=== PATIENT | female | born 1975 | race Caucasian/White ===

== ENCOUNTER 2023-04-29 10:35 | Outpatient (OUT) | payer OTHER, SELFPAY ==
--- NOTE | 2023-04-29 10:38 | XR_ITS ---
The [address] [address] Patient Name: KIMBERLY MOYA MRN: [id number] date: 1975 Sex: F Assigned Patient Location: [facility] Current Patient Location: Accession/Order Number: [id number] Exam Date: 04/29/2023 10:40 Report Date: 05/02/2023 20:56 At the request of: DILIP COVARRUBIAS Procedure: XR abdomen 1V EXAMINATION: XR abdomen 1V HISTORY: Right Flank Pain COMPARISON: No relevant comparison available. FINDINGS: KIDNEY/URETER - RIGHT: 4 mm stone projecting over right kidney. KIDNEY/URETER - LEFT: No visible renal or ureteral calcifications. PELVIS: No convincing ureteral stones. 2 mm calcification between left transverse process of L4-L5, slightly more medial than expected for the ureter; phleboliths versus mid ureteral stone. A few tiny punctate calcifications within the pelvis suspected represent phleboliths. BOWEL: No abnormal dilation or deviation. BONES: No acute abnormality. OTHER: Negative. No abnormal gaseous collections. XR/XR abdomen 1V IMPRESSION: 1. Right nephrolithiasis. 2. No right ureteral stones (history states right flank pain). 3. Additional calcifications described above are suspected to represent phleboliths. If there remains clinical concern CT imaging of the abdomen pelvis with IV contrast would provide greater diagnostic sensitivity. Electronically authenticated by: ZANDER SEXTON Date: 05/02/2023 20:56
== END 2023-04-29 10:36 | disposition home or self-care (01) ==
LOC: RAD 10:35
PROVIDERS: PCP Nurse Practitioner; Visit Provider Nurse Practitioner
DX: R10.31 Right lower quadrant pain (principal); N20.0 Calculus of kidney
CPT/HCPCS: 74018

== ENCOUNTER 2023-05-20 10:34 | Outpatient (OUT) | payer OTHER, SELFPAY ==
--- OUTSIDE RECORDS SUMMARY | 2023-05-20 10:40 | XMS_ITS | CCD ---
Author Name Unknown Address [address] [place] [address] Organization [facility] Care Team Providers Care Certified Recreational Therapist Name Role Phone Jg Green Primary Care Physician [phone] Dalton Medel Primary Care Physician Renata Medel Primary Care Physician [phone] Chantel Wyman Primary Care Physician Nadya Benito Referring Unavailable Nadya Benito Attending Unavailable Nadya Benito J Admitting Unavailable Zamzam, UNHAIRER Chantel L Attending Unavailable Zamzam, UNHAIRER Chantel L Attending Unavailable Rieddana, Yasmine D Attending Unavailable Rieddana Yasmine D Attending Unavailable Orzech Winter X Attending Unavailable Zamzam, UNHAIRER Chantel L Referring Unavailable Jigna, Nadya J Attending Unavailable Jigna, Nadya J Admitting Unavailable Zamzam, UNHAIRER Chantel L Attending Unavailable Zamzam, UNHAIRER Chantel L Admitting Unavailable Zamzam, UNHAIRER Chantel L Attending Unavailable Zamzam, UNHAIRER Chantel L Admitting Unavailable Zamzam, UNHAIRER Chantel L Admitting Unavailable Zamzam, UNHAIRER Chantel L Attending Unavailable Riedy, Yasmine D Admitting Unavailable Riedy, Yasmine D Attending Unavailable Riedy, Yasmine D Attending Unavailable Riedy, Yasmine D Admitting Unavailable Jigna, Nadya J Admitting Unavailable Jigna, Nadya J Referring Unavailable JignaDeniseNadya J Attending Unavailable Allergies Allergy Classification Reported Allergen(s) Allergy Type Date of Onset Reaction(s) Facility (13 sources) Chlorhexidine; Translations: [chlorhexidine topical] Drug Allergy [facility] Work Phone: (13 sources) Contrast media; Translations: [Contrast Dye] Drug allergy Unknown (qualifier value) [facility] Work Phone: (13 sources) Penicillins; Translations: [penicillins] Drug allergy RASH [facility] Work Phone: Medications Current Medications Medication Drug Class(es) Dates Sig (Normalized) Sig (Original) fluticasone propionate 0.05 mg/actuat metered dose nasal spray (1 source) Corticosteroid Start: 04-21-2022 take 1 spray(s) nasal route twice daily Flonase 0.05 mg/inh [place] 1 spray(s), Nasal, BID, 16 gram, Refill(s) 0, each nostril, [facility], 174, cm, 04/21/22 15:08:00 EST, Height/Length Dosing, 67.9, kg, 04/21/22 15:08:00 EST, Weight Dosing Start Date: 04/21/22 Status: Ordered Folic Acid (8 sources) Start: 10-23-2021 folic acid Daily, Refills(s) 0 Start Date: 10/23/21 Status: Ordered hydrOXYzine hydrochloride 10 mg oral tablet (12 sources) Antihistamine Start: 09-21-2022 take 1 tablet by mouth three times daily as needed for anxiety hydrOXYzine hydrochloride 10 mg Tab 10 mg = 1 tab(s), Oral, TID, PRN for anxiety, # 30 tab(s), Refills(s) 0, Pharmacy: [facility], 174, cm, 08/09/22 15:52:00 EDT, Height/Length Dosing, 71.4, kg, 08/09/22 15:52:00 EDT, Weight Dosing Start Date: 09/21/22 Status: Ordered Start: 09-15-2021 take 1 tablet by michael th three times daily as needed for anxiety hydrOXYzine hydrochloride 10 mg Tab 10 mg = 1 tab(s), Oral, TID, PRN for anxiety, # 30 tab(s), Refills(s) 0, Pharmacy: [facility], 174, cm, 06/22/21 17:30:00 EST, Height/Length Dosing, 65.5, kg, 06/22/21 17:30:00 EST, Weight Dosing Start Date: 09/15/21 Status: Ordered ibuprofen 800 mg oral tablet (8 sources) Nonsteroidal Anti-inflammatory Drug Start: 08-09-2022 take 1 tablet by mouth three times daily ibuprofen 800 mg Tab 800 mg = 1 tab(s), Oral, TID, # 90 tab(s), Refills(s) 0, Pharmacy: [facility], 174, cm, 08/09/22 15:52:00 EDT, Height/Length Dosing, 71.4, kg, 08/09/22 15:52:00 EDT, Weight Dosing Start Date: 08/09/22 Status: Ordered Mucinex DM 30 mg-600 mg Tab-ER (1 source) Start: 04-21-2022 End: 04-28-2022 take 1 tablet by mouth every twelve hours Mucinex DM 30 mg-600 mg Tab-ER 1 tab(s), Oral, q12hr Congestion for 7 day(s), 14 tab(s), Refill(s) 0, [facility], 174, cm, 04/21/22 15:08:00 EST, Height/Length Dosing, 67.9, kg, 04/21/22 15:08:00 EST, Weight Dosing Start Date: 04/21/22 Stop Date: 04/28/22 Status: Ordered nitrofurantoin, macrocrystals 25 mg / nitrofurantoin, monohydrate 75 mg oral capsule (2 sources) Nitrofuran Antibacterial Start: 05-04-2023 End: 05-11-2023 take 1 capsule by mouth twice daily nitrofurantoin macrocrystals-mono hydrate 100 mg Cap 100 mg = 1 cap(s), Oral, BID, X 7 day(s), # 14 cap(s), Refills(s) 0, Pharmacy: [facility]/pharmacy #[id number], 174, cm, 05/04/23 10:55:00 EST, Height/Length Dosing, 71.8, kg, 05/04/23 10:55:00 EST, Weight Dosing Start Date: 05/04/23 Stop Date: 05/11/23 Status: Ordered Vitamin C 500 mg Tab (12 sources) Start: 04-21-2020 take 1 tablet by mouth once daily Vitamin C 500 mg Tab 500 mg = 1 tab(s), Oral, Daily, Refills(s) 0 Start Date: 04/21/20 Status: Ordered Vitamin D (12 sources) Start: 06-09-2015 take 5000 [IU] by mouth once daily Vitamin D See Instructions, 5000 units po daily, Refills(s) 0, Prophylaxis Start Date: 06/09/15 Status: Ordered Problems Active Problems Problem Classification Problem Date Documented Da te Episodic/Chronic Abdominal pain (8 sources) Right flank pain; Translations: [Flank pain] 08-17-2022 Episodic Anxiety disorders (20 sources) Anxiety; Translations: [Generalized anxiety disorder] Onset: 2 04-24-2019 Chronic Calculus of urinary tract (4 sources) History of calculus of kidney; Translations: [Kidney stone] 04-15-2023 Episodic Disorders of lipid metabolism (5 sources) Hyperlipidemia; Translations: [Hyperlipidemia, unspecified] Onset: 3 Chronic Esophageal disorders (13 sources) Gastroesophageal reflux disease; Translations: [Gastroesophageal reflux disease without esophagitis] Onset: 2 04-24-2019 Chronic Genitourinary symptoms and ill-defined conditions (2 sources) Blood in urine 05-04-2023 Episodic Headache; including migraine (12 sources) Migraine 06-07-2014 Chronic Comment on above: WITH MENSES Other ear and sense organ disorders (12 sources) Otalgia 11-06-2020 Episodic Other female genital disorders (12 sources) Dysplasia of cervix 05-28-2014 Episodic Other gastrointestinal disorders (1 source) Other constipation; Translations: [Other constipation] Onset: 3 Episodic Other gastrointestinal disorders (8 sources) Chronic constipation 08-09-2022 Episodic Other non-traumatic joint disorders (2 sources) Pain of left hip joint; Translations: [Pain in left hip] Onset: 3 Episodic Other non-traumatic joint disorders (3 sources) Pain in right hip joint; Translations: [Pain in right hip] Onset: 3 Episodic Other non-traumatic joint disorders (16 sources) Hip pain 08-09-2022 Episodic Other upper respiratory disease (10 sources) Nasal congestion; Translations: [Nasal congestion] Onset: 2 Episodic Other upper respiratory infections (12 sources) Acute upper respiratory infection 11-06-2020 Episodic Residual codes; unclassified (3 sources) Body mass index 20-24 - normal; Translations: [Body mass index (BMI) 22.0-22.9, adult] Onset: 2 Episodic Residual codes; unclassified (2 sources) Patient encounter status; Translations: [Other specified health status] Onset: 2 Episodic Spondylosis; intervertebral disc disorders; other back problems (20 sources) Low back pain; Translations: [Lumbar radiculopathy] Onset: 3 04-21-2020 Episodic Unclassified (12 sources) History of SARS-CoV-2 05-27-2021 Unclassified (20 sources) Patient encounter status 10-23-2021 Past or Other Problems Problem Classification Problem Date Documented Da te Episodic/Chronic Other inflammatory condition of skin (12 sources) Itching of eye Resolved: 01-25-2019 04-05-2019 Episodic Unclassified (12 sources) Body mass index 20-24 - normal 11-06-2020 Results Test Name Value Interpretation Reference Range Facility Chlamydia/Gonococcus, NAAon 05-07-2023 C. trachomatis rRNA JUAN PABLO+probe Ql (Unsp spec) Negative Invalid Interpretation Code Negative [facility] Comment on above: Performed By: #### 1 [id number] ####[facility] [id number] [place] [address] N. gonorrhoeae rRNA JUAN PABLO+probe Ql (Unsp spec) Negative Invalid Interpretation Code Negative [facility] Comment on above: Result Comment: [facility] at: [facility] [address], [place] [id number] MD Brandon Rivera Performed By: #### 1 [id number] ####[facility] [id number] [place] [address] C Urineon 05-06-2023 Bacteria identified Cx Nom (U) Microbiology PROCEDURE: Urine Culture [R1] SOURCE: U CleanCatch BODY SITE: COLLECTED DATE/TIME: 05/04/2023 11:10 EST RECEIVED DATE/TIME: 05/04/2023 22:10 EST START DATE/TIME: 05/04/2023 22:10 EST FREE TEXT SOURCE: Chantel Mendes, Chantel Stallings FINAL REPORTS Final Report [] Verified Date/Time: 05/06/2023 09:53 EST 6,000 cfu/ml Mixed skin contaminants Performing Locations R1: This test was performed at: [facility], [address] [place] [address], [id number]- , [place], Normal [facility] Comment on above: Performed By: #### 2 [id number] ####[facility] [id number] [place] [address] Family Medicine Office/Clini c Noteon 05-04-2023 Family Medicine Office/Clinic Note HPI Staff Kimberly is a 47 year old female presenting for acute UTI symptoms Dysuria: Onset: today Symptoms: pressure, burning OTC used: Azo Last UTI: 1 year ago Hx of kidney stones: no UA in office documented in chart pt did take Azo this morning History of Present Illness pt presents today with dysuria that woke her up last night Review of Systems PHQ Score Initial Depression Screen Score: 0 SCORE ROS - Provider Constitutional: no fever, no chills, no sweats, no fatigue Respiratory: no shortness of breath, no cough, no orthopnea, no wheezing. Cardiovascular: no chest pain, no palpitations, no edema. Neurologic: no headache, no dizziness, no numbness, no weakness. Physical Exam Vitals & Measurements T: 36.8 ?C(Tympanic) HR: 80(Peripheral) RR: 18 BP: 100/70 SpO2: 99% HT: 69 in HT: 174 cm WT: 71.8 kg WT: 157.96 lb BMI: 23.72 General: alert, no acute distress ENMT: oral mucosa moist, no pharyngeal erythema or exudate Cardiovascular: regular rate and rhythm, normal peripheral perfusion Respiratory: Lungs CTA, respirations non labored Extremities: no deformity, no trauma Neurological: oriented x 4, LOC appropriate for age, CN II-XII intact, motor strength equal & normal bilaterally, speech normal Assessment/Plan 1. UTI symptoms (R39.9: Unspecified symptoms and signs involving the genitourinary system) pt presents today for bladder pressure and dysuria. took azo in the middle of the night. recently had KUB and has 4mm stone on right side. will treat with macrobid and refer to urology. all questions answered. Ordered: Chlamydia/Gonococcus, JUAN PABLO [facility] [place] Ambulatory Referral Urine Culture Urine Culture Urnls Dip Stick Auto w/o Microscopy POC 70641 Urnls Dip Stick Auto w/o Microscopy POC 71344 2. Kidney stone on right side (N20.0: Calculus of kidney) reviewed KUB results. will refer to urology Ordered: [facility] Internal Ambulatory Referral 3. Hematuria (R31.9: Hematuria, unspecified) u/a + for blood Ordered: [facility] Internal Ambulatory Referral Orders: nitrofurantoin, 100 mg = 1 cap(s), Oral, BID, X 7 day(s), # 14 cap(s), Refills(s) 0, Pharmacy: [facility]/pharmacy #[id number], 174, cm, 05/04/23 10:55:00 EST, Height/Length Dosing, 71.8, kg, 05/04/23 10:55:00 EST, Weight Dosing Follow-up No qualifying data available Problem List/Past Medical History Ongoing Acid reflux Annual physical exam Anxiety Cervical dysplasia Chronic constipation Dyslipidemia Flank pain Generalized anxiety disorder Hematuria Hip pain, bilateral History of 2019 novel coronavirus disease (COVID-19) History of kidney stones Kidney stone on right side Lumbar back pain with radiculopathy affecting left lower extremity Lumbar back pain with radiculopathy affecting right lower extremity Migraines Nasal congestion Panic attacks Physical exam Right flank pain Right hip pain Historical Acute URI BMI 24.0-24.9, adult Ear pain, right Itchy eyes Procedure/Surgical History Colonoscopy (06/30/2018), Endoscopy (06/30/2018), Esophagogastroduodenoscopy (06/2018), bilateral salpingectomy for sterilization (11/15/2014), loop electrosurgical excision procedure conization and endocervical curettage (06/07/2014), Cone biopsy (2014), Dental extraction hemorrhage control, None, Tooth extraction, Tooth extraction, complete upper. Medications hydrOXYzine hydrochloride 10 mg Tab, 10 mg= 1 tab(s), Oral, TID, PRN ibuprofen 800 mg Tab, 800 mg= 1 tab(s), Oral, TID nitrofurantoin macrocrystals-monohydrate 100 mg Cap, 100 mg= 1 cap(s), Oral, BID Vitamin C 500 mg Tab, 500 mg= 1 tab(s), Oral, Daily Vitamin D, See Instructions Allergies Contrast Dye (Unknown) chlorhexidine topical penicillins (RASH) Social History Alcohol - Denies Alcohol Use, 01/08/2011 Substance Abuse - Denies Substance Abuse, 01/08/2011 Tobacco - Denies Tobacco Use, 12/04/2020 Never (less than 100 in lifetime) Tobacco Use:. Never Smokeless Tobacco Use:. Household tobacco concerns: No., 05/04/2023 Family History Afib: Father. Diabetes mellitus type 2: Mother. Hypertension: Father. Immunizations Vaccine Date Status Comments influenza virus vaccine, inactivated - Not Given Postpone due to refusal influenza virus vaccine, inactivated - Not Given Patient Refuses diphtheria/pertussis, acel/tetanus adult 02/17/2012 Recorded Lab Results Ambulatory Point of Care Results Bilirubin Urine Dipstick: Negative (05/04/23 10:58:00) Blood Urine Dipstick: Trace-intact (05/04/23 10:58:00) Glucose Urine Dipstick: Negative (05/04/23 10:58:00) Ketones Urine Dipstick: Negative (05/04/23 10:58:00) Leukocytes Urine Dipstick: 1+ Small (05/04/23 10:58:00) Nitrite Urine Dipstick: Negative (05/04/23 10:58:00) Protein Urine Dipstick: Negative (05/04/23 10:58:00) Specific [place] Urine Dipstick: 1.010 (05/04/23 10:58:00) Urine Appearance Urine Dipstick: Clear (05/04/23 10:58:00) Urine Color Urine Dipstick: Yellow (05/04/23 10 (more content not included)... Normal [facility] Comment on above: Result Comment: Elec tronically Signed By: Chantel Mendes\.josiah\Date and Time Signed: 05/04/23 12:35 EST RAD - MISCon 05-04-2023 RAD - MISC [id number] [facility] C Urineon 04-17-2023 Bacteria identified Cx Nom (U) Microbiology PROCEDURE: Urine Culture [R1] SOURCE: U CleanCatch BODY SITE: COLLECTED DATE/TIME: 04/15/2023 11:56 EST RECEIVED DATE/TIME: 04/15/2023 18:35 EST START DATE/TIME: 04/15/2023 18:35 EST FREE TEXT SOURCE: Chantel Mendes Jodi L FINAL REPORTS Final Report [] Verified Date/Time: 04/17/2023 07:30 EST 1,000 cfu/ml Mixed skin contaminants Performing Locations R1: This test was performed at: [facility], [address] [place] [address], 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1975 Visit Date:04/15/2023 Ambulatory Visit Instructions Your Diagnosis Anxiety BMI 23.0-23.9, adult Non-smoker Your Care Team Attending Physician - Chantel Mendes Primary Care Physician - Renata Medel MD This Is Your Medications List ascorbic acid (Vitamin C 500 mg Tab) ergocalciferol (Vitamin D) hydrOXYzine (hydrOXYzine hydrochloride 10 mg Tab) ibuprofen (ibuprofen 800 mg Tab) Procedures Performed Colonoscopy (06/30/2018), Endoscopy (06/30/2018), Esophagogastroduodenoscopy (06/2018), bilateral salpingectomy for sterilization (11/15/2014), loop electrosurgical excision procedure conization and endocervical curettage (06/07/2014), Cone biopsy (2014), Dental extraction hemorrhage control, None, Tooth extraction, Tooth extraction, complete upper. Discharge Vitals Heart Rate (Peripheral) 76 Respiratory Rate 18 Blood Pressure 100/72 Height 174 cm Height 69 in Weight 71.4 kg Weight 157.08 lb BMI 23.58 Medications What How Much When Why Instructions Unchanged ascorbic acid (Vitamin C 500 mg Tab) 1 Tablets By Mouth Every day Unchanged ergocalciferol (Vitamin D) See instructions 5000 units po daily Unchanged hydrOXYzine (hydrOXYzine hydrochloride 10 mg Tab) 1 Tablets By Mouth 3 times a day as needed for for anxiety MARYAM (generalized anxiety disorder) Unchanged ibuprofen (ibuprofen 800 mg Tab) 1 Tablets By Mouth 3 times a day Lumbar back pain with radiculopathy affecting right lower extremity Right hip pain Allergies Contrast Dye (Unknown) chlorhexidine topical penicillins (RASH) Problems Ongoing - Any problem that you are currently receiving treatment for. Acid reflux Annual physical exam Anxiety Cervical dysplasia Chronic constipation Dyslipidemia Generalized anxiety disorder Hip pain, bilateral History of 2019 novel coronavirus disease (COVID-19) Lumbar back pain with radiculopathy affecting left lower extremity Lumbar back pain with radiculopathy affecting right lower extremity Migraines Nasal congestion Panic attacks Physical exam Right flank pain Right hip pain Historical - Any problem that you are no longer receiving treatment for. Acute URI BMI 24.0-24.9, adult Ear pain, right Itchy eyes Patient Survey You may receive a survey via text or e-mail asking about your office visit. Please share your experience with us by completing your survey. We appreciate your feedback and thank you for choosing us for your care. Normal [facility] Family Medicine Office/Clini c Noteon 04-15-2023 Family Medicine Office/Clinic Note HPI Staff Kimberly is a 47 year old female presenting to [facility] care Establish Care: History: Any previous diagnosis: Gerd, Anxiety, Migraines History of seeing any specialist: n/a When was your last doctors visit: Last provider: Dr Yanez Any recent labs: 10/15/22 Health Maintenance UTD: Colonoscopy: 2019 Dr mcmanus in [place], negative Mammogram: 10/2022 negative Pelvic/Pap: 10/2022 negative MARYAM: 19 Acute: Current issues/complaints: Right sided intermittent flank pain onset pt states 6-8 months. Pt has had x-rays done in 07/2022 and then had US in 09/2022. She was told she had a possible kidney stone with her lumbosacral x-ray. Pt states she has no idea if she passed that or not. Pt states in the last 2 weeks she will have intermittent left sided chest aching. She has recently bought a new house and works to jobs and feels like it the start of anxiety attacks and she will keep doing what she is doing and it will go away within a few minutes. History of Present Illness pt presents today with right flank pain. just recently moved to [place] so would like to be established here Review of Systems PHQ Score Initial Depression Screen Score: 0 SCORE ROS - Provider Constitutional: no fever, no chills, no sweats, no fatigue Respiratory: no shortness of breath, no cough, no orthopnea, no wheezing. Cardiovascular: no chest pain, no palpitations, no edema. Neurologic: no headache, no dizziness, no numbness, no weakness. Physical Exam Vitals & Measurements HR: 76(Peripheral) RR: 18 BP: 100/72 SpO2: 99% HT: 69 in HT: 174 cm WT: 71.4 kg WT: 157.08 lb BMI: 23.58 General: alert, no acute distress ENMT: oral mucosa moist, no pharyngeal erythema or exudate Cardiovascular: regular rate and rhythm, normal peripheral perfusion Respiratory: Lungs CTA, respirations non labored Extremities: no deformity, no trauma Neurological: oriented x 4, LOC appropriate for age, CN II-XII intact, motor strength equal & normal bilaterally, speech normal Assessment/Plan 1. Anxiety (F41.9: Anxiety disorder, unspecified) pt states she has been having a little more anxiety lately. With occasional chest tightness. but it only lasts a few seconds. discussed starting her on a daily anti anxiety med instead of using hydroxyzine as needed. pt does not like to take pills and would rather not do that at this time. Ordered: Urnls Dip Stick Auto w/o Microscopy POC 74236 2. Flank pain (R10.9: Unspecified abdominal pain) pt states she has been having this right sided flank pain for months. she has had x ray MRI, did PT and Pain management. she was told she had a kidney stone at one time, but isn't sure if she ever passed it. KUB ordered to be done at [facility]. No blood in u/a today. Ordered: Urine Culture 3. History of kidney stones (Z87.442: Personal history of urinary calculi) KUB and u/s with culture ordered 4. BMI 23.0-23.9, adult (Z68.23: Body mass index [BMI] 23.0-23.9, adult) BMI education complete Ordered: Urnls Dip Stick Auto w/o Microscopy POC 95545 5. Non-smoker (Z78.9: Other specified health status) continue not smoking Ordered: Urnls Dip Stick Auto w/o Microscopy POC 89459 Follow-up No qualifying data available Problem List/Past Medical History Ongoing Acid reflux Annual physical exam Anxiety Cervical dysplasia Chronic constipation Dyslipidemia Flank pain Generalized anxiety disorder Hip pain, bilateral History of 2019 novel coronavirus disease (COVID-19) History of kidney stones Lumbar back pain with radiculopathy affecting left lower extremity Lumbar back pain with radiculopathy affecting right lower extremity Migraines Nasal congestion Panic attacks Physical exam Right flank pain Right hip pain Historical Acute URI BMI 24.0-24.9, adult Ear pain, right Itchy eyes Procedure/Surgical History Colonoscopy (06/30/2018), Endoscopy (06/30/2018), Esophagogastroduodenoscopy (06/2018), bilateral salpingectomy for sterilization (11/15/2014), loop electrosurgical excision procedure conization and endocervical curettage (06/07/2014), Cone biopsy (2014), Dental extraction hemorrhage control, None, Tooth extraction, Tooth extraction, complete upper. Medications hydrOXYzine hydrochloride 10 mg Tab, 10 mg= 1 tab(s), Oral, TID, PRN ibuprofen 800 mg Tab, 800 mg= 1 tab(s), Oral, TID Vitamin C 500 mg Tab, 500 mg= 1 tab(s), Oral, Daily Vitamin D, See Instructions Allergies Contrast Dye (Unknown) chlorhexidine topical penicillins (RASH) Social History Alcohol - Denies Alcohol Use, 01/08/2011 Substance Abuse - Denies Substance Abuse, 01/08/2011 Tobacco - Denies Tobacco Use, 12/04/2020 Never (less than 100 in lifetime) Tobacco Use:. Never Smokeless Tobacco Use:. Household tobacco concerns: No., 04/15/2023 Family History Afib: Father. Diabetes mellitus type 2: Mother. Hypertension: Father. Immunizations Vaccine Date Status Comments influenza virus vaccine, inactiv (more content not included)... Normal [facility] Comment on above: Result Comment: Elec tronically Signed By: Chantel Mendes\.josiah\Date and Time Signed: 04/15/23 12:41 EST Physician Orderon 04-15-2023 Physician Order [id number] Normal [facility] MA Mamm Screen w/CAD if perf ormed bilaton 12-15-2022 MA Mamm Screen w/CAD if performed bilat Exam Date/Time: 12/10/2022 13:55 EDT Reason for Exam: SCREENING Report IMPRESSION: BIRADS 2 BENIGN FINDINGS, NORMAL INTERVAL FOLLOW-UP Follow-up: 12 MONTH RECALL Density: Heterogeneously dense. Vascular calcifications: No. EXAM: MA Mamm Screen w/CAD if performed bilat DATE: 12/10/2022 CLINICAL HISTORY: SCREENING. COMPARISONS: 10/23/2021, 10/21/2020, and 06/10/2018. TECHNIQUE: Routine full-field digital mammograms of both breasts were obtained. FINDINGS: There are no developing masses, suspicious microcalcifications, or areas of architectural distortion identified on the current study. No significant changes are identified from the prior studies, given differences in technique and positioning. Stable asymmetry lateral left breast at an anterior to middle depth on the CC view. Dense Breast: Yes. CAD analysis was performed and used in the interpretation. Board Certified Radiologists. Accredited by the ACR and FDA. MAMMOGRAPHY IS VERY IMPORTANT TO YOUR HEALTH. THE CURRENT [employer] GUIDELINES RECOMMENDS ANNUAL MAMMOGRAPHY BEGINNING AT AGE 40. THIS FACILITY UTILIZES A REMINDER SYSTEM TO ENSURE ALL PATIENTS RECEIVE REMINDER NOTIFICATIONS AT THE APPROPRIATE TIME BASED ON THE RECOMMENDATIONS OF THIS EXAM. Report Ordering Provider: Nadya Benito FINAL REPORT Dictated: 12/15/2022 3:13 am Ambrosio Thakur MD Signed (Electronic Signature): 12/15/2022 3:13 am Signed by: Ambrosio Thakur MD Transcribed by: JEFFREY Technologist: [facility] Assessment: BI-RADS Category 2-Benign finding Recommendation: Normal interval follow-up Normal [facility] Consent for Treatmenton 11-30 Consent for Treatment [id number]:127 Normal [facility] Family Medicine Office/Clini c Noteon 10-27-2022 Family Medicine Office/Clinic Note Chief Complaint Physical HPI Staff Pt is here to do physical and lab review Concerns:Cholestrol levels are elevated Refills:No PHQ9:10 MARYAM: 20 Health Maintenance: Colonoscopy: 2019- normal- [facility] Pap:2020 Last Labs:10/22/2022 History of Present Illness HISTORY OF PRESENT ILLNESS Kimberly Bruner is a 47-year-old female who presents today for a physical and review of labs. I met the patient on 07/2022. At that time, she was having some hip pain. X-rays and blood work were done at that time. Those results are detailed below. Paperwork for a routine physical was brought in today to be completed, signed, and scanned in the chart, with the original copy given back to the patient. Her cholesterol is slightly elevated compared to last year. She does not like fish and nuts and is asking if she can try omega-3 supplements. She denies trying fish oil supplements before. She is unhappy with her current weight and complains of abdominal weight gain. She questions if this is due to aging. She goes on walks every day and does not eat as much during the summer. She typically eats a lot of sugar and junk food but has been trying to eat more fruits and vegetables and limit her sugar intake. Her sugars and thyroid were within normal range. WOUND/OSTOMY CLINICAL NURSE SPECIALIST recently did hormonal blood work and an ultrasound of her uterus, and she told her that she might be getting close to menopause. She has a follow up appointment with WOUND/OSTOMY CLINICAL NURSE SPECIALIST specialist on , 10/28/2022. She takes Metamucil every other day. She gets diarrhea if she takes it daily. Her back pain and hip pain have not improved. She still has pain in her lower right side by her hip, but no flank pain. Her pain worsens with certain activities, such as lifting and doing sit-ups. She has been lifting more at work. Her x-rays showed some arthritis and a possible kidney stone on the right side. She denies ever having a kidney stone. Her anxiety has become more intense, and she worries about everything. She does not like to rely on her anxiety medication because she does not like to take medication. Last week, she went for two walks in one day to ease her anxiety. She denies any chest pain or pressure, unless anxiety related. She underwent colorectal cancer screening in [address] Page in [place]. Her results were normal. Review of Systems PHQ Score Initial Depression Screen Score: 2 All negative except as noted in the HPI. Physical Exam Vitals & Measurements HR: 72(Peripheral) BP: 118/76 SpO2: 100% HT: 69 in HT: 174 cm WT: 71.1 kg WT: 156.42 lb BMI: 23.48 Patient is alert and oriented to person place and time. Appears to be well-nourished. Normal affect. Neck is supple no adenopathy noted. No enlarged thyroid detected. Heart sounds are normal without murmur, gallop or rub. Heart rate and rhythm normal. Lung sounds clear to auscultation. No chest wall pain noted. Normal respiratory effort without use of accessory muscles. Bowel sounds are normal to auscultation in all 4 quadrants. No abdominal tenderness noted. No masses, guarding or rebound. No edema noted to bilateral lower extremities. Posterior tibial pulses palpable. Assessment/Plan Reviewed x-rays and labs from 07/2022. X-rays show a possible kidney stone on the right side and some degenerative back changes. Her blood test results were overall unremarkable with a normal CBC with differential. General chemistry was within normal range, but her lipid panel showed an elevated LDL of 136 mg/dL, HDL of 63 mg/dL, total cholesterol of 223 mg/dL, and total triglycerides of 97 mg/dL. Her alkaline phosphatase was a little elevated at 109 IU/L, which is down from 118 IU/L last year. Total protein levels were mildly on the high side. 1. Annual physical exam (Z00.00: Encounter for general adult medical examination without abnormal findings) Findings are normal overall today. Reviewed most recent blood test results with stable findings other than an elevated cholesterol. See below. 2. Anxiety (F41.9: Anxiety disorder, unspecified) Discussed recommendations for destressing techniques, such as deep breathing exercises, CBT, and finding time for herself every day, as well as the importance of stress reduction in general health overall. She verbalizes understanding. She is encouraged to take her medication for anxiety when needed and requests refills when needed. We discussed the role that stress can play in general health, as well as weight gain. She does have a family history of heart issues and wants to ensure that she is healthy overall. Discussed the need for decreasing functioning stress levels to help ensure this. 3. Generalized anxiety disorder (F41.1: Generalized anxiety disorder) Discussed recommendations for destressing techniques, such as deep breathing exercises, CBT, and finding time for herself every day, as well as the importance of stress reduction in general health overall. She verbalizes understanding. She is encouraged to take her medication for anxiety (more content not included)... Normal [facility] Comment on above: Result Comment: Elec tronically Signed By: Yasmine Dukes CNP\.br\Date and Time Signed: 10/27/22 17:43 EDT\.br\Electronically Co-Signed By: Chiquita Phipps\.br\Date and Time Co-Signed: 10/26/22 14:59 EDT Formson 10-26-2022 Forms [id number]#[id number]:127 Normal [facility] US Pelvis Non-OB Completeon 10-26-2022 US Pelvis Non-OB Complete Exam Date/Time: 10/22/2022 16:03 EDT Reason for Exam: N93.8 Other specified abnormal uterine and vaginal bleeding Report IMPRESSION: NEGATIVE ULTRASOUND OF THE PELVIS. EXAM: US Pelvis Non-OB Complete DATE: 10/22/2022 CLINICAL HISTORY: N93.8 Other specified abnormal uterine and vaginal bleeding. COMPARISON: None available. TECHNIQUE: Transabdominal ultrasound was performed of the pelvis. FINDINGS: The study is mildly limited by the patient's body habitus. The uterus is anteverted and mildly anteflexed in position, and otherwise unremarkable in appearance. Both ovaries appear within normal limits for the patient's age group. Equivalent blood flow is noted to both ovaries on Doppler analysis. There is no significant free fluid, abnormal adnexal masses, or other findings of concern identified. The uterine measurements and estimated volume: Uterus Length: 9.7 cm Uterus Width: 5.6 cm Uterus Height: 3.7 cm Uterus Volume: 106.1 cm3 Endometrium Thickness: 0.3 cm The right ovary measurements and estimated volume: Right Ovary Length: 3.1 cm Right Ovary Width: 2.7 cm Right Ovary Height: 1.8 cm Right Ovary Volume: 7.8 cm3 The left ovary measurements and an estimated volume are: Report Left Ovary Length: 2.2 cm Left Ovary Width: 2.1 cm Left Ovary Height: 1.8 cm Left Ovary Volume: 4.3 cm3 Ordering Provider: Nadya Benito FINAL REPORT Dictated: 10/26/2022 5:44 am Ambrosio Thakur MD Signed (Electronic Signature): 10/26/2022 5:44 am Signed by: Ambrosio Thakur MD Transcribed by: JEFFREY Technologist: [facility] Technical Comments Transabdominal Ultrasound Performed Uterus Position Anteverted Normal [facility] FSH and LHon 10-24-2022 Follitropin Qn 9.4 m[IU]/mL Invalid Interpretation Code [facility] Comment on above: Result Comment: Adul t Female: Follicular phase 3.5 - 12.5 Ovulation phase 4.7 - 21.5 Luteal phase 1.7 - 7.7 Postmenopausal 25.8 - 134.8 Performed at: [facility] [id number] PhD Pauline Minaya Performed By: #### 1 [id number] ####[facility] [address] [place] [address] Lutropin Qn 7.6 m[IU]/mL Invalid Interpretation Code [facility] Comment on above: Result Comment: Adul t Female: Follicular phase 2.4 - 12.6 Ovulation phase 14.0 - 95.6 Luteal phase 1.0 - 11.4 Postmenopausal 7.7 - 58.5 Performed By: #### 1 [id number] ####[facility] [address] [place] [address] Consent for Treatmenton 10-01 Consent for Treatment [id number]#[id number]:127 Normal [facility] Physician Orderon 10-22-2022 Physician Order [id number]#1.00CD:127 Normal [facility] PAP [id number] 10-21-2022 Cytology report Cyto stain Doc (Cvx/Vag) Note Invalid Interpretation Code [facility] Comment on above: Result Comment: TEST S RESULT FLAG UNITS REF RANGE LAB Clinician Provided Cytology Information Source.............Endocervix LMP / Prev Treat...DWE=[id number] No. of containers..01 ThinPrep Vial DIAGNOSIS: 01 NEGATIVE FOR INTRAEPITHELIAL LESION OR MALIGNANCY. Specimen adequacy: 01 Satisfactory for evaluation. Endocervical and/or squamous metaplastic cells (endocervical component) are present. Performed by: Rach Crenshaw Parole Supervisor . 01 Note: Note 02 The Pap smear is a screening test designed to aid in the detection of premalignant and malignant conditions of the uterine cervix. It is not a diagnostic procedure and should not be used as the sole means of detecting cervical cancer. Both false-positive and false-negative reports do occur. Test Methodology: Note 02 This liquid based ThinPrep(R) pap test was screened with the use of an image guided system. FLAG LEGEND: L-Low Normal,H-High Normal,LL-Alert Low,HH-Alert High <-Panic Low,>-Panic High,A-Abnormal,AA-Critical Abnormal Performed at: 01 [facility] [address] [place] [address] Diane Blum MD, 02 WB [facility] [address] [address] Nicole Taylor MD, Performed By: #### 3 [id number] ####[facility] [address] [place] [address] HPV 16+18+31+33+35+39+4 5+51+52+56+58+59+66 +68 DNA Probe+sig amp Ql (Cvx) Negative Invalid Interpretation Code Negative [facility] Comment on above: Result Comment: This nucleic acid amplification test detects fourteen high-risk HPV types (16,18,31,33,35,39,45,51,52,56,58,59,66,68) without differentiation. Performed at: [facility] [address] [place], [place] [id number] MD Viktoria Contreras Performed at: [facility] [id number] MD Brandon Rivera Performed By: #### 3 [id number] ####[facility] [address] [place] [address] PAP [id number] 10-18-2022 Collection Technique BRUSH-SPATULA Normal [facility] Comment on above: Performed By: #### 3 [id number] ####[facility] [address] [place] [address] Gynecological Body Site ENDOCERVIX Normal [facility] Comment on above: Performed By: #### 3 [id number] ####[facility] [address] [place] [address] LMP or Menopause Date [id number] Invalid Interpretation Code [facility] Comment on above: Performed By: #### 3 [id number] ####[facility] [address] [place] [address] Previous Cytology Negative Normal [facility] Comment on above: Performed By: #### 3 [id number] ####[facility] [address] [place] [address] Previous Treatment NONE Normal [facility] Comment on above: Performed By: #### 3 [id number] ####[facility] [address] [place] [address] Physician Orderon 10-18-2022 Physician Order [id number]#[id number]:127 Normal [facility] Physician Order [id number]#1.00CD:127 Normal [facility] Auto Diffon 10-15-2022 Basophils/100 WBC (Bld) 0.5 % Normal 0.0-2.0 [facility] Comment on above: Order Comment: Order Added by Discern Expert. Performed By: #### 2 314287, 36857053, 3353824, 413105092, 4686809, 1701328 ####[facility] [address] [place] [address] Basophils/Leukocyte s Auto (Bld) [Pure # fraction] 0.0 E9/L Normal 0.0-0.2 [facility] Comment on above: Order Comment: Order Added by Discern Expert. Performed By: #### 2 995276, 65263082, 5925932, 574592022, 7161856, 4814074 ####[address] [place] [address] Eosinophils/100 WBC (Bld) 1.2 % Normal 0.0-8.0 [facility] Comment on above: Order Comment: Order Added by Discern Expert. Performed By: #### 2 358998, 85293279, 0145346, 010076629, 0520065, 7134666 ####[address] [address] Eosinophils/Leukocy edd Auto (Bld) [Pure # fraction] 0.1 E9/L Normal 0.0-0.5 [facility] Comment on above: Order Comment: Order Added by Discern Expert. Performed By: #### 2 475743, 86546324, 5101348, 977696775, 4402446, 6468515 ####[facility] [address] [place] [address] Lymphocytes/100 WBC (Bld) 36.0 % Normal 14.0-50.0 [facility] Comment on above: Order Comment: Order Added by Discern Expert. Performed By: #### 2 455814, 04259904, 0971834, 432937043, 6878587, 4270816 ####[address] [address] Lymphocytes/Leukocy edd Auto (Bld) [Pure # fraction] 2.7 E9/L Normal 1.0-4.0 [facility] Comment on above: Order Comment: Order Added by Discern Expert. Performed By: #### 2 741497, 70237102, 1021495, 049391721, 4267076, 1434643 ####[facility] [address] [place] [address] Monocytes/100 WBC (Bld) 7.0 % Normal 4.0-14.0 [facility] Comment on above: Order Comment: Order Added by Discern Expert. Performed By: #### 2 396926, 28473126, 8469668, 206027451, 1544664, 7321544 ####[address] [place] [address] Monocytes/Leukocyte s Auto (Bld) [Pure # fraction] 0.5 E9/L Normal 0.2-1.0 [facility] Comment on above: Order Comment: Order Added by Discern Expert. Performed By: #### 2 189371, 07907090, 3430355, 070000011, 0774939, 3242945 ####[address] [address] Neutrophils/100 WBC (Bld) 55.3 % Normal 36.0-75.0 [facility] Comment on above: Order Comment: Order Added by Discern Expert. Performed By: #### 2 573003, 57041230, 0874083, 075506590, 9746202, 8219030 ####[address] [place] [address] Neutrophils/Leukocy edd Auto (Bld) [Pure # fraction] 4.1 E9/L Normal 2.0-7.5 [facility] Comment on above: Order Comment: Order Added by Discern Expert. Performed By: #### 2 577723, 85754544, 2068377, 283772182, 5440202, 5333260 ####[facility] [address] [place] [address] CBC w/ Auto Diffon 3 Erythrocyte distribution width (RBC) [Ratio] 14.1 % Normal 10.9-14.2 [facility] Comment on above: Performed By: #### 2 501420, 23116122, 5736881, 340246878, 0777749, 5943335 ####[facility] [address] [place] [address] Hematocrit (Bld) [Volume fraction] 40.0 % Normal 34.0-46.0 [facility] Comment on above: Performed By: #### 2 842440, 65328216, 1469570, 231173335, 5127896, 8684528 ####[address] [place] [address] Hemoglobin (Bld) [Mass/Vol] 13.4 g/dL Normal 12.0-16.0 [facility] Comment on above: Performed By: #### 2 598481, 47619752, 5918189, 477928182, 7817981, 9518928 ####[address] [address] MCH (RBC) [Entitic mass] 28.7 pg Normal 27.0-34.0 [facility] Comment on above: Performed By: #### 2 313145, 22926835, 3341517, 517564330, 0610590, 2790304 ####[address] [address] MCHC (RBC) [Mass/Vol] 33.4 g/dL Normal 31.4-36.0 [facility] Comment on above: Performed By: #### 2 149030, 04821886, 6018713, 223627343, 9202436, 3578915 ####[address] [place] [address] MCV (RBC) [Entitic vol] 86.0 fL Normal 80.0-100.0 [facility] Comment on above: Performed By: #### 2 629378, 83725165, 7539063, 243035436, 6445843, 7621159 ####[facility] [address] [place] [address] Platelet mean volume (Bld) [Entitic vol] 8.9 fL Normal 6.4-10.8 [facility] Comment on above: Performed By: #### 2 371753, 18043962, 4390319, 904035901, 8523807, 5741872 ####[address] [place] [address] Platelets (Bld) [#/Vol] 271.0 E9/L Normal 150.0-500.0 [facility] Comment on above: Performed By: #### 2 589875, 53555745, 3463889, 536444775, 6033271, 4589455 ####[address] [address] RBC (Bld) [#/Vol] 4.6 E12/L Normal 4.3-5.9 [facility] Comment on above: Performed By: #### 2 733365, 45697550, 7751629, 292757187, 3564354, 7934452 ####[address] [address] WBC corrected for nucl RBC Auto (Bld) [#/Vol] 7.4 E9/L Normal 4.0-11.0 [facility] Comment on above: Performed By: #### 2 971744, 35369308, 9021162, 564053713, 9489249, 5958082 ####[address] [address] CMPon 10-15-2022 Albumin [Mass/Vol] 4.1 g/dL Normal 3.3-5.0 [facility] Comment on above: Performed By: #### 2 395298, 34624977, 8312852, 172452023, 1824653, 0352326 ####[address] [place] [address] Albumin/Globulin (S) [Mass conc ratio] 1.1 Normal 1.1-2.2 [facility] Comment on above: Performed By: #### 2 391191, 59459419, 9828871, 062597676, 2724798, 7861903 ####[facility] [address] [place] [address] ALP [Catalytic activity/Vol] 109 Int._Unit/L High 21-98 [facility] Comment on above: Performed By: #### 2 459569, 69434356, 7715152, 551293150, 5431820, 6667055 ####[facility] [address] [place] [address] ALT No additional P-5'-P [Catalytic activity/Vol] 15 Int._Unit/L Normal 6-46 [facility] Comment on above: Performed By: #### 2 845658, 32481219, 9006804, 882377632, 0644455, 4369741 ####[facility] [address] [place] [address] Anion gap [Moles/Vol] 9 mmol/L Normal 6-16 [facility] Comment on above: Performed By: #### 2 945515, 67223294, 3257508, 553711700, 1649020, 4831388 ####[facility] [address] [place] [address] AST [Catalytic activity/Vol] 14 Int._Unit/L Normal 5-43 [facility] Comment on above: Performed By: #### 2 020792, 56667814, 6172504, 351081459, 9920996, 5559322 ####[facility] [address] [place] [address] Bilirubin [Mass/Vol] 0.5 mg/dL Normal 0.0-1.1 [facility] Comment on above: Performed By: #### 2 743323, 60945584, 4104814, 262040783, 2235958, 7633386 ####[facility] [address] [place] [address] Calcium [Mass/Vol] 9.1 mg/dL Normal 8.9-11.1 [facility] Comment on above: Performed By: #### 2 001132, 00487030, 5761850, 729791188, 9292972, 9301612 ####[facility] [address] [place] [address] Chloride [Moles/Vol] 108 mmol/L Normal 101-111 [facility] Comment on above: Performed By: #### 2 858760, 24514446, 7772033, 042614078, 4686598, 7396396 ####[facility] [address] [place] [address] CO2 [Moles/Vol] 27 mmol/L Normal 21-31 [facility] Comment on above: Performed By: #### 2 158858, 03078876, 6504726, 637229945, 7968794, 4384462 ####[facility] [address] [place] [address] Creatinine [Mass/Vol] 0.7 mg/dL Normal 0.5-1.3 [facility] Comment on above: Performed By: #### 2 100966, 29259234, 9342801, 675035415, 1989321, 6308838 ####[facility] [address] [place] [address] Globulin (S) [Mass/Vol] 3.8 g/dL Normal 1.4-4.0 [facility] Comment on above: Performed By: #### 2 240978, 05966595, 3860855, 579968501, 9513889, 4574930 ####[facility] [address] [place] [address] Glucose [Mass/Vol] 94 mg/dL Normal 55-199 [facility] Comment on above: Result Comment: If t his glucose result represents a fasting glucose, interpretation should refer to the following reference range: 55-99 mg/dL Performed By: #### 2 332796, 23379028, 5120957, 576220589, 9897433, 8207966 ####[facility] [address] [place] [address] Potassium [Moles/Vol] 4.1 mmol/L Normal 3.5-5.3 [facility] Comment on above: Performed By: #### 2 909589, 65480801, 4493081, 620972404, 2774596, 8513512 ####[facility] [address] [place] [address] Protein [Mass/Vol] 7.9 g/dL High 6.0-7.8 [facility] Comment on above: Performed By: #### 2 933411, 89005758, 3243924, 867607103, 6965721, 1682555 ####[facility] [address] [place] [address] Sodium [Moles/Vol] 140 mmol/L Normal 135-145 [facility] Comment on above: Performed By: #### 2 862508, 94700523, 3579968, 490424694, 7331362, 2368940 ####[facility] [address] [place] [address] Urea nitrogen [Mass/Vol] 9 mg/dL Normal 5-21 [facility] Comment on above: Performed By: #### 2 809964, 24239079, 6915223, 096191904, 0419289, 8906345 ####[facility] [address] [place] [address] Urea nitrogen/Creatinine [Mass ratio] 13 No Units Normal 10-20 [facility] Comment on above: Performed By: #### 2 227930, 52389503, 0447427, 612684136, 9424252, 6199424 ####[facility] [address] [place] [address] Consent for Treatmenton 09-30 Consent for Treatment [id number]:127 Normal [facility] WgvO2jub 10-15-2022 HbA1c (Bld) [Mass fraction] 5.3 % Normal <=5.9 [facility] Comment on above: Performed By: #### 2 519726, 17735719, 8418968, 886194057, 9977486, 8683514 ####[facility] [address] [place] [address] Lipid Panelon 10-15-2022 Cholesterol [Mass/Vol] 223 mg/dL High 120-200 [facility] Comment on above: Performed By: #### 2 118268, 58286916, 3527070, 018043686, 3164712, 0568004 ####[facility] [address] [place] [address] Cholesterol in HDL [Mass/Vol] 63 mg/dL Invalid Interpretation Code [facility] Comment on above: Result Comment: HDL > or equal to 60 mg/dL: Low cardiovascular risk HDL < 40 mg/dL : High cardiovascular risk Performed By: #### 2 645192, 11964702, 2405341, 702014304, 1500308, 0498466 ####[facility] [address] [place] [address] Cholesterol in LDL [Mass/Vol] 136 mg/dL High <=129 [facility] Comment on above: Performed By: #### 2 962413, 54877858, 0685485, 231110882, 2728995, 4385403 ####[facility] [address] [place] [address] Cholesterol in VLDL [Mass/Vol] 19 mg/dL Normal 7-40 [facility] [facility] Comment on above: Performed By: #### 2 [id number], [id number], [id number] ####[facility] [address] [place] [address] Triglyceride [Mass/Vol] 97 mg/dL Normal <=149 [facility] Comment on above: Performed By: #### 2 [id number], [id number], [id number] ####[facility] [address] [place] [address] eGFRon 10-15-2022 GFR/1.73 sq M.predicted among non-blacks MDRD (S/P/Bld) [Vol rate/Area] 109 mL/min/1.73 m2 Normal >=59 [facility] Comment on above: Order Comment: Order added by Discern Expert. Result Comment: [employer] darling kidney disease could be indicated at eGFR's of less than 60 mL/min/1.73m2. Kidney failure is indicated at less than 15 mL/min/1.73m2. Performed By: #### 2 [id number], [id number], [id number] ####[facility] [address] [id number] Patient Correspondenceon Patient Correspondence [id number]#[id number]:127 Normal [facility] Provider Letteron 09-22-2022 Provider Letter (Inserted Image. Joanne ble to display) [address] [place] [phone] September 22, [address] [address] : 1975 To Whom It May Concern, The above patient has anxiety and will need to have her anxiety medications with her. Please contact us with any questions or concerns. Respectfully, Renata Medel MD Family Medicine [address] [address] [facility] Pre-Certification Formon Pre-Certification Form [id number]:127 [facility] Pre-Certification Formon Pre-Certification Form [id number]:127 [facility] Coding Summary.on 08-17-2022 Coding Summary. CD:[id number] Ww+PGhlY WQ+OF9MUFOwE31orVGijB3rZ8OOY QcZMrrqIETSHSuWOsEaijGyHD3ai XNjZXJu IC8+RY4ySHEuDvzjxNRjt4I4fOF9 D11ktb4oHMypbLO3MCNzSoCaxykt x0brnWa8CTtvQeqaSwZs JLIsvF58MGT9dF19Rm92sFOajVQe p6bqdOb5ZzQsYMBqHYQ2iTswVCcz t2OyCTBgB02ziIWwp0L1 MRGetXaoeMYsIhAcuKA4aW6rWTrz ievab6wpyqrfFdi3kk57nSOyc4F0 aFD2S0FsoxA7HIPiaAAc UydegZTCgE9zryyhk7iaovskKxDb RDXdOGv3HJf7AVIdcWkaQxKmQW60 MHY1WDRgmrCgL5ExYNSz cVcsUqY6u4Y5Zs9KP2GAUmxlN9TA TUFSWTwvdGQ+DG29bc58J1KdFbbq Rja8OKHkXZW2bGS0nI2j GIRiQAers3L5kHR5P3MbcyXxfh7n m7qnTGLeAMvjZ34qvOGfp2O6NITb vKN2TDMlxApiPnUwaK75 Oyc+MTXqbMnrh8LzGzjop5epk4ql fHc8JzjlEHIobeDgsAjrVJN3y2Rd Ik8vIORctMP2qXM3bH9f GbIfTxD0UVjcW679LoTfsVPnToea F39qF8FvaEQ+TYDrPtz5ZNDtsNul VX7mC2ZlUGPuiclwgTYh sErjAV1wBWFmtveyDUDzcM0mFAQf Y1x1KgErSwD7PSrzJ5NxWXFhjsfd Ty57hW9nFyJnIvO8MHjt Q2JchfV9KBEnrBKhPHfcMHS0D07h w0A6LTDxLYNmMPH7kIX6wG0jkVai bjogbGVmdDsgdmVydGlj GGmnIJmxC008TJCpfJczBjFgJJqa ZyBEYXRlOiAgMDQvMTgvMjAyMzwv dGQ+CJJdEXO4cJzqFEDj eVNgVWkoCg1rkEkrtStpVQ6pOMVj emzsLUCifA3aVMNgiYQlpAvnZT0i SWEqbwwbp419AwWuDZS7 PYVloFFcJ5LdtA2fMiRpCOMzPAJb X1FexBDlDOmsQ117UCvzCdF2CSJr inQwJ6MjMRJbdAgjGgR0 a1E1He8Vu5XfqzyaW0IltVNtRwYe GoovLWz0D4ShBrbgrMI+HF71ZJQv ZD69DXp5UEK2jPhhIWac ZOIbF4YkyI2fDrItLNGwKTWxPhh+ PHRhYmxlIHdpZHRoPScxMDAlJyBz iVguFH1dOl8tKZUtNODf cUhddOJwOdAhd3klJGRtBDbtDX9p fTahM3TfqQV2HIPwt3g6Vu18B02y V4AggMJ+DSAdwRR0nXY6 aV0bJoAkLmR5FEbaN906CxWpiGTn Cjjxk9jmo4cznRl2GmS2NUBqagMq gUsbAZA9g8EkZp96X83v EDqvTQVnQEXhRVTqGRMceGtxjb4b qK2zBc8+GWDjbRO9uAT1xH0dBzLs BoT9SRlqP849OoTcuEKv Mkyuh2vir6tafOd4GzJxPOJkzqXg lNzcDHL9z1GhAr40L0YngHzbt4Px Ilz6ny86jCQuj8C2lED5 Q1FvCEEgxvbqtKHslFpoNE7qXZJf pkesBPHlyY0mZLXwR9r4HgExCsP5 GSrbK3WvafU1EHUhyNPq VIPylEEVpJ6qvzote0ljufjsBnCt SCOzDVr0EYo9BFNucAodKrTvURX1 YhM3BBP3kTNmoY4pfHmu qwcjiC2iNgn+IZN8eRTldGUXMJ7b OjwvdGQ+XTTiAMZ7dWygYYpeGTAh uC7oJYUiI7b3ExMzMcC6 IYcwB9ShonL6WXEmuPNbARUybBBM mM7xnpxgc9zvosjkIeJuLCVcSHh6 TGe4NZWycUxpZnFsJRK9 OuR3FHP6nXKoxR7ecGsrgkhnjP2s Oyc+ZbtocVxsOVD2IEc1R9PuYip5 BZDxeZuiQJ0gfENvKYxd Fx1mhJochSkcBV6tJSIogpkwh438 BpPez2yxCMTewCEyZFxmJWN2R18d j7E2DZAbPKWzTFU3hAP9 bR6otUcdafhjaZWxxCbpfvRcmRaz AQieZJcfU325BDNaiJvwHlOsSGq7 B3UtYqf8UYNfcGumBC9n vGMtROlwUd1dgBgevVjoHN5jIUGd qqdgk501KaGju1moOABujJKwEWfr LIL7P56do2R2DKVnCQBr FFC3hCB0vR5tuJebvmzaoOJeiGje tvSynEkuAXeuEYtcM159ZXPkqJpd QdEzpUv6F9OiKlf1GWRs mBosNG6ugHTbKKytLc8ebWwtrXvj KA1qQIWuzcfwf233XjBxo8eyYWMa gIRnAHinNVH5M14tt5Z5 BNHwBKNbTSZ5kGU0cD6hwKzbkefz sHKxuLgljpYpeSjqZGpbSCrgR864 IHRvcDsnPlBhdGllbnQg XCtbKZw3V3TnSkoebNC+XQ49KKBr EK67dWBwsKBaa7yaxFg5QcEcOVAr FFX2xNboZYjvf3LaVLGq D40beTMzg8S7UUBdyUannMFqReEt wNS4uR7rUZaacmidu6ykhhguBtft a4ofnc18cK16H01iFEnl OOOrZCTjIBKtCUEvxEfjld4dxQ3l Ii8+UPBduXD3aOX0sG0jJNFjHfG1 MAdbA092TrUpnTTrMvdl q2xht5luoVb7MdY7UZZmhfPazQcw WOA1a6JjLi16L21aKEmeEGFwCOUo JWSsQTObfBvyzp4zzZ4e Ii8+YFHtnHD7oJS0bM9oBuLvIgA7 JOilT539VcPbyLRpVbqyS75qX5Mn dXA+VQTcIpo0XGIdrQri VB4pqRDeSPboCf9qOME4EvSaGnMh CQxlM5YlWUSedodnnyuihSQ1BDDk AOTizY72Gc1nvTsbGVAt fGKEwG3ipjzlw2fslwpwYnSlBCYz TCt6NLq7JPEjcTpjFpJoSAR2OtZ6 GPK8yODsoU4wcKtwbneo kZ5nP0BmBNXjqigaBk88eK5wBwZc IkD6DZklRsy+C7KTJD9DBFJjUXMY VEggTDwvdGQ+PHRkIHN0 rNxnFSxdFSItmC2hALVpM7c2JyIy YoQ2QArhV8YzDSVfbhgkIg49vV6e OqWoToG6YFzsN4DjgiQ2 GFZycGWuDIanFCV7S38ht5W8IUTd LKHwZBJ0jNI2pZ5mlViyftbwjUWf dDsgdmVydGljYWwtYWxp X423SVXssKnuZsL3VtG6JlQ7Gwo1 F4ZySsw9WCPipVohQD8waFToUCwq Cm6yiHvxkFnpZD5yJOGx aijwSZEvzQ2nJYTwjCKuzDwtPI4n GBFlskhnp200EuAaOGN2ZYLjxMAl J2GlvI0lTvAtJVDvCRCk F6OgjXBqRHuyV133VUfeAvU0SPTn piAzD6CwXYGgkJztIwC0z8H7Gk90 NCBZZWFyczwvdGQ+PHRk DDC3zPdmLErzHTVsuH4wTYAeJ5n7 GoHxEwP9DZihE4RlCKKjgobgRs65 jA8wBmNoCmS6AMisU5Fq ydX9YNNvxLIfVXzhDQR6R07iu0Z7 RFAvQMGuYIR0vKQ3eU7ebHzfzhxe bGVmdDsgdmVydGljYWwt LLakS132TTMayTajErZfbUGhCYmt dGQ+UCByICZ5yArbASuyWISpyG6f SJLwH6f2TeFgAlA0VKvj G2EzYNVomtdgVc34hH4hQcCvXzL4 QQljQ8GsbqM1RVZmcMVgPXqtNZP2 N26no8B3XPWfWWSsEOG7 oWX4jO7jyYnnozewzJKzuQtxzxEl eZjrLZhiMSpiK695TRUlaPckAx11 eQFpcNikfoR4C5QoPpvd dHI+LX29GJHrXY78qRDsrPEne2jh wOo8XfGrRMDjFQU2vGsyABwld1Wc FKXnH67qhYJce5W8RQKj gHfpdNIrEnQqrJI6nT1vVCurpugc q9yuswlvNrclm5uolm48zE32O48l IHdpZHRoPSIzMCUiIHZh xQjzmo8jrA3gPa2+SSDbbIL6vZO5 rU0dJvNrBwH5WOnuL323DtWkhQPl Ruyxr6olg8edvJj6IxEe PKZimwRenTqzNBM8l0HxAg78E57l FAyeYDDqDDOfDKUzVNPznUfnrn1j sY2vFk6+YM3wv1embi06 wD21oXB+BQTzZWW7dUppJIygYPHd yP7eFErlXqD2IDRuPgAwyT92pNYy AIgnQh7xqMphnQpeGT7d ELGiehppu781KaYxx8hhGGAkrXEk YVfdWWA5N58om5O3YQMpPAJtPOQ1 iXD1jF7zoDbzlbojbZKq vBjbwuTonEawMLncEOyxC809LRFe tYmbJaZlhEZgK2yvjpSAXO9xGdxx dGQ+RJDjGDA8jLbuIVjl MXNjuN9aPDQxC9l9BlKmZqS7YBao R2PwveC4RIVjhUDkCOEkxEBJqP5q xlatx2tpfxavTrZtAXHx EJu3PLq6DABmqQnkSjQcSYO0PaY2 MBZ2eTWvvR7vfDgqrrwscT4aIje+ RklOOjwvdGQ+PHRkIHN0 pYuiNQqoVVFjfT4vGTErO6p2YePx NjG0NUxjJ6AmhgX9AJTyoRTnRZKc zXBFuX3fkrtfr8hddyuj LuGmDEXvNPr2AKk3GOKvbHbsSyPx NHA7FuD0EVL0nAVxbP1cnLdcjqdq lF5zJuw+TVJOOjwvdGQ+ NOUgOTQ6xFpzWSxvFKUarW4cZMEs T7t1PiPpYhB6DNdaM6BadbK7CDKn zEZsRLUogMFUvS0mdmau x2bhloheDqHlTRVsWSn1SAk7ZRQr cLeyQdJcGVS3XaC9KBK6sMWnnB8h zGbbxaducI5lFcd+UGF5 VCT7ZH69GN15X8BeNmjwdASijFH+ PHRhYmxlIHdpZHRoPScxMDAlJyBz iVkqCG6kDn4vJTYnBMHw bGxhcHNl (more content not included)... Normal [facility] XR Sacrum and Coccyx Min 2 V iewson 08-13-2022 XR Sacrum and Coccyx Min 2 Views Exam Date/Time: 08/10/2022 15:28 EDT Reason for Exam: M25.551 Pain in right hip;Pain, Non Traumatic Report IMPRESSION: No acute osseous findings. EXAMINATION/TECHNIQUE: XR Sacrum and Coccyx Min 2 Views HISTORY: Low back pain down the right leg with numbness. COMPARISON: None RESULT: No evidence for acute fracture involving the sacrum or coccyx. No evidence for acute fracture involving the visualized bony pelvis. Pubic symphysis is intact. Visualized hips unremarkable. No other significant abnormality. Ordering Provider: Yasmine Dukes FINAL REPORT Dictated: 08/13/2022 12:30 pm Manish Mendoza MD. Signed (Electronic Signature): 08/13/2022 12:30 pm Signed by: Manish Mendoza MD Transcribed by: JEFFREY Technologist: JAN Technical Comments Radiation Dose: Ka,r in mGy = na DAP = na Normal [facility] XR Spine Lumbosacral Minimum 4 Viewson 08-13-2022 XR Spine Lumbosacral Minimum 4 Views Exam Date/Time: 08/10/2022 15:28 EDT Reason for Exam: M25.551 Pain in right hip;Pain, Non Traumatic Report IMPRESSION: Minimal degenerative changes lumbar spine, similar to prior. EXAMINATION/TECHNIQUE: XR Spine Lumbosacral Minimum 4 Views HISTORY: Low back pain radiating down the right leg with numbness. COMPARISON: 11/10/2017. RESULT: Counting reference: Lumbosacral junction. For the purposes of this report, L4-5 is considered the level of the iliac crest and assume there are 5 lumbar-type vertebrae. Anatomic variant: None. Alignment essentially anatomic. No radiographic evidence for acute fracture. Vertebral body heights maintained. Disc spaces appear maintained. Tiny endplate osteophytes. Facet degenerative changes lower lumbar spine. Visualized sacrum appears intact. SI joints unremarkable. Probable right renal calculus. No other significant abnormality. Ordering Provider: Yasmine Dukes FINAL REPORT Dictated: 08/13/2022 12:29 pm Manish Mendoza MD Signed (Electronic Signature): 08/13/2022 12:29 pm Signed by: Manish Mendoza MD Transcribed by: JEFFREY Technologist: AO Technical Comments Radiation Dose: Ka,r in mGy = na DAP = na Normal [facility] XR Hip 2-3 Views Righton XR Hip 2-3 Views Right Exam Date/Time: 08/10/2022 15:28 EDT Reason for Exam: M25.551 Pain in right hip;Pain, Non Traumatic Report IMPRESSION: NEGATIVE RIGHT HIP. CLINICAL HISTORY: Pain, Non Traumatic, M25.551 Pain in right hip COMPARISONS: NONE AVAILABLE FINDINGS: AP and lateral view of the right hip were obtained. There is no hip fracture or dislocation. The right hip joint space is well preserved. There are no bone erosions or bone lesions involving the right hip. Ordering Provider: Yasmine Dukes FINAL REPORT Dictated: 08/12/2022 7:38 pm Juliano Nicole MD Signed (Electronic Signature): 08/12/2022 7:38 pm Signed by: Juliano Nicole MD Transcribed by: JEFFREY Technologist: JAN Technical Comments Radiation Dose: Ka,r in mGy = na DAP = na Normal [facility] Consent for Treatmenton 07-31 Consent for Treatment [id number]#[id number]:127 Normal [facility] Family Medicine Office/Clini c Noteon 08-10-2022 Family Medicine Office/Clinic Note Chief Complaint Hip pain HPI Staff Pain characteristics: Pain location:Rt hip Intensity:05/11 Onset:Years Medication used: Hx of MRI, pain management, Xrays History of Present Illness Kimberly Bruner is a 46-year-old female here today for acute visit of right hip pain radiating. Pain about 1 our of 10. History of MRI with pain management and has had x-rays. Patient has followed with Dr. Medel in this office as well as doctor for other acute issues and Dr. Green. Ms. Bruner complains of chronic right hip pain. She was last seen for this problem in 2019 and at that time an MRI was completed. While she has been trying to deal with it, the pain is starting to interfere more with her physical activity. While doing sit-ups, she will feel like there is something back there. She is unable to walk as much as she used to and has noticed she is gaining weight. Riding a bike aggravates the pain. Complains of tingling and numbness down her right leg. Sitting will aggravate the numbness. She also complains of stiffness and will sometimes hear her joints pop. When the pain flares up it will last for weeks. 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 In fact, she tries to take the stairs rather than the elevator to help stay active. While she does not remember the name of who ordered her MRI in 2019, she can confirm that at one point she was followed by pain management. Ibuprofen 800 mg and a heating pad will bring some pain relief. However, she really prefers not taking medication. Topical treatments trialed include Icy Hot, Aspercream, and Bengay. The Icy Hot did not help her. She has been through five rounds of physical therapy and tries to continue those stretches at home. PT sessions would include them pulling on her right leg and putting her in traction. With this, she could feel something moving in her hip. With the stretches she does at home, she can feel something pulling in her low back/right hip. Patient has thought about starting Pilates, but she has concerns that it will irritate the pain further. At night she will sometimes have to sleep with blankets between her knees to align her hips. She has also been to neurology who, per the patient, did not note anything significant on her MRI. Having another MRI gives her anxiety. Sometimes, if her right hip is completely made at me, the pain will travel across to her left hip. Ms. Bruner does have a family history of hip problems and her mom has osteoporosis. She does take a vitamin D supplement. Ms. Bruner denies dysuria and other urination issues. While she denies diarrhea, she does admit to constipation. She will take Metamucil a few times per week, which does help. If she takes too much Metamucil she will have diarrhea. This all started after having cervical lesion removed. Her periods still come monthly and she is on it right now. Review of Systems PHQ Score Initial Depression Screen Score: 0 Negative other than noted in HPI. Physical Exam Vitals & Measurements HR: 77(Peripheral) BP: 114/72 SpO2: 99% HT: 69 in HT: 174 cm WT: 71.4 kg WT: 157.08 lb BMI: 23.58 Patient is alert and oriented to person place and time. Appears to be well-nourished. Normal affect. Neck is supple no adenopathy noted. No enlarged thyroid detected. Heart sounds are normal without murmur, gallop or rub. Heart rate and rhythm normal. Lung sounds clear to auscultation. No chest wall pain noted. Normal respiratory effort without use of accessory muscles. Bowel sounds are normal to auscultation in all 4 quadrants. No abdominal tenderness noted. No masses, guarding or rebound. No edema noted to bilateral lower extremities. Posterior tibial pulses palpable. No CVA tenderness. Pain to palpation of the lumbosacral spine on the right, otherwise normal. Procedure RESULTS MRI from 2019 showed no significant stenosis or nerve impingement. Assessment/Plan 1. Lumbar back pain with radiculopathy affecting right lower extremity (M54.16: Radiculopathy, lumbar region) I was able to review most recent MRI results of the lumbar spine from 2019 showing no significant stenosis or nerve impingement. She reports the pain is mostly in her right buttock area, but radiates to the hip and can radiate to the hip. It can rotate from side to side, but is more so on the right side. She does have a family history of osteoporosis and family history of issues with the hips requiring intervention. She has never had any personal injury to these joints and is not aware of any bone thinning herself. 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 Symptoms consistent with inflammation triggering sciatic nerve response as symptoms tend to come and go in severity. Recommend x-ray of the lower back including lumbar spine and sacrum as well as pelvic bone and hip bone, especially on the right. Given location of symptoms, may want to co (more content not included)... Normal [facility] Comment on above: Result Comment: Elec tronically Signed By: Yasmine Dukes CNP\.br\Date and Time Signed: 08/10/22 06:55 EDT\.br\Electronically Co-Signed By: Snow No\.br\Date and Time Co-Signed: 08/09/22 20:08 EDT Ambulatory Visit Summaryon 0 08-09-2022 Ambulatory Visit Summary 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1975 Visit Date:08/09/2022 Ambulatory Visit Instructions Your Diagnosis Lumbar back pain with radiculopathy affecting right lower extremity Right hip pain, Hip pain, bilateral BMI 23.0-23.9, adult Physical exam Chronic constipation Pain in left hip Your Care Team Attending Physician - Yasmine Dukes CNP Primary Care Physician - Dalton Medel MD This Is Your Medications List ascorbic acid (Vitamin C 500 mg Tab) ergocalciferol (Vitamin D) folic acid hydrOXYzine (hydrOXYzine hydrochloride 10 mg Tab) ibuprofen (ibuprofen 800 mg Tab) [Image Removed: STOP]Stop taking these medications fluticasone nasal (Flonase 0.05 mg/inh [place]) Procedures Performed Colonoscopy (06/30/2018), Endoscopy (06/30/2018), Esophagogastroduodenoscopy (06/2018), bilateral salpingectomy for sterilization (11/15/2014), loop electrosurgical excision procedure conization and endocervical curettage (06/07/2014), Cone biopsy (2014), Dental extraction hemorrhage control, None, Tooth extraction, Tooth extraction, complete upper. Discharge Vitals Heart Rate (Peripheral) 77 Blood Pressure 114/72 Height 174 cm Height 69 in Weight 71.4 kg Weight 157.08 lb BMI 23.58 What to do next Scheduled Follow-Up Appointments Tuesday 3:40 PM EDT With: Yasmine Dukes CNP Where: [facility] Interpretation Code Hip pain, bilateral, pp_set_radi ology_subsp ecialty, [facility]\.br\ XR Sacrum and Coccyx Min 2 Views, 08/09/22, Routine, Order for future visit, Transport Mode: Ambulatory, Reason: Pain, Non Traumatic, No, Hip pain, bilateral [facility] CHEMISTRYOrdered By: Fang hendrix on 10-24-2021 Albumin [Mass/Vol] 4.2 g/dL Normal 3.3 - 5.0 gm/dL [facility] Albumin/Globulin [Mass ratio] 1.0 {ratio} Low 1.1 - 2.2 [facility] ALP [Catalytic activity/Vol] 118 [iU]/d High 21 - 98 Int._Unit/L [facility] ALT No additional P-5'-P [Catalytic activity/Vol] 16 [iU]/d Normal 6 - 46 Int._Unit/L [facility] Anion gap [Moles/Vol] 11 mmol/L Normal 6 - 16 mEq/L [facility] AST [Catalytic activity/Vol] 16 [iU]/d Normal 5 - 43 Int._Unit/L [facility] Bilirubin [Mass/Vol] 0.7 mg/dL Normal 0.0 - 1.1 mg/dL [facility] Calcium [Mass/Vol] 8.9 mg/dL Normal 8.9 - 11. 1 mg/dL [facility] Chloride [Moles/Vol] 103 mmol/L Normal 101 - 111 mmol/L [facility] Cholesterol [Mass/Vol] 204 mg/dL High 120 - 200 mg/dL [facility] Cholesterol in HDL [Mass/Vol] 54 mg/dL Invalid Interpretation Code [facility] Cholesterol in LDL [Mass/Vol] 121 mg/dL Normal <=129mg/dL [facility] Cholesterol in VLDL [Mass/Vol] 34 mg/dL Normal 7 - 40 mg/dL [facility] CO2 [Moles/Vol] 27 mmol/L Normal 21 - 31 mmol/L [facility] Creatinine [Mass/Vol] 0.7 mg/dL Normal 0.5 - 1.3 mg/dL [facility] Globulin (S) [Mass/Vol] 4.0 g/dL Normal 1.4 - 4.0 gm/dL [facility] Glucose [Mass/Vol] 97 mg/dL Normal 55 - 199 mg/dL [facility] Potassium [Moles/Vol] 4.1 mmol/L Normal 3.5 - 5.3 mmol/L [facility] Protein [Mass/Vol] 8.2 g/dL High 6.0 - 7.8 gm/dL [facility] Sodium [Moles/Vol] 137 mmol/L Normal 135 - 145 mmol/L [facility] Triglyceride [Mass/Vol] 172 mg/dL High <=149mg/dL [facility] Urea nitrogen [Mass/Vol] 9 mg/dL Normal 5 - 21 mg/dL [facility] Urea nitrogen/Creatinine [Mass ratio] 13 mg/mg Normal 10 - 20 [facility] CHEMISTRYOrdered By: SYSTEM SYSTEM on 10-24-2021 GFR/1.73 sq M.predicted among blacks MDRD (S/P/Bld) [Vol rate/Area] mL/min/1.73 m2 Normal >=59mL/min/ 1.73 m2 [facility] GFR/1.73 sq M.predicted among non-blacks MDRD (S/P/Bld) [Vol rate/Area] mL/min/1.73 m2 Normal >=59mL/min/ 1.73 m2 [facility] S HEMATOLOGYOrdered By: SYSTEM SYSTEM on 10-24-2021 Basophils/100 WBC (Bld) 0.6 % Normal 0.0 - 2.0 % [facility] Basophils/Leukocyte s Auto (Bld) [Pure # fraction] 0.0 E9/L Normal 0.0 - 0.2 E9/L [facility] Eosinophils/100 WBC (Bld) 0.9 % Normal 0.0 - 8.0 % [facility] Eosinophils/Leukocy edd Auto (Bld) [Pure # fraction] 0.1 E9/L Normal 0.0 - 0.5 E9/L [facility] Lymphocytes/100 WBC (Bld) 39.1 % Normal 14.0 - 50.0 % [facility] Lymphocytes/Leukocy edd Auto (Bld) [Pure # fraction] 2.8 E9/L Normal 1.0 - 4.0 E9/L [facility] Monocytes/100 WBC (Bld) 6.1 % Normal 4.0 - 14.0 % [facility] Monocytes/Leukocyte s Auto (Bld) [Pure # fraction] 0.4 E9/L Normal 0.2 - 1.0 E9/L [facility] Neutrophils/100 WBC (Bld) 53.3 % Normal 36.0 - 75.0 % [facility] Neutrophils/Leukocy edd Auto (Bld) [Pure # fraction] 3.8 E9/L Normal 2.0 - 7.5 E9/L [facility] HEMATOLOGYOrdered By: Mary Anne Kemp on 10-24-2021 Erythrocyte distribution width (RBC) [Ratio] 14.0 % Normal 10.9 - 14.2 % [facility] Hematocrit (Bld) [Volume fraction] 40.7 % Normal 34.0 - 46.0 % [facility] Hemoglobin (Bld) [Mass/Vol] 13.8 g/dL Normal 12.0 - 16.0 gm/dL [facility] MCH (RBC) [Entitic mass] 29.4 pg Normal 27.0 - 34.0 pg [facility] MCHC (RBC) [Mass/Vol] 33.8 g/dL Normal 31.4 - 36.0 gm/dL [facility] MCV (RBC) [Entitic vol] 86.9 fL Normal 80.0 - 100.0 fL [facility] Platelet mean volume (Bld) [Entitic vol] 8.6 fL Normal 6.4 - 10.8 fL [facility] Platelets (Bld) [#/Vol] 255.0 E9/L Normal 150.0 - 500.0 E9/L [facility] RBC (Bld) [#/Vol] 4.7 E12/L Normal 4.3 - 5.9 E12/L [facility] WBC corrected for nucl RBC Auto (Bld) [#/Vol] 7.1 E9/L Normal 4.0 - 11.0 E9/L [facility] Vital Signs Date Time Vital Sign Value Performing Clinician Addison gunderson 10-25-2022 15:31-0400 Blood Pressure Location [facility] 10-25-2022 15:31-0400 Diastolic blood pressure 76 mm[Hg] [facility] 10-25-2022 15:31-0400 Heart rate 72 /min [facility] 10-25-2022 15:31-0400 SaO2% (BldA) [Mass fraction] 100 % [facility] 10-25-2022 15:31-0400 Systolic blood pressure 118 mm[Hg] [facility] 08-09-2022 15:50-0400 Blood Pressure Location [facility] 08-09-2022 15:50-0400 Diastolic blood pressure 72 mm[Hg] [facility] 08-09-2022 15:50-0400 Heart rate 77 /min [facility] 08-09-2022 15:50-0400 SaO2% (BldA) [Mass fraction] 99 % [facility] 08-09-2022 15:50-0400 Systolic blood pressure 114 mm[Hg] [facility] 04-21-2022 15:06-0500 Blood Pressure Location [facility] 04-21-2022 15:06-0500 Body temperature 96.8 [degF] [facility] 04-21-2022 15:06-0500 Diastolic blood pressure 74 mm[Hg] [facility] 04-21-2022 15:06-0500 Heart rate 99 /min [facility] 04-21-2022 15:06-0500 Respiratory rate 18 /min [facility] 04-21-2022 15:06-0500 SaO2% (BldA) [Mass fraction] 100 % [facility] 04-21-2022 15:06-0500 Systolic blood pressure 112 mm[Hg] [facility] 10-23-2021 14:17-0400 Blood Pressure Location [facility] 10-23-2021 14:17-0400 Diastolic blood pressure 62 mm[Hg] [facility] 10-23-2021 14:17-0400 Heart rate 96 /min [facility] 10-23-2021 14:17-0400 SaO2% (BldA) [Mass fraction] 98 % [facility] 10-23-2021 14:17-0400 Systolic blood pressure 110 mm[Hg] [facility] Encounters Encounter Date Encounter Type Care Provider Facility Start: 05-24-2023 ambulatory Winter X Orlili Judd y:[facility] Start: 05-09-2023 ambulatory Nadya Jigna Facility:[facility] Start: 05-04-2023 End: 05-05-2023 ambulatory UNHAIRER Chantel L Zamzam [place] Start: 05-04-2023 End: 05-04-2023 Lab Drop off Chantel L Zamzam [facility] Start: 04-15-2023 End: 04-16-2023 ambulatory UNHAIRER Chantel L Zamzam [facility] Start: 12-10-2022 End: 12-11-2022 ambulatory Nadya J Jigna [facility] Start: 12-10-2022 End: 12-10-2022 Patient encounter procedure Nadya J Jigna [facility] Start: 10-25-2022 End: 10-26-2022 ambulatory Yasmine D Riedy Facility:[facility] Start: 10-25-2022 End: 10-25-2022 Patient encounter procedure Yasmine D Riedy [facility] Start: 10-25-2022 End: 10-25-2022 Well adult monitoring check done Yasmine D Riedy [facility] Start: 10-22-2022 End: 10-23-2022 ambulatory Nadya J Jigna Facility[facility] Start: 10-22-2022 End: 10-22-2022 Patient encounter procedure Nadya J Jigna [facility] Start: 10-18-2022 End: 10-19-2022 ambulatory Nadya J Jigna Facility[facility] Start: 10-18-2022 End: 10-18-2022 Lab Drop off Nadya J Jigna [facility] Start: 10-15-2022 End: 10-16-2022 ambulatory Yasmine D Riedy Facility[facility] Start: 08-10-2022 End: 08-11-2022 ambulatory Yasmine D Riedy Facility[facility] Start: 08-10-2022 End: 08-10-2022 Patient encounter procedure Yasmine D Riedy [facility] Start: 08-09-2022 End: 08-10-2022 ambulatory Yasmine D Riedy Facility:[facility] Start: 08-09-2022 End: 08-09-2022 Patient encounter procedure Yasmine D Riedy [facility] Start: 08-09-2022 End: 08-09-2022 Well adult monitoring check done Yasmine D Riedy [facility] Start: 04-21-2022 End: 04-21-2022 Patient encounter procedure Dalton Zionla [facility] Start: 10-24-2021 End: 10-24-2021 Patient encounter procedure Jg Green [facility] Start: 10-23-2021 End: 10-23-2021 Patient encounter procedure Jg Green [facility] Start: 10-23-2021 End: 10-23-2021 Well adult monitoring check done Jg Green [facility] Start: 10-23-2021 End: 10-23-2021 Patient encounter procedure Nadya Benito [facility] Procedures Date Procedure Procedure Detail Performing Clinician Start: 06-30-2018 Esophagogastroduodenoscopy Jg Green Start: 06-30-2018 Colonoscopy Jg Green Start: 06-30-2018 Endoscopy Jg Green Start: 11-15-2014 bilateral salpingectomy for sterilization Jg Green Start: 06-07-2014 loop electrosurgical excision procedure conization and endocervical curettage Jg Green Start: 05-02-2014 Cone biopsy Jg Green Dental extraction he morrhage control Jg Green None Jg Green Tooth extraction Jg Green Comment on above: WISDOM X4 Tooth extraction, complete upper Jg Green Immunizations Immunization Date Immunization Notes Care Provider Karely fortune 02-17-2012 tetanus toxoid, reduced diphtheria toxoid, and acellular pertussis vaccine, adsorbed Jg Green [facility] NEGATED: Highlighted row has not occurred!04-21-2022 influenza virus vaccine, unspecified formulation Dalton Medel [facility] NEGATED: Highlighted row has not occurred!04-05-2019 influenza virus vaccine, unspecified formulation Jg Green [facility] Payers Date Payer Category Payer Unknown [id number] 2022 Unknown [id number] 1975 Unknown [id number] 2.16.8 [id number] 1975 Unknown [id number] 2.16.8 40.1.516971.3.579.2. 1975 Unknown [id number] 2.16.8 40.1.406771.3.579.2. 1977 Unknown [id number] 2.16.8 40.1.743985.3.579.2. 1977 Unknown [id number] 2.16.8 40.1.171578.3.579.2. 1977 Unknown [id number] 2.16.8 40.1.215082.3.579.2. 1977 Unknown [id number] 2.16.8 40.1.812145.3.579.2. 1977 Unknown [id number] 2.16.8 40.1.208424.3.579.2. 1977 Unknown [id number] 2.16.8 40.1.051773.3.579.2. 1977 Unknown [id number] 2.16.8 40.1.892914.3.579.2. 1977 Unknown [id number] 2.16.8 40.1.076771.3.579.2. 1975 Unknown [id number] 2.16.8 40.1.404704.3.579.2. 1975 Unknown [id number] 2.16.8 40.1.651238.3.579.2.7 Social History Date Type Detail Facility Start: 06-22-2021 Tobacco smoking status Ex-smoker (fi nding) [facility] Tobacco smoking status Never [facility] Sex Assigned At Female [facility] Tobacco smoking status No Smokin g Status Entered [facility] Start: 10-25-2022 End: 05-04-2023 Tobacco smoking status Never smoked tobacco (finding) [facility] Functional Status Date Assessment Result Facility 10-25-2022 Functional Status N/A [facility] 08-09-2022 Functional Status N/A [facility] 04-21-2022 Functional Status N/A [facility] 10-23-2021 Functional Status N/A [facility] Clinical Notes 12-04-2020 to 05-04-2023 LaboratoryRadiologyRadiologyLaboratoryRadiologyLaboratoryRadiologyRadiologyRadio logy Note Date & Type Note Facility 05-04-2023 Evaluation + Plan note Diagnostic Tests PendingUrine Culture 05/04/23Chlamydia/Gonococcus, JUAN PABLO 05/04/23 [facility] 07-21-2022 Hospital Discharg e instructions Follow Up Care 07/21/2022 16:08:05 With:Yasmine Dukes CNP Address: When:Within 3 Month(s) Comments:physical and review labs [facility] 10-23-2021 Evaluation + Plan note Future Scheduled TestsCBC w/ Auto Diff 10/23/21Comprehensive Metabolic Panel 10/23/21Lipid Panel 10/23/21CT Abdomen/Pelvis w/ Contrast 12/04/20US Aorta 12/04/20 [facility] 12-04-2020 Evaluation + Plan note Future Scheduled TestsCT Abdomen/Pelvis w/ Contrast 12/04/20US Aorta 12/04/20 [facility] Evaluation + Plan note Future Appointments Appointment Date:10/25/2022 03:40:00 PM Scheduled Provider:Yasmine Dukes CNP Location:[facility] Appointment Type: Open Future Scheduled [id number] 08/09/22CBC w/ Auto Diff 08/09/22Comprehensive Metabolic Panel 08/09/22Lipid Panel 08/09/22XR Hip 2-3 Views Right 08/09/22XR Sacrum and Coccyx Min 2 Views 08/09/22XR Spine Lumbosacral Minimum 4 Views 08/09/22 [facility] Evaluation + Plan note Future Appointments Appointment Date:10/25/2022 03:40:00 PM Scheduled Provider:Yasmine Dukes CNP Location:[facility] Appointment Type: Open Future Scheduled [id number] 08/09/22CBC w/ Auto Diff 08/09/22Comprehensive Metabolic Panel 08/09/22Lipid Panel 08/09/22 [facility] Evaluation + Plan note Future Appointments Appointment Date:10/22/2022 04:00:00 PM Scheduled Provider: [facility] Appointment Type:US Abdominal/Pelvis (FT) Appointment Date:10/25/2022 03:40:00 PM Scheduled Provider:Yasmine Dukes CNP Location:[facility] Appointment Type: Open Appointment Date:10/30/2022 10:30:00 AM Scheduled Provider: [facility] Appointment Type:MA Screen (FT) Diagnostic Tests PendingPAP [id number] 10/18/22 Future Scheduled TestsUS Pelvis Non-OB Complete 10/22/22US Transvaginal Non-OB 10/22/22MA Mamm Screen w/CAD if perf and 3D Robert 10/30/22 [facility] Evaluation + Plan note Future Appointments Appointment Date:10/25/2022 03:40:00 PM Scheduled Provider:Yasmine Dukes CNP Location:[facility] Appointment Type: Open Appointment Date:10/30/2022 10:30:00 AM Scheduled Provider: Location[facility] Appointment Type:MA Screen (FT) Diagnostic Tests PendingFSH and LH 10/22/22 Future Scheduled TestsMA Mamm Screen w/CAD if perf and 3D Robert 10/30/22 [facility] Evaluation + Plan note Future Appointments Appointment Date:10/30/2022 10:30:00 AM Scheduled Provider: Location[facility] Appointment Type:MA Screen (FT) Future Scheduled TestsMA Mamm Screen w/CAD if perf and 3D Robert 10/30/22 [facility] Hospital course Narrative No data available for this section [facility] Hospital Discharge instructions No data available for this section [facility] Progress note No data available for this section [facility] Summary Purpose Family History No Family History Records Found Advance Directives No Advanced Directives Records Found Additional Source Comments Care Team (unrecognized sect ion and content) Personnel Name: Jg Green MD Address: [address] [place] [address] Personnel Name: Jg Green MD Address: [address] [place] [address] Personnel Name: Jg Green MD Address: [address] [place] [address] Personnel Name: Dalton Medel MD Address: Address: [address] [place] [address] Personnel Name: Dalton Medel MD Address: Address: [address] [place] [address] Personnel Name: Dalton Medel MD Address: Address: [address] [place] [address] Personnel Name: Renata Medel MD Address: Address: [address] [place] [address] Personnel Name: Renata Medel MD Address: Address: [address] [place] [address] Personnel Name: Renata Medel MD Address: Address: [address] [place] [address] Personnel Name: Renata Medel MD Address: Address: [address] [place] [address] Personnel Name: Chantel Mendes Address: Address: [address] [place] [address]- Personnel Name: Chantel Mendes Address: Address: [address] [place] [address]- INFORMATION SOURCE (unrecogn ized section and content) DATE CREATED AUTHOR 05/09/2023 [facility] FOR RECORDS PERTAINING TO PATIENTS WHO ARE OR HAVE BEEN ENROLLED IN A CHEMICAL DEPENDENCY/SUBSTANCEABUSE PROGRAM, SOME INFORMATION MAY BE OMITTED. This clinical summary was aggregated from multiple sources. Caution should be exercised in using it in the provision of clinical care. This summary normalizes information from multiple sources, and as a consequence, information in this document may materially change the coding, format and clinical context of patient data. In addition, data may be omitted in some cases. CLINICAL DECISIONS SHOULD BE BASED ON THE PRIMARY CLINICAL RECORDS. [facility]. provides no warranty or guarantee of the accuracy or completeness of information in this document.
--- NOTE | 2023-05-20 10:41 | XR_ITS ---
[facility] [place] [id number] Patient Name: KIMBERLY MOYA MRN: [id number] date: 1975 Sex: F Assigned Patient Location: RAD Current Patient Location: RAD Accession/Order Number: [id number] Exam Date: 05/20/2023 10:45 Report Date: 05/20/2023 11:00 At the request of: DILIP COVARRUBIAS Procedure: XR abdomen 1V EXAMINATION: XR abdomen 1V HISTORY: Kidney Stone COMPARISON: 04/29/2023 FINDINGS: KIDNEY/URETER - RIGHT: 5 mm calcification projects of the right mid pole kidney KIDNEY/URETER - LEFT: No visible renal or ureteral calcifications. Stable 2 mm calcification projects between the left L4 and L4 transverse processes, nonspecific PELVIS: No visible ureteral calcifications. Any visible calcifications favor phleboliths. BOWEL: No abnormal dilation or deviation. Moderate amount of stool throughout the colon BONES: No acute abnormality. OTHER: Negative. No abnormal gaseous collections. XR/XR abdomen 1V IMPRESSION: Stable right nephrolithiasis Electronically authenticated by: CELINE ZAMORA Date: 05/20/2023 11:00
== END 2023-05-20 10:35 | disposition home or self-care (01) ==
LOC: RAD 10:37
PROVIDERS: PCP Nurse Practitioner; Visit Provider Nurse Practitioner
DX: N20.0 Calculus of kidney (principal)
CPT/HCPCS: 74018

== ENCOUNTER 2023-08-08 09:53 | Outpatient (OUT) | payer OTHER, SELFPAY ==
--- NOTE | 2023-08-08 10:16 | XR_ITS ---
[facility] [place] [id number] Patient Name: KIMBERLY MOYA MRN: [id number] date: 1975 Sex: F Assigned Patient Location: [facility] Current Patient Location: [facility] Accession/Order Number: [id number] Exam Date: 08/08/2023 10:08 Report Date: 08/08/2023 10:33 At the request of: DILIP COVARRUBIAS Procedure: XR lumbar spine min 4V EXAMINATION: XR lumbar spine min 4V HISTORY: Low back pain with Right side sciatica COMPARISON: No relevant comparison available. FINDINGS: BONES: No significant spondylosis, scoliosis, fracture, or visible bony lesion. DISC SPACES: No significant disc height narrowing, subluxation, or endplate abnormality. PARASPINOUS: 5 mm calcification projecting over right kidney. OTHER: Negative. XR/XR lumbar spine min 4V IMPRESSION: 1. No acute bone abnormality of the lumbar spine. 2. No significant degenerative changes. 3. Suspect right nephrolithiasis. Electronically authenticated by: ZANDER SEXTON Date: 08/08/2023 10:33
--- NOTE | 2023-08-08 10:16 | XR_ITS ---
The [address] [address] Patient Name: KIMBERLY MOYA MRN: [id number] date: 1975 Sex: F Assigned Patient Location: [facility] Current Patient Location: [facility] Accession/Order Number: [id number] Exam Date: 08/08/2023 10:08 Report Date: 08/08/2023 10:37 At the request of: DILIP COVARRUBIAS Procedure: XR thoracic spine 3V EXAMINATION: XR thoracic spine 3V HISTORY: Low back pain with Right side sciatica COMPARISON: No relevant comparison available. FINDINGS: BONES: No significant spondylosis, scoliosis, fracture, or visible bony lesion. DISC SPACES: No significant disc height narrowing, subluxation, or endplate abnormality. PARASPINOUS: Negative. No paraspinous abnormality is seen. OTHER: Negative. XR/XR thoracic spine 3V IMPRESSION: 1. No appreciable acute abnormality or significant degenerative changes to account for patient's symptoms. Electronically authenticated by: ZANDER SEXTON Date: 08/08/2023 10:37
--- OUTSIDE RECORDS SUMMARY | 2023-08-08 10:17 | XMS_ITS | CCD ---
Author Organization [facility] Care Team Providers Care Surveyor Instrument Assistant Name Role Phone gJ Green Primary Care Physician Dalton Medel Primary Care Physician Renata Medel Primary Care Physician [phone] Chantel Wyman Primary Care Physician [phone] Yasmine Dukes Attending Unavailable RiedyYasmine Attending Unavailable Zamzam, Chantel Stallings Referring Unavailable Orzech, Winter X Attending Unavailable ElmeredYasmine cortez Attending Unavailable RiedYasmine cortez Admitting Unavailable Zamzam, Chantel Stallings Admitting Unavailable Zamzam, Chantel Stallings Attending Unavailable Jigna, Nadya Adiel Admitting Unavailable Jigna, Nadya Chun Attending Unavailable Zamzam, Chantel L Attending Unavailable Zamzam, Chantel L Admitting Unavailable Zamzam, Chantel L Admitting Unavailable Zamzam, Chantel L Attending Unavailable Jigna, Nadya J Attending Unavailable Jigna, Nadya J Referring Unavailable Jigna, Nadya J Admitting Unavailable Jigna, Nadya J Admitting Unavailable Jigna, Nadya J Attending Unavailable Jigna, Nadya J Referring Unavailable RiedyYasmine Admitting Unavailable RiedYasmine cortez Attending Unavailable Zamzam, Chantel L Attending Unavailable Zamzam, Chantel L Attending Unavailable Zamzam, Chantel L Attending Unavailable Zamzam, Chantel L Attending Unavailable Allergies Allergy Classification Reported Allergen(s) Allergy Type Date of Onset Reaction(s) Facility (14 sources) Chlorhexidine; Translations: [chlorhexidine topical] Drug Allergy [facility] Work Phone: (14 sources) Contrast media; Translations: [Contrast Dye] Drug allergy Unknown (qualifier value) [facility] Work Phone: (14 sources) Penicillins; Translations: [penicillins] Drug allergy RASH [facility] Work Phone: Medications Current Medications Medication Drug Class(es) Dates Sig (Normalized) Sig (Original) estradiol 0.1 mg/ml vaginal cream (1 source) Estrogen Start: 05-24-2023 Estrace 0.1 mg/g Cream See Instructions, 42.5 gm, Refill(s) 5, apply pea sized amount on fingertip near urethral opening nightly x 3 weeks, then 3x/week for maintanence, [facility]/pharmacy #[id number], 173, cm, 05/24/23 10:00:00 EST, Height/Length Dosing, 72, kg, 05/24/23 10:00:00 EST, Weight Dosing Start Date: 05/24/23 Status: Ordered fluticasone propionate 0.05 mg/actuat metered dose nasal spray (1 source) Corticosteroid Start: 04-21-2022 take 1 spray(s) nasal route twice daily Flonase 0.05 mg/inh [place] 1 spray(s), Nasal, BID, 16 gram, Refill(s) 0, each nostril, [facility], 174, cm, 04/21/22 15:08:00 EST, Height/Length Dosing, 67.9, kg, 04/21/22 15:08:00 EST, Weight Dosing Start Date: 04/21/22 Status: Ordered Folic Acid (8 sources) Start: 10-23-2021 folic acid Daily, Refills(s) 0 Start Date: 10/23/21 Status: Ordered hydrOXYzine hydrochloride 10 mg oral tablet (13 sources) Antihistamine Start: 09-21-2022 take 1 tablet by mouth three times daily as needed for anxiety hydrOXYzine hydrochloride 10 mg Tab 10 mg = 1 tab(s), Oral, TID, PRN for anxiety, # 30 tab(s), Refills(s) 0, Pharmacy: [facility], 174, cm, 08/09/22 15:52:00 EDT, Height/Length Dosing, 71.4, kg, 08/09/22 15:52:00 EDT, Weight Dosing Start Date: 09/21/22 Status: Ordered Start: 09-15-2021 take 1 tablet by michael th three times daily as needed for anxiety hydrOXYzine hydrochloride 10 mg Tab 10 mg = 1 tab(s), Oral, TID, PRN for anxiety, # 30 tab(s), Refills(s) 0, Pharmacy: [facility], 174, cm, 06/22/21 17:30:00 EST, Height/Length Dosing, 65.5, kg, 06/22/21 17:30:00 EST, Weight Dosing Start Date: 09/15/21 Status: Ordered ibuprofen 800 mg oral tablet (9 sources) Nonsteroidal Anti-inflammatory Drug Start: 08-09-2022 take 1 tablet by mouth three times daily ibuprofen 800 mg Tab 800 mg = 1 tab(s), Oral, TID, # 90 tab(s), Refills(s) 0, Pharmacy: [facility], 174, cm, 08/09/22 15:52:00 EDT, Height/Length Dosing, 71.4, kg, 08/09/22 15:52:00 EDT, Weight Dosing Start Date: 08/09/22 Status: Ordered Mucinex DM 30 mg-600 mg Tab-ER (1 source) Start: 04-21-2022 End: 04-28-2022 take 1 tablet by mouth every twelve hours Mucinex DM 30 mg-600 mg Tab-ER 1 tab(s), Oral, q12hr Congestion for 7 day(s), 14 tab(s), Refill(s) 0, [facility], 174, cm, 04/21/22 15:08:00 EST, [...] day(s), # 14 cap(s), Refills(s) 0, Pharmacy: [facility]/pharmacy #[id number], 174, cm, 05/04/23 10:55:00 EST, Height/Length Dosing, 71.8, kg, 05/04/23 10:55:00 EST, Weight Dosing Start Date: 05/04/23 Stop Date: 05/11/23 Status: Ordered Vitamin C 500 mg Tab (13 sources) Start: 04-21-2020 take 1 tablet by mouth once daily Vitamin C 500 mg Tab 500 mg = 1 tab(s), Oral, Daily, Refills(s) 0 Start Date: 04/21/20 Status: Ordered Vitamin D (13 sources) Start: 06-09-2015 take 5000 [IU] by mouth once daily Vitamin D See Instructions, 5000 units po daily, Refills(s) 0, Prophylaxis Start Date: 06/09/15 Status: Ordered Problems Active Problems Problem Classification Problem Date Documented Da te Episodic/Chronic Abdominal pain (10 sources) Right flank pain; Translations: [Flank pain] 08-17-2022 Episodic Anxiety disorders (20 sources) Anxiety; Translations: [Generalized anxiety disorder] Onset: 2 04-24-2019 Chronic Calculus of urinary tract (7 sources) History of calculus of kidney; Translations: [Kidney stone] Onset: 4 04-15-2023 Episodic Disorders of lipid metabolism (6 sources) Hyperlipidemia; Translations: [Hyperlipidemia, unspecified] Onset: 3 Chronic Esophageal disorders (14 sources) Gastroesophageal reflux disease; Translations: [Gastroesophageal reflux disease without esophagitis] Onset: 2 04-24-2019 Chronic Genitourinary symptoms and ill-defined conditions (4 sources) Blood in urine; Translations: [Dysuria] Onset: 4 05-04-2023 Episodic Headache; including migraine (13 sources) Migraine 06-07-2014 Chronic Comment on above: WITH MENSES Menopausal disorders (1 source) Atrophic vaginitis; Translations: [Postmenopausal atrophic vaginitis] Onset: 4 Chronic Other ear and sense organ disorders (13 sources) Otalgia 11-06-2020 Episodic Other female genital disorders (13 sources) Dysplasia of cervix 05-28-2014 Episodic Other gastrointestinal disorders (1 source) Other constipation; Translations: [Other constipation] Onset: 3 Episodic Other gastrointestinal disorders (9 sources) Chronic constipation 08-09-2022 Episodic Other non-traumatic joint disorders (2 sources) Pain of left hip joint; Translations: [Pain in left hip] Onset: 3 Episodic Other non-traumatic joint disorders (3 sources) Pain in right hip joint; Translations: [Pain in right hip] Onset: 3 Episodic Other non-traumatic joint disorders (18 sources) Hip pain 08-09-2022 Episodic Other upper respiratory disease (11 sources) Nasal congestion; Translations: [Nasal congestion] Onset: 2 Episodic Other upper respiratory infections (13 sources) Acute upper respiratory infection 11-06-2020 Episodic [...] [Lumbar radiculopathy] Onset: 3 04-21-2020 Episodic Unclassified (13 sources) History of SARS-CoV-2 05-27-2021 Unclassified (20 sources) Patient encounter status 10-23-2021 Past or Other Problems Problem Classification Problem Date Documented Da te Episodic/Chronic Other inflammatory condition of skin (13 sources) Itching of eye Resolved: 01-25-2019 04-05-2019 Episodic Unclassified (13 sources) Body mass index 20-24 - normal 11-06-2020 Results Test Name Value Interpretation Reference Range Facility Ambulatory Visit Summaryon 0 07-29-2023 Ambulatory Visit Summary 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1975 Visit Date:07/29/2023 Ambulatory Visit Instructions Your Diagnosis Lumbar back pain with radiculopathy affecting right lower extremity Low back pain with right-sided sciatica BMI 24.0-24.9, adult Former smoker Your Care Team Attending Physician - Chantel Mendes Primary Care Physician - Chantel Mendes This Is Your Medications List ascorbic acid [...] complete upper. Discharge Vitals Heart Rate (Peripheral) 68 Respiratory Rate 18 Blood Pressure 106/60 Height 173.0 cm Height 68 in Weight 72.5 kg Weight 159.5 lb BMI 24.22 What to do next Scheduled Follow-Up Appointments Tuesday 11:20 AM EDT With: Chantel Mendes Where: [facility] Normal [facility] Medicine Office/Clini c Noteon 07-29-2023 Family Medicine Office/Clinic Note HPI Staff Kimberly is a 47 year old female presenting for acute visit Pain characteristics: Pain location: right hip/ leg Intensity:8/10 Onset: for years worsening over last 3 weeks Medication used: Ibuprofen/ icy hot Intermittent Right hip aching/burning. Intermittent ,right leg is starting to go numb. History of Present Illness pt have low back pain that radiates to hip and down right leg Review of Systems PHQ Score Initial Depression Screen Score: 0 SCORE Physical Exam Vitals & Measurements HR: 68(Peripheral) RR: 18 BP: 106/60 SpO2: 96% HT: 68 in HT: 173.0 cm WT: 72.5 kg WT: 159.5 lb BMI: 24.22 General: alert, no acute distress ENMT: oral mucosa moist, no pharyngeal erythema or exudate Cardiovascular: regular rate and rhythm, normal peripheral perfusion Respiratory: Lungs CTA, respirations non labored Extremities: no deformity, no trauma Neurological: oriented x 4, LOC appropriate for age, CN II-XII intact, motor strength equal & normal bilaterally, speech normal Assessment/Plan 1. Lumbar back pain with radiculopathy affecting right lower extremity (M54.16: Radiculopathy, lumbar region) pt c/o severe back pain that radiates to right hip and down her leg. it goes numb at times. will order x ray, medrol and meloxicam. pt will continue doing stretches at home that she learned from physical therapy. pt will return in 3 weeks. will order MRI if pain is not better. will consider referral to pain management as well. Ordered: meloxicam, 15 mg = 1 tab(s), Oral, Daily, # 30 tab(s), Refills(s) 0, Pharmacy: [facility]/pharmacy #[id number], 173, cm, 07/29/23 14:36:00 EDT, Height/Length Dosing, 72.5, kg, 07/29/23 14:36:00 EDT, Weight Dosing methylPREDNISolone, = 1 packet(s), Oral, As Directed, as directed on package labeling, X 6 day(s), # 21 tab(s), Refills(s) 0, Pharmacy: [facility]/pharmacy #[id number], 173, cm, 07/29/23 14:36:00 EDT, Height/Length Dosing, 72.5, kg, 07/29/23 14:36:00 EDT, Weight Dosing 2. Low back pain with right-sided sciatica (M54.41: Lumbago with sciatica, right side) see above Ordered: meloxicam, 15 mg = 1 tab(s), Oral, Daily, # 30 tab(s), Refills(s) 0, Pharmacy: [facility]/pharmacy #[id number], 173, cm, 07/29/23 14:36:00 EDT, Height/Length Dosing, 72.5, kg, 07/29/23 14:36:00 EDT, Weight Dosing methylPREDNISolone, = 1 packet(s), Oral, As Directed, as directed on package labeling, X 6 day(s), # 21 tab(s), Refills(s) 0, Pharmacy: [facility]/pharmacy #[id number], 173, cm, 07/29/23 14:36:00 EDT, Height/Length Dosing, 72.5, kg, 07/29/23 14:36:00 EDT, Weight Dosing 3. BMI 24.0-24.9, adult (Z68.24: Body mass index [BMI] 24.0-24.9, adult) BMI education complete Ordered: meloxicam, 15 mg = 1 tab(s), Oral, Daily, # 30 tab(s), Refills(s) 0, [id number], 173, cm, 07/29/23 14:36:00 EDT, Height/Length Dosing, 72.5, kg, 07/29/23 14:36:00 EDT, Weight Dosing methylPREDNISolone, = 1 packet(s), Oral, As Directed, as directed on package labeling, X 6 day(s), # 21 tab(s), Refills(s) 0, [id number], 173, cm, 07/29/23 14:36:00 EDT, Height/Length Dosing, 72.5, kg, 07/29/23 14:36:00 EDT, Weight Dosing 4. Former smoker (Z87.891: Personal history of nicotine dependence) continue not smoking Ordered: meloxicam, 15 mg = 1 tab(s), Oral, Daily, # 30 tab(s), Refills(s) 0, [id number], 173, cm, 07/29/23 14:36:00 EDT, Height/Length Dosing, 72.5, kg, 07/29/23 14:36:00 EDT, Weight Dosing methylPREDNISolone, = 1 packet(s), Oral, As Directed, as directed on package labeling, X 6 day(s), # 21 tab(s), Refills(s) 0, [id number], 173, cm, 07/29/23 14:36:00 EDT, Height/Length Dosing, 72.5, kg, 07/29/23 14:36:00 EDT, Weight Dosing Follow-up No qualifying data available Problem List/Past Medical History Ongoing Acid reflux Annual physical exam Anxiety Cervical dysplasia Chronic constipation Dyslipidemia Flank pain Generalized anxiety disorder Hematuria Hip pain, bilateral History of 2019 novel coronavirus disease (COVID-19) History of kidney stones Kidney stone on right side Low back pain with right-sided sciatica Lumbar back pain with radiculopathy affecting left [...] Tab, 800 mg= 1 tab(s), Oral, TID Medrol 4 mg Tab, 1 packet(s), Oral, As Directed meloxicam 15 (more content not included)... Normal [facility] Comment on above: Result Comment: Elec tronically Signed By: Chantel Mendes\.br\Date and Time Signed: 07/29/23 14:52 EDT [place] 05-25-2023 Screens [id number] Normal [facility] Ambulatory Visit Summaryon 0 05-24-2023 Ambulatory Visit Summary 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1975 Visit Date:05/24/2023 Ambulatory Visit Instructions Your Diagnosis Vaginal atrophy Dysuria Kidney stone Your Care Team Attending Physician - NILES Erickson APRN, [place] X Primary Care Physician - Chantel Mendes Referring Physician - Chantel Mendes This Is Your Medications List estradiol topical (Estrace 0.1 mg/g Cream) Contact prescribing physician if questions or concerns ascorbic acid (Vitamin C 500 mg Tab) ergocalciferol (Vitamin D) hydrOXYzine (hydrOXYzine hydrochloride 10 mg Tab) ibuprofen (ibuprofen 800 mg Tab) Procedures Performed Colonoscopy (06/30/2018), Endoscopy (06/30/2018), Esophagogastroduodenoscopy (06/2018), bilateral salpingectomy for sterilization (11/15/2014), loop electrosurgical excision procedure conization and endocervical curettage (06/07/2014), Cone biopsy (2014), Dental extraction hemorrhage control, None, Tooth extraction, Tooth extraction, complete upper. Discharge Vitals Heart Rate (Peripheral) 78 Respiratory Rate 16 Blood Pressure 121/73 Height 173 cm Height 68 in Weight 72 kg Weight 158.4 lb BMI 24.06 What to do next You Need to Schedule the Following Appointments Follow Up with NILES Erickson APRN, Winter Deshpande, YAYA, FRANSICO When: In 3 months Where: Medications What How Much When Why Instructions New estradiol topical (Estrace 0.1 mg/ g Cream) See instructions Vaginal atrophy Refills: 5 apply pea sized amount on fingertip near urethral opening nightly x 3 weeks, then 3x/ week for maintanence Pickup at [facility]/pharmacy #[id number] Unchanged ascorbic acid (Vitamin C 500 mg Tab) 1 Tablets By Mouth Every day Contact prescribing physician if questions or concerns Unchanged ergocalciferol (Vitamin D) See instructions 5000 units po daily Contact prescribing physician if questions or concerns Unchanged hydrOXYzine (hydrOXYzine hydrochloride 10 mg Tab) 1 Tablets By Mouth 3 times a day as needed for for anxiety MARYAM (generalized anxiety disorder) Contact prescribing physician if questions or concerns Unchanged ibuprofen (ibuprofen 800 mg Tab) 1 Tablets By Mouth 3 times a day Lumbar back pain with radiculopathy affecting right lower extremity Right hip pain Contact prescribing physician if questions or concerns Pharmacy Information [facility]/pharmacy #[id number]: [address] [place], [place] [id number] [phone] Allergies Contrast Dye (Unknown) chlorhexidine topical penicillins [...] you for choosing us for your care. Education Materials Dysuria Dysuria is pain or discomfort during urination. The pain or discomfort may be felt in the part of the body that drains urine from the bladder (urethra) or in the surrounding tissue of the genitals. The pain may also be felt in the groin area, lower abdomen, or lower back. You may have to urinate frequently or have the sudden feeling that you have to urinate (urgency). Dysuria can affect anyone, but it is more common in females. Dysuria can be caused by many different things, including: ? Urinary tract infection. ? Kidney stones or bladder stones. ? Certain STIs (sexually transmitted infections), such as chlamydia. ? Dehydration. ? Inflammation of the tissues of the vagina. ? Use of certain medicines. ? Use of certain soaps or scented products that cause irritation. Follow these instructions at home: Medicines ? Take rfaz-ibe-ndobkco and prescription medicines only as told by your health care provider. ? If you were prescribed an antibiotic medicine, take it as told by your health care provider. Do not stop taking the antibiotic even if you start to feel better. Eating and drinking ? Drink enough fluid to keep your urine pale yellow. ? Avoid caffeinated beverages, tea, and alcohol. These beverages can irritate the bladder and make dysuria worse. In males, alcohol may irritate the prostate. General instructions ? Watch your condition for any changes. ? Urinate often. Avoi (more content not included)... Normal [facility] Patient Educationon 05-24-19 Patient Education Nephrology Dietary Guidelines to Help Prevent Kidney Stones Kidney stones are deposits of minerals and salts that form inside your kidneys. Your risk of developing kidney stones may be greater depending on your diet, your lifestyle, the medicines you take, and whether you have certain medical conditions. Most people can lower their risks of developing kidney stones by following these dietary guidelines. Your dietitian may give you more specific instructions depending on your overall health and the type of kidney stones you tend to develop. What are tips for following this plan? Reading food labels ? Choose foods with no salt added or low-salt labels. Limit your salt (sodium) intake to less than 1,500 mg a day. ? Choose foods with calcium for each meal and snack. Try to eat about 300 mg of calcium at each meal. Foods that contain 200?500 mg of calcium a serving include: ? 8 oz (237 mL) of milk, ethctxz-leozhluflnxc-etgyz milk, and calcium-fortifiedfruit juice. Calcium-fortified means that calcium has been added to these drinks. ? 8 oz (237 mL) of kefir, yogurt, and soy yogurt. ? 4 oz (114 g) of tofu. ? 1 oz (28 g) of cheese. ? 1 cup (150 g) of dried figs. ? 1 cup (91 g) of cooked broccoli. ? One 3 oz (85 g) can of sardines or mackerel. Most people need 1,000?1,500 mg of calcium a day. Talk to your dietitian about how much calcium is recommended for you. Shopping ? Buy plenty of fresh fruits and vegetables. Most people do not need to avoid fruits and vegetables, even if these foods contain nutrients that may contribute to kidney stones. ? When shopping for convenience foods, choose: ? Whole pieces of fruit. ? Pre-made salads with dressing on the side. ? Low-fat fruit and yogurt smoothies. ? Avoid buying frozen meals or prepared deli foods. These can be high in sodium. ? Look for foods with live cultures, such as yogurt and kefir. ? Choose high-fiber grains, such as whole-wheat breads, oat bran, and wheat cereals. Cooking ? Do not add salt to food when cooking. Place a salt shaker on the table and allow each person to add their own salt to taste. ? Use vegetable protein, such as beans, textured vegetable protein (TVP), or tofu, instead of meat in pasta, casseroles, and soups. Meal planning ? Eat less salt, if told by your dietitian. To do this: ? Avoid eating processed or pre-made food. ? Avoid eating fast food. ? Eat less animal protein, including cheese, meat, poultry, or fish, if told by your dietitian. To do this: ? Limit the number of times you have meat, poultry, fish, or cheese each week. Eat a diet free of meat at least 2 days a week. ? Eat only one serving each day of meat, poultry, fish, or seafood. ? When you prepare animal proteins, cut pieces into small portion sizes. For most meat and fish, one serving is about the size of the palm of your hand. ? Eat at least five servings of fresh fruits and vegetables each day. To do this: ? Keep fruits and vegetables on hand for snacks. ? Eat one piece of fruit or a handful of berries with breakfast. ? Have a salad and fruit at lunch. ? Have two kinds of vegetables at dinner. ? You may be told to limit foods that are high in a substance called oxalate. These include: ? Spinach (cooked), rhubarb, beets, sweet potatoes, and [place] chard. ? Peanuts. ? Potato chips, kyrgyz fries, and baked potatoes with skin on. ? Nuts and nut products. ? Chocolate. ? If you regularly take a diuretic medicine, make sure to eat at least 1 or 2 servings of fruits or vegetables that are high in potassium each day. These include: ? Avocado. ? Banana. ? [place], prune, carrot, or tomato juice. ? Baked potato. ? Cabbage. ? Beans and split peas. Lifestyle ? Drink enough fluid to keep your urine pale yellow. This is the most important thing you can do. Spread your fluid intake throughout the day. ? If you drink alcohol: ? Limit how much you have to: ? 0?1 drink a day for women who are not . ? 0?2 drinks a day for men. ? Know how much alcohol is in your drink. In the [place] one drink equals one 12 oz bottle of beer (355 mL), one 5 oz glass of wine (148 mL), or one 1? oz glass of hard liquor (44 mL). ? Lose weight if told by your health care provider. Work with your dietitian to find an eating plan and weight loss strategies that work best for you. General information ? Talk to your health care provider and dietitian about taking daily supplements. Depending on your health and the cause of your kidney stones, you may be told: ? Do not take high-dose supplements of vitamin C (1,000 mg a day or more). ? To take a calcium supplement. ? To take a daily probiotic supplement. ? To take other supplements such as magnesium, fish oil, or vitamin B6. ? Take jffm-yof-bbvptbk and prescription medicines only as told by your health care provider. These include supplements. What foods sh (more content not included)... Normal [facility] Chlamydia/Gonococcus, NAAon 05-07-2023 C. trachomatis rRNA JUAN PABLO+probe Ql (Unsp spec) Negative Invalid Interpretation Code Negative [facility] Comment on above: Performed By: #### 1 [id number] #### [facility] [address] [place] [id number] N. gonorrhoeae rRNA JUAN PABLO+probe Ql (Unsp spec) Negative Invalid Interpretation Code Negative [facility] Comment on above: Result Comment: Perf ormed at: =[facility] [address] [facility] [id number] MD Brandon Rivera Performed By: #### 1 [id number] #### [facility] [address] [place] [id number] C Urineon 05-06-2023 Bacteria identified Cx Nom (U) Microbiology PROCEDURE: Urine Culture [R1] SOURCE: U CleanCatch BODY SITE: COLLECTED DATE/TIME: 05/04/2023 11:10 EST RECEIVED DATE/TIME: 05/04/2023 22:10 EST START DATE/TIME: 05/04/2023 22:10 EST FREE TEXT SOURCE: [employer]am SURGICAL TERRITORY MANAGER, Chantel L Zamzam SURGICAL TERRITORY MANAGER, Chantel L FINAL REPORTS Final Report [] Verified Date/Time: 05/06/2023 09:53 EST 6,000 cfu/ml Mixed skin contaminants Performing Locations R1: This test was performed at: [facility], [address] [place] [address], [id number] , , Normal [facility] Comment on above: Performed By: #### 2 [id number] #### [facility] [address] [place] [id number] Family Medicine Office/Clini c Noteon 05-04-2023 Family [...] all questions answered. Ordered: Chlamydia/Gonococcus, JUAN PABLO [facility] Internal Ambulatory Referral Urine Culture Urine Culture Urnls Dip Stick Auto w/o Microscopy POC [id number] Urnls Dip Stick Auto w/o Microscopy POC [id number] 2. Kidney stone on right side (N20.0: Calculus of kidney) reviewed KUB results. will refer to urology Ordered: [facility] Internal Ambulatory Referral 3. Hematuria (R31.9: Hematuria, unspecified) u/a + for blood Ordered: [facility] [facility] [place] Internal Ambulatory Referral Orders: nitrofurantoin, 100 mg = 1 cap(s), Oral, BID, X 7 day(s), # 14 cap(s), Refills(s) 0, Pharmacy: [facility]/pharmacy #[id number], 174, cm, 05/04/23 10:55:00 EST, Height/Length [...] Protein Urine Dipstick: Negative (05/04/23 10:58:00) Specific Baltic Urine Dipstick: 1.010 (05/04/23 10:58:00) Urine Appearance Urine Dipstick: Clear (05/04/23 10:58:00) Urine Color Urine Dipstick: Yellow (05/04/23 10 (more content not included)... [facility] Comment on above: Result Comment: Elec tronically Signed By: Chantel Mendes\.br\Date and Time Signed: 05/04/23 12:35 EST RAD - MISCon 05-04-2023 RAD - MISC [id number]#[id number] [facility] C Urineon 04-17-2023 Bacteria identified Cx Nom (U) Microbiology PROCEDURE: Urine Culture [R1] SOURCE: U CleanCatch BODY SITE: COLLECTED DATE/TIME: 04/15/2023 11:56 EST RECEIVED DATE/TIME: 04/15/2023 18:35 EST START DATE/TIME: 04/15/2023 18:35 EST FREE TEXT SOURCE: Chantel Mendes Jodi L FINAL REPORTS Final Report [] Verified Date/Time: 04/17/2023 07:30 EST 1,000 cfu/ml Mixed skin contaminants Performing Locations R1: This test was performed at: [facility], [address] [place] [address], [address] , , [facility] Comment on above: Performed By: #### 2 650471 #### [facility] [address] [place] [address] Ambulatory Visit Summaryon 1 06-16-2022 Ambulatory Visit [...] for choosing us for your care. Normal [facility] Family Medicine Office/Clini c Noteon 04-15-2023 Family Medicine Office/Clinic Note HPI Staff Kimberly is a 47 year old female presenting to establish care Establish Care: History: Any previous diagnosis: Gerd, Anxiety, Migraines History of seeing any specialist: n/a When was your last doctors visit: Last provider: Dr Yanez Any recent labs: 10/15/22 Health Maintenance UTD: Colonoscopy: 2019 Dr mcmanus in [place], negative Mammogram: 10/2022 negative Pelvic/Pap: 10/2022 negative [...] right flank pain. just recently moved to [place] so would like to be established here [...] Urnls Dip Stick Auto w/o Microscopy POC 30210 2. Flank pain (R10.9: Unspecified abdominal pain) pt states she has been having this right sided flank pain for months. she has had x ray MRI, did PT and Pain management. she was told she had a kidney stone at one time, but isn't sure if she ever passed it. KUB ordered to be done at [facility]. No blood in u/a today. Ordered: Urine Culture 3. History of kidney stones (Z87.442: Personal history of urinary calculi) KUB and u/s with culture ordered 4. BMI 23.0-23.9, adult (Z68.23: Body mass index [BMI] 23.0-23.9, adult) BMI education complete Ordered: Urnls Dip Stick Auto w/o Microscopy POC 62443 5. Non-smoker (Z78.9: Other specified health status) continue not smoking Ordered: Urnls Dip Stick Auto w/o Microscopy POC 96078 Follow-up No qualifying data available Problem List/Past [...] virus vaccine, inactiv (more content not included)... [facility] Comment on above: Result Comment: Elec tronically Signed By: Chantel Mendes\.br\Date and Time Signed: 04/15/23 12:41 EST Physician Orderon 04-15-2023 Physician Order [id number]#1.00TIFF [facility] [place] Mamm Screen w/CAD if perf [...] VERY IMPORTANT TO YOUR HEALTH. THE CURRENT [employer] [...] Ambrosio Thakur MD Transcribed by: JEFFREY Technologist: [facility] Assessment: BI-RADS Category 2-Benign finding Recommendation: Normal interval follow-up Normal [facility] Consent for Treatmenton 11-30 Consent for Treatment [id number]#1.00CD:127 Normal [facility] Family Medicine Office/Clini c Noteon 10-27-2022 Family Medicine Office/Clinic Note Chief Complaint Physical HPI Staff Pt is here to do physical and lab review Concerns:Cholestrol levels are elevated Refills:No PHQ9:10 MARYAM: 22 Health Maintenance: Colonoscopy: 2019- normal- [facility] [place] Pap:2020 Last Labs:10/22/2022 History of Present Illness [...] sugars and thyroid were within normal range. [employer] recently did hormonal blood work and an ultrasound of her uterus, and she told her that she might be getting close to menopause. 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 She takes Metamucil [...] screening in [address] Page in [place]. Her results were normal. Review of Systems [...] for anxiety (more content not included)... Normal [facility] Comment on above: Result Comment: Elec tronically Signed By: Yasmine Dukes CNP\.br\Date and Time Signed: 10/27/22 17:43 EDT\.br\Electronically Co-Signed By: Chiquita Phipps\.br\Date and Time Co-Signed: 10/26/22 14:59 EDT Formson 10-26-2022 Forms [id number]#1.00CD:127 Normal [facility] US Pelvis Non-OB Completeon 10-26-2022 US Pelvis [...] Transabdominal Ultrasound Performed Uterus Position Anteverted Normal [facility] FSH and LHon 10-24-2022 Follitropin Qn 9.4 m[IU]/mL Invalid Interpretation Code [facility] Comment on above: Result Comment: Adul t Female: Follicular phase 3.5 - 12.5 Ovulation phase 4.7 - 21.5 Luteal phase 1.7 - 7.7 Postmenopausal 25.8 - 134.8 Performed at: [facility] [id number] PhD Pauline Minaya Performed By: #### 1 [id number] ####[address] [place] [address] Lutropin Qn 7.6 m[IU]/mL Invalid Interpretation Code [facility] Comment on above: Result Comment: Adul t Female: Follicular phase 2.4 - 12.6 Ovulation phase 14.0 - 95.6 Luteal phase 1.0 - 11.4 Postmenopausal 7.7 - 58.5 Performed By: #### 1 [id number] ####[facility] [address] [place] [address] Consent for Treatmenton 10-01 Consent for Treatment [id number]#1.00CD:127 Normal [facility] Physician Orderon 10-22-2022 Physician Order [id number]#1.00CD:127 Normal [facility] PAP [id number] 10-21-2022 Cytology report Cyto stain Doc (Cvx/Vag) Note Invalid Interpretation Code [facility] Comment on above: Result Comment: TEST S RESULT FLAG UNITS REF RANGE LAB Clinician Provided Cytology Information Source.............Endocervix LMP / Prev Treat...EYS=[id number] No. of containers..01 ThinPrep Vial DIAGNOSIS: 01 NEGATIVE FOR INTRAEPITHELIAL LESION OR MALIGNANCY. Specimen adequacy: 01 Satisfactory for evaluation. Endocervical and/or squamous metaplastic cells (endocervical component) are present. Performed by: Rach Crenshaw Clinical Nurse Leader . 01 Note: Note 02 The Pap [...] <-Panic Low,>-Panic High,A-Abnormal,AA-Critical Abnormal Performed at: [address] [address] Diane Blum MD, [address] [address] Nicole Taylor MD, Performed By: #### 3 [id number] ####[address] [place] [address] HPV 16+18+31+33+35+39+4 5+51+52+56+58+59+66 +68 DNA Probe+sig amp Ql (Cvx) Negative Invalid Interpretation Code Negative [facility] Comment on above: Result Comment: This nucleic acid amplification test detects fourteen high-risk HPV types (16,18,31,33,35,39,45,51,52,56,58,59,66,68) without differentiation. Performed at: [address] [id number] MD Viktoria Contreras Performed at: =[address] [id number] MD Brandon Rivera Performed By: #### 3 [id number] ####[address] [place] [address] PAP [id number] 10-18-2022 Collection Technique BRUSH-SPATULA Normal [facility] Comment on above: Performed By: #### 3 [id number] ####[address] [place] [address] Gynecological Body Site ENDOCERVIX Normal [facility] Comment on above: Performed By: #### 3 [id number] ####[facility] [address] [place] [address] LMP or Menopause Date [id number] Invalid Interpretation Code [facility] Comment on above: Performed By: #### 3 [id number] ####[facility] [address] [place] [address] Previous Cytology Negative Normal [facility] Comment on above: Performed By: #### 3 [id number] ####[facility] [address] [place] [address] Previous Treatment NONE Normal [facility] Comment on above: Performed By: #### 3 [id number] ####[address] [place] [address] Physician Orderon 10-18-2022 Physician Order [id number]#1.00CD:127 Normal [facility] Physician Order [id number]#1.00CD:127 Normal [facility] Auto Diffon 10-15-2022 Basophils/100 WBC (Bld) 0.5 % Normal 0.0-2.0 [facility] Comment on above: Order Comment: Order Added by Discern Expert. Performed By: #### 2 973000, 32675211, 1956925, 285208125, 0543991, 5906704 ####[facility] [address] [place] [address] Basophils/Leukocyte s Auto (Bld) [Pure # fraction] 0.0 E9/L Normal 0.0-0.2 [facility] Comment on above: Order Comment: Order Added by Discern Expert. Performed By: #### 2 597797, 10018723, 6037106, 201523948, 7617774, 4822691 ####[facility] [address] [place] [address] Eosinophils/100 WBC (Bld) 1.2 % Normal 0.0-8.0 [facility] Comment on above: Order Comment: Order Added by Discern Expert. Performed By: #### 2 768514, 95715549, 2698534, 805927251, 9679906, 9137181 ####[address] [place] [address] Eosinophils/Leukocy edd Auto (Bld) [Pure # fraction] 0.1 E9/L Normal 0.0-0.5 [facility] Comment on above: Order Comment: Order Added by Discern Expert. Performed By: #### 2 450850, 24448510, 0949177, 171024283, 5649013, 0050906 ####[address] [address] Lymphocytes/100 WBC (Bld) 36.0 % Normal 14.0-50.0 [facility] Comment on above: Order Comment: Order Added by Viviana Expert. Performed By: #### 2 028949, 37899817, 5881586, 653152657, 4605782, 0015286 ####[address] [address] Lymphocytes/Leukocy edd Auto (Bld) [Pure # fraction] 2.7 E9/L Normal 1.0-4.0 [facility] Comment on above: Order Comment: Order Added by Viviana Expert. Performed By: #### 2 777109, 17606313, 6217650, 648370477, 8354629, 3199958 ####[address] [address] Monocytes/100 WBC (Bld) 7.0 % Normal 4.0-14.0 [facility] Comment on above: Order Comment: Order Added by Viviana Expert. Performed By: #### 2 930293, 66018677, 6385948, 663087582, 9838500, 2377124 ####[address] [place] [address] Monocytes/Leukocyte s Auto (Bld) [Pure # fraction] 0.5 E9/L Normal 0.2-1.0 [facility] Comment on above: Order Comment: Order Added by Discern Expert. Performed By: #### 2 883798, 13404136, 5899416, 646041376, 5485957, 2761495 ####[address] [place] [address] Neutrophils/100 WBC (Bld) 55.3 % Normal 36.0-75.0 [facility] Comment on above: Order Comment: Order Added by Discern Expert. Performed By: #### 2 738831, 33079229, 9878985, 813533489, 6342240, 0358469 ####[address] [place] [address] Neutrophils/Leukocy edd Auto (Bld) [Pure # fraction] 4.1 E9/L Normal 2.0-7.5 [facility] Comment on above: Order Comment: Order Added by Discern Expert. Performed By: #### 2 318508, 89215713, 7239440, 940166486, 1994424, 0438769 ####[address] [address] CBC w/ Auto Diffon 3 Erythrocyte distribution width (RBC) [Ratio] 14.1 % Normal 10.9-14.2 [facility] Comment on above: Performed By: #### 2 467827, 04646487, 1330680, 295175958, 0218791, 7281285 ####[address] [place] [address] Hematocrit (Bld) [Volume fraction] 40.0 % Normal 34.0-46.0 [facility] Comment on above: Performed By: #### 2 836389, 56843808, 3569987, 930188869, 5552558, 5118251 ####[address] [place] [address] Hemoglobin (Bld) [Mass/Vol] 13.4 g/dL Normal 12.0-16.0 [facility] Comment on above: Performed By: #### 2 419574, 22241672, 6554151, 730674649, 2601961, 6180569 ####[facility] [address] [place] [address] MCH (RBC) [Entitic mass] 28.7 pg Normal 27.0-34.0 [facility] Comment on above: Performed By: #### 2 624041, 15662950, 7671999, 008063960, 2708067, 7830085 ####[address] [address] MCHC (RBC) [Mass/Vol] 33.4 g/dL Normal 31.4-36.0 [facility] Comment on above: Performed By: #### 2 404027, 39793671, 3839738, 279115520, 7467202, 8933188 ####[address] [address] MCV (RBC) [Entitic vol] 86.0 fL Normal 80.0-100.0 [facility] Comment on above: Performed By: #### 2 595342, 29280014, 2955998, 226589214, 3424610, 6130340 ####[address] [address] Platelet mean volume (Bld) [Entitic vol] 8.9 fL Normal 6.4-10.8 [facility] Comment on above: Performed By: #### 2 147922, 78114411, 2661859, 043101474, 0815060, 1342122 ####[address] [address] Platelets (Bld) [#/Vol] 271.0 E9/L Normal 150.0-500.0 [facility] Comment on above: Performed By: #### 2 706076, 29190399, 7137337, 141965927, 4215414, 2434816 ####[address] [place] [address] RBC (Bld) [#/Vol] 4.6 E12/L Normal 4.3-5.9 [facility] Comment on above: Performed By: #### 2 564818, 93548402, 5352278, 191291279, 0986765, 5755763 ####[address] [place] [address] WBC corrected for nucl RBC Auto (Bld) [#/Vol] 7.4 E9/L Normal 4.0-11.0 [facility] Comment on above: Performed By: #### 2 135920, 52118643, 7028987, 466722289, 3110160, 2610855 ####[address] [place] [address] CMPon 10-15-2022 Albumin [Mass/Vol] 4.1 g/dL Normal 3.3-5.0 [facility] Comment on above: Performed By: #### 2 174798, 59061754, 3553938, 724918534, 2129030, 0746497 ####[address] [place] [address] Albumin/Globulin (S) [Mass conc ratio] 1.1 Normal 1.1-2.2 [facility] Comment on above: Performed By: #### 2 252261, 06097881, 8321108, 254854212, 9614145, 4201407 ####[address] [place] [address] ALP [Catalytic activity/Vol] 109 Int._Unit/L High 21-98 [facility] Comment on above: Performed By: #### 2 774878, 77157300, 5494021, 294524285, 2079621, 7265328 ####[address] [place] [address] ALT No additional P-5'-P [Catalytic activity/Vol] 15 Int._Unit/L Normal 6-46 [facility] Comment on above: Performed By: #### 2 468642, 32615425, 2762130, 324265304, 4645487, 2056745 ####[address] [place] [address] Anion gap [Moles/Vol] 9 mmol/L Normal 6-16 [facility] Comment on above: Performed By: #### 2 509329, 00723170, 8789291, 340860047, 6234658, 4175442 ####[facility] [address] [place] [address] AST [Catalytic activity/Vol] 14 Int._Unit/L Normal 5-43 [facility] Comment on above: Performed By: #### 2 239310, 61305162, 3529494, 910192787, 0520257, 8916682 ####[facility] [address] [place] [address] Bilirubin [Mass/Vol] 0.5 mg/dL Normal 0.0-1.1 [facility] Comment on above: Performed By: #### 2 615727, 96347338, 4733991, 768486670, 0676140, 7048593 ####[facility] [address] [place] [address] Calcium [Mass/Vol] 9.1 mg/dL Normal 8.9-11.1 [facility] Comment on above: Performed By: #### 2 973079, 36278506, 3522499, 241617377, 2291482, 1387457 ####[facility] [address] [place] [address] Chloride [Moles/Vol] 108 mmol/L Normal 101-111 [facility] Comment on above: Performed By: #### 2 782005, 66404736, 4531264, 742189541, 8329322, 1095408 ####[facility] [address] [place] [address] CO2 [Moles/Vol] 27 mmol/L Normal 21-31 [facility] Comment on above: Performed By: #### 2 342942, 21116161, 0860837, 004013925, 8164174, 1720600 ####[facility] [address] [place] [address] Creatinine [Mass/Vol] 0.7 mg/dL Normal 0.5-1.3 [facility] Comment on above: Performed By: #### 2 088397, 06437517, 2748287, 348348289, 4417858, 1828637 ####[facility] [address] [place] [address] Globulin (S) [Mass/Vol] 3.8 g/dL Normal 1.4-4.0 [facility] Comment on above: Performed By: #### 2 589497, 36128318, 4395170, 145584318, 8082575, 1352629 ####[facility] [address] [place] [address] Glucose [Mass/Vol] 94 mg/dL Normal 55-199 [facility] Comment on above: Result Comment: If t his glucose result represents a fasting glucose, interpretation should refer to the following reference range: 55-99 mg/dL Performed By: #### 2 631590, 72338016, 9924113, 879773132, 0889701, 5400767 ####[facility] [address] [place] [address] Potassium [Moles/Vol] 4.1 mmol/L Normal 3.5-5.3 [facility] Comment on above: Performed By: #### 2 090087, 18649976, 4382311, 191050895, 1615117, 4565413 ####[facility] [address] [place] [address] Protein [Mass/Vol] 7.9 g/dL High 6.0-7.8 [facility] Comment on above: Performed By: #### 2 379806, 15673558, 8660053, 898145648, 6740357, 1759067 ####[facility] [address] [place] [address] Sodium [Moles/Vol] 140 mmol/L Normal 135-145 [facility] Comment on above: Performed By: #### 2 315119, 19550832, 3575418, 721086776, 4021840, 1737700 ####[facility] [address] [place] [address] Urea nitrogen [Mass/Vol] 9 mg/dL Normal 5-21 [facility] Comment on above: Performed By: #### 2 374809, 37778111, 0851586, 388680148, 1742075, 9363778 ####[facility] [address] [place] [address] Urea nitrogen/Creatinine [Mass ratio] 13 No Units Normal 10-20 [facility] Comment on above: Performed By: #### 2 478607, 08209970, 7915782, 997772464, 4403420, 9115214 ####[facility] [address] [place] [address] Consent for Treatmenton 09-30 Consent for Treatment [id number]#[id number]:127 Normal [facility] XnrB4vrf 10-15-2022 HbA1c (Bld) [Mass fraction] 5.3 % Normal <=5.9 [facility] Comment on above: Performed By: #### 2 228038, 86717460, 7891005, 981252821, 2668683, 2576065 ####[facility] [address] [place] [address] Lipid Panelon 10-15-2022 Cholesterol [Mass/Vol] 223 mg/dL High 120-200 [facility] Comment on above: Performed By: #### 2 901106, 28610664, 9830652, 991650917, 8287258, 9121700 ####[facility] [address] [place] [address] Cholesterol in HDL [Mass/Vol] 63 mg/dL Invalid Interpretation Code [facility] Comment on above: Result Comment: HDL > or equal to 60 mg/dL: Low cardiovascular risk HDL < 40 mg/dL : High cardiovascular risk Performed By: #### 2 195940, 10373553, 3146294, 150434447, 0073700, 0019735 ####[facility] [address] [place] [address] Cholesterol in LDL [Mass/Vol] 136 mg/dL High <=129 [facility] Comment on above: Performed By: #### 2 947972, 81183355, 0377390, 014524736, 9354600, 4316885 ####[facility] [address] [place] [address] Cholesterol in VLDL [Mass/Vol] 19 mg/dL Normal 7-40 [facility] Comment on above: Performed By: #### 2 231522, 92796209, 1202620, 010747952, 8122602, 8700220 ####[facility] [address] [place] [address] Triglyceride [Mass/Vol] 97 mg/dL Normal <=149 [facility] Comment on above: Performed By: #### 2 196124, 68032807, 0491803, 023233181, 6867582, 0668502 ####[facility] [address] [place] [address] eGFRon 10-15-2022 GFR/1.73 sq M.predicted among non-blacks MDRD (S/P/Bld) [Vol rate/Area] 109 mL/min/1.73 m2 Normal >=59 [facility] Comment on above: Order Comment: Order added by Discern Expert. Result Comment: Critical Care Specialist darling kidney disease could be indicated at eGFR's of less than 60 mL/min/1.73m2. Kidney failure is indicated at less than 15 mL/min/1.73m2. Performed By: #### 2 063650, 77386693, 8606304, 876307054, 6267256, 2288822 ####[facility] [address] [place] [address] Patient Correspondenceon Patient Correspondence [id number]#1.00CD:127 Normal [facility] Provider Letteron 09-22-2022 Provider Letter (Inserted Image. Joanne ble to display) [address] [place] [address] [phone] September 22, [address] [address] : 1975 To Whom It May Concern, The above patient has anxiety and will need to have her anxiety medications with her. Please contact us with any questions or concerns. Respectfully, Renata Medel MD [facility] [place] [address] [place] [address] [facility] Pre-Certification Formon Pre-Certification Form [id number]#[id number]:127 [facility] Pre-Certification Formon Pre-Certification Form [id number]#1.00CD:127 [facility] Coding Summary.on 08-17-2022 Coding Summary. CD:[id number] Ww+PGhlY WQ+YM9WZLCdT30ntLYjpV2oT3JWH EvZRrnmOIYMODeTQjYjzcEqQB7kt XNjZXJu IC8+EN4yEEXlCemsxSYzv3W4ePL2 E74fao6bHMupjTR8ZZZfGxBslolz v7siuAv2EXobMafdMnCp ZWBzjV08FNH7oO89Vr98lCQrcKBd c3sobIo9UhHzANCrSLD4zXakUFzq b5SxJJFrL81qtFNjp7C7 ZNErhDdomJGoMuFuyEI9vB0tYGwv vntkl9etyzjzKox7yj91vTVvt6M5 xEJ3W9MuhmN4MJQtjBSc YmyfkRSHaO8bzncbz4nkphvyWcKg BIOxKJd8APl0HRLagBwlWpBlPU13 AZJ0VJMwklQwK3OnANUs vNdcBnO7m4Z4Ts2ON9AIBjdyC5AG TUFSWTwvdGQ+QN16ka95C3CqGboo Ndv8BIBrLPT0zNF9lO5k TCNvIMtqu8C9xFM1N8YnguBgwv2t k3zyLKEzNGvoE00qfUCzy8L4DPGf vYV5TFWgxUgyXiWteN04 Oyc+VFNkaMyoy7MfDkpil5ezb3uc tJh2BaqrYRShcpGhqYcnOZS3v6Iu Aa6sLNTaoPB6pAO4fG4h XoKpWfR9LZjhH513YvJasOKhAgpd G01xS0CupZU+IDTbMqz0JSLitYgf CU3kM9AiGIIcdyqulKIa lCokCQ8zMIRmpdenTWTyyJ0jDNNy L6g0WiLtPmC8BUtjE7XmLUYtbggr Bp22gC8eCsHvGaD4NAhi O4DaduS2QOArsDEsEKguJZV5K28j i1F1KOLiJSTmKII2nEH5aJ5usEdh bjogbGVmdDsgdmVydGlj KZiqTUxgJ200FSUkiJhuIlIwMVjx ZyBEYXRlOiAgMDQvMTgvMjAyMzwv dGQ+OGKySBL8fMplDBLb lJQmQVahUo0jkTbpxNpyNP3rUZTb xyokPDJcjG0sTPLrwHBwtWsmTP4m ORIxovqem561EkQhWXN9 FLFmsOSvV3PqmP8jQqVuUGPpUUOd F1YqgPBzKMacR464QRcpTyY9QPIc prHsI2UeKJCrgGsrQoU2 g2H1Pb2Oi2SxznclE7EmoUHzDjEb LtnvDPo8Y9KwVevejQG+YC00AIJb TQ31KBt6GJW9zQwkGIsp CUUbD6WdrE9gJhWySPRgAFBzVoy+ PHRhYmxlIHdpZHRoPScxMDAlJyBz aLbyRR6zXu3kFWIaPLYw bPdkmNWhEbMyn3qeCPKwFKkuCX9l iUehW0AbrYE5RDIyy5g7Ya14A95a V4MyoYZ+SUHlcLC6eFF0 lV7fCeYzUnO1HHuyL937FeFnnTRh Xousb5vpr6mwsYm7VnT1VPMlrlAj yJtpAFH6f7JpRn45Y16b OGwtHTKxYEOoSJGxPQHxyKycrj1p zK2mOw4+WVJbyIF1wYK5aY9qWaGf YbJ6ZLsmA554DeGerFQg Sukbl8yan9ugsPo3TvXaIVOkwvVl xXnmDKD3p6KjRk24D6ZhkJblp9Qa Two5my21oBRox8F5pJB0 L8IcTZSmkshvyBMoaZfxRF2fKEBg gppxFTDwgB2pUYQdV4u3PrRlRsH9 OFyrD7OattE8XBTjhDIv KEQmbSKTfX4rdnufx3ubyqtqWyHy RNRmDVb4JKo1ACIqxOgmXwTiDAR2 GtG5YEB0oFDrrM5khTla mlheaE3uVeh+SSU0rIUhlHZIGD5e OjwvdGQ+FDEfZSD7yVvqWNtwWNQk fV4bZTQuF7n7MgXmDfF6 ZYfkK9JtbuK5YPWzcDEbZUAemEPQ dQ5bjitgh0whqahrFoGtXZAxICl2 IQj1OJYbiSrwBzIzYUD3 PpW9LBP2uFJwpU7qhZawufhofQ0e Oyc+LgmbpYzmGJB0BLn2N7ReBst7 GWDunMlkUQ5njFRvQYdf Yy7hnBbcsTgjQJ4rTKThnojbk445 OwLvv5nvSTNajWCoCRupKHL5T55f l1Z5DLFwCOJmQQD1cHR9 kH1wzIlqaxxtuIWeqCooceOxdHwo HHrcYOmiK125ILHmiJroGfNwIRr6 C0LnLqs5ZGPdvWmkGN7b pNJlQCmsFv1vjFtzgYofTH1vPIMm gudmj853GvFii5hxUOYcpIElYGsv GRM7C94fi9N8SFDiXOFn OPJ5lLB3lZ1adInupdiisNOcjZhv stPqsWqmFAgbYZnaW520GOPtcEsx TpIwkYk1N8OdVsi5KECk xAekQW9mnOPmAOixNl7afHmbcHwg KP4bGUSjkimht592WcPyx1rwEBVw gLQbEZkbIBZ6C69ux4O1 CQEoZQJkIQC9lWL9gU0uoVyqmqqn nEDhcJavymVhuFbaXHfqTAnrB088 IHRvcDsnPlBhdGllbnQg ZLkkONv9V0FlZvocvYI+KV87TKLw HS04tFXitSKuo0eccOz6ThAyCKOm BIG5aMblNLnub7WeLYRt T64pdISia8F9EVQohUjjbNVaAaNx rSV1jE9dVRljnatov3pcgixiCved k8ivxd29aP11Z40vQAgj GGFhPWGbFZInJGGuvCjpos6cyV6w Ii8+BNAikAL6pVK1hO4vUXQtYfQ6 XPfrP230FjRcmQImPvng q1kkc2qliIu8JhZ2QWTckqCctSro XXI6k4CrZb78V32dNUblARTlDFVs ASTuPITsbEbxlr8ajZ3t Ii8+PFJweYX7cAJ9dV3rLpOxDrE2 VGmkI828XeDjpFYuOmvdB52hH4Vq dXA+WLGvEzz0GSAlkWzo MI8cjYLhQMliUy7iQTY1EzSzOdTw QFuhF8NxIGRtpnstedaylGT0WAYx MAHmuJ85Dd4ynWjvCDLd zHAOsR0arkimg0ajayoiXrQsKLHh JVz6OZj5NFBeeFlkNgDmSCR8UwE9 HGI4yGQdqE5pkKutsilz pP6iF4XnYWMxkowrFy15sM8mHeJs PvA7WGdhJzm+L2CDUG1DMRUaAJYY VEggTDwvdGQ+PHRkIHN0 xLzwIOpzEOYooS3eNJEaQ5t5SrIr RwK0BWzyL0SiJXMgkdxyWv91uG3i CxFvQeK5YQtyM2MjodK3 TEKslFAyWQxxQWH1Z54ua1Y6SRWe YUDcLBZ3vOF7pI5esDjbitugaCMb dDsgdmVydGljYWwtYWxp R933PVBxsDzdYpB5VlJ9WoG8Ekg1 T3CoSnp2COSfuJbdPB3fpCFtJNjc Qq1cpWemfRhxLA1dCIIb oqcrFCYimZ4xJQUlnQNawIvnJA9p ZYNpqevjp217ZbKnZPU3TFOibRBp Q3XvkQ6qUbUgWVUlXIWg E6TdnKVuCBsdW546ZJcxTwK9WUKt afVwJ9EmECQhhOhaLwV5d9L6He98 NCBZZWFyczwvdGQ+PHRk FYJ7gCsrYWerYIJrvW8nZTJaS6f5 YtAcEeW0KSrrJ3HsCFFwuolrGy56 dS9ePwPuDmI9HNjsP3Cr qcM0JWGsrNFdCQqxCJT4H97ii7Y3 ZIZcAEIfZJG8dLM5nM8tkPeceqtu bGVmdDsgdmVydGljYWwt CSjzN883CTAvdKkrVoMjrYCdLMvo dGQ+STDcETO2vGzsJMblDRSyvF6i NTAcP4b1HiYzTgM9DOgd F7ZbZHSidgvdXn74tF6aObLoTpV1 BJopS2CwegH3ADZyjAXeIHbhGJU3 T27wx4S6JDTnAXGqTRR4 wWX5hN1sdIhjbklcnHPfcXsayvOp yRgbAOpxBQkvC148HMSrdTbhId15 xJJrxFxtnyP4Y4JnAghe dHI+BN43FHKrBJ48gXWjzXCni3kh jBp9AsChYJPiZNY0jRcgMZzyp4Rt DWKbN50wtZUbb6K2JDNq zSzpmOMcOqAxkIN1bP9lFNpwvkhj c4rvdjqrXjknk2gkfd75kY91P58r IHdpZHRoPSIzMCUiIHZh fLpeyi5mmQ1bIn2+DMTfuSU5hDC0 tG0gMyJjNrN8AGzwU404TuEarDGn Gtumk3wzz7plpXd9EcTh EPTfveThaIqwUCV8b5WgGk04O23x EJilHKCnZMQbNMVlKVEnuKwela7x wH9xMc3+WZ3ee7cjkv54 hA18uUA+WLNrHYR5qKbwVLexBZDy vX9lNNcxJgC2TIHyDiWweU41qVRe XEbeOz3rsEmzfPrtGH5q JDGfheyoe016IlGvr8azZTVtjRZt ANgvZBZ1Y25ok7H9EZPjLWYpJDA0 yOZ4bI3wjAetcuwzeDHw bJykxcEljOxnFIhuPVjcG441KADg fEnnOoXokUDjA7niviIRFG4wMinz dGQ+NAYyIOW6pUakOAce HBQddT6qGHVpF4o7HiOhBkX3QFpe W2OtzfA8OYLmuUIdBRFdnLQZqJ2p eepit6iiiiwqSeAeFMHz JRu3YRc4WMHsbKutOnRfSQS4RgJ1 AKH3bXQyiH1yhEodujkoyF7kIai+ RklOOjwvdGQ+PHRkIHN0 fQaoQQarVYPunV5xGGZsW8l1VvTm QgV6VJnxT5NifvV8NVMsgNVjNLFf qTWEbQ2oasigu4ewecci YgLvWUEkOPy4ZOd1PZSiwLqoFmPk YCO0CrK2GJO7uCJwtR8kgQezoleb pI6mQaj+TVJOOjwvdGQ+ RXSfJVF7mMlbAXdmELKzfE9zMELl E2a6FaBbChB3TCzdH1JiwwL5SNGo kEWbCUPsoNMKlZ8mkgvs r7tdimtfPgEcAVWbMTo4NDy5TIJk cPiaDqJvQIY3IhN7JWZ3dRLjjQ1g uNjhfxuwcP0cJwk+UGF5 FCB5CT17ZH20F4AwRbmhrUIuxDY+ PHRhYmxlIHdpZHRoPScxMDAlJyBz eVynPF4eEd4oTLBcEVCi bGxhcHNl (more content not included)... Normal [facility] XR Sacrum and Coccyx Min 2 V [facility] 08-13-2022 XR Sacrum and Coccyx Min 2 [...] REPORT Dictated: 08/13/2022 12:30 pm Manish Mendoza MD Signed (Electronic Signature): 08/13/2022 12:30 pm Signed by: Manish Mendoza MD Transcribed by: JEFFREY Technologist: JAN Technical Comments Radiation Dose: Ka,r in mGy = na DAP = na Normal [facility] XR Spine Lumbosacral Minimum 4 Viewson 08-13-2022 [...] mGy = na DAP = na Normal [facility] XR Hip 2-3 Views Righton XR Hip [...] Dukes FINAL REPORT Dictated: 08/12/2022 7:38 pm Signer Juliano JIMENEZ Signed (Electronic Signature): 08/12/2022 7:38 pm Signed by: SignJuliano garcia MD Transcribed by: JEFFREY Technologist: JAN Technical Comments Radiation Dose: Ka,r in mGy = na DAP = na Normal [facility] Consent for Treatmenton 07-31 Consent for Treatment [id number] Normal [facility] Family Medicine Office/Clini c Noteon 08-10-2022 Family [...] for weeks. 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 Symptoms consistent with inflammation triggering sciatic nerve response as symptoms tend to come and go in severity. Recommend x-ray of the lower back including lumbar spine and sacrum as well as pelvic bone and hip bone, especially on the right. Given location of symptoms, may want to co (more content not included)... Normal [facility] Comment on above: Result Comment: Elec tronically [...] these medications fluticasone nasal (Flonase 0.05 mg/inh [place]) Procedures Performed Colonoscopy (06/30/2018), Endoscopy (06/30/2018), Esophagogastroduodenoscopy [...] PM EDT With: Yasmine Dukes CNP Where: [facility] Interpretation Code Hip pain, bilateral, pp_set_radi ology_subsp ecialty, [facility]\.br\ XR Sacrum and Coccyx Min 2 Views, 08/09/22, Routine, Order for future visit, Transport Mode: Ambulatory, Reason: Pain, Non Traumatic, No, Hip pain, bilateral [facility] CHEMISTRYOrdered By: Fang hendrix on 10-24-2021 Albumin [...] 8.2 g/dL High 6.0 - 7.8 gm/dL [facility] Remisol Sodium [Moles/Vol] 137 mmol/L Normal 135 - 145 mmol/L [facility] Remisol Triglyceride [Mass/Vol] 172 mg/dL High <=149mg/dL [facility] Remisol Urea nitrogen [Mass/Vol] 9 mg/dL Normal 5 - 21 mg/dL [facility] Remisol Urea nitrogen/Creatinine [Mass ratio] 13 mg/mg Normal 10 - 20 [facility] Remisol CHEMISTRYOrdered By: SYSTEM SYSTEM on 10-24-2021 GFR/1.73 sq M.predicted among blacks MDRD (S/P/Bld) [Vol rate/Area] mL/min/1.73 m2 Normal >=59mL/min/ 1.73 m2 [facility] Chem S GFR/1.73 sq M.predicted among non-blacks MDRD (S/P/Bld) [Vol rate/Area] mL/min/1.73 m2 Normal >=59mL/min/ 1.73 m2 [facility] Chem S HEMATOLOGYOrdered By: SYSTEM SYSTEM on [...] 53.3 % Normal 36.0 - 75.0 % [facility] HemeAutoSS Neutrophils/Leukocy edd Auto (Bld) [Pure # [...] 8.6 fL Normal 6.4 - 10.8 fL [facility] HemeAutoSS Platelets (Bld) [#/Vol] 255.0 E9/L Normal 150.0 - 500.0 E9/L [facility] HemeAutoSS RBC (Bld) [#/Vol] 4.7 E12/L Normal 4.3 - 5.9 E12/L [facility] HemeAutoSS WBC corrected for nucl RBC Auto (Bld) [#/Vol] 7.1 E9/L Normal 4.0 - 11.0 E9/L [facility] HemeAutoSS Vital Signs Date Time Vital Sign Value Performing Clinician Addison gunderson 05-24-2023 09:58-0500 Blood Pressure Location Winter Orzech [facility] 05-24-2023 09:58-0500 Diastolic blood pressure 73 mm[Hg] Winter [facility]zech [facility] 05-24-2023 09:58-0500 Heart rate 78 /min Winter [place]zech [facility] 05-24-2023 09:58-0500 Respiratory rate 16 /min Winter Orzech [facility] 05-24-2023 09:58-0500 Systolic blood pressure 121 mm[Hg] Winter Orzech [facility] 10-25-2022 15:31-0400 Blood Pressure Location Yasmine Riedy [facility] 10-25-2022 15:31-0400 Diastolic blood pressure 76 mm[Hg] Yasmine Riedy [facility] 10-25-2022 15:31-0400 Heart rate 72 /min Yasmine Riedy [facility] 10-25-2022 15:31-0400 SaO2% (BldA) [Mass fraction] 100 % Yasmine Riedy [facility] 10-25-2022 15:31-0400 Systolic blood pressure 118 mm[Hg] Yasmine Riedy [facility] 08-09-2022 15:50-0400 Blood Pressure Location Yasmine Riedy [facility] 08-09-2022 15:50-0400 Diastolic blood pressure 72 mm[Hg] Yasmine Riedy [facility] 08-09-2022 15:50-0400 Heart rate 77 /min Yasmine Riedy [facility] 08-09-2022 15:50-0400 SaO2% (BldA) [Mass fraction] 99 % Yasmine Riedy [facility] 08-09-2022 15:50-0400 Systolic blood pressure 114 mm[Hg] Yasmine Riedy [facility] 04-21-2022 15:06-0500 Blood Pressure Location Dalton Gudimella [facility] 04-21-2022 15:06-0500 Body temperature 96.8 [degF] Dalton Gudimella [facility] 04-21-2022 15:06-0500 Diastolic blood pressure 74 mm[Hg] Dalton Gudimella [facility] 04-21-2022 15:06-0500 Heart rate 99 /min Dalton Gudimella [facility] 04-21-2022 15:06-0500 Respiratory rate 18 /min Dalton Gudimella [facility] 04-21-2022 15:06-0500 SaO2% (BldA) [Mass fraction] 100 % Dalton Gudimella [facility] 04-21-2022 15:06-0500 Systolic blood pressure 112 mm[Hg] Dalton Gudimella [facility] 10-23-2021 14:17-0400 Blood Pressure Location Jg Peter [facility] 10-23-2021 14:17-0400 Diastolic blood pressure 62 mm[Hg] Jg Green [facility] 10-23-2021 14:17-0400 Heart rate 96 /min Jg Green [facility] 10-23-2021 14:17-0400 SaO2% (BldA) [Mass fraction] 98 % Jg Green [facility] 10-23-2021 14:17-0400 Systolic blood pressure 110 mm[Hg] Jg Green [facility] Encounters Encounter Date Encounter Type Care Provider Facility Start: 08-19-2023 ambulatory Chantel L Zamzam Facility: [facility] Start: 07-29-2023 End: 07-30-2023 ambulatory Chantel L Zamzam Facility:[facility] Start: 05-25-2023 ambulatory Yasmine Riedy [facility] Start: 05-24-2023 End: 05-25-2023 ambulatory Chantel L Zamzam Facility:[facility] Start: 05-24-2023 End: 05-24-2023 Patient encounter procedure Winter Erickson [facility] Start: 05-09-2023 ambulatory Yasmine Riedy Facility: [facility] Start: 05-04-2023 End: 05-05-2023 ambulatory Chantel L Zamzam Facility:[facility] Start: 05-04-2023 End: 05-04-2023 Lab Drop off Chantel L Zamzam [facility] Start: 04-15-2023 End: 04-16-2023 ambulatory Chantel L Zamzam Facility:[facility] Start: 12-10-2022 End: 12-11-2022 ambulatory Nadya J Jigna Facility:[facility] Start: 12-10-2022 End: 12-10-2022 Patient encounter procedure Nadya J Jigna [facility] Start: 10-25-2022 End: 10-26-2022 ambulatory Yasmine D Riedy Facility:[facility] Start: 10-25-2022 End: 10-25-2022 Patient encounter procedure Yasmine D Riedy [facility] Start: 10-25-2022 End: 10-25-2022 Well adult monitoring check done Yasmine D Riedy [facility] Start: 10-22-2022 End: 10-23-2022 ambulatory Nadya J Jigna Facility:[facility] Start: 10-22-2022 End: 10-22-2022 Patient encounter procedure Nadya Benito [facility] Start: 10-18-2022 End: 10-19-2022 ambulatory Nadya J Jigna Facility:[facility] Start: 10-18-2022 End: 10-18-2022 Lab Drop off Nadya Adiel Herrerae [facility] Start: 10-15-2022 End: 10-16-2022 ambulatory Yamsine D Riedy Facility:[facility] Start: 08-10-2022 End: 08-11-2022 ambulatory Yasmine D Riedy Facility:[facility] Start: 08-10-2022 End: 08-10-2022 Patient encounter procedure Yasmine D Riedy [facility] Start: 08-09-2022 End: 08-10-2022 ambulatory Yasmine D Riedy Facility:[facility] Start: 08-09-2022 End: 08-09-2022 Patient encounter procedure Ysamine D Riedy [facility] Start: 08-09-2022 End: 08-09-2022 Well adult monitoring check done Yasmine D Riedy [facility] Start: 04-21-2022 End: 04-21-2022 Patient encounter procedure Dalton Gudimella [facility] Start: 10-24-2021 End: 10-24-2021 Patient encounter procedure Jg Green [facility] Start: 10-23-2021 End: 10-23-2021 Patient encounter procedure Jg Green [facility] Start: 10-23-2021 End: 10-23-2021 Well adult monitoring check done Jg Green [facility] Start: 10-23-2021 End: 10-23-2021 Patient encounter procedure Nadya Benito [facility] Procedures Date Procedure Procedure Detail Performing Clinician [...] and acellular pertussis vaccine, adsorbed Jg Green [facility] NEGATED: Highlighted row has not occurred!04-21-2022 influenza virus vaccine, unspecified formulation Dalton Medel [facility] NEGATED: Highlighted row has not occurred!04-05-2019 influenza virus vaccine, unspecified formulation Jg Green [facility] Payers Date Payer Category Payer Unknown [id number] 2022 Unknown [id number] 1975 Unknown [id number] 2.16.8 [id number]. 1977 Unknown [id number] 2.16.8 40.1.429744.3.579.2. 1977 Unknown [id number] 2.16.8 40.1.700282.3.579.2. 1977 Unknown [id number] 2.16.8 40.1.709163.3.579.2. 1977 Unknown [id number] 2.16.8 40.1.594180.3.579.2. 1977 Unknown [id number] 2.16.8 40.1.385068.3.579.2. 1977 Unknown [id number] 2.16.8 40.1.273482.3.579.2. 1977 Unknown [id number] 2.16.8 40.1.902766.3.579.2. 1977 Unknown [id number] 2.16.8 40.1.850590.3.579.2. 1977 Unknown [id number] 2.16.8 40.1.199524.3.579.2. 1977 Unknown [id number] 2.16.8 40.1.859976.3.579.2. 1977 Unknown [id number] 2.16.8 40.1.254834.3.579.2. 1977 Unknown [id number] 2.16.8 40.1.919529.3.579.2.727 1977 Unknown [id number] 2.16.8 40.1.426318.3.579.2.727 1977 Unknown [id number] 2.16.8 [id number] Social History Date Type Detail Facility Start: 06-22-2021 End: 05-24-2023 Tobacco smoking status Ex-smoker (finding) [facility] Tobacco smoking status Never [facility] Sex Assigned At Female [facility] Tobacco smoking status No Smokin g Status Entered [facility] Start: 10-25-2022 End: 05-04-2023 Tobacco smoking status Never smoked tobacco (finding) [facility] Functional Status Date Assessment Result Facility 05-24-2023 Functional Status N/A [facility] 10-25-2022 Functional Status N/A [facility] 08-09-2022 Functional Status N/A [facility] 04-21-2022 Functional Status N/A [facility] 10-23-2021 Functional Status N/A [facility] Clinical Notes 12-04-2020 to 05-24-2023 LaboratoryRadiologyRadiologyLaboratoryRadiologyLaboratoryRadiologyRadiologyRadio logy Note Date & Type Note Facility 05-24-2023 Note Chief Complaint Referral *Kidney Stone HPI Staff Evaluation requested by Chantel GONGORA due to UTI sx, Rt KUB & Hematuria. Pt is a new pt. Never before seen in our office. KUB 04/29/23 NEG C&S 05/04/23 NEG GC/CT 05/04/23 KUB 1/19/24 Denies Hx of Kidney Stones. Incidental finding on XR that was ordered due to hip pain. Occasional Rt flank pain. Constant hip pain. 4-5 UTI's in the past 2yrs. Unsure if cultures were ordered each time. Cardinal Sx: Burning & increased urgency. Just finished Macrobid therapy 1wk ago. Burning and Urgency has subsided. Denies visible blood in urine. Denies current Urinary Symptoms. Denies leaking. Frequency depends on water intake. Feels empty. PVR 72ml History of Present Illness I have reviewed and verified the staff HPI to be accurate for this encounter. Review of Systems PHQ Score Initial Depression Screen Score: 0 SCORE Physical Exam Vitals & Measurements HR: 78(Peripheral) RR: 16 BP: 121/73 HT: 68 in HT: 173 cm WT: 72 kg WT: 158.4 lb BMI: 24.06 General: Well developed, well nourished, in no acute distress. Genitourinary: Flank Pain: none. Bladder: nonpalpable. Assessment/Plan 1. Vaginal atrophy (N95.2: Postmenopausal atrophic vaginitis) Pt reports irregular menstrual cycle x 1-2 yrs. C/o of intermittent dysuria over the last year. Does admit to vaginal dryness. Discussed changes in vaginal tissue in perimenopausal women. Discussed low systemic absorption of vaginal estrace, possible SEs. Pt would like to move forward w/ use of estrace. Rx sent to [facility]. -Start estrace, pea sized amount applied area urethra nightly x 3 weeks, then 3x/week for maintenance -f/u 3 mos to reevaluated urinary/vaginal sxs. Ordered: estradiol topical, See Instructions, 42.5 gm, Refill(s) 5, apply pea sized amount on fingertip near urethral opening nightly x 3 weeks, then 3x/week for maintanence, [id number], 173, cm, 05/24/23 10:00:00 EST, Height/Length Dosing, 72, kg, 05/24/23 10:00:00 EST,... 2. Dysuria (R30.0: Dysuria) UA today w/o signs of blood or infection. PVR 72cc Denies episode of gross hematuria in the past. Denies urinary sxs today. BBSQ 12 Pt overall happy w/ urination. Pt c/o of episodic dysuria a 4-5x over the last year. Treated w/ abx which resolved sxs. Unsure if she's had positive cultures w/ treatment previously. UCX 04/15/23 - neg UCX 05/04/23 - neg STI testing 05/04/23 - neg chlamydia, neg gonorrhea Pt primarily drinks water throughout the day. Denies heavy intake of bladder irritants. Pt to contact our office of future urinary sxs. If another urinary episode w neg cx, need further imaging Possible cysto/UD if urinary sxs become more frequent and negative cxs and imaging. -Start estrace cream, see #1. 3. Kidney stone (N20.0: Calculus of kidney) KUB 04/29/23 - stable 5 mm stone right mid pole, 2 mm calcification between left transverse process of L4-L5, slightly more medial than expected for the ureter, phlebolith vs mid ureteral stone. KUB 05/20/23 - 5 mm stone in the right mid pole, stable 2 mm calcification projected between the left L4 and L5 transverse processes. Discussed results w/ pt. Stone in right kidney not causing pain. However, unclear if left sided calcification could be a ureteral stone although not likely given lack of blood on UA today and physical exam. Suggested r/o ureteral stone w/ CT. However, pt is concerned about the cost of imaging. She denies flank pain, but admits to bilateral hip/low back pain. She denies fever, NV, difficulty urinating. Dysuria is episodic. Denies hx of kidney stones. Pt should proceed to ER w/ severe flank pain, fever, NV, inability to urinate. Discussed generalized stone prevention - pt encouraged to increase fluid intake so that he/she producing 2.5L of urine daily. Add 1/4 cup of lemon juice to water throughout the day or can also drink sugar free lemonade or clear soda. Avoid dark adelso. Restrict sodium intake. Restrict animal protein. Pt understands that if she has another episode of dysuria w/ negative culture, should proceed w/ imaging to r/o ureteral stone. -f/u 1 yr w/ KUB/XENA. Will need order at f/u visit. Follow-up With When Contact Information Or[employer]ili BLACK, [employer]GICAL [employer]ERRITORY MANAGER-C, [place] [facility], FAM, URL In 3 months Additional Instructions: Patient Education Dysuria Dietary Guidelines to Help Prevent Kidney Stones Kidney Stones, Qaic-dw-Vbtu Problem List/Past Medical History Ongoing Acid reflux [...] lower extremity Migraines Nasal congestion Panic attacks (more content not included)... [facility] Comment on above: Result Comment: Elec tronically Signed By: NILES Erickson APRN, [place] [facility]\.br\Date and Time Signed: 05/24/23 13:30 EST 05-24-2023 Hospital Discharg e instructions Patient Education 05/24/2023 13:29:54 Dysuria Dysuria Dysuria is pain or discomfort during urination. The pain or discomfort may be felt in the part of the body that drains urine from the bladder (urethra) or in the surrounding tissue of the genitals. The pain may also be felt in the groin area, lower abdomen, or lower back. You may have to urinate frequently or have the sudden feeling that you have to urinate (urgency). Dysuria can affect anyone, but it is more common in females. Dysuria can be caused by many different things, including: Urinary tract infection. Kidney stones or bladder stones. Certain STIs (sexually transmitted infections), such as chlamydia. Dehydration. Inflammation of the tissues of the vagina. Use of certain medicines. Use of certain soaps or scented products that cause irritation. Follow these instructions at home: Medicines Take rqnp-amm-giobjwz and prescription medicines only as told by your health care provider. If you were prescribed an antibiotic medicine, take it as told by your health care provider. Do not stop taking the antibiotic even if you start to feel better. Eating and drinking Drink enough fluid to keep your urine pale yellow. Avoid caffeinated beverages, tea, and alcohol. These beverages can irritate the bladder and make dysuria worse. In males, alcohol may irritate the prostate. General instructions Watch your condition for any changes. Urinate often. Avoid holding urine for long periods of time. If you are female, you should wipe from front to back after urinating or having a bowel movement. Use each piece of toilet paper only once. Empty your bladder after sex. Keep all follow-up visits. This is important. If you had any tests done to find the cause of dysuria, it is up to you to get your test results. Ask your health care provider, or the department that is doing the test, when your results will be ready. Contact a health care provider if: You have a fever. You develop pain in your back or sides. You have nausea or vomiting. You have blood in your urine. You are not urinating as often as you usually do. Get help right away if: Your pain is severe and not relieved with medicines. You cannot eat or drink without vomiting. You are confused. You have a rapid heartbeat while resting. You have shaking or chills. You feel extremely weak. Summary Dysuria is pain or discomfort while urinating. Many different conditions can lead to dysuria. If you have dysuria, you may have to urinate frequently or have the sudden feeling that you have to urinate (urgency). Watch your condition for any changes. Keep all follow-up visits. Make sure that you urinate often and drink enough fluid to keep your urine pale yellow. This information is not intended to replace advice given to you by your health care provider. Make sure you discuss any questions you have with your health care provider. Document Revised: 11/28/2020 Document Reviewed: 11/28/2020 [employer] Patient Education 2022 [employer] 05/24/2023 13:29:53 Dietary Guidelines to Help Prevent Kidney Stones Dietary Guidelines to Help Prevent Kidney Stones Kidney stones are deposits of minerals and salts that form inside your kidneys. Your risk of developing kidney stones may be greater depending on your diet, your lifestyle, the medicines you take, and whether you have certain medical conditions. Most people can lower their risks of developing kidney stones by following these dietary guidelines. Your dietitian may give you more specific instructions depending on your overall health and the type of kidney stones you tend to develop. What are tips for following this plan? Reading food labels Choose foods with no salt added or low-salt labels. Limit your salt (sodium) intake to less than 1,500 mg a day. Choose foods with calcium for each meal and snack. Try to eat about 300 mg of calcium at each meal. Foods that contain 200 500 mg of calcium a serving include: ?8 oz (237 mL) of milk, svtnowm-azddcoqrbouy-acuxa milk, and calcium-fortifiedfruit juice. Calcium-fortified means that calcium has been added to these drinks. ?8 oz (237 mL) of kefir, yogurt, and soy yogurt. ?4 oz (114 g) of tofu. ?1 oz (28 g) of cheese. ?1 cup (150 g) of dried figs. ?1 cup (91 g) of cooked broccoli. ?One 3 oz (85 g) can of sardines or mackerel. Most people need 1,000 1,500 mg of calcium a day. Talk to your dietitian about how much calcium is recommended for you. Shopping Buy plenty of fresh fruits and vegetables. Most people do not need to avoid fruits and vegetables, even if these foods contain nutrients that may contribute to kidney stones. When shopping for convenience foods, choose: ?Whole pieces of fruit. ?Pre-made salads with dressing on the side. ?Low-fat fruit and yogurt smoothies. Avoid buying frozen meals or prepared deli foods. These can be high in sodium. Look for foods with live cultures, such as yogurt and kefir. Choose high-fiber grains, such as whole-wheat breads, oat bran, and wheat cereals. Cooking Do not add salt to food when cooking. Place a salt shaker on the table and allow each person to add their own salt to taste. Use vegetable protein, such as beans, textured vegetable protein (TVP), or tofu, instead of meat in pasta, casseroles, and soups. Meal planning Eat less salt, if told by your dietitian. To do this: ?Avoid eating processed or pre-made food. ?Avoid eating fast food. Eat less animal protein, including cheese, meat, poultry, or fish, if told by your dietitian. To do this: ?Limit the number of times you have meat, poultry, fish, or cheese each week. Eat a diet free of meat at least 2 days a week. ?Eat only one serving each day of meat, poultry, fish, or seafood. ?When you prepare animal proteins, cut pieces into small portion sizes. For most meat and fish, one serving is about the size of the palm of your hand. Eat at least five servings of fresh fruits and vegetables each day. To do this: ?Keep fruits and vegetables on hand for snacks. ?Eat one piece of fruit or a handful of berries with breakfast. ?Have a salad and fruit at lunch. ?Have two kinds of vegetables at dinner. You may be told to limit foods that are high in a substance called oxalate. These include: ?Spinach (cooked), rhubarb, beets, sweet potatoes, and [place] chard. ?Peanuts. ?Potato chips, kyrgyz fries, and baked potatoes with skin on. ?Nuts and nut products. ?Chocolate. If you regularly take a diuretic medicine, make sure to eat at least 1 or 2 servings of fruits or vegetables that are high in potassium each day. These include: ?Avocado. ?Banana. ?[place], prune, carrot, or tomato juice. ?Baked potato. ?Cabbage. ?Beans and split peas. Lifestyle Drink enough fluid to keep your urine pale yellow. This is the most important thing you can do. Spread your fluid intake throughout the day. If you drink alcohol: ?Limit how much you have to: ?0 1 drink a day for women who are not . ?0 2 drinks a day for men. ?Know how much alcohol is in your drink. In the [place] one drink equals one 12 oz bottle of beer (355 mL), one 5 oz glass of wine (148 mL), or one 1 oz glass of hard liquor (44 mL). Lose weight if told by your health care provider. Work with your dietitian to find an eating plan and weight loss strategies that work best for you. General information Talk to your health care provider and dietitian about taking daily supplements. Depending on your health and the cause of your kidney stones, you may be told: ?Do not take high-dose supplements of vitamin C (1,000 mg a day or more). ?To take a calcium supplement. ?To take a daily probiotic supplement. ?To take other supplements such as magnesium, fish oil, or vitamin B6. Take clqd-frs-fwuzikj and prescription medicines only as told by your health care provider. These include supplements. What foods should I limit? Limit your intake of the following foods, or eat them as told by your dietitian. Vegetables Spinach. Rhubarb. Beets. Canned vegetables. Pickles. Olives. Baked potatoes with skin. Grains Wheat bran. Baked goods. Salted crackers. Cereals high in sugar. Meats and other proteins Nuts. Nut butters. Large portions of meat, poultry, or fish. Salted, precooked, or cured meats, such as sausages, meat loaves, and hot dogs. Dairy Cheeses. Beverages Regular soft drinks. Regular vegetable juice. Seasonings and condiments Seasoning blends with salt. Salad dressings. Soy sauce. Ketchup. Barbecue sauce. Other foods Canned soups. Canned pasta sauce. Casseroles. Pizza. Lasagna. Frozen meals. Potato chips. Brazilian fries. The items listed above may not be a complete list of foods and beverages you should limit. Contact a dietitian for more information. What foods should I avoid? Talk to your dietitian about specific foods you should avoid based on the type of kidney stones you have and your overall health. Fruits Grapefruit. The item listed above may not be a complete list of foods and beverages you should avoid. Contact a dietitian for more information. Summary Kidney stones are deposits of minerals and salts that form inside your kidneys. You can lower your risk of kidney stones by making changes to your diet. The most important thing you can do is drink enough fluid. Drink enough fluid to keep your urine pale yellow. Talk to your dietitian about how much calcium you should have each day, and eat less salt and animal protein as told by your dietitian. This information is not intended to replace advice given to you by your health care provider. Make sure you discuss any questions you have with your health care provider. Document Revised: 07/29/2022 Document Reviewed: 07/29/2022 [employer] Patient Education 2022 [employer] 05/24/2023 13:29:50 Kidney Stones, Fvwc-px-Ffit Kidney Stones Kidney stones are rock-like masses that form inside of the kidneys. Kidneys are organs that make pee (urine). A kidney stone may move into other parts of the urinary tract, including: The tubes that connect the kidneys to the bladder (ureters). The bladder. The tube that carries urine out of the body (urethra). Kidney stones can cause very bad pain and can block the flow of pee. The stone usually leaves your body (passes) through your pee. You may need to have a doctor take out the stone. What are the causes? Kidney stones may be caused by: A condition in which certain glands make too much parathyroid hormone (primary hyperparathyroidism). A buildup of a type of crystals in the bladder made of a chemical called uric acid. The body makes uric acid when you eat certain foods. Narrowing (stricture) of one or both of the ureters. A kidney blockage that you were born with. Past surgery on the kidney or the ureters, such as gastric bypass surgery. What increases the risk? You are more likely to develop this condition if: You have had a kidney stone in the past. You have a family history of kidney stones. You do not drink enough water. You eat a diet that is high in protein, salt (sodium), or sugar. You are overweight or very overweight (obese). What are the signs or symptoms? Symptoms of a kidney stone may include: Pain in the side of the belly, right below the ribs (flank pain). Pain usually spreads (radiates) to the groin. Needing to pee often or right away (urgently). Pain when going pee (urinating). Blood in your pee (hematuria). Feeling like you may vomit (nauseous). Vomiting. Fever and chills. How is this treated? Treatment depends on the size, location, and makeup of the kidney stones. The stones will often pass out of the body through peeing. You may need to: Drink more fluid to help pass the stone. In some cases, you may be given fluids through an IV tube put into one of your veins at the hospital. Take medicine for pain. Make changes in your diet to help keep kidney stones from coming back. Sometimes, medical procedures are needed to remove a kidney stone. This may involve: A procedure to break up kidney stones using a beam of light (laser) or shock waves. Surgery to remove the kidney stones. Follow these instructions at home: Medicines Take hihq-rna-qjwyfpk and prescription medicines only as told by your doctor. Ask your doctor if the medicine prescribed to you requires you to avoid driving or using heavy machinery. Eating and drinking Drink enough fluid to keep your pee pale yellow. You may be told to drink at least 8 10 glasses of water each day. This will help you pass the stone. If told by your doctor, change your diet. This may include: ?Limiting how much salt you eat. ?Eating more fruits and vegetables. ?Limiting how much meat, poultry, fish, and eggs you eat. Follow instructions from your doctor about eating or drinking restrictions. General instructions Collect pee samples as told by your doctor. You may need to collect a pee sample: ?24 hours after a stone comes out. ?8 12 weeks after a stone comes out, and every 6 12 months after that. Strain your pee every time you pee (urinate), for as long as told. Use the strainer that your doctor recommends. Do not throw out the stone. Keep it so that it can be tested by your doctor. Keep all follow-up visits as told by your doctor. This is important. You may need follow-up tests. How is this prevented? To prevent another kidney stone: Drink enough fluid to keep your pee pale yellow. This is the best way to prevent kidney stones. Eat healthy foods. Avoid certain foods as told by your doctor. You may be told to eat less protein. Stay at a healthy weight. Where to find more information National Kidney Foundation (NKF): www.kidney.org [facility] (UCF): www.urologyhealth.org Contact a doctor if: You have pain that gets worse or does not get better with medicine. Get help right away if: You have a fever or chills. You get very bad pain. You get new pain in your belly (abdomen). You pass out (faint). You cannot pee. Summary Kidney stones are rock-like masses that form inside of the kidneys. Kidney stones can cause very bad pain and can block the flow of pee. The stones will often pass out of the body through peeing. Drink enough fluid to keep your pee pale yellow. This information is not intended to replace advice given to you by your health care provider. Make sure you discuss any questions you have with your health care provider. Document Revised: 12/21/2021 Document Reviewed: 12/21/2021 [employer] Patient Education 2022 [employer] Follow Up Care 05/09/2023 09:53:22 With:NILES Erickson APRN, Winter Deshpande, YAYA, URL Address: When:Within 3 Month(s) [facility] 05-04-2023 Evaluation + Plan note Diagnostic Tests PendingUrine Culture 05/04/23Chlamydia/Gonococcus, JUAN PABLO 05/04/23 [facility] 07-21-2022 Hospital Discharg e instructions Follow Up Care 07/21/2022 16:08:05 With:Yasmine Dukes CNP Address: When:Within 3 Month(s) Comments:physical and review labs [facility] 10-23-2021 Evaluation + Plan note Future Scheduled TestsCBC w/ Auto Diff 10/23/21Comprehensive Metabolic Panel 10/23/21Lipid Panel 10/23/21CT Abdomen/Pelvis w/ Contrast 12/04/20US Aorta 12/04/20 [facility] 12-04-2020 Evaluation + Plan note Future Scheduled TestsCT Abdomen/Pelvis w/ Contrast 12/04/20US Aorta 12/04/20 [facility] Evaluation + Plan note Future Appointments Appointment Date:10/25/2022 03:40:00 PM Scheduled Provider:Yasmine Dukes CNP Location:[facility] Appointment Type: Open Future Scheduled [id number] 08/09/22CBC w/ Auto Diff 08/09/22Comprehensive Metabolic Panel 08/09/22Lipid Panel 08/09/22XR Hip 2-3 Views Right 08/09/22XR Sacrum and Coccyx Min 2 Views 08/09/22XR Spine Lumbosacral Minimum 4 Views 08/09/22 [facility] Evaluation + Plan note Future Appointments Appointment Date:10/25/2022 03:40:00 PM Scheduled Provider:Yasmine Dukes CNP Location:[facility] Appointment Type: Open Future Scheduled [id number] 08/09/22CBC w/ Auto Diff 08/09/22Comprehensive Metabolic Panel 08/09/22Lipid Panel 08/09/22 [facility] Evaluation + Plan note Future Appointments Appointment Date:10/22/2022 04:00:00 PM Scheduled Provider: Location:.[facility] Appointment Type:US Abdominal/Pelvis (FT) Appointment Date:10/25/2022 03:40:00 PM Scheduled Provider:Yasmine Dukes CNP Location:[facility] Appointment Type:FM Open Appointment Date:10/30/2022 10:30:00 AM Scheduled Provider: Location:.[facility] Appointment Type:MA Screen (FT) Diagnostic Tests PendingPAP [id number] 10/18/22 Future Scheduled TestsUS Pelvis Non-OB Complete 10/22/22US Transvaginal Non-OB 10/22/22MA Mamm Screen w/CAD if perf and 3D Robert 10/30/22 [facility] Evaluation + Plan note Future Appointments Appointment Date:10/25/2022 03:40:00 PM Scheduled Provider:Yasmine Dukes CNP Location:[facility] Appointment Type:FM Open Appointment Date:10/30/2022 10:30:00 AM Scheduled Provider: Location:.[facility] Appointment Type:MA Screen (FT) Diagnostic Tests PendingFSH and LH 10/22/22 Future Scheduled TestsMA Mamm Screen w/CAD if perf and 3D Robert 10/30/22 [facility] Evaluation + Plan note Future Appointments Appointment Date:10/30/2022 10:30:00 AM Scheduled Provider: Location:.[facility] Appointment Type:MA Screen (FT) Future Scheduled TestsMA Mamm Screen w/CAD if perf and 3D Robert 10/30/22 [facility] Hospital course Narrative No data available for this section [facility] Hospital Discharge instructions No data available for this section [facility] Progress note No data available for this section [facility] Summary Purpose Family History No Family History Records Found Advance Directives No Advanced Directives Records Found Additional Source Comments Care Team (unrecognized sect ion and content) Personnel Name: Jg Green MD Address: [address] [place] [address] Personnel Name: Jg Green MD Address: [address] [place] [address] Personnel Name: Jg Green MD Address: [address] [place] [address] Personnel Name: Dalton Medel MD Address: Address: [address] [place] [address] Personnel Name: Dalton Medel MD Address: Address: [address] [place] [address] Personnel Name: Dalton Medel MD Address: Address: [address] [place] [address] Personnel Name: Renata Medel MD Address: Address: [address] [place] [address] Personnel Name: Renata Medel MD Address: Address: [address] [place] [address] Personnel Name: Renata Medel MD Address: Address: [address] [place] [address] Personnel Name: Renata Medel MD Address: Address: [address] [place] [address] Personnel Name: Chantel Mendes Address: Address: [address] [place] [address]- Personnel Name: Chantel Mendes Address: Address: [address] [place] [address]- Personnel Name: Chantel Mendes Address: Address: [address] [place] [address]- INFORMATION SOURCE (unrecogn ized section and content) DATE CREATED AUTHOR 07/30/2023 [facility] FOR RECORDS PERTAINING TO PATIENTS WHO ARE [...] BE BASED ON THE PRIMARY CLINICAL RECORDS. [employer] [facility]. provides no warranty or guarantee of the accuracy or completeness of information in this document.
== END 2023-08-08 09:54 | disposition home or self-care (01) ==
LOC: RAD 09:54
PROVIDERS: PCP Nurse Practitioner; Visit Provider Nurse Practitioner
DX: M54.16 Radiculopathy, lumbar region (principal); M54.50 Low back pain, unspecified
CPT/HCPCS: 72072; 72110

== ENCOUNTER 2023-08-12 10:39 | Outpatient (OUT) | payer OTHER, SELFPAY ==
--- NOTE | 2023-08-12 10:42 | US_ITS ---
[address] [address] Patient Name: KIMBERLY MOYA MRN: [id number] date: 1975 Sex: F Assigned Patient Location: [place] Current Patient Location: Accession/Order Number: [id number] Exam Date: 08/12/2023 10:46 Report Date: 08/15/2023 07:12 At the request of: DILIP COVARRUBAIS Procedure: US renal BI EXAMINATION: US renal BI HISTORY: Flank Pain, Back Pain COMPARISON: No relevant comparison available. TECHNIQUE: Ultrasound examination was performed of the bladder. FINDINGS: Right Kidney: Normal in size, contour and echotexture. No solid cortical mass, hydronephrosis or obstructing nephrolithiasis. 7 mm nonobstructing nephrolith. Height: 5.9 cm Length: 12.0 cm Width: 4.0 cm Left Kidney: Normal in size, contour and echotexture. No solid cortical mass, hydronephrosis or obstructing nephrolithiasis Height: 5.3 cm Length: 11.5 cm Width: 4.9 cm Urinary bladder is normal in in size with no wall thickening. Volume of 717 cc US/US renal BI IMPRESSION: 7 mm nonobstructing right nephrolith Large urinary bladder volume of 717 cc Electronically authenticated by: CELINE ZAMORA Date: 08/15/2023 07:12
--- OUTSIDE RECORDS SUMMARY | 2023-08-12 10:54 | XMS_ITS | CCD ---
Author Organization [facility] Care Team Providers Care Installations Inspector Name Role Phone Jg Green Primary Care Physician Dalton Medel Primary Care Physician Renata Medel Primary Care Physician Chantel Wyman Primary Care Physician Yasmine Dukes Attending Unavailable RiedyYasmine Attending Unavailable [...] sources) Chlorhexidine; Translations: [chlorhexidine topical] Drug Allergy [facility] Work Phone: (14 sources) Contrast media; Translations: [Contrast Dye] Drug allergy Unknown (qualifier value) [facility] Work Phone: (14 sources) Penicillins; Translations: [penicillins] Drug allergy RASH [facility] Work Phone: Medications Current Medications Medication Drug Class(es) Dates Sig (Normalized) Sig (Original) estradiol 0.1 mg/ml vaginal cream (1 source) Estrogen Start: 05-24-2023 Estrace 0.1 mg/g Cream See Instructions, 42.5 gm, Refill(s) 5, apply pea sized amount on fingertip near urethral opening nightly x 3 weeks, then 3x/week for maintanence, [facility]/pharmacy #[id number], 173, cm, 05/24/23 10:00:00 EST, Height/Length Dosing, 72, kg, 05/24/23 10:00:00 EST, Weight Dosing Start Date: 05/24/23 Status: Ordered fluticasone propionate 0.05 mg/actuat metered dose nasal spray (1 source) Corticosteroid Start: 04-21-2022 take 1 spray(s) nasal route twice daily Flonase 0.05 mg/inh Fay 1 spray(s), Nasal, BID, 16 gram, Refill(s) 0, each nostril, [facility], 174, cm, 04/21/22 15:08:00 [...] anxiety, # 30 tab(s), Refills(s) 0, Pharmacy: [facility], 174, cm, 08/09/22 15:52:00 EDT, Height/Length Dosing, 71.4, kg, 08/09/22 15:52:00 EDT, Weight Dosing Start Date: 09/21/22 Status: Ordered Start: 09-15-2021 take 1 tablet by michael th three times daily as needed for anxiety hydrOXYzine hydrochloride 10 mg Tab 10 mg = 1 tab(s), Oral, TID, PRN for anxiety, # 30 tab(s), Refills(s) 0, Pharmacy: [facility], 174, cm, 06/22/21 17:30:00 EST, Height/Length Dosing, 65.5, kg, 06/22/21 17:30:00 EST, Weight Dosing Start Date: 09/15/21 Status: Ordered ibuprofen 800 mg oral tablet (9 sources) Nonsteroidal Anti-inflammatory Drug Start: 08-09-2022 take 1 tablet by mouth three times daily ibuprofen 800 mg Tab 800 mg = 1 tab(s), Oral, TID, # 90 tab(s), Refills(s) 0, Pharmacy: [facility], 174, cm, 08/09/22 15:52:00 EDT, Height/Length Dosing, 71.4, kg, 08/09/22 15:52:00 EDT, Weight Dosing Start Date: 08/09/22 Status: Ordered Mucinex DM 30 mg-600 mg Tab-ER (1 source) Start: 04-21-2022 End: 04-28-2022 take 1 tablet by mouth every twelve hours Mucinex DM 30 mg-600 mg Tab-ER 1 tab(s), Oral, q12hr Congestion for 7 day(s), 14 tab(s), Refill(s) 0, [facility], 174, cm, 04/21/22 15:08:00 [...] day(s), # 14 cap(s), Refills(s) 0, Pharmacy: [facility]/pharmacy #[id number], 174, cm, 05/04/23 10:55:00 EST, Height/Length Dosing, [...] Test Name Value Interpretation Reference Range Facility Physician Orderon 08-09-2023 Physician Order [id number]#1.00TIFF Normal [facility] Ambulatory Visit Summaryon 0 07-29-2023 Ambulatory Visit [...] 11:20 AM EDT With: Chantel Mendes Where: [facility] [place] Normal [facility] Family Medicine Office/Clini c Noteon 07-29-2023 Family Medicine [...] Daily, # 30 tab(s), Refills(s) 0, Pharmacy: [facility]/pharmacy #[id number], 173, cm, 07/29/23 14:36:00 EDT, Height/Length Dosing, 72.5, kg, 07/29/23 14:36:00 EDT, Weight Dosing methylPREDNISolone, = 1 packet(s), Oral, As Directed, as directed on package labeling, X 6 day(s), # 21 tab(s), Refills(s) 0, Pharmacy: [facility]/pharmacy #[id number], 173, cm, 07/29/23 14:36:00 EDT, Height/Length Dosing, 72.5, kg, 07/29/23 14:36:00 EDT, Weight Dosing 2. Low back pain with right-sided sciatica (M54.41: Lumbago with sciatica, right side) see above Ordered: meloxicam, 15 mg = 1 tab(s), Oral, Daily, # 30 tab(s), Refills(s) 0, Pharmacy: [facility]/pharmacy #[id number], 173, cm, 07/29/23 14:36:00 EDT, Height/Length Dosing, 72.5, kg, 07/29/23 14:36:00 EDT, Weight Dosing methylPREDNISolone, = 1 packet(s), Oral, As Directed, as directed on package labeling, X 6 day(s), # 21 tab(s), Refills(s) 0, Pharmacy: [facility]/pharmacy #[id number], 173, cm, 07/29/23 14:36:00 EDT, Height/Length Dosing, 72.5, kg, 07/29/23 14:36:00 EDT, Weight Dosing 3. BMI 24.0-24.9, adult (Z68.24: Body mass index [BMI] 24.0-24.9, adult) BMI education complete Ordered: meloxicam, 15 mg = 1 tab(s), Oral, Daily, # 30 tab(s), Refills(s) 0, [id number], cm, 07/29/23 14:36:00 EDT, Height/Length Dosing, 72.5, kg, 07/29/23 14:36:00 EDT, Weight Dosing methylPREDNISolone, = 1 packet(s), Oral, As Directed, as directed on package labeling, X 6 day(s), # 21 tab(s), Refills(s) 0, [id number], 173, cm, 07/29/23 14:36:00 EDT, Height/Length Dosing, 72.5, kg, 07/29/23 14:36:00 EDT, Weight Dosing 4. Former smoker (Z87.891: Personal history of nicotine dependence) continue not smoking Ordered: meloxicam, 15 mg = 1 tab(s), Oral, Daily, # 30 tab(s), Refills(s) 0, [id number], 173, cm, 07/29/23 14:36:00 EDT, Height/Length Dosing, 72.5, kg, 07/29/23 14:36:00 EDT, Weight Dosing methylPREDNISolone, = 1 packet(s), Oral, As Directed, as directed on package labeling, X 6 day(s), # 21 tab(s), Refills(s) 0, [id number], 173, cm, 07/29/23 14:36:00 EDT, Height/Length [...] meloxicam 15 (more content not included)... Normal [facility] Comment on above: Result Comment: Elec tronically Signed By: Chantel Mendes\.br\Date and Time Signed: 07/29/23 14:52 EDT [place] 05-25-2023 Screens [id number]#[id number] [facility] Ambulatory Visit Summaryon 0 05-24-2023 Ambulatory Visit [...] Schedule the Following Appointments Follow Up with Georgina SILVAN, THEATER PROJECTIONIST-C, Winter X, FAM, URL When: In 3 months Where: Medications What How Much When Why Instructions New estradiol topical (Estrace 0.1 mg/ g Cream) See instructions Vaginal atrophy Refills: 5 apply pea sized amount on fingertip near urethral opening nightly x 3 weeks, then 3x/ week for maintanence Pickup at [facility]/pharmacy #[id number] Unchanged ascorbic acid (Vitamin C 500 [...] physician if questions or concerns Pharmacy Information [facility]/pharmacy #[id number]: [address], [place] [id number] [phone] Allergies Contrast Dye (Unknown) chlorhexidine topical penicillins [...] these instructions at home: Medicines ? Take vlen-lal-rkcplxo and prescription medicines only as told by [...] often. Avoi (more content not included)... Normal [facility] Patient Educationon 05-24-19 Patient Education Nephrology Dietary [...] ? 8 oz (237 mL) of milk, dxtkpmz-sezziooamtte-vvwxj milk, and calcium-fortifiedfruit juice. Calcium-fortified means that [...] Spinach (cooked), rhubarb, beets, sweet potatoes, and Citizen [place] chard. ? Peanuts. ? Potato chips, afghan fries, and baked potatoes with skin on. ? Nuts and nut products. ? Chocolate. ? If you regularly take a diuretic medicine, make sure to eat at least 1 or 2 servings of fruits or vegetables that are high in potassium each day. These include: ? Avocado. ? Banana. ? [place], prune, carrot, or tomato juice. ? Baked [...] fish oil, or vitamin B6. ? Take oywh-fhe-iknscfl and prescription medicines only as told by your health care provider. These include supplements. What foods sh (more content not included)... Normal [facility] Chlamydia/Gonococcus, NAAon 05-07-2023 C. trachomatis rRNA JUAN PABLO+probe Ql (Unsp spec) Negative Invalid Interpretation Code Negative [facility] Comment on above: Performed By: #### 1 [id number] #### [facility] [address] [place] [address] N. gonorrhoeae rRNA JUAN PABLO+probe Ql (Unsp spec) Negative Invalid Interpretation Code Negative [facility] Comment on above: Result Comment: Perf ormed at: =G [facility] [place] [address] [facility] [place], [place] [id number] MD Brandon Rivera Performed By: #### 1 [id number] #### [facility] [address] [place] [address] C Urineon 05-06-2023 Bacteria identified Cx Nom (U) Microbiology PROCEDURE: Urine Culture [R1] SOURCE: U CleanCatch BODY SITE: COLLECTED DATE/TIME: 05/04/2023 11:10 EST RECEIVED DATE/TIME: 05/04/2023 22:10 EST START DATE/TIME: 05/04/2023 22:10 EST FREE TEXT SOURCE: Chantel Mendes, Chantel Stallings FINAL REPORTS Final Report [] Verified Date/Time: 05/06/2023 09:53 EST 6,000 cfu/ml Mixed skin contaminants Performing Locations R1: This test was performed at: [facility], [address] [place] [address], [address] , , Normal [facility] Comment on above: Performed By: #### 2 [id number] ####[facility] [address] [place] [address] Family Medicine Office/Clini c Noteon 05-04-2023 Family [...] all questions answered. Ordered: Chlamydia/Gonococcus, JUAN PABLO [facility] Internal Ambulatory Referral Urine Culture Urine Culture Urnls Dip Stick Auto w/o Microscopy POC 49307 Urnls Dip Stick Auto w/o Microscopy POC 42363 2. Kidney stone on right side (N20.0: Calculus of kidney) reviewed KUB results. will refer to urology Ordered: [facility] Internal Ambulatory Referral 3. Hematuria (R31.9: Hematuria, unspecified) u/a + for blood Ordered: [facility] Internal Ambulatory Referral Orders: nitrofurantoin, 100 mg = 1 cap(s), Oral, BID, X 7 day(s), # 14 cap(s), Refills(s) 0, Pharmacy: [facility]/pharmacy #[id number], 174, cm, 05/04/23 10:55:00 EST, [...] Protein Urine Dipstick: Negative (05/04/23 10:58:00) Specific Gilbert Urine Dipstick: 1.010 (05/04/23 10:58:00) Urine Appearance Urine Dipstick: Clear (05/04/23 10:58:00) Urine Color Urine Dipstick: Yellow (05/04/23 10 (more content not included)... [facility] Comment on above: Result Comment: Elec tronically Signed By: Chantel Mendes\.br\Date and Time Signed: 05/04/23 12:35 EST RAD - MISCon 05-04-2023 RAD - MISC [id number]#1.00TIFF [facility] C Urineon 04-17-2023 Bacteria identified Cx [...] Locations R1: This test was performed at: [employer] [facility], [address] [place] [address], [address] , , [facility] Comment on above: Performed By: #### 2 [id number] #### [facility] [address] [place] [address] Ambulatory Visit Summaryon 1 2-15-2023 Ambulatory Visit Summary 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1975 Visit [...] you for choosing us for your care. [facility] Family Medicine Office/Clini c Noteon 04-15-2023 Family Medicine Office/Clinic Note HPI Staff Kimberly is a 47 year old female presenting to critical access hospital care Establish Care: History: Any previous diagnosis: Gerd, Anxiety, Migraines History of seeing any specialist: n/a When was your last doctors visit: Last provider: Dr Yanez Any recent labs: 10/15/22 Health Maintenance UTD: Colonoscopy: 2018 Dr mcmanus in [place], negative Mammogram: 10/2022 negative Pelvic/Pap: 10/2022 negative [...] right flank pain. just recently moved to [place] so would like to be established here [...] Urnls Dip Stick Auto w/o Microscopy POC 41028 2. Flank pain (R10.9: Unspecified abdominal pain) pt states she has been having this right sided flank pain for months. she has had x ray MRI, did PT and Pain management. she was told she had a kidney stone at one time, but isn't sure if she ever passed it. KUB ordered to be done at [facility]. No blood in u/a today. Ordered: Urine Culture 3. History of kidney stones (Z87.442: Personal history of urinary calculi) KUB and u/s with culture ordered 4. BMI 23.0-23.9, adult (Z68.23: Body mass index [BMI] 23.0-23.9, adult) BMI education complete Ordered: Urnls Dip Stick Auto w/o Microscopy POC 50707 5. Non-smoker (Z78.9: Other specified health status) continue not smoking Ordered: Urnls Dip Stick Auto w/o Microscopy POC 47837 Follow-up No qualifying data available Problem List/Past [...] virus vaccine, inactiv (more content not included)... [facility] Comment on above: Result Comment: Elec tronically Signed By: Chantel Mendes\.br\Date and Time Signed: 04/15/23 12:41 EST Physician Orderon 04-15-2023 Physician Order [id number]#1.00TIFF [facility] MA Mamm Screen w/CAD if perf [...] VERY IMPORTANT TO YOUR HEALTH. THE CURRENT [employer] [...] Ambrosio Thakur MD Transcribed by: JEFFREY Technologist: KURT Assessment: BI-RADS Category 2-Benign finding Recommendation: Normal interval follow-up Normal [facility] Consent for Treatmenton 11-30 Consent for Treatment [id number]#1.00CD:127 Normal [facility] Family Medicine Office/Clini c Noteon 10-27-2022 Family Medicine Office/Clinic Note Chief Complaint Physical HPI Staff Pt is here to do physical and lab review Concerns:Cholestrol levels are elevated Refills:No PHQ9:10 MARYAM: 20 Health Maintenance: Colonoscopy: 2019- normal- [facility] Pap:2020 Last Labs:10/22/2022 History of Present Illness [...] sugars and thyroid were within normal range. [employer] recently did hormonal blood work and an ultrasound of her uterus, and she told her that she might be getting close to menopause. She has a follow up appointment with [employer] specialist on , 10/28/2022. She takes Metamucil [...] screening in [address] Page in [place]. Her results were normal. Review of Systems [...] for anxiety (more content not included)... Normal [facility] Comment on above: Result Comment: Elec tronically Signed By: Yasmine Dukes CNP\.br\Date and Time Signed: 10/27/22 17:43 EDT\.br\Electronically Co-Signed By: Chiquita Phipps.br\Date and Time Co-Signed: 10/26/22 14:59 EDT [facility] 10-26-2022 Forms [id number]#1.00CD:127 Normal [facility] US Pelvis Non-OB Completeon 10-26-2022 US [...] Transabdominal Ultrasound Performed Uterus Position Anteverted Normal [facility] FSH and LHon 10-24-2022 Follitropin Qn 9.4 m[IU]/mL Invalid Interpretation Code [facility] Comment on above: Result Comment: Adul t Female: Follicular phase 3.5 - 12.5 Ovulation phase 4.7 - 21.5 Luteal phase 1.7 - 7.7 Postmenopausal 25.8 - 134.8 Performed at: [facility] [address] [id number] PhD Pauline Minaya Performed By: #### 1 [id number] #### [facility] [address] [place] [address] Lutropin Qn 7.6 m[IU]/mL Invalid Interpretation Code [facility] Comment on above: Result Comment: Adul t Female: Follicular phase 2.4 - 12.6 Ovulation phase 14.0 - 95.6 Luteal phase 1.0 - 11.4 Postmenopausal 7.7 - 58.5 Performed By: #### 1 [id number] #### [facility] [address] [place] [address] Consent for Treatmenton 10-01 Consent for Treatment [id number]#1.00CD:127 Normal [facility] Physician Orderon 10-22-2022 Physician Order [id number]#1.00CD:127 Normal [facility] PAP [id number] 10-21-2022 Cytology report Cyto stain Doc (Cvx/Vag) Note Invalid Interpretation Code [facility] Comment on above: Result Comment: TEST S RESULT FLAG UNITS REF RANGE LAB Clinician Provided Cytology Information Source.............Endocervix LMP / Prev Treat...LWE=[id number] No. of containers..01 ThinPrep Vial DIAGNOSIS: 01 NEGATIVE FOR INTRAEPITHELIAL LESION OR MALIGNANCY. Specimen adequacy: 01 Satisfactory for evaluation. Endocervical and/or squamous metaplastic cells (endocervical component) are present. Performed by: Rach Crenshaw Plastic Worker . 01 Note: Note 02 The Pap [...] <-Panic Low,>-Panic High,A-Abnormal,AA-Critical Abnormal Performed at: [address] [facility] [address] [address] Diane Blum MD, [address] [address] iNcole Taylor MD, Performed By: #### 3 [id number] #### [facility] [address] [place] [address] HPV 16+18+31+33+35+39+4 5+51+52+56+58+59+66 +68 DNA Probe+sig amp Ql (Cvx) Negative Invalid Interpretation Code Negative [facility] Comment on above: Result Comment: This nucleic acid amplification test detects fourteen high-risk HPV types (16,18,31,33,35,39,45,51,52,56,58,59,66,68) without differentiation. Performed at: [facility] [id number] MD Viktoria Contreras Performed at: =[address] [id number] MD Brandon Rivera Performed By: #### 3 [id number] #### [facility] [address] [place] [address] PAP [id number] 10-18-2022 Collection Technique BRUSH-SPATULA Normal [facility] Comment on above: Performed By: #### 3 [id number] #### [facility] [address] [place] [address] Gynecological Body Site ENDOCERVIX Normal [facility] Comment on above: Performed By: #### 3 [id number] #### [facility] [address] [place] [address] LMP or Menopause Date [id number] Invalid Interpretation Code [facility] Comment on above: Performed By: #### 3 [id number] #### [facility] [address] [place] [address] Previous Cytology Negative Normal [facility] Comment on above: Performed By: #### 3 [id number] #### [facility] [address] [place] [address] Previous Treatment NONE Normal [facility] Comment on above: Performed By: #### 3 [id number] #### [facility] [address] [place] [address] Physician Orderon 10-18-2022 Physician Order [id number]#1.00CD:127 Normal [facility] Physician Order [id number]#1.00CD:127 Normal [facility] Auto Diffon 10-15-2022 Basophils/100 WBC (Bld) 0.5 % Normal 0.0-2.0 [facility] Comment on above: Order Comment: Order Added by Discern Expert. Performed By: #### 2 117846, [id number], 8436124, 381338401, 4108614, 1019720 ####[facility] [address] [place] [address] Basophils/Leukocyte s Auto (Bld) [Pure # fraction] 0.0 E9/L Normal 0.0-0.2 [facility] Comment on above: Order Comment: Order Added by Discern Expert. Performed By: #### 2 893982, 50655287, 1795786, 662988213, 4737075, 3404191 ####[address] [address] Eosinophils/100 WBC (Bld) 1.2 % Normal 0.0-8.0 [facility] Comment on above: Order Comment: Order Added by Discern Expert. Performed By: #### 2 607469, 20667995, 2315966, 845888357, 0966009, 6903955 ####[address] [address] Eosinophils/Leukocy edd Auto (Bld) [Pure # fraction] 0.1 E9/L Normal 0.0-0.5 [facility] Comment on above: Order Comment: Order Added by Discern Expert. Performed By: #### 2 398667, 32301757, 9259056, 327530060, 5878351, 0894359 ####[address] [address] Lymphocytes/100 WBC (Bld) 36.0 % Normal 14.0-50.0 [facility] Comment on above: Order Comment: Order Added by Discern Expert. Performed By: #### 2 224264, 36194150, 9546538, 593205588, 1980121, 6462891 ####[address] [address] Lymphocytes/Leukocy edd Auto (Bld) [Pure # fraction] 2.7 E9/L Normal 1.0-4.0 [facility] Comment on above: Order Comment: Order Added by Discern Expert. Performed By: #### 2 561742, 61532778, 6934887, 388620378, 8427221, 3658685 ####[address] [address] Monocytes/100 WBC (Bld) 7.0 % Normal 4.0-14.0 [facility] Comment on above: Order Comment: Order Added by Discern Expert. Performed By: #### 2 088196, 66741903, 2286400, 360990922, 1992842, 8892188 ####[address] [address] Monocytes/Leukocyte s Auto (Bld) [Pure # fraction] 0.5 E9/L Normal 0.2-1.0 [facility] Comment on above: Order Comment: Order Added by Discern Expert. Performed By: #### 2 298545, 91096270, 6127230, 243086278, 2977198, 2489334 ####[address] [place] [address] Neutrophils/100 WBC (Bld) 55.3 % Normal 36.0-75.0 [facility] Comment on above: Order Comment: Order Added by Discern Expert. Performed By: #### 2 053838, 02097641, 7368824, 104597746, 3707847, 0599082 ####[address] [place] [address] Neutrophils/Leukocy edd Auto (Bld) [Pure # fraction] 4.1 E9/L Normal 2.0-7.5 [facility] Comment on above: Order Comment: Order Added by Discern Expert. Performed By: #### 2 946355, 52733150, 8860958, 059629978, 4976509, 6877043 ####[address] [place] [address] CBC w/ Auto Diffon 3 Erythrocyte distribution width (RBC) [Ratio] 14.1 % Normal 10.9-14.2 [facility] Comment on above: Performed By: #### 2 642230, 45914572, 9792301, 753288944, 1368949, 4353442 ####[facility] [address] [place] [address] Hematocrit (Bld) [Volume fraction] 40.0 % Normal 34.0-46.0 [facility] Comment on above: Performed By: #### 2 484612, 47016739, 8837249, 390549962, 6892570, 9109691 ####[address] [place] [address] Hemoglobin (Bld) [Mass/Vol] 13.4 g/dL Normal 12.0-16.0 [facility] Comment on above: Performed By: #### 2 379036, 37743873, 4384686, 261259058, 6754031, 6746803 ####[address] [address] MCH (RBC) [Entitic mass] 28.7 pg Normal 27.0-34.0 [facility] Comment on above: Performed By: #### 2 049163, 69413728, 7841085, 772495872, 1903662, 1740782 ####[address] [address] MCHC (RBC) [Mass/Vol] 33.4 g/dL Normal 31.4-36.0 [facility] Comment on above: Performed By: #### 2 405222, 14718383, 3281920, 747979672, 3903811, 7191758 ####[address] [address] MCV (RBC) [Entitic vol] 86.0 fL Normal 80.0-100.0 [facility] Comment on above: Performed By: #### 2 997441, 77938701, 0602019, 982626607, 5712918, 0661381 ####[address] [address] Platelet mean volume (Bld) [Entitic vol] 8.9 fL Normal 6.4-10.8 [facility] Comment on above: Performed By: #### 2 469823, 61942451, 7666332, 890310210, 3292551, 6830941 ####[address] [address] Platelets (Bld) [#/Vol] 271.0 E9/L Normal 150.0-500.0 [facility] Comment on above: Performed By: #### 2 178791, 34843389, 8610196, 236145153, 0052122, 6572392 ####[address] [place] [address] RBC (Bld) [#/Vol] 4.6 E12/L Normal 4.3-5.9 [facility] Comment on above: Performed By: #### 2 980850, 43466755, 9576225, 791905375, 6010331, 6079614 ####[address] [address] WBC corrected for nucl RBC Auto (Bld) [#/Vol] 7.4 E9/L Normal 4.0-11.0 [facility] Comment on above: Performed By: #### 2 218982, 30282201, 7040642, 303938931, 4032759, 5542474 ####[address] [address] CMPon 10-15-2022 Albumin [Mass/Vol] 4.1 g/dL Normal 3.3-5.0 [facility] Comment on above: Performed By: #### 2 237990, 14654579, 8304592, 668562805, 1048880, 9269011 ####[address] [address] Albumin/Globulin (S) [Mass conc ratio] 1.1 Normal 1.1-2.2 [facility] Comment on above: Performed By: #### 2 426682, 54198983, 9528494, 494541776, 5055569, 9045370 ####[address] [address] ALP [Catalytic activity/Vol] 109 Int._Unit/L High 21-98 [facility] Comment on above: Performed By: #### 2 748375, 38751083, 1421892, 221234798, 5178609, 4000621 ####[address] [place] [address] ALT No additional P-5'-P [Catalytic activity/Vol] 15 Int._Unit/L Normal 6-46 [facility] Comment on above: Performed By: #### 2 875899, 47132175, 8933319, 597460908, 9228646, 1566928 ####[facility] [address] [place] [address] Anion gap [Moles/Vol] 9 mmol/L Normal 6-16 [facility] Comment on above: Performed By: #### 2 501239, 08992909, 9398201, 486360639, 0708080, 9147173 ####[facility] [facility] [address] [place] [address] AST [Catalytic activity/Vol] 14 Int._Unit/L Normal 5-43 [facility] Comment on above: Performed By: #### 2 919947, 51178727, 8912734, 119828665, 3672112, 4968513 ####[facility] [address] [place] [address] Bilirubin [Mass/Vol] 0.5 mg/dL Normal 0.0-1.1 [facility] Comment on above: Performed By: #### 2 265552, 08196530, 0413863, 431808368, 6361241, 7793563 ####[facility] [address] [place] [address] Calcium [Mass/Vol] 9.1 mg/dL Normal 8.9-11.1 [facility] Comment on above: Performed By: #### 2 869854, 25411495, 6618412, 896645913, 9940470, 4501077 ####[facility] [address] [place] [address] Chloride [Moles/Vol] 108 mmol/L Normal 101-111 [facility] Comment on above: Performed By: #### 2 620531, 60384924, 6503253, 784051475, 0790278, 5564794 ####[facility] [address] [place] [address] CO2 [Moles/Vol] 27 mmol/L Normal 21-31 [facility] Comment on above: Performed By: #### 2 299868, 70414768, 2182061, 490836234, 1568789, 3680937 ####[facility] [address] [place] [address] Creatinine [Mass/Vol] 0.7 mg/dL Normal 0.5-1.3 [facility] Comment on above: Performed By: #### 2 469433, 51706652, 5906953, 942133796, 9692786, 4282941 ####[facility] [address] [place] [address] Globulin (S) [Mass/Vol] 3.8 g/dL Normal 1.4-4.0 [facility] Comment on above: Performed By: #### 2 197661, 82095654, 1476008, 439214796, 1317092, 5121244 ####[facility] [address] [place] [address] Glucose [Mass/Vol] 94 mg/dL Normal 55-199 [facility] Comment on above: Result Comment: If t his glucose result represents a fasting glucose, interpretation should refer to the following reference range: 55-99 mg/dL Performed By: #### 2 885104, 13105757, 1117801, 490822615, 3023180, 5861062 ####[facility] [address] [place] [address] Potassium [Moles/Vol] 4.1 mmol/L Normal 3.5-5.3 [facility] Comment on above: Performed By: #### 2 526329, 07738929, 6347896, 711291208, 7989462, 1416291 ####[facility] [address] [place] [address] Protein [Mass/Vol] 7.9 g/dL High 6.0-7.8 [facility] Comment on above: Performed By: #### 2 909657, 90327887, 2232038, 811824070, 1258289, 8312975 ####[facility] [address] [place] [address] Sodium [Moles/Vol] 140 mmol/L Normal 135-145 [facility] Comment on above: Performed By: #### 2 870137, 80699631, 6138949, 281870176, 0837780, 7168438 ####[facility] [address] [place] [address] Urea nitrogen [Mass/Vol] 9 mg/dL Normal 5-21 [facility] Comment on above: Performed By: #### 2 377851, 01712640, 6378325, 349871373, 4037971, 5259474 ####[facility] [address] [place] [address] Urea nitrogen/Creatinine [Mass ratio] 13 No Units Normal 10-20 [facility] Comment on above: Performed By: #### 2 225759, 39379955, 4630029, 431982148, 9786442, 1589335 ####[facility] [address] [place] [address] Consent for Treatmenton 09-30 Consent for Treatment [id number]:127 Normal [facility] GgcD9qog 10-15-2022 HbA1c (Bld) [Mass fraction] 5.3 % Normal <=5.9 [facility] Comment on above: Performed By: #### 2 978453, 71906487, 6822702, 664542117, 8449399, 0441219 ####[facility] [address] [place] [address] Lipid Panelon 10-15-2022 Cholesterol [Mass/Vol] 223 mg/dL High 120-200 [facility] Comment on above: Performed By: #### 2 192379, 85624353, 1132063, 114866437, 1659757, 7982138 ####[facility] [address] [place] [address] Cholesterol in HDL [Mass/Vol] 63 mg/dL Invalid Interpretation Code [facility] Comment on above: Result Comment: HDL > or equal to 60 mg/dL: Low cardiovascular risk HDL < 40 mg/dL : High cardiovascular risk Performed By: #### 2 737068, 46703886, 7488996, 873313851, 1587915, 3628784 ####[facility] [address] [place] [address] Cholesterol in LDL [Mass/Vol] 136 mg/dL High <=129 [facility] Comment on above: Performed By: #### 2 316741, 28480129, 6089117, 899005653, 6964976, 1450882 ####[facility] [address] [place] [address] Cholesterol in VLDL [Mass/Vol] 19 mg/dL Normal 7-40 [facility] Comment on above: Performed By: #### 2 296055, 95164074, 0139851, 151859834, 9008382, 3738804 ####[facility] [address] [place] [address] Triglyceride [Mass/Vol] 97 mg/dL Normal <=149 [facility] Comment on above: Performed By: #### 2 189156, 53776753, 7624607, 644729512, 7235965, 3730938 ####[facility] [address] [place] [address] eGFRon 10-15-2022 GFR/1.73 sq M.predicted among non-blacks MDRD (S/P/Bld) [Vol rate/Area] 109 mL/min/1.73 m2 Normal >=59 [facility] Comment on above: Order Comment: Order added by Discern Expert. 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 Kidney failure is indicated at less than 15 mL/min/1.73m2. Performed By: #### 2 139799, 45691468, 8567841, 510506965, 0615929, 0423014 ####[facility] [address] [place] [address] Patient Correspondenceon Patient Correspondence [id number]:127 [facility] Provider Letteron 09-22-2022 Provider Letter (Inserted Image. Joanne ble to display) [address] [place] [id number] September 22, 2022 KIMBERLY BRUNER [address] [place] [id number] : 1975 To Whom It May Concern, The above patient has anxiety and will need to have her anxiety medications with her. Please contact us with any questions or concerns. Respectfully, Renata Medel MD Family Medicine [address] [address] [facility] Pre-Certification Formon Pre-Certification Form [id number]:127 [facility] Pre-Certification Formon Pre-Certification Form [id number]:127 [facility] Coding Summary.on 08-17-2022 Coding Summary. CD:[id number] Ww+PGhlY WQ+ZA8BZTGkK61ogDKqcG5aY5YOO UyWRkexTIDDNWaDQqZqidKnJX5hm XNjZXJu IC8+ER9mZOZeWlyreWBvw0M3mUC4 Z24cuq4rNYimjVI7CBRiEoAfylhm s1uczHx1PAzbYgvjXxNa JOIaaA60CKK9rL63Tm04aXLydTFl x2bsyMn3XeLnYXZlLXD0zNxgHHao y4RjGIXfF70dqREkj8T2 VHXbvQoktBJbFnHuaHL7wI1cAUnj cuwcq1ctqgaiEqn2jd34ySKfc7P4 tWU8A8TudlV7RTVgxLRc XjrecAUCvY2hfeflz8hmypvdJoVa VHEjBDb8ULk7ABJvpDbvMpHdSZ90 BAA9PDQrvkQyO5QpJQEr gQucVpI9j9X2Bz2ZL1RCVtfsS1BB TUFSWTwvdGQ+IB92jn83Q0LsVxal Siq9PWAwRMN2qES4zQ0c PBVlTUqtq3L9bMA3F3KesuSfin4z c5vkQQOqSSnsX87dvBQql0H2CZHo hFD4SASivOoyFvFlkI93 Oyc+IQKnbRmbv3WuUtdil0ged4oq dZc7OrybOLMzfcWntUvqHXI3x9Ep Uo7sZHQwjYT7vOR5jQ3r JdBuSqX1SVzoA384CoZkqXLzOkmz X02tF0RsdES+ZYHpJfj5FFCuzWqf UA8qM0DyAYFvlptpkZVo cMtbAD1aYFVrcpkyGRVzmT2uNLFj I6a6BxIrAiC4ISxcI3DkRDJgdkhf Hd90iI1kJzMwEjC3HBnk B3IgcqU0POZchIOaODyrKNF3T48d p4W7QWCeROWxABY6yOS9cZ6zxHix bjogbGVmdDsgdmVydGlj JLnaAKlxU042TNVrvFxxMxTwIWgb ZyBEYXRlOiAgMDQvMTgvMjAyMzwv dGQ+HKEwXFO9aGvgICHw dCSkJJvzIq3xjOxhkLufWC1fJDAs pwooEXChaW2pTKKzrRLpbQspHT7j DOWmlwpmm815XoBxWAK5 AVLmrMTlX3FtkU7oOxIeFNYcHZSg B7AwwSCfXPbfA029RZkwSpN9SJDk rgLbO7DkOVIxsHieNaY5 s4X7Gh7Dy8LfsfuaQ4MzsIHoFsNr EuutLUz2T5VhSwyzdQX+VG53GDNu VR65TMe7LBH9iRceNOmq SIWzC0SjyS9eBeUbFQRuQVRaRtn+ PHRhYmxlIHdpZHRoPScxMDAlJyBz iOyvMF5tRo6xHXNqIGCy mSzpjVPbEmEal1leRLHqZQehHW5y tLjeP6LgkZE8OCSkw6l6Ck74B79b O4WjdQH+XXLuxBX8gAP6 qM5bLmBeYzS2ULutH833YkNliEUa Uihno8kfn5jacCj4QoN4HDPdwiDl xXfpNQZ6k8NzMl87Z16l YWneRPUiZNGnBURuGMZaqOiyzs4y jC5oEh2+MKVpyKR7xGT0fG0lDjEd YiS4TKbgO746OvTtkDBv Zzszc9jkz6aulMu0PoRiDXJrllCk aAvuMAS0o6AuQo82J5UlhBfku4Zp Ziq1mk45bRYah3U9gWY5 H9GkYTJiwganvOLhkJxeYV1sWLHg ceoyRPOcsF5fVIGpZ0f3OoNjAtV2 OZjaT9UjyqS7OXOfzPGv ONZrvKTHyE5dkjtir1adnukrWgLf XYWhGVc7BGc7JVNflDrgSaSmFAT9 EgF1BBO7hNFraZ2ppNff afallG2xGcx+YFN1bDNurHIGHF8s OjwvdGQ+JIZzFKJ1wKktGZcxRKPf rX1iCBJhY6q7PdJvOaX7 IKibZ2OplqI3VXGqrGJbARSobBGF sT2oifbcd5rrxmvxDkKbGRMwNEs3 RLv9TFGqaQgmKxYrXGS1 PiK7EGJ1cJPznG8ltHxdlwpwvX4w Oyc+BifrzWdjGUR7YVj2H5UlJag9 YUWwiHsqWT1oaZAbZEwh Wc5ixFplgLooIG0iKEHsonfov855 WuItt5tiTWHzjCHpVJlxYKC0Y52d a1E4BTPrJOWqIKE8xJE7 fE8xgDehhefdkDDdlUcthxVtqGfh BJmhSWhuJ430EEJvnXliYgXqHCz9 M3OfXhp7WXKmcPfkDP2x tJNtXYqqKp1puYckiUxaAD2mIHGl etxep050YpIay3apCSCtcYDeHKsc ZDT7A93ms1C5FGLsUILe ZSS5oXB1aN8feTbvtlwjhZFxyJsg tyFlqWqoFErlTKhrK251HDNmgTic LrUfwIb1M7DqJgm7TKQq gZqcCX6osIKeOJjtXp2viDpgpDnx YZ2xAPUnwvuzr909XoYzv2quIHJd rKNsSMkwLQR6C15ek1G9 PNRmHKLoOLG7tLH1zL1edSwrzjpo fHOcuEopwoTrqTukXWopJQaeG949 IHRvcDsnPlBhdGllbnQg JDjcVSx6V9AgFmqxfOH+MI34XHZr QT66gDVixOEyr6hmlWp8YpSxSDAk TVQ4oZzxMYlyi7FtCGRs X69jdQFig6B8NOFcbTctxOMxAvMp tSZ5yR2aKRyhdcivo6zfpsedIcnj a0cvyn38uV53U36wNCsw KZKzYPWaJLCgCJSfeYvhqf8nuS3s Ii8+CUFvxVJ7kIZ1rB4vBXJbDbD2 SMqoX510SdTgtAGkXpqx t3qsq5qrdYy3YwG6KJJxpjMzjQwl NSC6f8DfAn59Z57pAFifULEuGUFs NLDvSBFthVimks3huE0l Ii8+MSTtfTG4rII1kO2nAuVcQcM8 TOsyP688OqIgqLIfTzkwO93aX0Oa dXA+IYYrYpa4PZBbkVya NE1jaXJwBUkhAn4cZNL6BuQaVwYy WBgnL3EyBYSoqmnlsaypiKT2KUYs RIZbhF54Au0msMvsDGAf qECJwQ9jfabki8uiuygySeKcKQTw HSv3IVv2VTBrpNeuPzRkCEH6DgN3 JXA0sAKuqQ3ucAskkhkn cL2iG0NjPDWjmjamTe41lD1jUjGm GsV8TYdpDcd+D9PQOC9HWEMzWWJH VEggTDwvdGQ+PHRkIHN0 iGekZKdcWDDrcT5lRKYnG0l5RcIu CaZ1NRqxJ4RpUHDqzjsrGa68rK1k FnVrPkD2WRvbG7MxtzP8 AGBawHKqZFkoZLS8T70ur7I9TDQe BCXsWLL1fFE7jU4zaFwmalgsvLXl dDsgdmVydGljYWwtYWxp V344JXGoaWpkMrD0EgA4CdK1Zfn2 P2EeOrs4FWVvjSuzTJ4fuBHwWGkn Qt8kqOzmtHouZZ5nFQPu hwqtPWJlbD6pZXZllJRqnWchNB7l NOBodxjlp274WrFlVQR6AIGyvMWr C2TzqC5wXwIgCZDpKRVx I3YcyULrVPjhA567HNmjShT6EAQl tnSfT1PtOKPctBmdWzO0s9B9Ab52 NCBZZWFyczwvdGQ+PHRk JOW2zRliLSdqYJOleE7fVXJcQ8f6 FpJuSeH1XObcB4RfUVExgkkiTv53 xP0kAnKeMcP7KJryC8Yd zlM6RJMbaQGgWQkmSPR5U87az6J9 UHQwEYKgAXX1wQH7rV9gsIidqfpi bGVmdDsgdmVydGljYWwt VPblB991SPKztXmaDmVapHVwHUge dGQ+HCSeZCZ5kIikNXbcUGBauD0o XSGcQ7x5ZnFuKhU6BLyj A5AhVWHqienbBe36xO6aSnTsZhO4 NQqpW9DpnfY1EWBkbVKqATfiAGU7 F73qk7M3YKBgPGImHGX3 lHK2tJ0xaJiysrcekBDxfSkgvdBs iZtgVLywTOckH246VUCqsFqqMu04 hBWmaXmeciJ0M3GwFyvl dHI+BH54GJPgFB86jZFqqWRol4ad vAn7XrErCAYpWOH5uYzkWNveb1Wg DLJwR33akRKsr9B9NSVc pLvexQYeWoRidWS2qB8zJBqxcyfc d2wprjavQbtfo7wuze41jA59Z35c IHdpZHRoPSIzMCUiIHZh fEkfzc9qvL2pYj6+XQBlqTH4oNT9 tG2uNdGhUkR7OLwyN221JgAwnRIb Akycz0zsw0hsqYv6SlHb GZTfykBqyFosYPB8q9RdBh68V61m TCkkROJbSFWuQQUcGQAuhFzhmz6b pA1kHe6+KO1dy6jpfe15 lN99bXX+LXIsGDR7fIgcNSmnJNRy oI0nZEchFmS2HZSrOnEwmM73gUTz RUjtVp3yuJegfSpqFV4j MKHtgirbe238AyZpn9fzCGUdmNIw XJseLNZ3D19vo2R2SPIpLVPaCAF8 gPJ8xZ1trGbqinpndGEk sGihnpGzgWwwIAkcFLxjD842EXMh kKnhApRqvBXhC7oliaASSH9oNnul dGQ+XWXjIDF0pBxaTUxt NRWesG5qZPRsB6f8AwGzGlL3GLeu A5CyldJ6CDTflASiFKFtyIXDwW0a klhqn1jsazdiHuGhWUAf CMq7NTb1MVDnoJwkRiTsELX3IhS1 SAL0vDEblS7loKugnnntjU2zXjm+ RklOOjwvdGQ+PHRkIHN0 aMrpQLadCRNlzY3iNSCpY1v2LhWr ZiX1ECwfH8QgjtQ6ZTKqeIFsYIEy vCWUeG8xywvsl7cpchsq RpJwHWAaROx9OZf0WWPajIlrWbTs BCB3HgB2TNJ1zDGyeQ4uyXlrzaky fA5dFcl+TVJOOjwvdGQ+ JVFbGOS3kXvnWNybFNSgbJ0jVDFr W7t3QfCzGyD6COthE6SwpyY9VPSb pVVgRRGdaUUTsK5caljr c8fzllsnCfWsFZDpFQb9HOl5PODa uZrkEaPlDPC7XyL9MTZ5zAXeeD7b fEgfliuaeX6wQtq+UGF5 CCI6QF03DQ63B5DaWsyocZLskVG+ PHRhYmxlIHdpZHRoPScxMDAlJyBz kDrmFN2jLp9zPENcUJBp bGxhcHNl (more content not included)... Normal [facility] XR Sacrum and Coccyx Min 2 [...] mGy = na DAP = na Normal [facility] XR Spine Lumbosacral Minimum 4 Viewson [...] REPORT Dictated: 08/13/2022 12:29 pm Manish Mendoza MD. Signed (Electronic Signature): 08/13/2022 12:29 pm Signed by: Manish Mendoza MD Transcribed by: JEFFREY Technologist: JAN Technical Comments Radiation Dose: Ka,r in mGy = na DAP = na Normal [facility] XR Hip 2-3 Views Righton XR [...] JEFFREY Technologist: JAN Technical Comments Radiation Dose: tresa Lobo in mGy = na DAP = na Normal [facility] Consent for Treatmenton 07-31 Consent for Treatment [id number]#[id number]:127 Normal [facility] Family Medicine Office/Clini c Noteon 08-10-2022 [...] for weeks. 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 Symptoms consistent with inflammation triggering sciatic nerve response as symptoms tend to come and go in severity. Recommend x-ray of the lower back including lumbar spine and sacrum as well as pelvic bone and hip bone, especially on the right. Given location of symptoms, may want to co (more content not included)... Normal [facility] Comment on above: Result Comment: Elec tronically Signed By: Yasmine Dkues CNP\.br\Date and Time Signed: 08/10/22 06:55 EDT\.br\Electronically Co-Signed By: Snow No\.br\Date and Time Co-Signed: 08/09/22 20:08 EDT Ambulatory Visit Summaryon 0 08-09-2022 Ambulatory Visit Summary KIMBERLY BRUNER Chandrakant :1975 Visit Date:08/09/2022 Ambulatory Visit Instructions Your [...] these medications fluticasone nasal (Flonase 0.05 mg/inh Fay) Procedures Performed Colonoscopy (06/30/2018), Endoscopy (06/30/2018), Esophagogastroduodenoscopy [...] PM EDT With: Yasmine Dukes CNP Where: [facility] Interpretation Code Hip pain, bilateral, pp_set_radi ology_subsp ecialty, [facility]\.br\ XR Sacrum and Coccyx Min 2 Views, 08/09/22, Routine, Order for future visit, Transport Mode: Ambulatory, Reason: Pain, Non Traumatic, No, Hip pain, bilateral [facility] CHEMISTRYOrdered By: Fang hendrix on 10-24-2021 [...] rate/Area] mL/min/1.73 m2 Normal >=59mL/min/ 1.73 m2 [facility] Chem S GFR/1.73 sq M.predicted among non-blacks MDRD (S/P/Bld) [Vol rate/Area] mL/min/1.73 m2 Normal >=59mL/min/ 1.73 m2 [facility] Chem S HEMATOLOGYOrdered By: SYSTEM SYSTEM on [...] 33.8 g/dL Normal 31.4 - 36.0 gm/dL FT HemeAutoSS MCV (RBC) [Entitic vol] 86.9 fL Normal 80.0 - 100.0 fL [facility] Platelet mean volume (Bld) [Entitic vol] 8.6 fL Normal 6.4 - 10.8 fL [facility] Platelets (Bld) [#/Vol] 255.0 E9/L Normal 150.0 - 500.0 E9/L [facility]eAuto[facility] RBC (Bld) [#/Vol] 4.7 E12/L Normal 4.3 - 5.9 E12/L [facility] WBC corrected for nucl RBC Auto (Bld) [#/Vol] 7.1 E9/L Normal 4.0 - 11.0 E9/L [facility] Vital Signs Date Time Vital Sign Value Performing Clinician Zii neptali 05-24-2023 09:58-0500 Blood Pressure Location [facility] 05-24-2023 09:58-0500 Diastolic blood pressure 73 mm[Hg] [facility] 05-24-2023 09:58-0500 Heart rate 78 /min [facility] 05-24-2023 09:58-0500 Respiratory rate 16 /min [facility] 05-24-2023 09:58-0500 Systolic blood pressure 121 mm[Hg] [facility] 10-25-2022 15:31-0400 Blood Pressure Location aYsmine Dukes [facility] [place] 10-25-2022 15:31-0400 Diastolic blood pressure 76 mm[Hg] Yasmine Dukes [facility] 10-25-2022 15:31-0400 Heart rate 72 /min Yasmine Riedy [facility] 10-25-2022 15:31-0400 SaO2% (BldA) [Mass fraction] 100 % Yasmine Riedy [facility] 10-25-2022 15:31-0400 Systolic blood pressure 118 mm[Hg] Yasmine Riedy [facility] 08-09-2022 15:50-0400 Blood Pressure Location Yasmine Riedy [facility] 08-09-2022 15:50-0400 Diastolic blood pressure 72 mm[Hg] Yasmine Riedy [facility] 08-09-2022 15:50-0400 Heart rate 77 /min Yasmine Riedy [facility] 08-09-2022 15:50-0400 SaO2% (BldA) [Mass fraction] 99 % Yasmine Riedy [facility] 08-09-2022 15:50-0400 Systolic blood pressure 114 mm[Hg] Yasmine Riedy [facility] 04-21-2022 15:06-0500 Blood Pressure Location Dalton Gudimella [facility] 04-21-2022 15:06-0500 Body temperature 96.8 [degF] Dalton Gudimella [facility] 04-21-2022 15:06-0500 Diastolic blood pressure 74 mm[Hg] Dalton Gudimella [facility] 04-21-2022 15:06-0500 Heart rate 99 /min Dalton Gudimella [facility] 04-21-2022 15:06-0500 Respiratory rate 18 /min Dalton Gudimella [facility] 04-21-2022 15:06-0500 SaO2% (BldA) [Mass fraction] 100 % Dalton Gudimella [facility] 04-21-2022 15:06-0500 Systolic blood pressure 112 mm[Hg] Dalton Gudimella [facility] 10-23-2021 14:17-0400 Blood Pressure Location Jg Green [facility] 10-23-2021 14:17-0400 Diastolic blood pressure 62 mm[Hg] Jg Green [facility] 10-23-2021 14:17-0400 Heart rate 96 /min Jg Green [facility] 10-23-2021 14:17-0400 SaO2% (BldA) [Mass fraction] 98 % Jg Green [facility] 10-23-2021 14:17-0400 Systolic blood pressure 110 mm[Hg] Jg Green [facility] Encounters Encounter Date Encounter Type Care Provider Facility Start: 08-19-2023 ambulatory Chantel L Zamzam Facility: [facility] Start: 07-29-2023 End: 07-30-2023 ambulatory Chantel L Zamzam Facility:[facility] Start: 05-25-2023 ambulatory Yasmine Riedy Facility: [facility] Start: 05-24-2023 End: 05-25-2023 ambulatory Chantel L Zamzam Facility:[facility] Start: 05-24-2023 End: 05-24-2023 Patient encounter procedure Winter [facility] Start: 05-09-2023 ambulatory Yasmine Riedy Facility: [facility] Start: 05-04-2023 End: 05-05-2023 ambulatory Chantel L Zamzam Facility:[facility] Start: 05-04-2023 End: 05-04-2023 Lab Drop off Chantel L Zamzam [facility] Start: 04-15-2023 End: 04-16-2023 ambulatory Chantel L Zamzam Facility:[facility] Start: 12-10-2022 End: 12-11-2022 ambulatory Nadya J Jigna Facility:[facility] Start: 12-10-2022 End: 12-10-2022 Patient encounter procedure Nadya J Jigna [facility] Start: 10-25-2022 End: 10-26-2022 ambulatory Yasmine D Riedy Facility:[facility] Start: 10-25-2022 End: 10-25-2022 Patient encounter procedure Yasmine D Riedy [facility] Start: 10-25-2022 End: 10-25-2022 Well adult monitoring check done Yasmine D Riedy [facility] Start: 10-22-2022 End: 10-23-2022 ambulatory Nadya J Jigna Facility:[facility] Start: 10-22-2022 End: 10-22-2022 Patient encounter procedure Nadya J Jigna [facility] Start: 10-18-2022 End: 10-19-2022 ambulatory Nadya J Jigna Facility:[facility] Start: 10-18-2022 End: 10-18-2022 Lab Drop off Nadya J Jigna [facility] Start: 10-15-2022 End: 10-16-2022 ambulatory Yasmine D Riedy Facility:[facility] Start: 08-10-2022 End: 08-11-2022 ambulatory Yasmine D Riedy Facility:[facility] Start: 08-10-2022 End: 08-10-2022 Patient encounter procedure Yasmine D Riedy [facility] Start: 08-09-2022 End: 08-10-2022 ambulatory Yasmine D Riedy Facility:[facility] Start: 08-09-2022 End: 08-09-2022 Patient encounter procedure Yasmine D Riedy [facility] Start: 08-09-2022 End: 08-09-2022 Well adult monitoring check done Yasmine D Riedy [facility] Start: 04-21-2022 End: 04-21-2022 Patient encounter procedure Dalton Gudimella [facility] Start: 10-24-2021 End: 10-24-2021 Patient encounter procedure Jg Green [facility] Start: 10-23-2021 End: 10-23-2021 Patient encounter procedure Jg Green [facility] Start: 10-23-2021 End: 10-23-2021 Well adult monitoring check done Jg Green [facility] Start: 10-23-2021 End: 10-23-2021 Patient encounter procedure Nadya Benito [facility] Procedures Date Procedure Procedure Detail Performing Clinician [...] diphtheria toxoid, and acellular pertussis vaccine, adsorbed Jgjuan j Green [facility] NEGATED: Highlighted row has not occurred!04-21-2022 influenza virus vaccine, unspecified formulation Dalton Medel [facility] NEGATED: Highlighted row has not occurred!04-05-2019 influenza virus vaccine, unspecified formulation Jg Green [facility] Payers Date Payer Category Payer Unknown [id number] 2022 Unknown [id number] 1975 Unknown [id number] 2.16.8 40.1.965357.3.579.2. 1977 Unknown [id number] 2.16.8 40.1.591670.3.579.2. 1977 Unknown [id number] 2.16.8 40.1.814130.3.579.2. 1977 Unknown [id number] 2.16.8 40.1.116674.3.579.2. 1977 Unknown [id number] 2.16.8 40.1.529716.3.579.2. 1977 Unknown [id number] 2.16.8 40.1.528358.3.579.2. 1977 Unknown [id number] 2.16.8 40.1.957444.3.579.2. 1977 Unknown [id number] 2.16.8 40.1.555898.3.579.2. 1977 Unknown [id number] 2.16.8 40.1.119748.3.579.2. 1977 Unknown [id number] 2.16.8 40.1.985610.3.579.2. 1977 Unknown [id number] 2.16.8 40.1.490893.3.579.2 1977 Unknown [id number] 2.16.8 40.1.334307.3.579.2.727 1977 Unknown [id number] 2.16.8 40.1.862420.3.579.2.727 1977 Unknown [id number] 2.16.8 40.1.999175.3.579.2.727 1977 Unknown [id number] 2.16.8 40.1.328566.3.579.2.727 Social History Date Type Detail Facility Start: 06-22-2021 End: 05-24-2023 Tobacco smoking status Ex-smoker (finding) [facility] Tobacco smoking status Never [facility] Sex Assigned At Female [facility] Tobacco smoking status No Smokin g Status Entered [facility] Start: 10-25-2022 End: 05-04-2023 Tobacco smoking status Never smoked tobacco (finding) [facility] Functional Status Date Assessment Result Facility 05-24-2023 Functional Status N/A [facility] 10-25-2022 Functional Status N/A [facility] 08-09-2022 Functional Status N/A [facility] 04-21-2022 Functional Status N/A [facility] 10-23-2021 Functional Status N/A [facility] Clinical Notes 12-04-2020 to 05-24-2023 LaboratoryRadiologyRadiologyLaboratoryRadiologyLaboratoryRadiologyRadiologyRadio logy Note Date & Type Note Facility 05-24-2023 Note Chief Complaint Referral *Kidney Stone HPI Staff Evaluation requested by Chantel GONGORA due to UTI sx, Rt KUB & Hematuria. Pt is a new pt. Never before seen in our office. KUB 04/29/23 NEG C&S 05/04/23 NEG GC/CT 05/04/23 KUB 05/20/23 Denies Hx of Kidney Stones. Incidental finding [...] w/ use of estrace. Rx sent to [facility]. -Start estrace, pea sized amount applied area urethra nightly x 3 weeks, then 3x/week for maintenance -f/u 3 mos to reevaluated urinary/vaginal sxs. Ordered: estradiol topical, See Instructions, 42.5 gm, Refill(s) 5, apply pea sized amount on fingertip near urethral opening nightly x 3 weeks, then 3x/week for maintanence, [facility]/pharmacy #[id number], 173, cm, 05/24/23 10:00:00 EST, Height/Length Dosing, [...] f/u visit. Follow-up With When Contact Information NILES Erickson APRN, Winter Deshpande, YAYA, URL In 3 months Additional Instructions: Patient Education Dysuria Dietary Guidelines to Help Prevent Kidney Stones Kidney Stones, Olqb-ax-[id number] Problem List/Past Medical History Ongoing Acid reflux [...] congestion Panic attacks (more content not included)... [facility] Comment on above: Result Comment: Elec [...] Follow these instructions at home: Medicines Take jsxg-[id number] and prescription medicines only as told by [...] provider. Document Revised: 11/28/2020 Document Reviewed: 11/28/2020 [email or web address] Patient Education 2022 [employer]. 05/24/2023 13:29:53 Dietary Guidelines to Help Prevent [...] include: ?8 oz (237 mL) of milk, efpzzrk-ngjkubojqevr-vlblh milk, and calcium-fortifiedfruit juice. Calcium-fortified means that [...] ?Spinach (cooked), rhubarb, beets, sweet potatoes, and Citizen [place] chard. ?Peanuts. ?Potato chips, afghan fries, and baked potatoes with skin on. ?Nuts and nut products. ?Chocolate. If you regularly take a diuretic medicine, make sure to eat at least 1 or 2 servings of fruits or vegetables that are high in potassium each day. These include: ?Avocado. ?Banana. ?[place], prune, carrot, or tomato juice. ?Baked potato. [...] magnesium, fish oil, or vitamin B6. Take dtca-ijm-hhvycew and prescription medicines only as told by [...] Casseroles. Pizza. Lasagna. Frozen meals. Potato chips. [place] fries. The items listed above may not [...] provider. Document Revised: 07/29/2022 Document Reviewed: 07/29/2022 [email or web address] Patient Education 2022 [email or web address] 05/24/2023 13:29:50 Kidney Stones, Myng-ie-Pvyo Kidney Stones Kidney stones are rock-like masses [...] Follow these instructions at home: Medicines Take spmk-rnq-sinnhij and prescription medicines only as told by [...] provider. Document Revised: 12/21/2021 Document Reviewed: 12/21/2021 [email or web address] Patient Education 2022 [employer]. Follow Up Care 05/09/2023 09:53:22 With:Georgina BLACK, ROLAN-C, Winter X, FAM, URL Address: When:Within 3 Month(s) [facility] 05-04-2023 Evaluation + Plan note Diagnostic Tests PendingUrine Culture 05/04/23Chlamydia/Gonococcus, JUAN PABLO 05/04/23 [facility] 07-21-2022 Hospital Discharg e instructions Follow Up Care 07/21/2022 16:08:05 With:Yasmine Dukes CNP Address: When:Within 3 Month(s) Comments:physical and review labs [facility] 10-23-2021 Evaluation + Plan note Future Scheduled TestsCBC w/ Auto Diff 10/23/21Comprehensive Metabolic Panel 10/23/21Lipid Panel 10/23/21CT Abdomen/Pelvis w/ Contrast 12/04/20US Aorta 12/04/20 [facility] 12-04-2020 Evaluation + Plan note Future Scheduled TestsCT Abdomen/Pelvis w/ Contrast 12/04/20US Aorta 12/04/20 [facility] Evaluation + Plan note Future Appointments Appointment Date:10/25/2022 03:40:00 PM Scheduled Provider:Yasmine Dukes CNP Location:[facility] Appointment Type: Open Future Scheduled [id number] 08/09/22CBC w/ Auto Diff 08/09/22Comprehensive Metabolic Panel 08/09/22Lipid Panel 08/09/22XR Hip 2-3 Views Right 08/09/22XR Sacrum and Coccyx Min 2 Views 08/09/22XR Spine Lumbosacral Minimum 4 Views 08/09/22 [facility] Evaluation + Plan note Future Appointments Appointment Date:10/25/2022 03:40:00 PM Scheduled Provider:Yasmine Dukes CNP Location:[facility] Appointment Type: Open Future Scheduled [id number] 08/09/22CBC w/ Auto Diff 08/09/22Comprehensive Metabolic Panel 08/09/22Lipid Panel 08/09/22 [facility] Evaluation + Plan note Future Appointments Appointment Date:10/22/2022 04:00:00 PM Scheduled Provider: Location:.[facility] Appointment Type:US Abdominal/Pelvis (FT) Appointment Date:10/25/2022 03:40:00 PM Scheduled Provider:Yasmine Dukes CNP Location:[facility] Appointment Type:FM Open Appointment Date:10/30/2022 10:30:00 AM Scheduled Provider: Location:.[facility] Appointment Type:MA Screen (FT) Diagnostic Tests PendingPAP [id number] 10/18/22 Future Scheduled TestsUS Pelvis Non-OB Complete 10/22/22US Transvaginal Non-OB 10/22/22MA Mamm Screen w/CAD if perf and 3D Robert 10/30/22 [facility] Evaluation + Plan note Future Appointments Appointment Date:10/25/2022 03:40:00 PM Scheduled Provider:Yasmine Dukes CNP Location:[facility] Appointment Type:FM Open Appointment Date:10/30/2022 10:30:00 AM Scheduled Provider: Location:.[facility] Appointment Type:MA Screen (FT) Diagnostic Tests PendingFSH and LH 10/22/22 Future Scheduled TestsMA Mamm Screen w/CAD if perf and 3D Robert 10/30/22 [facility] Evaluation + Plan note Future Appointments Appointment Date:10/30/2022 10:30:00 AM Scheduled Provider: Location:.[facility] Appointment Type:MA Screen (FT) Future Scheduled TestsMA Mamm Screen w/CAD if perf and 3D Robert 10/30/22 [facility] Hospital course Narrative No data available for this section [facility] Hospital Discharge instructions No data available for this section [facility] Progress note No data available for this section [facility] Summary Purpose Family History No Family History Records Found Advance Directives No Advanced Directives Records Found Additional Source Comments Care Team (unrecognized sect ion and content) Personnel Name: Jg Green MD Address: [address] [place] [address] Personnel Name: Jg Green MD Address: [address] [place] [address] Personnel Name: Jg Green MD Address: [address] [place] [address] Personnel Name: Dalton Medel MD Address: Address: [address] [place] [address] Personnel Name: Dalton Medel MD Address: Address: [address] [place] [address] Personnel Name: Dalton Medel MD Address: Address: [address] [place] [address] Personnel Name: Renata Medel MD Address: Address: [address] [place] [address] Personnel Name: Renata Medel MD Address: Address: [address] [place] [address] Personnel Name: Renata Medel MD Address: Address: [address] [place] [address] Personnel Name: Renata Medel MD Address: Address: [address] [place] [address] Personnel Name: Chantel Mendes Address: Address: [address] [place] [id number]- Personnel Name: Chantel Mendes Address: Address: [address] [place] [id number]- Personnel Name: Chantel Mendes Address: Address: [address] [place] [id number]- INFORMATION SOURCE (unrecogn ized section and content) DATE CREATED AUTHOR 08/10/2023 [facility] FOR RECORDS PERTAINING TO PATIENTS WHO [...] BE BASED ON THE PRIMARY CLINICAL RECORDS. [facility] provides no warranty or guarantee of the accuracy or completeness of information in this document.
== END 2023-08-12 10:40 | disposition home or self-care (01) ==
LOC: US 10:39
PROVIDERS: PCP Nurse Practitioner; Visit Provider Nurse Practitioner
DX: M54.50 Low back pain, unspecified (principal); R10.31 Right lower quadrant pain; N20.0 Calculus of kidney
CPT/HCPCS: 76775

== ENCOUNTER 2023-09-27 09:06 | Outpatient (OUT) | payer OTHER, SELFPAY ==
--- NOTE | 2023-09-27 | XR_ITS ---
The [address] [address] Patient Name: KIMBERLY MOYA MRN: [id number] date: 1975 Sex: F Assigned Patient Location: US Current Patient Location: US Accession/Order Number: [id number] Exam Date: 09/27/2023 09:55 Report Date: 09/27/2023 13:25 At the request of: NON-STAFF PHYSICIAN Procedure: XR abdomen 1V EXAMINATION: XR abdomen 1V HISTORY: Kidney Stones n20.0 COMPARISON: XR abdomen 05/20/2023 FINDINGS: KIDNEY/URETER - RIGHT: Stable 5 mm calcification projecting over mid body of right kidney. KIDNEY/URETER - LEFT: 5 mm calcification versus bowel content projecting over left kidney. Stable 2 mm calcification projecting over the expected location of mid left ureter, lateral to L4. PELVIS: Stable tiny calcifications within lower right and lateral left pelvis favoring phleboliths. BOWEL: No abnormal dilation or deviation. BONES: No acute abnormality. OTHER: Negative. No abnormal gaseous collections. XR/XR abdomen 1V IMPRESSION: 1. Suspect bilateral nephrolithiasis. 2. Lower abdominal and pelvic calcifications favor phleboliths given their stable appearance since prior study. Electronically authenticated by: ZANDER SEXTON Date: 09/27/2023 13:25
--- NOTE | 2023-09-27 09:10 | US_ITS ---
The [address] [address] Patient Name: KIMBERLY MOYA MRN: [id number] date: 1975 Sex: F Assigned Patient Location: US Current Patient Location: US Accession/Order Number: [id number] Exam Date: 09/27/2023 09:11 Report Date: 09/27/2023 13:27 At the request of: NON-STAFF PHYSICIAN Procedure: US renal BI EXAMINATION: US renal BI HISTORY: Kidney stones N20.0, Flank pain R10.9 COMPARISON: Ultrasound renal bilateral 08/12/2023 TECHNIQUE: Ultrasound examination was performed of the kidneys and urinary bladder. FINDINGS: RIGHT KIDNEY: Contains a nonobstructing 7 x 6 x 4 mm stone. Normal renal cortical parenchymal echogenicity. Color Doppler demonstrates blood flow within the kidney. Kidney: 12.0 x 5.9 x 4.0 cm LEFT KIDNEY: No evidence of pelvocaliectasis, mass, or calculi. Normal renal cortical parenchymal echogenicity. Color Doppler demonstrates blood flow within the kidney. Kidney: 11.6 x 4.9 x 5.3 cm BLADDER: No visible wall thickening, mass, or calculi. US/US renal BI IMPRESSION: 1. Nonobstructing right nephrolithiasis. Electronically authenticated by: ZANDER SEXTON Date: 09/27/2023 13:27
== END 2023-09-27 09:07 | disposition home or self-care (01) ==
LOC: US 09:07
PROVIDERS: PCP Nurse Practitioner
DX: N95.2 Postmenopausal atrophic vaginitis (principal); R30.0 Dysuria; N20.0 Calculus of kidney; R10.9 Unspecified abdominal pain
CPT/HCPCS: 74018; 76775

== ENCOUNTER 2023-10-15 09:41 | Outpatient (OUT) | payer OTHER, SELFPAY ==
--- NOTE | 2023-10-15 | CT_ITS ---
[address] [address] Patient Name: KIMBERLY MOYA MRN: [id number] date: 1975 Sex: F Assigned Patient Location: CT Current Patient Location: Accession/Order Number: [id number] Exam Date: 10/15/2023 09:45 Report Date: 10/17/2023 13:05 At the request of: CHERISE EASTMAN Procedure: CT abdomen pelvis wo con EXAMINATION: CT abdomen pelvis wo con HISTORY: Flank Pain R10.9 Kidney Stone N20.0 COMPARISON: No relevant comparison available. TECHNIQUE: Axial, Coronal, and Sagittal images were obtained without and/or with IV contrast as indicated by examination type. Dose reduction techniques were achieved by using automated exposure control and/or adjustment of mA and/or kV according to patient size and/or use of iterative reconstruction technique. FINDINGS: LUNG BASES: No visible pulmonary or pleural disease. LIVER: No enlargement, atrophy, suspicious density, or significant focal lesion. BILIARY: No dilatation or calcification. PANCREAS: No lesion, fluid collection, or abnormal duct dilatation. SPLEEN: No enlargement or focal lesion. ADRENALS: No mass or enlargement. KIDNEYS: 6 mm nonobstructing stone within mid right kidney. No stones within left kidney. Unremarkable ureters. BOWEL/MESENTERY: No visible mass, obstruction, or bowel wall thickening. AORTA/VASCULAR: No aneurysm or dissection. RETROPERITONEUM: No mass or adenopathy. LYMPH NODES: No adenopathy. URINARY BLADDER: No visible focal wall thickening, lesion, or calculus. PELVIC ORGANS: No visible mass. Pelvic organs appropriate for patient age. ABDOMINAL WALL: No mass or hernia. BONES: No bony lesion or fracture. OTHER: Negative. CT/CT abdomen pelvis wo con IMPRESSION: 1. Nonobstructing right nephrolithiasis. No additional urinary tract calculi. Electronically authenticated by: ZANDER SEXTON Date: 10/17/2023 13:05
--- OUTSIDE RECORDS SUMMARY | 2023-10-15 09:44 | XMS_ITS ---
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1975 Sex: Female Author Organization Sample organization Care Team Providers Care Dental Surgery Doctor Name Role Phone Jg Green Primary Care Physician Dalton Medel Primary Care Physician Renata Medel Primary Care Physician ZamzamChantel Primary Care Physician Zamzam, PROFESSIONAL MODEL Chantel L Attending Unavailable Zamzam, PROFESSIONAL MODEL Chantel L Admitting Unavailable Zamzam, Chantel L Attending Unavailable RiedyYasmine Attending Unavailable Zamzam, Chantel Stallings Referring Unavailable Orzech, Winter Deshpande Attending Unavailable Orzech, Winter X Attending Unavailable Riedy, Yasmine Reyes Admitting Unavailable RiedyYasmine D Attending Unavailable Zamzam, Chantel Stallings Attending Unavailable Zamzam, Chantel L Admitting Unavailable Jigna, Nadya J Admitting Unavailable Jigna, Nadya J Attending Unavailable Zamzam, Chantel L Admitting Unavailable Zamzam, Chantel L Attending Unavailable Zamzam, Chantel L Admitting Unavailable Zamzam, Chantel L Attending Unavailable Jigna, Nadya J Referring Unavailable Jigna, Nadya J Admitting Unavailable Jigna, Nadya J Attending Unavailable Jigna, Nadya J Admitting Unavailable Jigna, Nadya J Attending Unavailable Jigna, Nadya J Referring Unavailable Zamzam, Chantel L Attending Unavailable Zamzam, Chantel L Admitting Unavailable Zamzam, Chantel L Attending Unavailable Zamzam, Chantel L Attending Unavailable Zamzam, Chantel L Attending Unavailable Zamzam, Chantel L Attending Unavailable Allergies Allergy Classification Reported Allergen(s) Allergy Type Date of Onset Reaction(s) Facility (16 sources) Chlorhexidine; Translations: [chlorhexidine topical] Drug Allergy [facility] [place] Work Phone: (16 sources) Contrast media; Translations: [Contrast Dye] Drug allergy Unknown (qualifier value) [facility] Work Phone: (16 sources) Penicillins; Translations: [penicillins] Drug allergy RASH [facility] Work Phone: Encounters Encounter Date Encounter Type Care Provider Facility Start: 09-29-2023 End: 09-30-2023 ambulatory PROFESSIONAL MODEL Chantel L Zamzam Facility:[facility] Start: 09-29-2023 End: 09-29-2023 Lab Drop off Chantel L Zamzam [facility] Start: 09-29-2023 End: 09-29-2023 ambulatory Chantel L Zamzam Facility:[facility] [place] Start: 09-20-2023 End: 09-20-2023 ambulatory Winter X Orzech Facility:[facility] [place] Start: 09-20-2023 End: 09-20-2023 Patient encounter procedure Winter X Orzech [facility] [place] Start: 08-19-2023 End: 08-19-2023 ambulatory Chantel L Zamzam Facility:[facility] [place] Start: 07-29-2023 End: 07-29-2023 ambulatory Chantel L Zamzam Facility:[facility] [place] Start: 05-25-2023 ambulatory Chantel Zamzam Facility:[facility] [place] Start: 05-24-2023 End: 05-24-2023 ambulatory Chantel L Zamzam Facility:[facility] [place] Start: 05-24-2023 End: 05-24-2023 Patient encounter procedure Winter X Orzech [facility] Start: 05-09-2023 ambulatory Chantel Zamzam Facility:[facility] [place] Start: 05-04-2023 End: 05-04-2023 Lab Drop off Chantel L Zamzam [facility] Start: 05-04-2023 End: 05-04-2023 ambulatory Chantel L Zamzam Facility:[facility] Start: 04-15-2023 End: 04-15-2023 ambulatory Chantel L Zamzam Facility:[facility] Start: 12-10-2022 End: 12-10-2022 ambulatory Nadya J Jigna Facility:[facility] Start: 12-10-2022 End: 12-10-2022 Patient encounter procedure Nadya J Jigna [facility] Start: 10-25-2022 End: 10-25-2022 ambulatory Yasmine D Riedy Facility:[facility] Start: 10-25-2022 End: 10-25-2022 Patient encounter procedure Yasmine D Riedy [facility] Start: 10-25-2022 End: 10-25-2022 Well adult monitoring check done Yasmine D Riedy [facility] Start: 10-22-2022 End: 10-22-2022 ambulatory Nadya J Jigna Facility:[facility] Start: 10-22-2022 End: 10-22-2022 Patient encounter procedure Nadya J Jigna [facility] Start: 10-18-2022 End: 10-18-2022 ambulatory Nadya J Jigna Facility:[facility] Start: 10-18-2022 End: 10-18-2022 Lab Drop off Nadya J Jigna [facility] Start: 10-15-2022 End: 10-15-2022 ambulatory Yasmine D Riedy Facility:[facility] Start: 08-10-2022 End: 08-10-2022 Patient encounter procedure Yasmine D Riedy [facility] Start: 08-09-2022 End: 08-09-2022 Patient encounter procedure Yasmine Dukes [facility] Start: 08-09-2022 End: 08-09-2022 Well adult monitoring check done Yasmine Dukes [facility] Start: 04-21-2022 End: 04-21-2022 Patient encounter procedure Dalton Medel [facility] Start: 10-24-2021 End: 10-24-2021 Patient encounter procedure Jg Green [facility] Start: 10-23-2021 End: 10-23-2021 Patient encounter procedure Jg Green [facility] Start: 10-23-2021 End: 10-23-2021 Well adult monitoring check done Jg Green [facility] Start: 10-23-2021 End: 10-23-2021 Patient encounter procedure Nadya Benito [facility] Immunizations Immunization Date Immunization Notes Care Provider Karely fortune 02-17-2012 tetanus toxoid, reduced diphtheria toxoid, and acellular pertussis vaccine, adsorbed Jg Green [facility] NEGATED: Highlighted row has not occurred!12-21-2022 influenza virus vaccine, unspecified formulation Dalton Medel [facility] NEGATED: Highlighted row has not occurred!04-05-2019 influenza virus vaccine, unspecified formulation Jg Green [facility] Medications Current Medications Medication Drug Class(es) Dates Sig (Normalized) Sig (Original) estradiol 0.1 mg/ml vaginal cream (1 source) Estrogen Start: 05-24-2023 Estrace 0.1 mg/g Cream See Instructions, 42.5 gm, Refill(s) 5, apply pea sized amount on fingertip near urethral opening nightly x 3 weeks, then 3x/week for maintanence, [facility]/pharmacy #[id number], 173, cm, 05/24/23 10:00:00 EST, Height/Length Dosing, 72, kg, 05/24/23 10:00:00 EST, Weight Dosing Start Date: 05/24/23 Status: Ordered fluticasone propionate 0.05 mg/actuat metered dose nasal spray (1 source) Corticosteroid Start: 04-21-2022 take 1 spray(s) nasal route twice daily Flonase 0.05 mg/inh [place] 1 spray(s), Nasal, BID, 16 gram, Refill(s) 0, each nostril, [facility], 174, cm, 04/21/22 15:08:00 EST, Height/Length Dosing, 67.9, kg, 04/21/22 15:08:00 EST, Weight Dosing Start Date: 04/21/22 Status: Ordered Folic Acid (8 sources) Start: 10-23-2021 folic acid Daily, Refills(s) 0 Start Date: 10/23/21 Status: Ordered hydrOXYzine hydrochloride 10 mg oral tablet (15 sources) Antihistamine Start: 09-21-2022 take 1 tablet by mouth three times daily as needed for anxiety hydrOXYzine hydrochloride 10 mg Tab 10 mg = 1 tab(s), Oral, TID, PRN for anxiety, # 30 tab(s), Refills(s) 0, Pharmacy: [facility], 174, cm, 08/09/22 15:52:00 EDT, Height/Length Dosing, 71.4, kg, 08/09/22 15:52:00 EDT, Weight Dosing Start Date: 09/21/22 Status: Ordered Start: 09-15-2021 take 1 tablet by michael th three times daily as needed for anxiety hydrOXYzine hydrochloride 10 mg Tab 10 mg = 1 tab(s), Oral, TID, PRN for anxiety, # 30 tab(s), Refills(s) 0, Pharmacy: [facility], 174, cm, 06/22/21 17:30:00 EST, Height/Length Dosing, 65.5, kg, 06/22/21 17:30:00 EST, Weight Dosing Start Date: 09/15/21 Status: Ordered ibuprofen 800 mg oral tablet (11 sources) Nonsteroidal Anti-inflammatory Drug Start: 08-09-2022 take 1 tablet by mouth three times daily ibuprofen 800 mg Tab 800 mg = 1 tab(s), Oral, TID, # 90 tab(s), Refills(s) 0, Pharmacy: [facility], 174, cm, 08/09/22 15:52:00 EDT, Height/Length Dosing, 71.4, kg, 08/09/22 15:52:00 EDT, Weight Dosing Start Date: 08/09/22 Status: Ordered Mucinex DM 30 mg-600 mg Tab-ER (1 source) Start: 04-21-2022 End: 04-28-2022 take 1 tablet by mouth every twelve hours Mucinex DM 30 mg-600 mg Tab-ER 1 tab(s), Oral, q12hr Congestion for 7 day(s), 14 tab(s), Refill(s) 0, [facility], 174, cm, 04/21/22 15:08:00 [...] day(s), # 14 cap(s), Refills(s) 0, Pharmacy: [facility]/pharmacy #[id number], 174, cm, 05/04/23 10:55:00 EST, Height/Length Dosing, 71.8, kg, 05/04/23 10:55:00 EST, Weight Dosing Start Date: 05/04/23 Stop Date: 05/11/23 Status: Ordered Vitamin C 500 mg Tab (15 sources) Start: 04-21-2020 take 1 tablet by mouth once daily Vitamin C 500 mg Tab 500 mg = 1 tab(s), Oral, Daily, Refills(s) 0 Start Date: 04/21/20 Status: Ordered Vitamin D (15 sources) Start: 06-09-2015 take 5000 [IU] by mouth once daily Vitamin D See Instructions, 5000 units po daily, Refills(s) 0, Prophylaxis Start Date: 06/09/15 Status: Ordered Payers Date Payer Category Payer Unknown [id number] 2022 Unknown [id number] 1975 Unknown [id number] 2.16.8 [id number] 1975 Unknown [id number] 2.16.8 [id number] 1975 Unknown [id number] 2.16.8 [id number] 1975 Unknown [id number] 2.16.8 40.1.225611.3.579.2 1975 Unknown [id number] 2.16.8 40.1.579030.3.579.2 1975 Unknown [id number] 2.16.8 40.1.298073.3.579.2 1975 Unknown [id number] 2.16.8 40.1.653713.3.579.2 1975 Unknown [id number] 2.16.8 [id number] 1975 Unknown [id number] 2.16.8 [id number] 1975 Unknown [id number] 2.16.8 [id number] 1975 Unknown [id number] 2.16.8 [id number] 1975 Unknown [id number] 2.16.8 [id number] 1975 Unknown [id number] 2.16.8 [id number] 1975 Unknown [id number] 2.16.8 [id number] 1975 Unknown [id number] 2.16.8 [id number] 1975 Unknown [id number] 2.16.8 [id number] Problems Active Problems Problem Classification Problem Date Documented Da te Episodic/Chronic Abdominal pain (15 sources) Right flank pain; Translations: [Flank pain] Onset: 4 08-17-2022 Episodic Anxiety disorders (20 sources) Anxiety; Translations: [Generalized anxiety disorder] Onset: 2 04-24-2019 Chronic Calculus of urinary tract (14 sources) History of calculus of kidney; Translations: [Kidney stone] Onset: 4 04-15-2023 Episodic Disorders of lipid metabolism (8 sources) Hyperlipidemia; Translations: [Hyperlipidemia, unspecified] Onset: 3 Chronic Esophageal disorders (16 sources) Gastroesophageal reflux disease; Translations: [Gastroesophageal reflux disease without esophagitis] Onset: 2 04-24-2019 Chronic Genitourinary symptoms and ill-defined conditions (9 sources) Blood in urine; Translations: [Dysuria] Onset: 4 05-04-2023 Episodic Headache; including migraine (15 sources) Migraine 06-07-2014 Chronic Comment on above: WITH MENSES Menopausal disorders (4 sources) Atrophic vaginitis; Translations: [Postmenopausal atrophic vaginitis] Onset: 4 Chronic Other ear and sense organ disorders (15 sources) Otalgia 11-06-2020 Episodic Other female genital disorders (15 sources) Dysplasia of cervix 05-28-2014 Episodic Other gastrointestinal disorders (1 source) Other constipation; Translations: [Other constipation] Onset: 3 Episodic Other gastrointestinal disorders (11 sources) Chronic constipation 08-09-2022 Episodic Other non-traumatic joint disorders (2 sources) Pain of left hip joint; Translations: [Pain in left hip] Onset: 3 Episodic Other non-traumatic joint disorders (3 sources) Pain in right hip joint; Translations: [Pain in right hip] Onset: 3 Episodic Other non-traumatic joint disorders (20 sources) Hip pain 08-09-2022 Episodic Other upper respiratory disease (13 sources) Nasal congestion; Translations: [Nasal congestion] Onset: 2 Episodic Other upper respiratory infections (15 sources) Acute upper respiratory infection 11-06-2020 Episodic [...] [Lumbar radiculopathy] Onset: 3 04-21-2020 Episodic Unclassified (15 sources) History of SARS-CoV-2 05-27-2021 Unclassified (20 sources) Patient encounter status 10-23-2021 Past or Other Problems Problem Classification Problem Date Documented Da te Episodic/Chronic Other inflammatory condition of skin (15 sources) Itching of eye Resolved: 01-25-2019 04-05-2019 Episodic Unclassified (15 sources) Body mass index 20-24 - normal 11-06-2020 Procedures Date Procedure Procedure Detail Performing Clinician [...] above: WISDOM X4 Tooth extraction, complete upper gJ Green Results Test Name Value Interpretation Reference Range Facility Pre-Certification Formon Pre-Certification Form [id number] [facility] Ambulatory Visit Summaryon 0 09-29-2023 Ambulatory Visit Summary 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1975 Visit Date:09/29/2023 Ambulatory Visit Instructions Your Diagnosis Wellness examination Screening for hyperlipidemia Screening for diabetes mellitus Your Care Team Attending Physician - Chantel [...] Vitals Heart Rate (Peripheral) 68 Respiratory Rate 16 Blood Pressure 112/73 Height 173 cm Height 68 in Weight 71.3 kg Weight 156.86 lb BMI 23.82 Medications What How Much When Why Instructions [...] exam Anxiety Cervical dysplasia Chronic constipation Dyslipidemia Dysuria Flank pain Generalized anxiety disorder Hematuria Hip pain, bilateral History of 2019 novel coronavirus disease (COVID-19) History of kidney stones Kidney stone on right side Kidney stones Low back pain with right-sided sciatica Lumbar back pain with radiculopathy affecting left lower extremity Lumbar back pain with radiculopathy affecting right lower extremity Migraines Nasal congestion Panic attacks Physical exam Pre-employment examination Right flank pain Right hip pain Screening for diabetes mellitus Screening for hyperlipidemia Vaginal atrophy Wellness examination Historical - Any problem that you are no longer receiving treatment for. Acute URI BMI 24.0-24.9, adult Ear pain, right Itchy eyes Patient Survey You may receive a survey via text or e-mail asking about your office visit. Please share your experience with us by completing your survey. We appreciate your feedback and thank you for choosing us for your care. Normal [facility] CHEMISTRYOrdered By: SYSTEM SYSTEM on 09-29-2023 Cholesterol [Mass/Vol] 202 mg/dL High 120 - 200 mg/dL Remisol Chem Cholesterol in HDL [Mass/Vol] 51 mg/dL Invalid Interpretation Code Remisol Chem Comment on above: Result Comment: '>= 60 LOW RISK' '<= 40 HIGH RISK' Cholesterol in LDL [Mass/Vol] 138 mg/dL High <=129mg/dL Remisol Chem Cholesterol in VLDL [Mass/Vol] 22 mg/dL Normal 7 - 40 mg/dL Remisol Chem Glucose [Mass/Vol] 95 mg/dL Normal 55 - 99 mg/dL Remisol Chem Triglyceride [Mass/Vol] 109 mg/dL Normal <=149mg/dL Remisol Chem Family Medicine Office/Clini c Noteon 09-29-2023 Family Medicine Office/Clinic Note Chief Complaint Wellness Visit HPI Staff Kimberly is a 47 year old female presenting for wellness Health Maintenance: Colonoscopy: 07/21/18 Mammo: 12/10/22 Pap: 10/10/2020 Last Labs: 10/15/22 No concerns at this time. History of Present Illness pt presents today for work physcial Review of Systems PHQ Score Initial Depression Screen Score: 0 SCORE Physical Exam Vitals & Measurements HR: 68(Peripheral) RR: 16 BP: 112/73 HT: 68 in HT: 173 cm WT: 71.3 kg WT: 156.86 lb BMI: 23.82 General: alert, no acute distress ENMT: oral mucosa moist, no pharyngeal erythema or exudate Cardiovascular: regular rate and rhythm, normal peripheral perfusion Respiratory: Lungs CTA, respirations non labored Extremities: no deformity, no trauma Neurological: oriented x 4, LOC appropriate for age, CN II-XII intact, motor strength equal & normal bilaterally, speech normal Assessment/Plan 1. Wellness examination (Z00.00: Encounter for general adult medical examination without abnormal findings) pt presents today for wellness visit. physical exam WNL. pt has a form that needs completed once we get lab results back. will call her once form is complete to pick it up. all questions answered. RTC as needed Ordered: Glucose Fasting Lipid Panel 2. Screening for hyperlipidemia (Z13.220: Encounter for screening for lipoid disorders) lipid panel in office today Ordered: Glucose Fasting Lipid Panel 3. Screening for diabetes mellitus (Z13.1: Encounter for screening for diabetes mellitus) fasting glucose drawn today. Ordered: Glucose Fasting Lipid Panel Follow-up No qualifying data available Problem List/Past Medical History Ongoing Acid reflux Annual physical exam Anxiety Cervical dysplasia Chronic constipation Dyslipidemia Dysuria Flank pain Generalized anxiety disorder Hematuria Hip pain, bilateral History of 2019 novel coronavirus disease (COVID-19) History of kidney stones Kidney stone on right side Kidney stones Low back pain with right-sided sciatica Lumbar back pain with radiculopathy affecting left lower extremity Lumbar back pain with radiculopathy affecting right lower extremity Migraines Nasal congestion Panic attacks Physical exam Pre-employment examination Right flank pain Right hip pain Screening for diabetes mellitus Screening for hyperlipidemia Vaginal atrophy Wellness examination Historical Acute URI BMI 24.0-24.9, adult Ear [...] 01/08/2011 Tobacco - Denies Tobacco Use, 12/04/2020 Former smoker, quit more than 30 days ago Tobacco Use:. Never Smokeless Tobacco Use:. Household tobacco concerns: No. Yes, 09/29/2023 Family History Afib: Father. Diabetes mellitus type 2: Mother. Hypertension: Father. Immunizations Vaccine Date Status Comments influenza virus vaccine, inactivated - Not Given Postpone due to refusal influenza virus vaccine, inactivated - Not Given Patient Refuses diphtheria/pertussis, acel/tetanus adult 02/17/2012 Recorded Normal [facility] Comment on above: Result Comment: Elec tronically Signed By: Chantel Mendes\.br\Date and Time Signed: 09/29/23 08:48 EDT Glu Fastingon 09-29-2023 Glucose [Mass/Vol] 95 mg/dL Normal 55-99 [facility] Comment on above: Performed By: #### [id number] #### [facility] [address] [place] [address] Lipid Panelon 09-29-2023 Cholesterol [Mass/Vol] 202 mg/dL High 120-200 [facility] Comment on above: Performed By: #### [id number] #### [facility] [address] [place] [address] Cholesterol in HDL [Mass/Vol] 51 mg/dL Invalid Interpretation Code [facility] Comment on above: Result Comment: '>= 60 LOW RISK' '<= 40 HIGH RISK' Performed By: #### [id number] #### [facility] [address] [place] [address] Cholesterol in LDL [Mass/Vol] 138 mg/dL High <=129 [facility] Comment on above: Performed By: #### 2 [id number] #### [facility] [address] [place] [address] Cholesterol in VLDL [Mass/Vol] 22 mg/dL Normal 7-40 [facility] Comment on above: Performed By: #### 2 [id number] #### [facility] [address] [place] [address] Triglyceride [Mass/Vol] 109 mg/dL Normal <=149 [facility] Comment on above: Performed By: #### 2 [id number] #### [facility] [address] [place] [address] RAD - MISCon 09-28-2023 RAD - MISC [id number] Normal [facility] RAD - Ultrasound Reporton RAD - Ultrasound Report [id number] Normal [facility] Patient Educationon 09-27-19 Patient Education Obstetrics and Gynec ology Atrophic Vaginitis Atrophic vaginitis is a condition in which the tissues that line the vagina become dry and thin. This condition is most common in women who have stopped having regular menstrual periods (are in menopause). This usually starts when a woman is 45 to 55 years old. That is the time when a woman's estrogen levels begin to decrease. Estrogen is a female hormone. It helps to keep the tissues of the vagina moist. It stimulates the vagina to produce a clear fluid that lubricates the vagina for sex. This fluid also protects the vagina from infection. Lack of estrogen can cause the lining of the vagina to get thinner and dryer. The vagina may also shrink in size. It may become less elastic. Atrophic vaginitis tends to get worse over time as a woman's estrogen level drops. What are the causes? This condition is caused by the normal drop in estrogen that happens around the time of menopause. What increases the risk? Certain conditions or situations may lower a woman's estrogen level, leading to a higher risk for atrophic vaginitis. You are more likely to develop this condition if: ? You are taking medicines that block estrogen. ? You have had your ovaries removed. ? You are being treated for cancer with radiation or medicines (chemotherapy). ? You have given or are . ? You are older than age 50. ? You smoke. What are the signs or symptoms? Symptoms of this condition include: ? Pain, soreness, a feeling of pressure, or bleeding during sex (dyspareunia). ? Vaginal burning, irritation, or itching. ? Pain or bleeding when a speculum is used in a vaginal exam. ? Having burning pain while urinating. ? Vaginal discharge. In some cases, there are no symptoms. How is this diagnosed? This condition is diagnosed based on your medical history and a physical exam. This will include a pelvic exam that checks the vaginal tissues. Though rare, you may also have other tests, including: ? A urine test. ? A test that checks the acid balance in your vagina (acid balance test). How is this treated? Treatment for this condition depends on how severe your symptoms are. Treatment may include: ? Using an ptlw-gqb-zecwnex vaginal lubricant before sex. ? Using a long-acting vaginal moisturizer. ? Using low-dose estrogen for moderate to severe symptoms that do not respond to other treatments. Options include creams, tablets, and inserts (vaginal rings). Before you use a vaginal estrogen, tell your health care provider if you have a history of: ? Breast cancer. ? Endometrial cancer. ? Blood clots. If you are not sexually active and your symptoms are very mild, you may not need treatment. Follow these instructions at home: Medicines ? Take vvas-ptq-nxbhqli and prescription medicines only as told by your health care provider. ? Do not use herbal or alternative medicines unless your health care provider says that you can. ? Use dhbo-qcg-jlhkjwu creams, lubricants, or moisturizers for dryness only as told by your health care provider. General instructions ? If your atrophic vaginitis is caused by menopause, discuss all of your menopause symptoms and treatment options with your health care provider. ? Do not douche. ? Do not use products that can make your vagina dry. These include: ? Scented feminine sprays. ? Scented tampons. ? Scented soaps. ? Vaginal sex can help to improve blood flow and elasticity of vaginal tissue. If you choose to have sex and it hurts, try using a water-soluble lubricant or moisturizer right before having sex. Contact a health care provider if: ? Your discharge looks different than normal. ? Your vagina has an unusual smell. ? You have new symptoms. ? Your symptoms do not improve with treatment. ? Your symptoms get worse. Summary ? Atrophic vaginitis is a condition in which the tissues that line the vagina become dry and thin. It is most common in women who have stopped having regular menstrual periods (are in menopause). ? Treatment options include using vaginal lubricants and low-dose vaginal estrogen. ? Contact a health care provider if your vagina has an unusual smell, or if your symptoms get worse or do not improve after treatment. This information is not intended to replace advice given to you by your health care provider. Make sure you discuss any questions you have with your health care provider. Document Revised: 10/16/2020 Document Reviewed: 10/16/2020 [employer] Patient Education ? 2022 [employer] Orthopedics Flank Pain, Adult Flank pain is pain that is located on the side of the body between the upper abdomen and the spine. This area is called the flank. The pain may occur over a short period of time (acute), or it may be long-term or recurring (chronic). It may be mild or severe. Flank pain can be caused by many things, including: ? Muscle soreness or injury. ? Kidney infection, kidney st (more content not included)... [facility] Urology Office/Clinic Noteon 09-27-2023 Urology Office/Clinic Note Chief Complaint 4 mo f/u HPI Staff 4 month to starting Estrace Cream Therapy (3x/wk) Dx: vaginal atrophy, dysuria and kidney stone Per last encounter, pt to schedule 1yr KUB/XENA 08/08/23 Lumbar & Thoracic Spine XR (ordered by PCP due to lower back pain) *possible right sided kidney stone PCP then ordered XENA 08/11/13 *7mm nonobstructing Rt Kidney Stone (at that time pt stated pain was tolerable w/Ibuprofen therapy. Dysuria: denies Incomplete bladder emptying: denies Hematuria: denies Frequency: when drinking a lot of water Urgency: when drinking a lot of water Nocturia: denies Stream: steady Leaking: denies Post void dripping: denies Wearing pads/ Depends: denies Urge incontinence: denies Stress incontinence: denies Incontinence without Sensory Awareness: denies Abdominal pain: denies Flank pain: right flank pain Sexual complaints: _ History of Present Illness I have reviewed and verified the staff HPI to be accurate for this encounter. Portions of this record may have been created with voice recognition artificial intelligence software, specifically [employer], [employer] and or GRAVID[employer]. Substitutions may have occurred due to the inherent limitations of voice recognition and artificial intelligence software. Review of Systems PHQ Score Initial Depression Screen Score: 0 SCORE Physical Exam Vitals & Measurements T: 36.7 ?C(Temporal Artery) HR: 86(Peripheral) RR: 16 BP: 114/72 HT: 68 in HT: 173 cm WT: 72 kg WT: 158.4 lb BMI: 24.06 General: Well developed, well nourished, in no acute distress. Genitourinary: Flank Pain: Mild right-sided. Bladder: nonpalpable. Assessment/Plan 1. Kidney stones (N20.0: Calculus of kidney) KUB 04/29/23 - stable 5 mm stone right mid pole, 2 mm calcification between left transverse process of L4-L5, slightly more medial than expected for the ureter, phlebolith vs mid ureteral stone. KUB 05/20/23 - 5 mm stone in the right mid pole, stable 2 mm calcification projected between the left L4 and L5 transverse processes. [1] XENA 08/15/23 - 7 mm nonobstructing right kidney stone Patient states she has been having intermittent right flank pain, believes that her right kidney stone is growing causing her issues. Discussed imaging results with the patient. Discussed that ultrasound tends to overestimate the size of the kidney stone and that stones in the kidney do not cause pain. We discussed possibility of passing a 5 mm stone if stone migrates, although it cannot be predicted when it may remain in place for long period of time. We additionally discussed possibility of procedure in the future to break up stone. However, she adamantly declines discussing procedure at this time. She admits that she is very anxious regarding this. We discussed possible left ureteral stone again, which I recommended a CT for. Patient states that she does not know if she can afford CT scan. We discussed issues regarding indwelling ureteral stone for this period of time. UA without blood. Will repeat KUB/R US and compare sizing to recent imaging and look for obstruction on left side. If imaging is inconclusive regarding ureteral stone, patient will need CT AP without con. Increase fluid intake. ER for any fever, significant nausea/vomiting, severe flank pain. Patient verbalized understanding. -Obtain KUB/R US, may need CT without con 2. Flank pain (R10.9: Unspecified abdominal pain) See #1, repeat KUB/XENA 3. Vaginal atrophy (N95.2: Postmenopausal atrophic vaginitis) Pt reports irregular menstrual cycle x 1-2 yrs. C/o of intermittent dysuria over the last year. [2] Previously admitted to vaginal dryness. Patient was started on vaginal Estrace cream At prior office visit. However, patient states that she is not taking medication as she feels she did not need it. We discussed use of medication for treatment of vaginal atrophy which may be contributing to her dysuria which she has been experiencing over the last year. However, patient states that she does not feel like this is an issue at this time. 4. Dysuria (R30.0: Dysuria) UCX 04/15/23 - neg UCX 05/04/23 - neg STI testing 05/04/23 - neg chlamydia, neg gonorrhea [3] UA today without signs of infection or blood. Patient has had intermittent dysuria over the last year, treated with antibiotics although recent culture is negative. While this was her primary issue previously, patient states that this is not her primary issue, nor is this bothering her at this time. Follow-up With When Contact Information NILES Erickson APRN, Winter Deshpande, FAM, URL Additional Instructions: pending KUB/XENA Patient Education Dysuria Flank Pain, Adult Atrophic Vaginitis Kidney Stones, Ucez-vp-Rjsb Problem List/Past Medical History Ongoing Acid reflux Annual physical exam Anxiety Cervical dysplasia Chronic constipation Dyslipidemia Dysuria Flank pain Generalized anxiety disorder Hematuria Hip pain, robert (more content not included)... 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1975 Visit Date:08/19/2023 Ambulatory Visit Instructions Your Diagnosis BMI 24.0-24.9, adult Non-smoker Your Care Team Attending Physician - Chantel Mendes Primary Care Physician - Chantel Mendes This Is Your Medications List ascorbic acid (Vitamin C 500 mg Tab) ergocalciferol (Vitamin D) hydrOXYzine (hydrOXYzine hydrochloride 10 mg Tab) ibuprofen (ibuprofen 800 mg Tab) meloxicam (meloxicam 15 mg Tab) Procedures Performed Colonoscopy (06/30/2018), Endoscopy (06/30/2018), Esophagogastroduodenoscopy (06/2018), bilateral salpingectomy for sterilization (11/15/2014), loop electrosurgical excision procedure conization and endocervical curettage (06/07/2014), Cone biopsy (2014), Dental extraction hemorrhage control, None, Tooth extraction, Tooth extraction, complete upper. Discharge Vitals Temperature (Temporal Artery) 35.9 ?C Heart Rate (Peripheral) 85 Blood Pressure 100/60 Height 170 cm Height 67 in Weight 72 kg Weight 158.4 lb BMI 24.91 Medications What How Much When Why Instructions [...] affecting right lower extremity Right hip pain Unchanged meloxicam (meloxicam 15 mg Tab) 1 Tablets By Mouth Every day Lumbar back pain with radiculopathy affecting right lower extremity Low back pain with right-sided sciatica BMI 24.0-24.9, adult Former smoker Allergies Contrast Dye (Unknown) chlorhexidine topical penicillins [...] for choosing us for your care. Normal [facility] Family Medicine Office/Clini c Noteon 08-19-2023 Family Medicine Office/Clinic Note Chief Complaint 3 wk f/u for leg pain HPI Staff Patient presents for follow up for back and leg pain. Pain characteristics: Pain location: back and leg pain Intensity:6/10 when she does have, hasn't had any pain for a week. Onset: years Medication used: meloxicam and prednisone History of Present Illness pt presents today for follow up on back pain with sciatica. Review of Systems PHQ Score Initial Depression Screen Score: 0 SCORE Physical Exam Vitals & Measurements T: 35.9 ?C(Temporal Artery) HR: 85(Peripheral) BP: 100/60 SpO2: 97% HT: 67 in HT: 170 cm WT: 72 kg WT: 158.4 lb BMI: 24.91 General: alert, no acute distress ENMT: oral mucosa moist, no pharyngeal erythema or exudate Cardiovascular: regular rate and rhythm, normal peripheral perfusion Respiratory: Lungs CTA, respirations non labored Extremities: no deformity, no trauma Neurological: oriented x 4, LOC appropriate for age, CN II-XII intact, motor strength equal & normal bilaterally, speech normal Assessment/Plan 1. Low back pain with right-sided sciatica (M54.41: Lumbago with sciatica, right side) pt states she has not had pain for about a week. she has been stretching daily and walking. feels it is helping. will contact me if the pain comes back. my consider PT or pain managment. 2. History of kidney stones (Z87.442: Personal history of urinary calculi) renal u/s shows non obstructing 7mm stone. not causing pain at this time. 3. BMI 24.0-24.9, adult (Z68.24: Body mass index [BMI] 24.0-24.9, adult) BMI education complete 4. Non-smoker (Z78.9: Other specified health status) continue not smoking Follow-up No qualifying data available Problem List/Past [...] Tab, 800 mg= 1 tab(s), Oral, TID meloxicam 15 mg Tab, 15 mg= 1 tab(s), Oral, Daily Vitamin C 500 mg Tab, 500 mg= 1 tab(s), Oral, Daily Vitamin D, See Instructions Allergies Contrast Dye (Unknown) chlorhexidine topical penicillins (RASH) Social History Alcohol - Denies Alcohol Use, 01/08/2011 Substance Abuse - Denies Substance Abuse, 01/08/2011 Tobacco - Denies Tobacco Use, 12/04/2020 Former smoker, quit more than 30 days ago Tobacco Use:. Never Smokeless Tobacco Use:. Household tobacco concerns: No., 05/24/2023 Family History Afib: Father. Diabetes mellitus type 2: Mother. Hypertension: Father. Immunizations Vaccine Date Status Comments influenza virus vaccine, inactivated - Not Given Postpone due to refusal influenza virus vaccine, inactivated - Not Given Patient Refuses diphtheria/pertussis, acel/tetanus adult 02/17/2012 Recorded [facility] Comment on above: Result Comment: Elec tronically Signed By: Chantel Mendes\.br\Date and Time Signed: 08/19/23 11:27 EDT Physician Orderon 08-09-2023 Physician Order [id number]#[id number] Normal [facility] Ambulatory Visit Summaryon 0 07-29-2023 Ambulatory [...] 11:20 AM EDT With: Chantel Mendes Where: [facility] Medicine [place] [facility] Medicine Office/Clini c Noteon 07-29-2023 Family Medicine [...] Daily, # 30 tab(s), Refills(s) 0, Pharmacy: [facility] #[id number], 173, cm, 07/29/23 14:36:00 EDT, Height/Length Dosing, 72.5, kg, 07/29/23 14:36:00 EDT, Weight Dosing methylPREDNISolone, = 1 packet(s), Oral, As Directed, as directed on package labeling, X 6 day(s), # 21 tab(s), Refills(s) 0, Pharmacy: [id number], 173, cm, 07/29/23 14:36:00 EDT, Height/Length Dosing, 72.5, kg, 07/29/23 14:36:00 EDT, Weight Dosing 2. Low back pain with right-sided sciatica (M54.41: Lumbago with sciatica, right side) see above Ordered: meloxicam, 15 mg = 1 tab(s), Oral, Daily, # 30 tab(s), Refills(s) 0, [id number] 173, cm, 07/29/23 14:36:00 EDT, Height/Length Dosing, 72.5, kg, 07/29/23 14:36:00 EDT, Weight Dosing methylPREDNISolone, = 1 packet(s), Oral, As Directed, as directed on package labeling, X 6 day(s), # 21 tab(s), Refills(s) 0, [id number] 173, cm, 07/29/23 14:36:00 EDT, Height/Length Dosing, 72.5, kg, 07/29/23 14:36:00 EDT, Weight Dosing 3. BMI 24.0-24.9, adult (Z68.24: Body mass index [BMI] 24.0-24.9, adult) BMI education complete Ordered: meloxicam, 15 mg = 1 tab(s), Oral, Daily, # 30 tab(s), Refills(s) 0, [id number] 173, cm, 07/29/23 14:36:00 EDT, Height/Length Dosing, 72.5, kg, 07/29/23 14:36:00 EDT, Weight Dosing methylPREDNISolone, = 1 packet(s), Oral, As Directed, as directed on package labeling, X 6 day(s), # 21 tab(s), Refills(s) 0, [id number], 173, cm, 07/29/23 14:36:00 EDT, Height/Length Dosing, 72.5, kg, 07/29/23 14:36:00 EDT, Weight Dosing 4. Former smoker (Z87.891: Personal history of nicotine dependence) continue not smoking Ordered: meloxicam, 15 mg = 1 tab(s), Oral, Daily, # 30 tab(s), Refills(s) 0, [id number] 173, cm, 07/29/23 14:36:00 EDT, Height/Length Dosing, 72.5, kg, 07/29/23 14:36:00 EDT, Weight Dosing methylPREDNISolone, = 1 packet(s), Oral, As Directed, as directed on package labeling, X 6 day(s), # 21 tab(s), Refills(s) 0, [id number], 173, cm, 07/29/23 14:36:00 EDT, [...] meloxicam 15 (more content not included)... Normal [facility] Comment on above: Result Comment: Elec tronically Signed By: Zamzam GONGORA, Chantel Stallings\.br\Date and Time Signed: 07/29/23 14:52 EDT [place] 05-25-2023 Screens [id number]#[id number] [facility] Ambulatory Visit Summaryon 0 05-24-2023 Ambulatory Visit [...] Up with NILES Erickson APRN, Winter Deshpande, FAM, URL When: In 3 months Where: Medications What How Much When Why Instructions New estradiol topical (Estrace 0.1 mg/ g Cream) See instructions Vaginal atrophy Refills: 5 apply pea sized amount on fingertip near urethral opening nightly x 3 weeks, then 3x/ week for maintanence Pickup at [facility]/pharmacy #[id number] Unchanged ascorbic acid (Vitamin C 500 mg [...] physician if questions or concerns Pharmacy Information [facility]/pharmacy #[id number]: [address], [place] [phone] Allergies Contrast Dye (Unknown) chlorhexidine topical penicillins [...] these instructions at home: Medicines ? Take omhz-xlf-efprtnz and prescription medicines only as told by [...] often. Avoi (more content not included)... Normal [facility] Patient Educationon 05-24-19 Patient Education Nephrology [...] ? 8 oz (237 mL) of milk, vjufhty-vkogndvfcddg-zefxg milk, and calcium-fortifiedfruit juice. Calcium-fortified means that [...] Spinach (cooked), rhubarb, beets, sweet potatoes, and Maldivian chard. ? Peanuts. ? Potato chips, central african fries, and baked potatoes with skin on. ? Nuts and nut products. ? Chocolate. ? If you regularly take a diuretic medicine, make sure to eat at least 1 or 2 servings of fruits or vegetables that are high in potassium each day. These include: ? Avocado. ? Banana. ? Belle, prune, carrot, or tomato juice. ? Baked [...] fish oil, or vitamin B6. ? Take agzu-hpc-plwpksj and prescription medicines only as told by your health care provider. These include supplements. What foods sh (more content not included)... [facility] Chlamydia/Gonococcus, NAAon 05-07-2023 C. trachomatis rRNA JUAN PABLO+probe Ql (Unsp spec) Negative Invalid Interpretation Code Negative [facility] Comment on above: Performed By: #### 1 [id number] #### [facility] [address] [place] [address] N. gonorrhoeae rRNA JUAN PABLO+probe Ql (Unsp spec) Negative Invalid Interpretation Code Negative [facility] Comment on above: Result Comment: Perf ormed at: =G [facility] [address] LALO Singh [id number] MD Brandon Rivera Performed By: #### 1 [id number] #### [facility] [address] [place] [address] C Urineon 05-06-2023 Bacteria identified Cx Nom (U) Microbiology PROCEDURE: Urine Culture [R1] SOURCE: U CleanCatch BODY SITE: COLLECTED DATE/TIME: 05/04/2023 11:10 EST RECEIVED DATE/TIME: 05/04/2023 22:10 EST START DATE/TIME: 05/04/2023 22:10 EST FREE TEXT SOURCE: Zamzam PROFESSIONAL MODEL, Chantel Stallings Zamzam PROFESSIONAL MODEL, Chantel Stallings FINAL REPORTS Final Report [] Verified Date/Time: 05/06/2023 09:53 EST 6,000 cfu/ml Mixed skin contaminants Performing Locations R1: This test was performed at: [facility], [address] [place] [address], [address] , , Normal [facility] Comment on above: Performed By: #### 2 [id number] #### [facility] [address] [place] [address] Family Medicine Office/Clini c Noteon 05-04-2023 Family [...] all questions answered. Ordered: Chlamydia/Gonococcus, JUAN PABLO [facility] Internal Ambulatory Referral Urine Culture Urine Culture Urnls Dip Stick Auto w/o Microscopy POC 13876 Urnls Dip Stick Auto w/o Microscopy POC 38787 2. Kidney stone on right side (N20.0: Calculus of kidney) reviewed KUB results. will refer to urology Ordered: [facility] Internal Ambulatory Referral 3. Hematuria (R31.9: Hematuria, unspecified) u/a + for blood Ordered: [facility] Internal Ambulatory Referral Orders: nitrofurantoin, 100 mg = 1 cap(s), Oral, BID, X 7 day(s), # 14 cap(s), Refills(s) 0, Pharmacy: [facility]/pharmacy #[id number], 174, cm, 05/04/23 [...] Protein Urine Dipstick: Negative (05/04/23 10:58:00) Specific [place] Urine Dipstick: 1.010 (05/04/23 10:58:00) Urine Appearance Urine Dipstick: Clear (05/04/23 10:58:00) Urine Color Urine Dipstick: Yellow (05/04/23 10 (more content not included)... Normal [facility] Comment on above: Result Comment: Elec tronically Signed By: Chantel Mendes\.br\Date and Time Signed: 05/04/23 12:35 EST RAD - MISCon 05-04-2023 RAD - MISC [id number]#[id number] [facility] C Urineon 04-17-2023 Bacteria identified Cx Nom (U) Microbiology PROCEDURE: Urine Culture [R1] SOURCE: U CleanCatch BODY SITE: COLLECTED DATE/TIME: 04/15/2023 11:56 EST RECEIVED DATE/TIME: 04/15/2023 18:35 EST START DATE/TIME: 04/15/2023 18:35 EST FREE TEXT SOURCE: Chantel Mendes, Chantel Stallings FINAL REPORTS Final Report [] Verified Date/Time: 04/17/2023 07:30 EST 1,000 cfu/ml Mixed skin contaminants Performing Locations R1: This test was performed at: [facility], [address] [place] [address], [facility] , , [facility] Comment on above: Performed By: #### 2 [id number] #### [facility] [address] [place] [address] Ambulatory Visit Summaryon 1 06-16-2022 Ambulatory Visit [...] for choosing us for your care. Normal [facility] Family Medicine Office/Clini c Noteon 04-15-2023 Family Medicine Office/Clinic Note HPI Staff Kimberly is a 47 year old female presenting to critical access hospital care Establish Care: History: Any previous diagnosis: Gerd, Anxiety, Migraines History of seeing any specialist: n/a When was your last doctors visit: Last provider: Dr Yanez Any recent labs: 10/15/22 Health Maintenance UTD: Colonoscopy: 2019 Dr mcmanus in [place], negative Mammogram: 10/2022 negative Pelvic/Pap: 10/2022 negative [...] right flank pain. just recently moved to [place] so would like to be established here [...] Urnls Dip Stick Auto w/o Microscopy POC 12426 2. Flank pain (R10.9: Unspecified abdominal pain) pt states she has been having this right sided flank pain for months. she has had x ray MRI, did PT and Pain management. she was told she had a kidney stone at one time, but isn't sure if she ever passed it. KUB ordered to be done at [facility]. No blood in u/a today. Ordered: Urine Culture 3. History of kidney stones (Z87.442: Personal history of urinary calculi) KUB and u/s with culture ordered 4. BMI 23.0-23.9, adult (Z68.23: Body mass index [BMI] 23.0-23.9, adult) BMI education complete Ordered: Urnls Dip Stick Auto w/o Microscopy POC 55437 5. Non-smoker (Z78.9: Other specified health status) continue not smoking Ordered: Urnls Dip Stick Auto w/o Microscopy POC 48418 Follow-up No qualifying data available Problem List/Past [...] vaccine, inactiv (more content not included)... Normal [facility] Comment on above: Result Comment: Elec tronically Signed By: Chantel Mendes\.br\Date and Time Signed: 04/15/23 12:41 EST Physician Orderon 04-15-2023 Physician Order [id number]#[id number] Normal [facility] MA Mamm Screen w/CAD if perf [...] VERY IMPORTANT TO YOUR HEALTH. THE CURRENT [employer] [...] Ambrosio Thakur MD Transcribed by: JEFFREY Technologist: [facility] Assessment: BI-RADS Category 2-Benign finding Recommendation: Normal interval follow-up Normal [facility] Consent for Treatmenton 11-30 Consent for Treatment [id number]:127 Normal [facility] Medicine Office/Clini c Noteon 10-27-2022 Family Medicine Office/Clinic Note Chief Complaint Physical HPI Staff Pt is here to do physical and lab review Concerns:Cholestrol levels are elevated Refills:No PHQ9:10 MARYAM: 22 Health Maintenance: Colonoscopy: 2019- normal- [facility] Pap:2020 Last Labs:10/22/2022 History of Present Illness [...] sugars and thyroid were within normal range. [facility] [employer] recently did hormonal blood work and an ultrasound of her uterus, and she told her that she might be getting close to menopause. She has a follow up appointment with [facility] [employer] specialist on , 10/28/2022. She takes Metamucil [...] screening in [address] Page in [place]. Her results were normal. Review of Systems [...] for anxiety (more content not included)... Normal [facility] Comment on above: Result Comment: Elec tronically Signed By: Yasmine Dukes CNP\.br\Date and Time Signed: 10/27/22 17:43 EDT\.br\Electronically Co-Signed By: Chiquita Phipps\.br\Date and Time Co-Signed: 10/26/22 14:59 EDT [facility] 10-26-2022 Forms [id number]:127 Normal [facility] US Pelvis Non-OB Completeon 10-26-2022 US [...] Transabdominal Ultrasound Performed Uterus Position Anteverted Normal [facility] FSH and LHon 10-24-2022 Follitropin Qn 9.4 m[IU]/mL Invalid Interpretation Code [facility] Comment on above: Result Comment: Adul t Female: Follicular phase 3.5 - 12.5 Ovulation phase 4.7 - 21.5 Luteal phase 1.7 - 7.7 Postmenopausal 25.8 - 134.8 Performed at: [address] [id number] PhD Pauline Minaya Performed By: #### 1 [id number] ####[place] [place] [address] Lutropin Qn 7.6 m[IU]/mL Invalid Interpretation Code [facility] Comment on above: Result Comment: Adul t Female: Follicular phase 2.4 - 12.6 Ovulation phase 14.0 - 95.6 Luteal phase 1.0 - 11.4 Postmenopausal 7.7 - 58.5 Performed By: #### 1 [id number] ####[facility] [address] [place] [address] Consent for Treatmenton 10-01 Consent for Treatment [id number]#[id number]:127 Normal [facility] Physician Orderon 10-22-2022 Physician Order [id number]#[id number]:127 Normal [facility] PAP [id number] 10-21-2022 Cytology report Cyto stain Doc (Cvx/Vag) Note Invalid Interpretation Code [facility] Comment on above: Result Comment: TEST S RESULT FLAG UNITS REF RANGE LAB Clinician Provided Cytology Information Source.............Endocervix LMP / Prev Treat...OIG=[id number] No. of containers..01 ThinPrep Vial DIAGNOSIS: 01 NEGATIVE FOR INTRAEPITHELIAL LESION OR MALIGNANCY. Specimen adequacy: 01 Satisfactory for evaluation. Endocervical and/or squamous metaplastic cells (endocervical component) are present. Performed by: Rach Crenshaw Cpa Tax . 01 Note: Note 02 The Pap [...] Low,>-Panic High,A-Abnormal,AA-Critical Abnormal Performed at: 01 [facility] [address] [place] [address] Diane Blum MD, [address] [facility] [address] [address] Nicole Taylor MD, Performed By: #### 3 [id number] ####[facility] [address] [place] [address] HPV 16+18+31+33+35+39+4 5+51+52+56+58+59+66 +68 DNA Probe+sig amp Ql (Cvx) Negative Invalid Interpretation Code Negative [facility] Comment on above: Result Comment: This nucleic acid amplification test detects fourteen high-risk HPV types (16,18,31,33,35,39,45,51,52,56,58,59,66,68) without differentiation. [facility] at: [facility] [address], [place] [id number] MD Viktoria Contreras Performed at: [address] [id number] MD Brandon Rivera Performed By: #### 3 [id number] ####[address] [place] [address] PAP [id number] 10-18-2022 Collection Technique BRUSH-SPATULA Normal [facility] Comment on above: Performed By: #### 3 [id number] ####[address] [place] [address] Gynecological Body Site ENDOCERVIX Normal [facility] Comment on above: Performed By: #### 3 [id number] ####[address] [place] [address] LMP or Menopause Date [id number] Invalid Interpretation Code [facility] Comment on above: Performed By: #### 3 [id number] ####[facility] [address] [place] [address] Previous Cytology Negative Normal [facility] Comment on above: Performed By: #### 3 [id number] ####[facility] [address] [place] [address] Previous Treatment NONE Normal [facility] Comment on above: Performed By: #### 3 [id number] ####[facility] [address] [place] [address] Physician Orderon 10-18-2022 Physician Order [id number]#[id number]:127 Normal [facility] Physician Order [id number]#[id number]:127 Normal [facility] Auto Diffon 10-15-2022 Basophils/100 WBC (Bld) 0.5 % Normal 0.0-2.0 [facility] Comment on above: Order Comment: Order Added by Discern Expert. Performed By: #### 2 483038, 10150521, 1691979, 627731192, 5706281, 8657543 ####[facility] [address] [place] [address] Basophils/Leukocyte s Auto (Bld) [Pure # fraction] 0.0 E9/L Normal 0.0-0.2 [facility] Comment on above: Order Comment: Order Added by Discern Expert. Performed By: #### 2 455908, 66065159, 0941788, 589969811, 2184832, 4699446 ####[facility] [address] [place] [address] Eosinophils/100 WBC (Bld) 1.2 % Normal 0.0-8.0 [facility] Comment on above: Order Comment: Order Added by Discern Expert. Performed By: #### 2 171030, 07521287, 9226701, 966070395, 5248809, 3793607 ####[facility] [address] [place] [address] Eosinophils/Leukocy edd Auto (Bld) [Pure # fraction] 0.1 E9/L Normal 0.0-0.5 [facility] Comment on above: Order Comment: Order Added by Discern Expert. Performed By: #### 2 588282, 77625945, 2085716, 327262834, 1845828, 0183908 ####[facility] [address] [place] [address] Lymphocytes/100 WBC (Bld) 36.0 % Normal 14.0-50.0 [facility] Comment on above: Order Comment: Order Added by Discern Expert. Performed By: #### 2 093181, 39891689, 0694788, 320739641, 3991042, 4272159 ####[facility] [address] [place] [address] Lymphocytes/Leukocy edd Auto (Bld) [Pure # fraction] 2.7 E9/L Normal 1.0-4.0 [facility] Comment on above: Order Comment: Order Added by Discern Expert. Performed By: #### 2 802647, 37770458, 3485683, 309672801, 0693254, 7852014 ####[address] [place] [address] Monocytes/100 WBC (Bld) 7.0 % Normal 4.0-14.0 [facility] Comment on above: Order Comment: Order Added by Discern Expert. Performed By: #### 2 531038, 26781430, 8820401, 198565856, 9089290, 4652087 ####[address] [address] Monocytes/Leukocyte s Auto (Bld) [Pure # fraction] 0.5 E9/L Normal 0.2-1.0 [facility] Comment on above: Order Comment: Order Added by Discern Expert. Performed By: #### 2 843495, 45298665, 5843153, 184759105, 3556659, 3739972 ####[address] [address] Neutrophils/100 WBC (Bld) 55.3 % Normal 36.0-75.0 [facility] Comment on above: Order Comment: Order Added by Discern Expert. Performed By: #### 2 934436, 84666837, 4491902, 128123151, 3984592, 9323054 ####[address] [place] [address] Neutrophils/Leukocy edd Auto (Bld) [Pure # fraction] 4.1 E9/L Normal 2.0-7.5 [facility] Comment on above: Order Comment: Order Added by Discern Expert. Performed By: #### 2 948922, 22255606, 9427898, 447363243, 4520988, 1820657 ####[address] [place] [address] CBC w/ Auto Diffon Erythrocyte distribution width (RBC) [Ratio] 14.1 % Normal 10.9-14.2 [facility] Comment on above: Performed By: #### 2 518713, 63545413, 6793158, 629009011, 0187350, 4925113 ####[address] [place] [address] Hematocrit (Bld) [Volume fraction] 40.0 % Normal 34.0-46.0 [facility] Comment on above: Performed By: #### 2 065219, 44010891, 1634262, 242936114, 7939800, 4296364 ####[address] [place] [address] Hemoglobin (Bld) [Mass/Vol] 13.4 g/dL Normal 12.0-16.0 [facility] Comment on above: Performed By: #### 2 032147, 56454403, 2667894, 474451178, 5320035, 7996619 ####[address] [place] [address] MCH (RBC) [Entitic mass] 28.7 pg Normal 27.0-34.0 [facility] Comment on above: Performed By: #### 2 306564, 39023278, 5611136, 616667029, 8064040, 6704083 ####[address] [place] [address] MCHC (RBC) [Mass/Vol] 33.4 g/dL Normal 31.4-36.0 [facility] Comment on above: Performed By: #### 2 611454, 28512267, 1201969, 266831202, 1017665, 3720280 ####[facility] [address] [place] [address] MCV (RBC) [Entitic vol] 86.0 fL Normal 80.0-100.0 [facility] Comment on above: Performed By: #### 2 671951, 12193343, 8813270, 149764682, 0641645, 9054721 ####[address] [place] [address] Platelet mean volume (Bld) [Entitic vol] 8.9 fL Normal 6.4-10.8 [facility] Comment on above: Performed By: #### 2 226386, 97412055, 0011620, 501170844, 4393237, 8661777 ####[address] [address] Platelets (Bld) [#/Vol] 271.0 E9/L Normal 150.0-500.0 [facility] Comment on above: Performed By: #### 2 323821, 61902286, 0407086, 937554001, 2021763, 7692069 ####[address] [address] RBC (Bld) [#/Vol] 4.6 E12/L Normal 4.3-5.9 [facility] Comment on above: Performed By: #### 2 345972, 81337531, 4014891, 175432219, 6952498, 3849053 ####[address] [address] WBC corrected for nucl RBC Auto (Bld) [#/Vol] 7.4 E9/L Normal 4.0-11.0 [facility] Comment on above: Performed By: #### 2 365916, 81280782, 5703740, 025383003, 8958017, 1612820 ####[address] [place] [address] CMPon 10-15-2022 Albumin [Mass/Vol] 4.1 g/dL Normal 3.3-5.0 [facility] Comment on above: Performed By: #### 2 411840, 93046260, 7296960, 762217271, 9761354, 3403971 ####[facility] [address] [place] [address] Albumin/Globulin (S) [Mass conc ratio] 1.1 Normal 1.1-2.2 [facility] Comment on above: Performed By: #### 2 230536, 05156691, 4493928, 295633765, 8726391, 0764606 ####[facility] [address] [place] [address] ALP [Catalytic activity/Vol] 109 Int._Unit/L High 21-98 [facility] Comment on above: Performed By: #### 2 408411, 24898699, 4450384, 265296900, 5901247, 1857228 ####[facility] [address] [place] [address] ALT No additional P-5'-P [Catalytic activity/Vol] 15 Int._Unit/L Normal 6-46 [facility] Comment on above: Performed By: #### 2 065217, 68948955, 3368706, 574723089, 9382710, 0726354 ####[facility] [address] [place] [address] Anion gap [Moles/Vol] 9 mmol/L Normal 6-16 [facility] Comment on above: Performed By: #### 2 892961, 61802970, 0781866, 709858991, 9707228, 4633719 ####[facility] [address] [place] [address] AST [Catalytic activity/Vol] 14 Int._Unit/L Normal 5-43 [facility] Comment on above: Performed By: #### 2 309221, 28817682, 4234639, 943808804, 0674671, 1302313 ####[facility] [address] [place] [address] Bilirubin [Mass/Vol] 0.5 mg/dL Normal 0.0-1.1 [facility] Comment on above: Performed By: #### 2 666723, 66138883, 9679377, 949404153, 5636689, 9492940 ####[facility] [address] [place] [address] Calcium [Mass/Vol] 9.1 mg/dL Normal 8.9-11.1 [facility] Comment on above: Performed By: #### 2 196287, 35751119, 8804151, 796473160, 2490298, 6582731 ####[facility] [address] [place] [address] Chloride [Moles/Vol] 108 mmol/L Normal 101-111 [facility] Comment on above: Performed By: #### 2 899597, 15469230, 5851301, 439694840, 3374051, 5663813 ####[facility] [address] [place] [address] CO2 [Moles/Vol] 27 mmol/L Normal 21-31 [facility] Comment on above: Performed By: #### 2 281042, 29050204, 4564434, 501396314, 5657795, 1760742 ####[facility] [address] [place] [address] Creatinine [Mass/Vol] 0.7 mg/dL Normal 0.5-1.3 [facility] Comment on above: Performed By: #### 2 004378, 54754570, 9543850, 844174466, 2978483, 6825919 ####[facility] [address] [place] [address] Globulin (S) [Mass/Vol] 3.8 g/dL Normal 1.4-4.0 [facility] Comment on above: Performed By: #### 2 210116, 87160170, 0413843, 039843022, 3705573, 8463207 ####[facility] [address] [place] [address] Glucose [Mass/Vol] 94 mg/dL Normal 55-199 [facility] Comment on above: Result Comment: If t his glucose result represents a fasting glucose, interpretation should refer to the following reference range: 55-99 mg/dL Performed By: #### 2 470546, 81934629, 2012313, 467313931, 3369941, 8816222 ####[facility] [address] [place] [address] Potassium [Moles/Vol] 4.1 mmol/L Normal 3.5-5.3 [facility] Comment on above: Performed By: #### 2 657231, 40961176, 9898697, 682296198, 3644192, 3626552 ####[facility] [address] [place] [address] Protein [Mass/Vol] 7.9 g/dL High 6.0-7.8 [facility] Comment on above: Performed By: #### 2 099108, 28042059, 7417428, 912744298, 3561602, 2261265 ####[facility] [address] [place] [address] Sodium [Moles/Vol] 140 mmol/L Normal 135-145 [facility] Comment on above: Performed By: #### 2 980750, 74336078, 5378887, 528063227, 4765375, 7817849 ####[facility] [address] [place] [address] Urea nitrogen [Mass/Vol] 9 mg/dL Normal 5-21 [facility] Comment on above: Performed By: #### 2 684339, 73386921, 6744803, 913431196, 9009373, 4926376 ####[facility] [address] [place] [address] Urea nitrogen/Creatinine [Mass ratio] 13 No Units Normal 10-20 [facility] Comment on above: Performed By: #### 2 480151, 81631472, 7895803, 683351271, 5997689, 7565857 ####[facility] [address] [place] [address] Consent for Treatmenton 09-30 Consent for Treatment [id number]:127 Normal [facility] TkpO7nhn 10-15-2022 HbA1c (Bld) [Mass fraction] 5.3 % Normal <=5.9 [facility] Comment on above: Performed By: #### 2 449171, 99440711, 0244184, 439664072, 6843158, 9486179 ####[facility] [address] [place] [address] Lipid Panelon 10-15-2022 Cholesterol [Mass/Vol] 223 mg/dL High 120-200 [facility] Comment on above: Performed By: #### 2 568817, 89903521, 0478367, 593860157, 4370422, 6059201 ####[facility] [address] [place] [address] Cholesterol in HDL [Mass/Vol] 63 mg/dL Invalid Interpretation Code [facility] Comment on above: Result Comment: HDL > or equal to 60 mg/dL: Low cardiovascular risk HDL < 40 mg/dL : High cardiovascular risk Performed By: #### 2 973790, 34847860, 8757748, 576851320, 9220302, 3361235 ####[facility] [address] [place] [address] Cholesterol in LDL [Mass/Vol] 136 mg/dL High <=129 [facility] Comment on above: Performed By: #### 2 149310, 31639035, 2498731, 028833173, 5700719, 7868989 ####[facility] [address] [place] [address] Cholesterol in VLDL [Mass/Vol] 19 mg/dL Normal 7-40 [facility] Comment on above: Performed By: #### 2 239226, 86017023, 1110110, 529911050, 9805274, 9984376 ####[facility] [address] [place] [address] Triglyceride [Mass/Vol] 97 mg/dL Normal <=149 [facility] Comment on above: Performed By: #### 2 007989, 97744690, 4620298, 221305680, 6769199, 8562230 ####[facility] [address] [place] [address] eGFRon 10-15-2022 GFR/1.73 sq M.predicted among non-blacks MDRD (S/P/Bld) [Vol rate/Area] 109 mL/min/1.73 m2 Normal >=59 [facility] Comment on above: Order Comment: Order added by Discern Expert. Result Comment: [employer] Sharpshooter darling kidney disease could be indicated at eGFR's of less than 60 mL/min/1.73m2. Kidney failure is indicated at less than 15 mL/min/1.73m2. Performed By: #### 2 809035, 56118332, 5566841, 932624204, 6881791, 5851131 ####[facility] [address] [place] [address] CHEMISTRYOrdered By: Fang hendrix on 10-24-2021 Albumin [...] rate/Area] mL/min/1.73 m2 Normal >=59mL/min/ 1.73 m2 [facility] Chem S GFR/1.73 sq M.predicted among non-blacks MDRD (S/P/Bld) [Vol rate/Area] mL/min/1.73 m2 Normal >=59mL/min/ 1.73 m2 [facility] Chem S HEMATOLOGYOrdered By: SYSTEM SYSTEM on [...] 8.6 fL Normal 6.4 - 10.8 fL [facility] HemeAutoSS Platelets (Bld) [#/Vol] 255.0 E9/L Normal 150.0 - 500.0 E9/L [facility] HemeAutoSS RBC (Bld) [#/Vol] 4.7 E12/L Normal 4.3 - 5.9 E12/L [facility] HemeAutoSS WBC corrected for nucl RBC Auto (Bld) [#/Vol] 7.1 E9/L Normal 4.0 - 11.0 E9/L [facility] HemeAutoSS Social History Date Type Detail Facility Start: 10-25-2022 End: 05-04-2023 Tobacco smoking status Never smoked tobacco (finding) [facility] Start: 06-22-2021 End: 09-29-2023 Tobacco smoking status Ex-smoker (finding) [facility] Tobacco smoking status Never [facility] Tobacco smoking status No Smokin g Status Entered [facility] Vital Signs Date Time Vital Sign Value Performing Clinician Facility 09-20-2023 10:56-0400 Blood Pressure Location Lexy [facility] 09-20-2023 10:56-0400 Body temperature 98.06 [degF] Lexy [facility] 09-20-2023 10:56-0400 Diastolic blood pressure 72 mm[Hg] Lexy [facility] 09-20-2023 10:56-0400 Heart rate 86 /min Lexy [facility] 09-20-2023 10:56-0400 Respiratory rate 16 /min Winter Orzech [facility] 09-20-2023 10:56-0400 Systolic blood pressure 114 mm[Hg] Winter Orzech [facility] 05-24-2023 09:58-0500 Blood Pressure Location Winter Orzech [facility] 05-24-2023 09:58-0500 Diastolic blood pressure 73 mm[Hg] Winter Orzech [facility] 05-24-2023 09:58-0500 Heart rate 78 /min Winter Orzech [facility] 05-24-2023 09:58-0500 Respiratory rate 16 /min Winter Orzech [facility] 05-24-2023 09:58-0500 Systolic blood pressure 121 mm[Hg] Winter Orzech [facility] 10-25-2022 15:31-0400 Blood Pressure Location Yasmine Riedy [facility] 10-25-2022 15:31-0400 Diastolic blood pressure 76 mm[Hg] Yasmine Riedy [facility] 10-25-2022 15:31-0400 Heart rate 72 /min Yasmine Riedy [facility] 10-25-2022 15:31-0400 SaO2% (BldA) [Mass fraction] 100 % Yasmine Riedy [facility] 10-25-2022 15:31-0400 Systolic blood pressure 118 mm[Hg] Yasmine Riedy [facility] 08-09-2022 15:50-0400 Blood Pressure Location Yasmine Riedy [facility] 08-09-2022 15:50-0400 Diastolic blood pressure 72 mm[Hg] Yasmine Riedy [facility] 08-09-2022 15:50-0400 Heart rate 77 /min Yasmine Riedy [facility] 08-09-2022 15:50-0400 SaO2% (BldA) [Mass fraction] 99 % Yasmine Riedy [facility] 08-09-2022 15:50-0400 Systolic blood pressure 114 mm[Hg] Yasmine Riedy [facility] 04-21-2022 15:06-0500 Blood Pressure Location Dalton Gudimella [facility] 04-21-2022 15:06-0500 Body temperature 96.8 [degF] Dalton Gudimella [facility] 04-21-2022 15:06-0500 Diastolic blood pressure 74 mm[Hg] Dalton Gudimella [facility] 04-21-2022 15:06-0500 Heart rate 99 /min Dalton Gudimella [facility] 04-21-2022 15:06-0500 Respiratory rate 18 /min Dalton Gudimella [facility] 04-21-2022 15:06-0500 SaO2% (BldA) [Mass fraction] 100 % Dalton Gudimella [facility] 04-21-2022 15:06-0500 Systolic blood pressure 112 mm[Hg] Dalton Gudimella [facility] 10-23-2021 14:17-0400 Blood Pressure Location Jg Green [facility] 10-23-2021 14:17-0400 Diastolic blood pressure 62 mm[Hg] Jg Green [facility] 10-23-2021 14:17-0400 Heart rate 96 /min Jg Green [facility] 10-23-2021 14:17-0400 SaO2% (BldA) [Mass fraction] 98 % Jg Green [facility] 10-23-2021 14:17-0400 Systolic blood pressure 110 mm[Hg] Jg Green [facility] Functional Status Date Assessment Result Facility 09-20-2023 Functional Status N/A [facility] 05-24-2023 Functional Status N/A [facility] 10-25-2022 Functional Status N/A [facility] 08-09-2022 Functional Status N/A [facility] 04-21-2022 Functional Status N/A [facility] 10-23-2021 Functional Status N/A [facility] [place] Clinical Notes 12-04-2020 to 05-24-2023 LaboratoryRadiologyRadiologyLaboratoryRadiologyLaboratoryRadiologyRadiologyRadio logy Note Date & Type Note Facility 05-24-2023 Hospital Discharg e instructions Patient Education [...] Follow these instructions at home: Medicines Take ggry-hql-odkuizo and prescription medicines only as told by [...] provider. Document Revised: 11/28/2020 Document Reviewed: 11/28/2020 [employer] Patient Education 2022 [employer]. 05/24/2023 13:29:53 Dietary Guidelines to Help Prevent [...] include: ?8 oz (237 mL) of milk, gbaqphu-rnuwbpmpnqyk-ooxxw milk, and calcium-fortifiedfruit juice. Calcium-fortified means that [...] ?Spinach (cooked), rhubarb, beets, sweet potatoes, and Maldivian chard. ?Peanuts. ?Potato chips, central african fries, and baked potatoes with skin on. ?Nuts and nut products. ?Chocolate. If you regularly take a diuretic medicine, make sure to eat at least 1 or 2 servings of fruits or vegetables that are high in potassium each day. These include: ?Avocado. ?Banana. ?Belle, prune, carrot, or tomato juice. ?Baked potato. [...] magnesium, fish oil, or vitamin B6. Take glzm-ezy-bqiilev and prescription medicines only as told by [...] Casseroles. Pizza. Lasagna. Frozen meals. Potato chips. Jordanian fries. The items listed above may not [...] provider. Document Revised: 07/29/2022 Document Reviewed: 07/29/2022 [employer] Patient Education 2022 [employer] 05/24/2023 13:29:50 Kidney Stones, Bwzw-uc-Mnod Kidney Stones Kidney stones are rock-like masses [...] Follow these instructions at home: Medicines Take hhjh-erg-kaingga and prescription medicines only as told by [...] provider. Document Revised: 12/21/2021 Document Reviewed: 12/21/2021 [employer] Patient Education 2022 [employer]. Follow Up Care 05/09/2023 09:53:22 With:NILES Erickson APRN, Winter X, FAM, URL Address: When:Within 3 Month(s) [facility] 05-24-2023 Note Chief Complaint Referral *Kidney Stone [...] w/ use of estrace. Rx sent to [facility]. -Start estrace, pea sized amount applied area urethra nightly x 3 weeks, then 3x/week for maintenance -f/u 3 mos to reevaluated urinary/vaginal sxs. Ordered: estradiol topical, See Instructions, 42.5 gm, Refill(s) 5, apply pea sized amount on fingertip near urethral opening nightly x 3 weeks, then 3x/week for maintanence, [facility]/pharmacy #[id number], 173, cm, 05/24/23 [...] f/u visit. Follow-up With When Contact Information [place] BLACK, NILES, Winter X, FAM, URL In 3 months Additional Instructions: Patient Education Dysuria Dietary Guidelines to Help Prevent Kidney Stones Kidney Stones, Bwuz-md-Rgyu Problem List/Past Medical History Ongoing Acid reflux [...] congestion Panic attacks (more content not included)... [facility] Comment on above: Result Comment: Elec tronically Signed By: NILES Erickson APRN, Winter Deshpande\.br\Date and Time Signed: 05/24/23 13:30 EST 05-04-2023 Evaluation + Plan note Diagnostic Tests PendingUrine Culture 05/04/23Chlamydia/Gonococcus, JUAN PABLO 05/04/23 [facility] 07-21-2022 Hospital Discharg e instructions Follow Up Care 07/21/2022 16:08:05 With:Yasmine Dukes CNP Address: When:Within 3 Month(s) Comments:physical and review labs [facility] 10-23-2021 Evaluation + Plan note Future Scheduled TestsCBC w/ Auto Diff 10/23/21Comprehensive Metabolic Panel 10/23/21Lipid Panel 10/23/21CT Abdomen/Pelvis w/ Contrast 12/04/20US Aorta 12/04/20 [facility] 12-04-2020 Evaluation + Plan note Future Scheduled TestsCT Abdomen/Pelvis w/ Contrast 12/04/20US Aorta 12/04/20 [facility] Evaluation + Plan note Future Appointments Appointment Date:10/25/2022 03:40:00 PM Scheduled Provider:Yasmine Dukes CNP Location:[facility] Appointment Type: Open Future Scheduled MpmiiBqyO1w 08/09/22CBC w/ Auto Diff 08/09/22Comprehensive Metabolic Panel 08/09/22Lipid Panel 08/09/22XR Hip 2-3 Views Right 08/09/22XR Sacrum and Coccyx Min 2 Views 4/10/23XR Spine Lumbosacral Minimum 4 Views 08/09/22 [facility] [place] Evaluation + Plan note Future Appointments Appointment Date:10/25/2022 03:40:00 PM Scheduled Provider:Yasmine Dukes CNP Location:[facility] Appointment Type: Open Future Scheduled PorkwGsgN3h 08/09/22CBC w/ Auto Diff 08/09/22Comprehensive Metabolic Panel 08/09/22Lipid Panel 08/09/22 [facility] Evaluation + Plan note Future Appointments Appointment Date:10/22/2022 04:00:00 PM Scheduled Provider: [facility] Appointment Type:US Abdominal/Pelvis (FT) Appointment Date:10/25/2022 03:40:00 PM Scheduled Provider:Yasmine Dukes CNP Location:[facility] Appointment Type: Open Appointment Date:10/30/2022 10:30:00 AM Scheduled Provider: [facility] Appointment Type:MA Screen (FT) Diagnostic Tests PendingPAP [id number] 10/18/22 Future Scheduled TestsUS Pelvis Non-OB Complete 10/22/22US Transvaginal Non-OB 10/22/22MA Mamm Screen w/CAD if perf and 3D Robert 10/30/22 [facility] Evaluation + Plan note Future Appointments Appointment Date:10/25/2022 03:40:00 PM Scheduled Provider:Yasmine Dukes CNP Location:[facility] Appointment Type:FM Open Appointment Date:10/30/2022 10:30:00 AM Scheduled Provider: [facility] Appointment Type:MA Screen (FT) Diagnostic Tests PendingFSH and LH 10/22/22 Future Scheduled TestsMA Mamm Screen w/CAD if perf and 3D Robert 10/30/22 [facility] Evaluation + Plan note Future Appointments Appointment Date:10/30/2022 10:30:00 AM Scheduled Provider: [facility] Appointment Type:MA Screen (FT) Future Scheduled TestsMA Mamm Screen w/CAD if perf and 3D Robert 10/30/22 [facility] [place] [facility] course Narrative No data available for this section [facility] [facility] Discharge instructions No data available for this section [facility] Progress note No data available for this section [facility] Summary Purpose Family History No Family History Records Found Advance Directives No Advanced Directives Records FoundNo Advanced Directives Records FoundNo Advanced Directives Records Found Additional Source Comments Care Team (unrecognized sect ion and content) Personnel Name: Jg Green MD Address: [address] [place] [address] Personnel Name: Jg Green MD Address: [address] [place] [address] Personnel Name: Jg Green MD Address: [address] [place] [address] Personnel Name: Dalton Medel MD Address: Address: [address] [place] [address] Personnel Name: Dalton Medel MD Address: Address: [address] [place] [address] Personnel Name: Dalton Medel MD Address: Address: [address] [place] [address] Personnel Name: Renata Medel MD Address: Address: [address] [place] [address] Personnel Name: Renata Medel MD Address: Address: [address] [place] [address] Personnel Name: Renata Medel MD Address: Address: [address] [place] [address] Personnel Name: Renata Medel MD Address: Address: [address] [place] [address] Personnel Name: Chantel Mendes Address: Address: [address] [place] [address]- Personnel Name: Chantel Mendes Address: Address: [address] [place] [address]- Personnel Name: Chantel Mendes Address: Address: [address] [place] [address]- Personnel Name: Chantel Mendes Address: Address: [address] [place] [id number]- Personnel Name: Chantel Mendes Address: Address: [address] [place] [address]- INFORMATION SOURCE (unrecogn ized section and content) DATE CREATED AUTHOR 09/30/2023 [facility] DATE CREATED AUTHOR AUTHOR'S AMINATA GARCÍA 2023 [facility] FOR RECORDS PERTAINING TO PATIENTS WHO [...] BE BASED ON THE PRIMARY CLINICAL RECORDS. [facility] [employer] provides no warranty or guarantee of the accuracy or completeness of information in this document.
== END 2023-10-15 09:42 | disposition home or self-care (01) ==
LOC: CT 09:41
PROVIDERS: PCP Nurse Practitioner; Visit Provider Nurse Practitioner Family
DX: N20.0 Calculus of kidney (principal); R10.9 Unspecified abdominal pain
CPT/HCPCS: 74176

== ENCOUNTER 2024-02-16 11:04 | Outpatient (OUT) | payer OTHER, SELFPAY ==
--- NOTE | 2024-02-16 11:08 | XR_ITS ---
[facility] [id number] Patient Name: KIMBERLY MOYA MRN: [id number] date: 1975 Sex: F Assigned Patient Location: [facility] Current Patient Location: Accession/Order Number: [id number] Exam Date: 02/16/2024 11:18 Report Date: 02/20/2024 07:19 At the request of: DILIP COVARRUBIAS Procedure: XR lumbar spine min 4V EXAMINATION: XR lumbar spine min 4V HISTORY: Low Back Pain With Sciatica COMPARISON: 08/08/2023 FINDINGS: BONES: Normal. No significant spondylosis, scoliosis, fracture, or visible bony lesion. DISC SPACES: Normal. No significant disc height narrowing, subluxation, or endplate abnormality. PARASPINOUS: Negative. No paraspinous abnormality is seen. OTHER: Right nephrolithiasis XR/XR lumbar spine min 4V IMPRESSION: No acute abnormality Electronically authenticated by: CELINE ZAMORA Date: 02/20/2024 07:19
--- OUTSIDE RECORDS SUMMARY | 2024-02-16 11:08 | XMS_ITS | CCD ---
Author Organization [facility] Care Team Providers Care Inside Contractor Sales Name Role Phone Jg Green Primary Care Physician Dalton Medel Primary Care Physician Renata Medel Primary Care Physician [phone] Chantel Wyman Primary Care Physician Zamzam, Chantel Stallings Attending Unavailable Zamzam, Chantel Stallings Attending Unavailable RiedYasmine cortez Attending Unavailable Zamzam, Chantel Stallings Referring Unavailable Orzech, Winter Deshpande Attending Unavailable Orzech, Winter X Attending Unavailable JignaNadya Attending Unavailable JignaNadya Referring Unavailable JignaNadya Admitting Unavailable Zamzam, Chantel L Admitting Unavailable Zamzam, Chantel Stallings Attending Unavailable Zamzam, Chantel Stallings Attending Unavailable Zamzam, Chantel L Admitting Unavailable Zamzam, Chantel L Attending Unavailable Zamzam, Chantel L Admitting Unavailable Zamzam, Chantel L Attending Unavailable Zamazm, Chantel L Admitting Unavailable Jigna, Nadya Chun Attending Unavailable JignaNadya Referring Unavailable Jigna, Nadya J Admitting Unavailable Zamzam, Chantel L Attending Unavailable Zamzam, Chantel L Attending Unavailable Zamzam, Chantel L Attending Unavailable JignaNadya Admitting Unavailable Jigna, Nadya Chun Attending Unavailable Zamzam, HYPOID GEAR GENERATOR Chantel Stallings Admitting Unavailable Zamzam, HYPOID GEAR GENERATOR Chantel Stallings Attending Unavailable JignaNadya nunez Referring Unavailable JignaNadya Attending Unavailable JignaNadya Admitting Unavailable Allergies Allergy Classification Reported Allergen(s) Allergy Type Date of Onset Reaction(s) Facility (20 sources) Chlorhexidine; Translations: [chlorhexidine topical] Drug Allergy [facility] [place] Work Phone: (20 sources) Contrast media; Translations: [Contrast Dye] Drug allergy Unknown (qualifier value) [facility] Work Phone: (20 sources) Penicillins; Translations: [penicillins] Drug allergy RASH [facility] Work Phone: Medications Current Medications Medication Drug Class(es) Dates Sig (Normalized) Sig (Original) estradiol 0.1 mg/ml vaginal cream (1 source) Estrogen Start: 05-24-2023 Estrace 0.1 mg/g Cream See Instructions, 42.5 gm, Refill(s) 5, apply pea sized amount on fingertip near urethral opening nightly x 3 weeks, then 3x/week for maintanence, [facility]/pharmacy #[id number], 173, cm, 05/24/23 10:00:00 EST, Height/Length Dosing, 72, kg, 05/24/23 10:00:00 EST, Weight Dosing Start Date: 05/24/23 Status: Ordered fluticasone propionate 0.05 mg/actuat metered dose nasal spray (1 source) Corticosteroid Start: 04-21-2022 take 1 spray(s) nasal route twice daily Flonase 0.05 mg/inh [place] 1 spray(s), Nasal, BID, 16 gram, Refill(s) 0, each nostril, [facility], 174, cm, 04/21/22 15:08:00 EST, Height/Length Dosing, 67.9, kg, 04/21/22 15:08:00 EST, Weight Dosing Start Date: 04/21/22 Status: Ordered Folic Acid (8 sources) Start: 10-23-2021 folic acid Daily, Refills(s) 0 Start Date: 10/23/21 Status: Ordered hydrOXYzine hydrochloride 10 mg oral tablet (17 sources) Antihistamine Start: 09-21-2022 take 1 tablet by mouth three times daily as needed for anxiety hydrOXYzine hydrochloride 10 mg Tab 10 mg = 1 tab(s), Oral, TID, PRN for anxiety, # 30 tab(s), Refills(s) 0, Pharmacy: [facility], 174, cm, 08/09/22 15:52:00 EDT, Height/Length Dosing, 71.4, kg, 08/09/22 15:52:00 EDT, Weight Dosing Start Date: 09/21/22 Status: Ordered Start: 09-15-2021 take 1 tablet by michael th three times daily as needed for anxiety hydrOXYzine hydrochloride 10 mg Tab 10 mg = 1 tab(s), Oral, TID, PRN for anxiety, # 30 tab(s), Refills(s) 0, Pharmacy: [facility], 174, cm, 06/22/21 17:30:00 EST, Height/Length Dosing, 65.5, kg, 06/22/21 17:30:00 EST, Weight Dosing Start Date: 09/15/21 Status: Ordered ibuprofen 800 mg oral tablet (13 sources) Nonsteroidal Anti-inflammatory Drug Start: 08-09-2022 take 1 tablet by mouth three times daily ibuprofen 800 mg Tab 800 mg = 1 tab(s), Oral, TID, # 90 tab(s), Refills(s) 0, Pharmacy: [facility], 174, cm, 08/09/22 15:52:00 EDT, Height/Length Dosing, 71.4, kg, 08/09/22 15:52:00 EDT, Weight Dosing Start Date: 08/09/22 Status: Ordered Mucinex DM 30 mg-600 mg Tab-ER (1 source) Start: 04-21-2022 End: 04-28-2022 take 1 tablet by mouth every twelve hours Mucinex DM 30 mg-600 mg Tab-ER 1 tab(s), Oral, q12hr Congestion for 7 day(s), 14 tab(s), Refill(s) 0, [facility], 174, cm, 04/21/22 15:08:00 EST, [...] day(s), # 14 cap(s), Refills(s) 0, Pharmacy: [facility]/pharmacy #[id number], 174, cm, 05/04/23 10:55:00 EST, Height/Length Dosing, 71.8, kg, 05/04/23 10:55:00 EST, Weight Dosing Start Date: 05/04/23 Stop Date: 05/11/23 Status: Ordered Vitamin C 500 mg Tab (17 sources) Start: 04-21-2020 take 1 tablet by mouth once daily Vitamin C 500 mg Tab 500 mg = 1 tab(s), Oral, Daily, Refills(s) 0 Start Date: 04/21/20 Status: Ordered Vitamin D (17 sources) Start: 06-09-2015 take 5000 [IU] by mouth once daily Vitamin D See Instructions, 5000 units po daily, Refills(s) 0, Prophylaxis Start Date: 06/09/15 Status: Ordered Problems Active Problems Problem Classification Problem Date Documented Da te Episodic/Chronic Abdominal pain (19 sources) Right flank pain; Translations: [Flank pain] Onset: 4 08-17-2022 Episodic Anxiety disorders (20 sources) Anxiety; Translations: [Generalized anxiety disorder] Onset: 2 04-24-2019 Chronic Calculus of urinary tract (20 sources) History of calculus of kidney; Translations: [Kidney stone] Onset: 4 04-15-2023 Episodic Disorders of lipid metabolism (10 sources) Hyperlipidemia; Translations: [Hyperlipidemia, unspecified] Onset: 3 Chronic Esophageal disorders (18 sources) Gastroesophageal reflux disease; Translations: [Gastroesophageal reflux disease without esophagitis] Onset: 2 04-24-2019 Chronic Genitourinary symptoms and ill-defined conditions (13 sources) Blood in urine; Translations: [Dysuria] Onset: 4 05-04-2023 Episodic Headache; including migraine (17 sources) Migraine 06-07-2014 Chronic Comment on above: WITH MENSES Menopausal disorders (6 sources) Atrophic vaginitis; Translations: [Postmenopausal atrophic vaginitis] Onset: 4 Chronic Other ear and sense organ disorders (17 sources) Otalgia 11-06-2020 Episodic Other female genital disorders (17 sources) Dysplasia of cervix 05-28-2014 Episodic Other gastrointestinal disorders (1 source) Other constipation; Translations: [Other constipation] Onset: 3 Episodic Other gastrointestinal disorders (13 sources) Chronic constipation 08-09-2022 Episodic Other non-traumatic joint disorders (2 sources) Pain of left hip joint; Translations: [Pain in left hip] Onset: 3 Episodic Other non-traumatic joint disorders (3 sources) Pain in right hip joint; Translations: [Pain in right hip] Onset: 3 Episodic Other non-traumatic joint disorders (20 sources) Hip pain 08-09-2022 Episodic Other upper respiratory disease (15 sources) Nasal congestion; Translations: [Nasal congestion] Onset: 2 Episodic Other upper respiratory infections (17 sources) Acute upper respiratory infection 11-06-2020 Episodic [...] [Lumbar radiculopathy] Onset: 3 04-21-2020 Episodic Unclassified (17 sources) History of SARS-CoV-2 05-27-2021 Unclassified (20 sources) Patient encounter status 10-23-2021 Past or Other Problems Problem Classification Problem Date Documented Da te Episodic/Chronic Other inflammatory condition of skin (17 sources) Itching of eye Resolved: 01-25-2019 04-05-2019 Episodic Unclassified (17 sources) Body mass index 20-24 - normal 11-06-2020 Results Test Name Value Interpretation Reference Range Facility [place] Mamm Screen w/CAD if perf and 3D B[place] 12-27-2023 MA Mamm Screen w/CAD if perf and 3D Robert Exam Date/Time: 12/24/2023 09:50 EDT Reason for Exam: Z12.31 Report IMPRESSION: BIRADS 2 BENIGN FINDINGS, NORMAL INTERVAL FOLLOW-UP.12 MONTH RECALL. CLINICAL HISTORY: Z12.31. COMPARISON: 12/10/2022. COMMENT: Routine views and tomosynthesis views of both breasts were obtained. The breasts are heterogeneously dense, which may obscure small masses. A small nodule in the lateral left breast is stable in appearance. No dominant breast mass nor neoplastic calcifications are noted. There has been no significant change when compared to the prior exam. The examination was reviewed with Computer Aided Detection. Breast Density: Yes Mammography is very important to your health. The current [employer] and National Comprehensive Cancer Network guidelines recommends annual mammography beginning at age 40. This facility utilizes a reminder system to ensure all patients receive reminder notifications at the appropriate time based on the recommendations of this exam. Board Certified Radiologists. Accredited by the ACR and FDA. Ordering Provider: Nadya Benito FINAL REPORT Dictated: 12/27/2023 12:58 pm Amor Schmidt M.D. Signed (Electronic Signature): 12/27/2023 12:58 pm Signed by: Amor Schmidt M.D. Transcribed by: JEFFREY Technologist: SALLY Assessment: BI-RADS Category 2-Benign finding Recommendation: Normal interval follow-up Normal [facility] PAP [id number] 10-26-2023 Cytology report Cyto stain Doc (Cvx/Vag) Note Invalid Interpretation Code [facility] Comment on above: Result Comment: TEST S RESULT FLAG UNITS REF RANGE LAB Clinician Provided Cytology Information Source.............Endocervix No. of containers..01 ThinPrep Vial DIAGNOSIS: 01 NEGATIVE FOR INTRAEPITHELIAL LESION OR MALIGNANCY. Specimen adequacy: 01 Satisfactory for evaluation. No endocervical component is identified. Performed by: Rach Pavon [employer] ([facility]) . 01 Note: Note 01 The Pap smear is a screening test designed to aid in the detection of premalignant and malignant conditions of the uterine cervix. It is not a diagnostic procedure and should not be used as the sole means of detecting cervical cancer. Both false-positive and false-negative reports do occur. Test Methodology: Note 01 This liquid based ThinPrep(R) pap test was screened with the use of an image guided system. FLAG LEGEND: L-Low Normal,H-High Normal,LL-Alert Low,HH-Alert High <-Panic Low,>-Panic High,A-Abnormal,AA-Critical Abnormal Performed at: [address] [place] [address] Nicole Taylor MD, Performed By: #### 3 [id number] #### [facility] [address] [place] [address] HPV 16+18+31+33+35+39+4 5+51+52+56+58+59+66 +68 DNA Probe+sig amp Ql (Cvx) Negative Invalid Interpretation Code Negative [facility] Comment on above: Result Comment: This nucleic acid amplification test detects fourteen high-risk HPV types (16,18,31,33,35,39,45,51,52,56,58,59,66,68) without differentiation. Performed at: [facility] [id number] MD Brandon Rivera Performed at: =[facility] [id number] MD Brandon Rivera Performed By: #### 3 [id number] #### [facility] [address] [place] [address] PAP [id number] 10-21-2023 Collection Technique BRUSH-SPATULA Normal [facility] Comment on above: Performed By: #### 3 [id number] #### [facility] [address] [place] [address] Gynecological Body Site ENDOCERVIX Normal [facility] Comment on above: Performed By: #### 3 [id number] #### [facility] [address] [place] [address] Physician Orderon 10-21-2023 Physician Order [id number]#1.00TIFF Normal [facility] RAD - CT Reporton 10-20-2023 RAD - CT Report [id number]#1.00TIFF [facility] Pre-Certification Formon Pre-Certification Form [id number]#1.00TIFF [facility] Ambulatory Visit Summaryon 0 09-29-2023 Ambulatory Visit Summary BRUNERELMAH Chandrakant :1975 Visit Date:09/29/2023 Ambulatory Visit Instructions Your [...] for choosing us for your care. Normal [facility] CHEMISTRYOrdered By: SYSTEM SYSTEM on 09-29-2023 Cholesterol [...] Refuses diphtheria/pertussis, acel/tetanus adult 02/17/2012 Recorded Normal [facility] Comment on above: Result Comment: Elec tronically Signed By: Chantel Mendes\Date and Time Signed: 09/29/23 08:48 EDT Glu Fastingon 09-29-2023 Glucose [Mass/Vol] 95 mg/dL Normal 55-99 [facility] Comment on above: Performed By: #### 2 [id number] #### [facility] [address] [place] [address] Lipid Panelon 09-29-2023 Cholesterol [Mass/Vol] 202 mg/dL High 120-200 [facility] Comment on above: Performed By: #### 2 [id number] #### [facility] [address] [place] [address] Cholesterol in HDL [Mass/Vol] 51 mg/dL Invalid Interpretation Code [facility] Comment on above: Result Comment: '>= 60 LOW RISK' '<= 40 HIGH RISK' Performed By: #### 2 [id number] #### [facility] [address] [place] [address] Cholesterol in LDL [Mass/Vol] 138 mg/dL High <=129 [facility] Comment on above: Performed By: #### 2 [id number] #### [facility] [address] [place] [address] Cholesterol in VLDL [Mass/Vol] 22 mg/dL Normal 7-40 [facility] Comment on above: Performed By: #### 2 [id number] #### [facility] [address] [place] [address] Triglyceride [Mass/Vol] 109 mg/dL Normal <=149 [facility] Comment on above: Performed By: #### 2 [id number] #### [facility] [address] [place] [address] RAD - MISCon 09-28-2023 RAD - MISC [id number]#1.00TIFF Normal [facility] RAD - Ultrasound Reporton RAD - Ultrasound Report [id number]#1.00TIFF Normal [facility] Patient Educationon 09-27-19 Patient Education Obstetrics and [...] are. Treatment may include: ? Using an uxau-fgv-mbxjtoo vaginal lubricant before sex. ? Using a [...] these instructions at home: Medicines ? Take egwq-tbg-nsmkgvc and prescription medicines only as told by your health care provider. ? Do not use herbal or alternative medicines unless your health care provider says that you can. ? Use cbsg-jat-miohvmw creams, lubricants, or moisturizers for dryness only [...] provider. Document Revised: 10/16/2020 Document Reviewed: 10/16/2020 [employer] Patient Education ? 2022 [employer]. Orthopedics Flank Pain, Adult Flank pain is [...] kidney st (more content not included)... Normal [facility] Urology Office/Clinic Noteon 09-27-2023 Urology Office/Clinic Note [...] with voice recognition artificial intelligence software, specifically [employer], [employer] and or [employer]. Substitutions may have occurred due to the [...] Flank Pain, Adult Atrophic Vaginitis Kidney Stones, Iyfe-ed-Zbhy Problem List/Past Medical History Ongoing Acid reflux Annual physical exam Anxiety Cervical dysplasia Chronic constipation Dyslipidemia Dysuria Flank pain Generalized anxiety disorder Hematuria Hip pain, robert (more content not included)... Normal [facility] Comment on above: Result Comment: Elec tronically Signed By: NILES Erickson APRN, Winter Deshpande\.br\Date and Time Signed: 09/27/23 16:58 EDT [place] 09-21-2023 Screens [id number]#1.00TIFF [facility] Ambulatory Visit Summaryon 0 08-19-2023 Ambulatory [...] for choosing us for your care. Sendy [facility] Family Medicine Office/Clini c Noteon 08-19-2023 Family [...] Refuses diphtheria/pertussis, acel/tetanus adult 02/17/2012 Recorded Normal [facility] Comment on above: Result Comment: Elec tronically Signed By: Chantel Mendes\.br\Date and Time Signed: 08/19/23 11:27 EDT Physician Orderon 08-09-2023 Physician Order [id number]#1.00TIFF Normal [facility] Ambulatory Visit Summaryon 0 07-29-2023 Ambulatory Visit [...] 11:20 AM EDT With: Chantel Mendes Where: [facility] [place] Normal [facility] Family Medicine Office/Clini c Noteon 07-29-2023 Family [...] Daily, # 30 tab(s), Refills(s) 0, Pharmacy: [facility]/pharmacy #[id number], 173, cm, 07/29/23 14:36:00 EDT, Height/Length Dosing, 72.5, kg, 07/29/23 14:36:00 EDT, Weight Dosing methylPREDNISolone, = 1 packet(s), Oral, As Directed, as directed on package labeling, X 6 day(s), # 21 tab(s), Refills(s) 0, Pharmacy: [facility]/pharmacy #[id number], 173, cm, 07/29/23 14:36:00 EDT, Height/Length Dosing, 72.5, kg, 07/29/23 14:36:00 EDT, Weight Dosing 2. Low back pain with right-sided sciatica (M54.41: Lumbago with sciatica, right side) see above Ordered: meloxicam, 15 mg = 1 tab(s), Oral, Daily, # 30 tab(s), Refills(s) 0, Pharmacy: [facility]/pharmacy #[id number], 173, cm, 07/29/23 14:36:00 EDT, Height/Length Dosing, 72.5, kg, 07/29/23 14:36:00 EDT, Weight Dosing methylPREDNISolone, = 1 packet(s), Oral, As Directed, as directed on package labeling, X 6 day(s), # 21 tab(s), Refills(s) 0, Pharmacy: [facility]/pharmacy #[id number], 173, cm, 07/29/23 14:36:00 EDT, Height/Length Dosing, 72.5, kg, 07/29/23 14:36:00 EDT, Weight Dosing 3. BMI 24.0-24.9, adult (Z68.24: Body mass index [BMI] 24.0-24.9, adult) BMI education complete Ordered: meloxicam, 15 mg = 1 tab(s), Oral, Daily, # 30 tab(s), Refills(s) 0, Pharmacy: [facility]/pharmacy #[id number], 173, cm, 07/29/23 14:36:00 EDT, Height/Length Dosing, 72.5, kg, 07/29/23 14:36:00 EDT, Weight Dosing methylPREDNISolone, = 1 packet(s), Oral, As Directed, as directed on package labeling, X 6 day(s), # 21 tab(s), Refills(s) 0, [id number], cm, 07/29/23 14:36:00 EDT, Height/Length Dosing, 72.5, kg, 07/29/23 14:36:00 EDT, Weight Dosing 4. Former smoker (Z87.891: Personal history of nicotine dependence) continue not smoking Ordered: meloxicam, 15 mg = 1 tab(s), Oral, Daily, # 30 tab(s), Refills(s) 0, Pharmacy: [facility]/pharmacy #[id number], 173, cm, 07/29/23 14:36:00 EDT, Height/Length Dosing, 72.5, kg, 07/29/23 14:36:00 EDT, Weight Dosing methylPREDNISolone, = 1 packet(s), Oral, As Directed, as directed on package labeling, X 6 day(s), # 21 tab(s), Refills(s) 0, Pharmacy: [facility]/pharmacy #[id number], 173, cm, 07/29/23 14:36:00 EDT, Height/Length [...] meloxicam 15 (more content not included)... Normal [facility] Comment on above: Result Comment: Elec tronically Signed By: Chantel Mendes\.br\Date and Time Signed: 07/29/23 14:52 EDT [place] 05-25-2023 Screens [id number]#1.00TIFF Normal [facility] Ambulatory Visit Summaryon 0 05-24-2023 Ambulatory Visit Summary 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1975 Visit Date:05/24/2023 Ambulatory Visit Instructions Your Diagnosis Vaginal atrophy Dysuria Kidney stone Your Care Team Attending Physician - NILES Erickson APRN, Winter Deshpande Primary Care Physician - Chantel Mendes Referring [...] then 3x/ week for maintanence Pickup at [facility]/pharmacy #[id number] Unchanged ascorbic acid (Vitamin C 500 mg [...] physician if questions or concerns Pharmacy Information [facility]/pharmacy #[id number]: [address], [place] [id number] [phone] Allergies Contrast Dye (Unknown) chlorhexidine topical penicillins [...] these instructions at home: Medicines ? Take rvaf-abp-fspqceo and prescription medicines only as told by [...] often. Avoi (more content not included)... Normal [facility] Patient Educationon 05-24-19 Patient Education Nephrology [...] ? 8 oz (237 mL) of milk, ylpxqzj-mutmtnznngac-szzhh milk, and calcium-fortifiedfruit juice. Calcium-fortified means that [...] Spinach (cooked), rhubarb, beets, sweet potatoes, and [place] chard. ? Peanuts. ? Potato chips, syriac fries, and baked potatoes with skin on. ? Nuts and nut products. ? Chocolate. ? If you regularly take a diuretic medicine, make sure to eat at least 1 or 2 servings of fruits or vegetables that are high in potassium each day. These include: ? Avocado. ? Banana. ? [place], prune, carrot, or tomato juice. ? Baked [...] fish oil, or vitamin B6. ? Take iocf-xhi-oxhsgiu and prescription medicines only as told by your health care provider. These include supplements. What foods sh (more content not included)... Normal [facility] Chlamydia/Gonococcus, NAAon 05-07-2023 C. trachomatis rRNA JUAN PABLO+probe Ql (Unsp spec) Negative Invalid Interpretation Code Negative [facility] Comment on above: Performed By: #### 1 [id number] #### [facility] [address] [place] [address] N. gonorrhoeae rRNA JUAN PABLO+probe Ql (Unsp spec) Negative Invalid Interpretation Code Negative [facility] Comment on above: Result Comment: [facility] at: [facility] [address], [place] [id number] MD Brandon Rivera Performed By: #### 1 [id number] #### [facility] [address] [place] [address] C Urineon 05-06-2023 Bacteria identified Cx Nom (U) Microbiology PROCEDURE: Urine Culture [R1] SOURCE: U CleanCatch BODY SITE: COLLECTED DATE/TIME: 05/04/2023 11:10 EST RECEIVED DATE/TIME: 05/04/2023 22:10 EST START DATE/TIME: 05/04/2023 22:10 EST FREE TEXT SOURCE: Zamzam GONGORA, Chantel Wyman HYPOID GEAR GENERATOR, Chantel Stallings FINAL REPORTS Final Report [] Verified Date/Time: 05/06/2023 09:53 EST 6,000 cfu/ml Mixed skin contaminants Performing Locations R1: This test was performed at: [facility], [address] [place] [address], [id number] , [place], Normal [facility] Comment on above: Performed By: #### 1 [id number] #### [facility] [address] [place] [address] Family Medicine Office/Clini c Noteon 05-04-2023 Family [...] all questions answered. Ordered: Chlamydia/Gonococcus, JUAN PABLO [facility] [place] Urine Culture Urine Culture Urnls Dip Stick Auto w/o Microscopy POC 37553 Urnls Dip Stick Auto w/o Microscopy POC [id number] 2. Kidney stone on right side (N20.0: Calculus of kidney) reviewed KUB results. will refer to urology Ordered: [facility] [place] 3. Hematuria (R31.9: Hematuria, unspecified) u/a + for blood Ordered: [facility] [place] Orders: nitrofurantoin, 100 mg = 1 cap(s), Oral, BID, X 7 day(s), # 14 cap(s), Refills(s) 0, Pharmacy: [facility]/pharmacy #[id number], 174, cm, 05/04/23 10:55:00 EST, Height/Length [...] Protein Urine Dipstick: Negative (05/04/23 10:58:00) Specific [place] Urine Dipstick: 1.010 (05/04/23 10:58:00) Urine Appearance Urine Dipstick: Clear (05/04/23 10:58:00) Urine Color Urine Dipstick: Yellow (05/04/23 10 (more content not included)... Normal [facility] Comment on above: Result Comment: Elec tronically Signed By: Chantel Mendes\.br\Date and Time Signed: 05/04/23 12:35 EST RAD - MISCon 05-04-2023 RAD - MISC [id number]#1.00TIFF Normal [facility] C Urineon 12-17-2023 Bacteria identified Cx Nom (U) Microbiology PROCEDURE: Urine Culture [R1] SOURCE: U CleanCatch BODY SITE: COLLECTED DATE/TIME: 04/15/2023 11:56 EST RECEIVED DATE/TIME: 04/15/2023 18:35 EST START DATE/TIME: 04/15/2023 18:35 EST FREE TEXT SOURCE: Chantel Mendes, Chantel Stallings FINAL REPORTS Final Report [] Verified Date/Time: 04/17/2023 07:30 EST 1,000 cfu/ml Mixed skin contaminants Performing Locations R1: This test was performed at: [facility], [address] [place] [address], [facility] [facility] , , [facility] [place] Comment on above: Performed By: #### 1 [id number] #### [facility] [address] [place] [address] Ambulatory Visit Summaryon 1 06-16-2022 Ambulatory Visit [...] for choosing us for your care. Normal [facility] Family Medicine Office/Clini c Noteon 04-15-2023 Family Medicine Office/Clinic Note HPI Staff Kimberly is a 47 year old female presenting to [facility] Establish Care: History: Any previous diagnosis: Gerd, Anxiety, Migraines History of seeing any specialist: n/a When was your last doctors visit: Last provider: Dr Yanez Any recent labs: 10/15/22 Health Maintenance UTD: Colonoscopy: 2019 Dr mcmanus in [place], negative Mammogram: 10/2022 negative Pelvic/Pap: 10/2022 negative [...] right flank pain. just recently moved to [place] so would like to be established here [...] Urnls Dip Stick Auto w/o Microscopy POC 71061 2. Flank pain (R10.9: Unspecified abdominal pain) pt states she has been having this right sided flank pain for months. she has had x ray MRI, did PT and Pain management. she was told she had a kidney stone at one time, but isn't sure if she ever passed it. KUB ordered to be done at [facility]. No blood in u/a today. Ordered: Urine Culture 3. History of kidney stones (Z87.442: Personal history of urinary calculi) KUB and u/s with culture ordered 4. BMI 23.0-23.9, adult (Z68.23: Body mass index [BMI] 23.0-23.9, adult) BMI education complete Ordered: Urnls Dip Stick Auto w/o Microscopy POC 26268 5. Non-smoker (Z78.9: Other specified health status) continue not smoking Ordered: Urnls Dip Stick Auto w/o Microscopy POC 08545 Follow-up No qualifying data available Problem List/Past [...] vaccine, inactiv (more content not included)... Normal [facility] Comment on above: Result Comment: Elec tronically Signed By: Chantel Mendes\.br\Date and Time Signed: 04/15/23 12:41 EST Physician Orderon 04-15-2023 Physician Order [id number] Normal [facility] [place] Mamm Screen w/CAD if perf ormed [...] VERY IMPORTANT TO YOUR HEALTH. THE CURRENT [employer] [...] Ambrosio Thakur MD Transcribed by: JEFFREY Technologist: [facility] Assessment: BI-RADS Category 2-Benign finding Recommendation: Normal interval follow-up Normal [facility] Consent for Treatmenton 11-30 Consent for Treatment [id number]:127 Normal [facility] Family Medicine Office/Clini c Noteon 10-27-2022 Family Medicine Office/Clinic Note Chief Complaint Physical HPI Staff Pt is here to do physical and lab review Concerns:Cholestrol levels are elevated Refills:No PHQ9:10 MARYAM: 20 Health Maintenance: Colonoscopy: 2019- normal[place] [facility] Pap:2020 Last Labs:10/22/2022 History of Present Illness [...] sugars and thyroid were within normal range. [employer] recently did hormonal blood work and an ultrasound of her uterus, and she told her that she might be getting close to menopause. She has a follow up appointment with [employer] specialist on , 10/28/2022. She takes Metamucil [...] screening in [address] Page in [place]. Her results were normal. Review of Systems [...] for anxiety (more content not included)... Normal [facility] Comment on above: Result Comment: Elec tronically Signed By: Yasmine Dukes CNP\.br\Date and Time Signed: 10/27/22 17:43 EDT\.br\Electronically Co-Signed By: Chiquita Phipps\.br\Date and Time Co-Signed: 10/26/22 14:59 EDT [employer] 10-26-2022 Forms [id number]:127 Normal [facility] US Pelvis Non-OB Completeon 10-26-2022 US [...] Transabdominal Ultrasound Performed Uterus Position Anteverted Normal [facility] FSH and LHon 10-24-2022 Follitropin Qn 9.4 m[IU]/mL Invalid Interpretation Code [facility] Comment on above: Result Comment: Adul t Female: Follicular phase 3.5 - 12.5 Ovulation phase 4.7 - 21.5 Luteal phase 1.7 - 7.7 Postmenopausal 25.8 - 134.8 Performed at: [facility] [id number] PhD Pauline Minaya Performed By: #### 1 [id number] #### [facility] [address] [place] [address] Lutropin Qn 7.6 m[IU]/mL Invalid Interpretation Code [facility] Comment on above: Result Comment: Adul t Female: Follicular phase 2.4 - 12.6 Ovulation phase 14.0 - 95.6 Luteal phase 1.0 - 11.4 Postmenopausal 7.7 - 58.5 Performed By: #### 1 [id number] #### [facility] [address] [place] [address] Consent for Treatmenton 10-01 Consent for Treatment [id number]:127 Normal [facility] Physician Orderon 10-22-2022 Physician Order [id number]#[id number]:127 Normal [facility] CHEMISTRYOrdered By: Fang hendrix on 10-24-2021 [...] ratio] 13 mg/mg Normal 10 - 20 [facility] Remisol CHEMISTRYOrdered By: SYSTEM SYSTEM on 10-24-2021 GFR/1.73 sq M.predicted among blacks MDRD (S/P/Bld) [Vol rate/Area] mL/min/1.73 m2 Normal >=59mL/min/ 1.73 m2 [facility] Chem S GFR/1.73 sq M.predicted among non-blacks MDRD (S/P/Bld) [Vol rate/Area] mL/min/1.73 m2 Normal >=59mL/min/ 1.73 m2 [facility] Chem S HEMATOLOGYOrdered By: SYSTEM SYSTEM on [...] 3.8 E9/L Normal 2.0 - 7.5 E9/L FT HemeAutoSS HEMATOLOGYOrdered By: Mary Anne Kemp on 10-24-2021 Erythrocyte distribution width (RBC) [Ratio] 14.0 % Normal 10.9 - 14.2 % FT HemeAutoSS Hematocrit (Bld) [Volume fraction] 40.7 % Normal 34.0 - 46.0 % [facility] HemeAutoSS Hemoglobin (Bld) [Mass/Vol] 13.8 g/dL Normal 12.0 - 16.0 gm/dL FT HemeAutoSS MCH (RBC) [Entitic mass] 29.4 pg [...] Clinician Facility 09-20-2023 10:56-0400 Blood Pressure Location [employer] [facility] 09-20-2023 10:56-0400 Body temperature 98.06 [degF] [employer] [facility] 09-20-2023 10:56-0400 Diastolic blood pressure 72 mm[Hg] [employer] [facility] 09-20-2023 10:56-0400 Heart rate 86 /min [employer] [facility] 05-21-2024 10:56-0400 Respiratory rate 16 /min [employer] [facility] 09-20-2023 10:56-0400 Systolic blood pressure 114 mm[Hg] [employer] [facility] 05-24-2023 09:58-0500 Blood Pressure Location [employer] [facility] 05-24-2023 09:58-0500 Diastolic blood pressure 73 mm[Hg] [employer] [facility] 05-24-2023 09:58-0500 Heart rate 78 /min [employer] [facility] 05-24-2023 09:58-0500 Respiratory rate 16 /min Winter Orzech [facility] 05-24-2023 09:58-0500 Systolic blood pressure 121 mm[Hg] [employer] [facility] 10-25-2022 15:31-0400 Blood Pressure Location Yasmine Riedy [facility] 10-25-2022 15:31-0400 Diastolic blood pressure 76 mm[Hg] Yasmine Riedy [facility] 10-25-2022 15:31-0400 Heart rate 72 /min Yasmine Riedy [facility] 10-25-2022 15:31-0400 SaO2% (BldA) [Mass fraction] 100 % Yasmine Riedy [facility] 10-25-2022 15:31-0400 Systolic blood pressure 118 mm[Hg] Yasmine Riedy [facility] 08-09-2022 15:50-0400 Blood Pressure Location Yasmine Riedy [facility] 08-09-2022 15:50-0400 Diastolic blood pressure 72 mm[Hg] Yasmine Riedy [facility] 08-09-2022 15:50-0400 Heart rate 77 /min Yasmine Riedy [facility] 08-09-2022 15:50-0400 SaO2% (BldA) [Mass fraction] 99 % Yasmine Riedy [facility] 08-09-2022 15:50-0400 Systolic blood pressure 114 mm[Hg] Yasmine Riedy [facility] 04-21-2022 15:06-0500 Blood Pressure Location Dalton Gudimella [facility] 04-21-2022 15:06-0500 Body temperature 96.8 [degF] Dalton Gudimella [facility] 04-21-2022 15:06-0500 Diastolic blood pressure 74 mm[Hg] Dalton Gudimella [facility] 04-21-2022 15:06-0500 Heart rate 99 /min Dalton Gudimella [facility] 04-21-2022 15:06-0500 Respiratory rate 18 /min Dalton Gudimella [facility] 04-21-2022 15:06-0500 SaO2% (BldA) [Mass fraction] 100 % Dalton Gudimella [facility] 04-21-2022 15:06-0500 Systolic blood pressure 112 mm[Hg] Dalton Gudimella [facility] 10-23-2021 14:17-0400 Blood Pressure Location Jg Green [facility] 10-23-2021 14:17-0400 Diastolic blood pressure 62 mm[Hg] Jg Green [facility] 10-23-2021 14:17-0400 Heart rate 96 /min Jg Green [facility] 10-23-2021 14:17-0400 SaO2% (BldA) [Mass fraction] 98 % Jg Green [facility] 10-23-2021 14:17-0400 Systolic blood pressure 110 mm[Hg] Jg Green [facility] Encounters Encounter Date Encounter Type Care Provider Facility Start: 12-24-2023 End: 12-24-2023 ambulatory Nadya J Jigna Facility[place] Start: 12-24-2023 End: 12-24-2023 Patient encounter procedure Nadya J Jigna [facility] Start: 10-21-2023 End: 10-21-2023 ambulatory Nadya J Jigna Facility[place] Start: 10-21-2023 End: 10-21-2023 Lab Drop off Nadya Adiel Jigna [facility] Start: 09-29-2023 End: 09-29-2023 Lab Drop off Chantel L Zamzam [facility] Start: 09-29-2023 End: 09-29-2023 ambulatory Chantel L Zamzam Facility:[facility] Start: 09-20-2023 End: 09-20-2023 ambulatory Winter X Orzech Facility:[facility] [place] Start: 09-20-2023 End: 09-20-2023 Patient encounter procedure Winter X Orzech [facility] [place] Start: 08-19-2023 End: 08-19-2023 ambulatory Chantel L Zamzam Facility:[facility] [place] Start: 07-29-2023 End: 07-29-2023 ambulatory Chantel L Zamzam Facility:[facility] Start: 05-25-2023 ambulatory Chantel Zamzam Facility:[facility] Start: 05-24-2023 End: 05-24-2023 ambulatory Chantel L Zamzam Facility:[facility] Start: 05-24-2023 End: 05-24-2023 Patient encounter procedure Winter X Orzech [facility] [place] Start: 05-09-2023 ambulatory Chantel Zamzam Facility:[facility] Start: 05-04-2023 End: 05-04-2023 Lab Drop off Chantel L Zamzam [facility] Start: 05-04-2023 End: 05-04-2023 ambulatory Chantel L Zamzam [facility] Start: 04-15-2023 End: 04-15-2023 ambulatory Chantel L Zamzam Facility:[facility] Start: 12-10-2022 End: 12-10-2022 ambulatory Nadya J Jigna Facility:[facility] Start: 12-10-2022 End: 12-10-2022 Patient encounter procedure Andya J Jigna [facility] Start: 10-25-2022 End: 10-25-2022 ambulatory Yasmine D Riedy Facility:[facility] Start: 10-25-2022 End: 10-25-2022 Patient encounter procedure Yasmine D Riedy [facility] Start: 10-25-2022 End: 10-25-2022 Well adult monitoring check done Yasmine D Riedy [facility] Start: 10-22-2022 End: 10-22-2022 ambulatory Nadya J Jigna Facility[place] Start: 10-22-2022 End: 10-22-2022 Patient encounter procedure Nadya J Jigna [facility] Start: 10-18-2022 End: 10-18-2022 Lab Drop off Nadya J Jigna [facility] Start: 08-10-2022 End: 08-10-2022 Patient encounter procedure Yasmine D Riedy [facility] Start: 08-09-2022 End: 08-09-2022 Patient encounter procedure Yasmine D Riedy [facility] Start: 08-09-2022 End: 08-09-2022 Well adult monitoring check done Yasmine D Riedy [facility] Start: 04-21-2022 End: 04-21-2022 Patient encounter procedure Dalton Medel [facility] Start: 10-24-2021 End: 10-24-2021 Patient encounter procedure gJ Green [facility] Start: 10-23-2021 End: 10-23-2021 Patient encounter procedure Jg Green [facility] Start: 10-23-2021 End: 10-23-2021 Well adult monitoring check done Jg Green [facility] Start: 10-23-2021 End: 10-23-2021 Patient encounter procedure Nadya Benito [facility] Procedures Date Procedure Procedure Detail Performing [...] and acellular pertussis vaccine, adsorbed Jg Green [facility] NEGATED: Highlighted row has not occurred!04-21-2022 influenza virus vaccine, unspecified formulation Dalton Gudimella [facility] NEGATED: Highlighted row has not occurred!04-05-2019 influenza virus vaccine, unspecified formulation Jg Green [facility] Payers Date Payer Category Payer Unknown [id number] 1975 Unknown [id number] 2.16.8 [id number] 1977 Unknown [id number] 2.16.8 40.1.201848.3.579.2 1977 Unknown [id number] 2.16.8 40.1.232857.3.579.2 1977 Unknown [id number] 2.16.8 40.1.420596.3.579.2 1977 Unknown [id number] 2.16.8 40.1.818063.3.579.2 1977 Unknown [id number] 2.16.8 40.1.041810.3.579.2 1977 Unknown [id number] 2.16.8 40.1.464474.3.579.2 1977 Unknown [id number] 2.16.8 40.1.985536.3.579.2 1977 Unknown [id number] 2.16.8 40.1.263966.3.579.2.727 1977 Unknown [id number] 2.16.8 40.1.153551.3.579.2.727 1977 Unknown [id number] 2.16.8 40.1.104576.3.579.2.727 1977 Unknown [id number] 2.16.8 40.1.696666.3.579.2.7 1977 Unknown [id number] 2.16.8 40.1.559328.3.579.2.727 1977 Unknown [id number] 2.16.8 40.1.996254.3.579.2.7 1977 Unknown [id number] 2.16.8 40.1.746516.3.579.2.727 1977 Unknown [id number] 2.16.8 40.1.208791.3.579.2.727 Social History Date Type Detail Facility Start: 06-22-2021 End: 09-29-2023 Tobacco smoking status Ex-smoker (finding) [facility] Tobacco smoking status Never Fishe [facility] Sex Assigned At Female [facility] Tobacco smoking status No Smokin g Status Entered [facility] Start: 10-25-2022 End: 05-04-2023 Tobacco smoking status Never smoked tobacco (finding) [facility] Functional Status Date Assessment Result Facility 09-20-2023 Functional Status N/A [facility] 05-24-2023 Functional Status N/A [facility] 10-25-2022 Functional Status N/A [facility] 08-09-2022 Functional Status N/A [facility] 04-21-2022 Functional Status N/A [facility] 10-23-2021 Functional Status N/A [facility] Clinical Notes 12-04-2020 to 10-21-2023 LaboratoryRadiologyRadiologyLaboratoryRadiologyLaboratoryRadiologyRadiologyRadio logy Note Date & Type Note Facility 10-21-2023 Evaluation + Plan note Diagnostic Tests PendingPAP [id number] 10/21/23 [facility] 05-24-2023 Hospital Discharg e instructions Patient Education [...] Follow these instructions at home: Medicines Take dspg-tyf-wfyluuf and prescription medicines only as told by [...] provider. Document Revised: 11/28/2020 Document Reviewed: 11/28/2020 [employer] Patient Education 2022 [employer]. 05/24/2023 13:29:53 Dietary Guidelines to Help Prevent [...] include: ?8 oz (237 mL) of milk, icrdyps-vixjpggybfsw-xwxlg milk, and calcium-fortifiedfruit juice. Calcium-fortified means that [...] ?Spinach (cooked), rhubarb, beets, sweet potatoes, and Kittitian chard. ?Peanuts. ?Potato chips, syriac fries, and baked potatoes with skin on. ?Nuts and nut products. ?Chocolate. If you regularly take a diuretic medicine, make sure to eat at least 1 or 2 servings of fruits or vegetables that are high in potassium each day. These include: ?Avocado. ?Banana. ?[place], prune, carrot, or tomato juice. ?Baked potato. [...] magnesium, fish oil, or vitamin B6. Take dsqk-icv-jbybsrf and prescription medicines only as told by [...] Casseroles. Pizza. Lasagna. Frozen meals. Potato chips. Cypriot fries. The items listed above may not [...] provider. Document Revised: 07/29/2022 Document Reviewed: 07/29/2022 [employer] Patient Education 2022 [employer]. 05/24/2023 13:29:50 Kidney Stones, Oico-hv-Ovjz Kidney Stones Kidney stones are rock-like masses [...] Follow these instructions at home: Medicines Take offn-jcn-smdbmfv and prescription medicines only as told by [...] provider. Document Revised: 12/21/2021 Document Reviewed: 12/21/2021 [employer] Patient Education 2022 [employer] Follow Up Care 05/09/2023 09:53:22 With:NILES Erickson APRN, Winter Deshpande, YAYA, URL Address: When:Within 3 Month(s) [facility] 05-24-2023 Note Chief Complaint Referral *Kidney Stone HPI Staff Evaluation requested by Chantel SOLOMONP due to UTI sx, Rt KUB & [...] w/ use of estrace. Rx sent to [facility]. -Start estrace, pea sized amount applied area [...] NILES Erickson APRN, Winter Deshpande, FAM, URL In 3 months Additional Instructions: Patient Education Dysuria Dietary Guidelines to Help Prevent Kidney Stones Kidney Stones, Jyvj-eg-Qokx Problem List/Past Medical History Ongoing Acid reflux [...] congestion Panic attacks (more content not included)... [facility] Comment on above: Result Comment: Elec tronically Signed By: NILES Erickson APRN, Winter Deshpande\.br\Date and Time Signed: 05/24/23 13:30 EST 05-04-2023 Evaluation + Plan note Diagnostic Tests PendingUrine Culture 05/04/23Chlamydia/Gonococcus, JUAN PABLO 05/04/23 [facility] 07-21-2022 Hospital Discharg e instructions Follow Up Care 07/21/2022 16:08:05 With:Yasmine Dukes CNP Address: When:Within 3 Month(s) Comments:physical and review labs [facility] 10-23-2021 Evaluation + Plan note Future Scheduled TestsCBC w/ Auto Diff 10/23/21Comprehensive Metabolic Panel 10/23/21Lipid Panel 10/23/21CT Abdomen/Pelvis w/ Contrast 12/04/20US Aorta 12/04/20 [facility] 12-04-2020 Evaluation + Plan note Future Scheduled TestsCT Abdomen/Pelvis w/ Contrast 12/04/20US Aorta 12/04/20 [facility] Evaluation + Plan note Future Appointments Appointment Date:10/25/2022 03:40:00 PM Scheduled Provider:Yasmine Dukes CNP Location:[facility] Appointment Type: Open Future Scheduled [id number] 08/09/22CBC w/ Auto Diff 08/09/22Comprehensive Metabolic Panel 08/09/22Lipid Panel 08/09/22XR Hip 2-3 Views Right 08/09/22XR Sacrum and Coccyx Min 2 Views 08/09/22XR Spine Lumbosacral Minimum 4 Views 08/09/22 [facility] [place] Evaluation + Plan note Future Appointments Appointment Date:10/25/2022 03:40:00 PM Scheduled Provider:Yasmine Dukes CNP Location:[facility] Appointment Type: Open Future Scheduled [id number] 08/09/22CBC w/ Auto Diff 08/09/22Comprehensive Metabolic Panel 08/09/22Lipid Panel 08/09/22 [facility] Evaluation + Plan note Future Appointments Appointment Date:10/22/2022 04:00:00 PM Scheduled Provider: [facility] Appoint[facility] Type:US Abdominal/Pelvis (FT) Appointment Date:10/25/2022 03:40:00 PM Scheduled Provider:Yasmine Dukes CNP Location:[facility] Appointment Type: Open Appointment Date:10/30/2022 10:30:00 AM Scheduled Provider: [facility] Appoint[facility] Type:MA Screen (FT) Diagnostic Tests PendingPAP [id number] 10/18/22 Future Scheduled TestsUS Pelvis Non-OB Complete 10/22/22US Transvaginal Non-OB 10/22/22MA Mamm Screen w/CAD if perf and 3D Robert 10/30/22 [facility] Evaluation + Plan note Future Appointments Appointment Date:10/25/2022 03:40:00 PM Scheduled Provider:Yasmine Dukes CNP Location:[facility] Appointment Type: Open Appointment Date:10/30/2022 10:30:00 AM Scheduled Provider: [facility] Appoint[facility] Type:MA Screen (FT) Diagnostic Tests PendingFSH and LH 10/22/22 Future Scheduled TestsMA Mamm Screen w/CAD if perf and 3D Robert 10/30/22 [facility] Evaluation + Plan note Future Appointments Appointment Date:10/30/2022 10:30:00 AM Scheduled Provider: Location:FT.[facility]MOGRAM Appointment Type:MA Screen (FT) Future Scheduled TestsMA Mamm Screen w/CAD if perf and 3D Robert 10/30/22 [facility] Hospital course Narrative No data available for this section [facility] Hospital Discharge instructions No data available for this section [facility] Progress note No data available for this section [facility] Summary Purpose Family History No Family History Records Found Advance Directives No Advanced Directives Records FoundNo Advanced Directives Records FoundNo Advanced Directives Records FoundNo Advanced Directives Records Found Additional Source Comments Care Team (unrecognized sect ion and content) Personnel Name: Jg Green MD Address: [address] [place] [address] Personnel Name: Jg Green MD Address: [address] [place] [address] Personnel Name: Jg Green MD Address: [address] [place] [address] Personnel Name: Dalton Medel MD Address: Address: [address] [place] [address] Personnel Name: Dalton Medel MD Address: Address: [address] [place] [address] Personnel Name: Dalton Medel MD Address: Address: [address] [place] [address] Personnel Name: Renata Medel MD Address: Address: [address] [place] [address] Personnel Name: Renata Medel MD Address: Address: [address] [place] [address] Personnel Name: Renata Medel MD Address: Address: [address] [place] [address] Personnel Name: Renata Medel MD Address: Address: [address] [place] [address] Personnel Name: Chantel Mendes Address: Address: [address] [place] [address]- Personnel Name: Chantel Mendes Address: Address: [address] [place] [address]- Personnel Name: Chantel Mendes Address: Address: [address] [place], [place] [id number]- Personnel Name: Chantel Mendes Address: Address: [address] [place] [address]- Personnel Name: Chantel Mendes Address: Address: [address] [place] [address]- Personnel Name: Chantel Mendes Address: Address: [address] [place] [address]- Personnel Name: Chantel Mendes Address: Address: [address] [place] [address]- INFORMATION SOURCE (unrecogn ized section and content) DATE CREATED AUTHOR 09/30/2023 [facility] DATE CREATED AUTHOR AUTHOR'S ORGANIZ ATION 10/22/2023 [facility] DATE CREATED AUTHOR AUTHOR'S ORGANIZ ATION 10/23/2023 [facility] DATE CREATED AUTHOR AUTHOR'S ORGANIZ ATION 12/29/2023 [facility] FOR RECORDS PERTAINING TO PATIENTS WHO ARE [...] BE BASED ON THE PRIMARY CLINICAL RECORDS. [employer] [facility]. provides no warranty or guarantee of the accuracy or completeness of information in this document.
== END 2024-02-16 11:05 | disposition home or self-care (01) ==
LOC: RAD 11:05
PROVIDERS: PCP Nurse Practitioner; Visit Provider Nurse Practitioner
DX: M54.40 Lumbago with sciatica, unspecified side (principal)
CPT/HCPCS: 72110

== ENCOUNTER 2024-04-26 10:32 | Outpatient (OUT) | payer OTHER, SELFPAY ==
--- NOTE | 2024-04-26 10:41 | XR_ITS ---
[facility] [id number] Patient Name: KIMBERLY MOYA MRN: [id number] date: 1975 Sex: F Assigned Patient Location: [facility] Current Patient Location: [facility] Accession/Order Number: [id number] Exam Date: 04/26/2024 11:00 Report Date: 04/26/2024 15:07 At the request of: DILIP COVARRUBIAS Procedure: XR chest 2V EXAMINATION: XR chest 2V HISTORY: Shortness Of Breath On Exertion, Chest Pain COMPARISON: No relevant comparison available. FINDINGS: LUNGS: No significant pulmonary parenchymal abnormalities. VASCULATURE: No increased pulmonary vasculature. PLEURA: No pneumothorax, effusion, or pleural thickening. CARDIAC: No cardiomegaly or cardiac silhouette abnormality. MEDIASTINUM: No visible mass or adenopathy. BONES: No fracture or visible bone lesion. OTHER: Negative. XR/XR chest 2V IMPRESSION: 1. Normal examination. Electronically authenticated by: ZANDER SEXTON Date: 04/26/2024 15:07
--- OUTSIDE RECORDS SUMMARY | 2024-04-26 10:47 | XMS_ITS | CCD ---
Author Organization [facility] Care Team Providers Care Field Secretary Name Role Phone Jg Green Primary Care Physician Dalton Medel Primary Care Physician Renata Medel Primary Care Physician Chantel Wyman Primary Care Physician Zamzam, Chantel Stallings Attending Unavailable Zamzam, Chantel Stallings Attending Unavailable RiedYasmine cortez Attending Unavailable Zamzam, Chantel Stallings Referring Unavailable Orzech, Winter Deshpande Attending Unavailable Orzech, Winter X Attending Unavailable JignaNadya Attending Unavailable Jigna, Nadya Chun Referring Unavailable Jigna, Nadya Chun Admitting Unavailable Zamzam, Chantel L Admitting Unavailable Zamzam, Chantel Stallings Attending Unavailable Zamzam, Chantel Stallings Attending Unavailable Zamzam, Chantel L Admitting Unavailable Zamzam, Chantel L Attending Unavailable Zamzam, Chantel L Admitting Unavailable Zamzam, Chantel L Attending Unavailable Zamzam, Chantel L Admitting Unavailable Jigna, Nadya Chun Attending Unavailable Jigna, Nadya J Referring Unavailable Jigna, Nadya J Admitting Unavailable Zamzam, Chantel L Attending Unavailable Zamzam, Chantel L Attending Unavailable Zamzam, Chantel L Attending Unavailable Jigna, Nadya J Admitting Unavailable Jigna, Nadya J Attending Unavailable Zamzam, CONCRETE BUCKET HOOKER Chantel L Admitting Unavailable Zamzam, CONCRETE BUCKET HOOKER Chantel L Attending Unavailable Jigna, Nadya J Admitting Unavailable Jigna, Nadya J Attending Unavailable Jigna, Nadya J Referring Unavailable Zamzam, CONCRETE BUCKET HOOKER Chnatel L Attending Unavailable Zamzam, CONCRETE BUCKET HOOKER Chantel L Attending Unavailable Zamzam, CONCRETE BUCKET HOOKER Chantel L Attending Unavailable Allergies Allergy Classification Reported Allergen(s) Allergy Type Date of Onset Reaction(s) Facility (20 sources) Chlorhexidine; Translations: [chlorhexidine topical] Drug Allergy [facility] Work Phone: (20 sources) Contrast media; Translations: [Contrast Dye] Drug allergy Unknown (qualifier value) [facility] Work Phone: (20 sources) Penicillins; Translations: [penicillins] Drug allergy RASH [facility] Work Phone: Medications Current Medications Medication Drug Class(es) Dates Sig (Normalized) Sig (Original) estradiol 0.1 mg/ml vaginal cream (1 source) Estrogen Start: 05-24-2023 Estrace 0.1 mg/g Cream See Instructions, 42.5 gm, Refill(s) 5, apply pea sized amount on fingertip near urethral opening nightly x 3 weeks, then 3x/week for maintanence, [facility] #[id number], 173, cm, 05/24/23 10:00:00 EST, Height/Length Dosing, 72, kg, 05/24/23 10:00:00 EST, Weight Dosing Start Date: 05/24/23 Status: Ordered fluticasone propionate 0.05 mg/actuat metered dose nasal spray (1 source) Corticosteroid Start: 04-21-2022 take 1 spray(s) nasal route twice daily Flonase 0.05 mg/inh [place] 1 spray(s), Nasal, BID, 16 gram, Refill(s) 0, each nostril, [facility], 174, cm, 04/21/22 15:08:00 EST, Height/Length Dosing, 67.9, kg, 04/21/22 15:08:00 EST, Weight Dosing Start Date: 04/21/22 Status: Ordered Folic Acid (8 sources) Start: 10-23-2021 folic acid Daily, Refills(s) 0 Start Date: 10/23/21 Status: Ordered hydrOXYzine hydrochloride 10 mg oral tablet (18 sources) Antihistamine Start: 09-21-2022 take 1 tablet by mouth three times daily as needed for anxiety hydrOXYzine hydrochloride 10 mg Tab 10 mg = 1 tab(s), Oral, TID, PRN for anxiety, # 30 tab(s), Refills(s) 0, Pharmacy: [facility], 174, cm, 08/09/22 15:52:00 EDT, Height/Length Dosing, 71.4, kg, 08/09/22 15:52:00 EDT, Weight Dosing Start Date: 09/21/22 Status: Ordered Start: 09-15-2021 take 1 tablet by michael th three times daily as needed for anxiety hydrOXYzine hydrochloride 10 mg Tab 10 mg = 1 tab(s), Oral, TID, PRN for anxiety, # 30 tab(s), Refills(s) 0, Pharmacy: [facility], 174, cm, 06/22/21 17:30:00 EST, Height/Length Dosing, 65.5, kg, 06/22/21 17:30:00 EST, Weight Dosing Start Date: 09/15/21 Status: Ordered ibuprofen 800 mg oral tablet (14 sources) Nonsteroidal Anti-inflammatory Drug Start: 08-09-2022 take 1 tablet by mouth three times daily ibuprofen 800 mg Tab 800 mg = 1 tab(s), Oral, TID, # 90 tab(s), Refills(s) 0, Pharmacy: [facility], 174, cm, 08/09/22 15:52:00 EDT, Height/Length Dosing, 71.4, kg, 08/09/22 15:52:00 EDT, Weight Dosing Start Date: 08/09/22 Status: Ordered Mucinex DM 30 mg-600 mg Tab-ER (1 source) Start: 04-21-2022 End: 04-28-2022 take 1 tablet by mouth every twelve hours Mucinex DM 30 mg-600 mg Tab-ER 1 tab(s), Oral, q12hr Congestion for 7 day(s), 14 tab(s), Refill(s) 0, [facility], 174, cm, 04/21/22 15:08:00 EST, [...] day(s), # 14 cap(s), Refills(s) 0, Pharmacy: [facility]/pharm[facility] #[id number], 174, cm, 05/04/23 10:55:00 EST, Height/Length Dosing, 71.8, kg, 05/04/23 10:55:00 EST, Weight Dosing Start Date: 05/04/23 Stop Date: 05/11/23 Status: Ordered Vitamin C 500 mg Tab (18 sources) Start: 04-21-2020 take 1 tablet by mouth once daily Vitamin C 500 mg Tab 500 mg = 1 tab(s), Oral, Daily, Refills(s) 0 Start Date: 04/21/20 Status: Ordered Vitamin D (18 sources) Start: 06-09-2015 take 5000 [IU] by mouth once daily Vitamin D See Instructions, 5000 units po daily, Refills(s) 0, Prophylaxis Start Date: 06/09/15 Status: Ordered Problems Active Problems Problem Classification Problem Date Documented Da te Episodic/Chronic Abdominal pain (20 sources) Right flank pain; Translations: [Flank pain] Onset: 4 08-17-2022 Episodic Anxiety disorders (20 sources) Anxiety; Translations: [Generalized anxiety disorder] Onset: 2 04-24-2019 Chronic Calculus of urinary tract (20 sources) History of calculus of kidney; Translations: [Kidney stone] Onset: 4 04-15-2023 Episodic Disorders of lipid metabolism (11 sources) Hyperlipidemia; Translations: [Hyperlipidemia, unspecified] Onset: 3 Chronic Esophageal disorders (19 sources) Gastroesophageal reflux disease; Translations: [Gastroesophageal reflux disease without esophagitis] Onset: 2 04-24-2019 Chronic Genitourinary symptoms and ill-defined conditions (13 sources) Blood in urine; Translations: [Dysuria] Onset: 4 05-04-2023 Episodic Headache; including migraine (18 sources) Migraine 06-07-2014 Chronic Comment on above: WITH MENSES Menopausal disorders (6 sources) Atrophic vaginitis; Translations: [Postmenopausal atrophic vaginitis] Onset: 4 Chronic Other ear and sense organ disorders (18 sources) Otalgia 11-06-2020 Episodic Other female genital disorders (18 sources) Dysplasia of cervix 05-28-2014 Episodic Other gastrointestinal disorders (1 source) Other constipation; Translations: [Other constipation] Onset: 3 Episodic Other gastrointestinal disorders (14 sources) Chronic constipation 08-09-2022 Episodic Other non-traumatic joint disorders (2 sources) Pain of left hip joint; Translations: [Pain in left hip] Onset: 3 Episodic Other non-traumatic joint disorders (3 sources) Pain in right hip joint; Translations: [Pain in right hip] Onset: 3 Episodic Other non-traumatic joint disorders (20 sources) Hip pain 08-09-2022 Episodic Other upper respiratory disease (16 sources) Nasal congestion; Translations: [Nasal congestion] Onset: 2 Episodic Other upper respiratory infections (18 sources) Acute upper respiratory infection 11-06-2020 Episodic [...] [Lumbar radiculopathy] Onset: 3 04-21-2020 Episodic Unclassified (18 sources) History of SARS-CoV-2 05-27-2021 Unclassified (20 sources) Patient encounter status 10-23-2021 Past or Other Problems Problem Classification Problem Date Documented Da te Episodic/Chronic Other inflammatory condition of skin (18 sources) Itching of eye Resolved: 01-25-2019 04-05-2019 Episodic Unclassified (18 sources) Body mass index 20-24 - normal 11-06-2020 Results Test Name Value Interpretation Reference Range Facility Family Medicine Office/Clini c Noteon 02-16-2024 Family Medicine Office/Clinic Note Family Medicine Office/Clinic Note Chief Complaint Pain HPI Staff Pt presents today due to Rt hip pain. 4-10/09 Has been taking Ibuprofen & some creams. Has been helping. Pain started 2 days ago. 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 Believes the pain started after working. States it has been ongoing, getting worse. Did have MRI @ [facility] several yrs ago. History of Present Illness pt presents today with worsening back pain Review of Systems PHQ Score Initial Depression Screen Score: 0 SCORE Physical Exam Vitals & Measurements T: 36.5 ?C(Tympanic) HR: 65(Peripheral) RR: 16 BP: 108/70 SpO2: 99% HT: 68 in HT: 173 cm WT: 70.85 kg WT: 155.87 lb BMI: 23.67 General: alert, no acute distress ENMT: oral mucosa moist, no pharyngeal erythema or exudate Cardiovascular: regular rate and rhythm, normal peripheral perfusion Respiratory: Lungs CTA, respirations non labored Extremities: no deformity, no trauma Neurological: oriented x 4, LOC appropriate for age, CN II-XII intact, motor strength equal & normal bilaterally, speech normal pt having trouble just sitting in chair due to pain Assessment/Plan 1. Low back pain with right-sided sciatica (M54.41: Lumbago with sciatica, right side) pt c/o worsening back pain with sciatica. has been to PT and pain management in the past. it has been a few years since she has had any imaging. will order x ray. Toradol 30mg given in office today. will send in medrol dose pack as well. pt will continue at home exercises that she learned at PT. she also has an inversion table she is using. RTC 2 weeks. if no improvement will consider referral to [facility] spine center. Ordered: methylPREDNISolone, = 1 packet(s), Oral, As Directed, as directed on package labeling, X 6 day(s), # 21 tab(s), Refills(s) 0, Pharmacy: [facility]/pharmacy #[id number], 173, cm, 02/16/24 10:28:00 EDT, Height/Length Dosing, 70.8, kg, 02/16/24 10:28:00 EDT, Weight Dosing 2. Lumbar back pain with radiculopathy affecting right lower extremity (M54.16: Radiculopathy, lumbar region) see above Ordered: methylPREDNISolone, = 1 packet(s), Oral, As Directed, as directed on package labeling, X 6 day(s), # 21 tab(s), Refills(s) 0, Pharmacy: [facility]/pharmacy #[id number], 173, cm, 02/16/24 10:28:00 EDT, Height/Length Dosing, 70.8, kg, 02/16/24 10:28:00 EDT, Weight Dosing 3. BMI 23.0-23.9, adult (Z68.23: Body mass index [BMI] 23.0-23.9, adult) BMI education given Ordered: methylPREDNISolone, = 1 packet(s), Oral, As Directed, as directed on package labeling, X 6 day(s), # 21 tab(s), Refills(s) 0, Pharmacy: [facility]/pharmacy #[id number], 173, cm, 02/16/24 10:28:00 EDT, Height/Length Dosing, 70.8, kg, 02/16/24 10:28:00 EDT, Weight Dosing 4. Former smoker (Z87.891: Personal history of nicotine dependence) continue not smoking Ordered: methylPREDNISolone, = 1 packet(s), Oral, As Directed, as directed on package labeling, X 6 day(s), # 21 tab(s), Refills(s) 0, Pharmacy: [facility]/pharmacy #[id number], 173, cm, 02/16/24 10:28:00 EDT, Height/Length Dosing, 70.8, kg, 02/16/24 10:28:00 EDT, Weight Dosing Follow-up No qualifying data [...] conization and endocervical curettage (06/07/2014), Cone biopsy (2015), Dental extraction hemorrhage control, None, Tooth extraction, Tooth extraction, complete upper. Medications hydrOXYzine hydrochloride 10 mg Tab, 10 mg= 1 tab(s), Oral, TID, PRN ibuprofen 800 mg Tab, 800 mg= 1 tab(s), Oral, TID Medrol 4 mg Tab, 1 packet(s), Oral, As Directed Vitamin C 500 mg Tab, 500 mg= 1 tab(s), Oral, Daily Vitamin D, See Instructions Allergies Contrast Dye (Unknown) chlorhexidine topical penicillins (RASH) Social History Alcohol - Denies Alcohol Use, 01/08/2011 Never., 02/16/2024 Substance Abuse - Denies Substance Abuse, 01/08/2011 Never., 02/16/2024 Tobacco - Denies Tobacco Use, 12/04/2020 Former smoker, quit more than 30 days ago Tobacco Use:. Never Smokeless Tobacco Use:., 02/16/2024 Family Hi (more content not included)... [facility] Comment on above: Result Comment: Elec tronically Signed By: Chantel Mendes\.br\Date and Time Signed: 02/16/24 10:48 EDT MA Mamm Screen w/CAD if perf and [...] very important to your health. The current [place] [employer] and National Comprehensive Cancer [...] 2-Benign finding Recommendation: Normal interval follow-up [facility] PAP [id number] 10-26-2023 Cytology report Cyto stain Doc (Cvx/Vag) Note Invalid Interpretation Code [facility] Comment on above: Result Comment: TEST S RESULT FLAG UNITS REF RANGE LAB Clinician Provided Cytology Information Source.............Endocervix No. of containers..01 ThinPrep Vial DIAGNOSIS: 01 NEGATIVE FOR INTRAEPITHELIAL LESION OR MALIGNANCY. Specimen adequacy: 01 Satisfactory for evaluation. No endocervical component is identified. Performed by: Rach Pavon Membership Counselor ([facility]) . 01 Note: Note 01 The [...] <-Panic Low,>-Panic High,A-Abnormal,AA-Critical Abnormal Performed at: [address] [id number] Nicole Taylor MD, Performed By: #### 3 [id number] #### [facility] [address] [id number] HPV 16+18+31+33+35+39+4 5+51+52+56+58+59+66 +68 DNA Probe+sig amp Ql (Cvx) Negative Invalid Interpretation Code Negative [facility] Comment on above: Result Comment: This nucleic acid amplification test detects fourteen high-risk HPV types (16,18,31,33,35,39,45,51,52,56,58,59,66,68) without differentiation. Performed at: [facility] [id number] MD Brandon Rivera Performed at: =G [facility] [id number] MD Brandon Rivera Performed By: #### 3 [id number] #### [facility] [address] [place] [address] PAP [id number] 10-21-2023 Collection Technique BRUSH-SPATULA [facility] Comment on above: Performed By: #### 3 [id number] #### [facility] [address] [place] [address] Gynecological Body Site ENDOCERVIX [facility] Comment on above: Performed By: #### 3 [id number] #### [facility] [address] [place] [address] Physician Orderon 10-21-2023 Physician Order [id number]#1.00TIFF [facility] RAD - CT Reporton 10-20-2023 RAD - CT Report [id number]#1.00TIFF [facility] Pre-Certification Formon Pre-Certification Form [id number]#1.00TIFF [facility] Ambulatory Visit Summaryon 0 09-29-2023 Ambulatory Visit [...] for choosing us for your care. [facility] CHEMISTRYOrdered By: SYSTEM SYSTEM on 09-29-2023 [...] Refuses diphtheria/pertussis, acel/tetanus adult 02/17/2012 Recorded [facility] Comment on above: Result Comment: Elec tronically Signed By: Chantel Mendes\.br\Date and Time Signed: 09/29/23 08:48 EDT Glu Fastingon 09-29-2023 Glucose [Mass/Vol] 95 mg/dL Normal 55-99 [facility] Comment on above: Performed By: #### 2 [id number] #### [facility] [address] [place] [address] Lipid Panelon 09-29-2023 Cholesterol [Mass/Vol] 202 mg/dL High 120-200 [facility] Comment on above: Performed By: #### 2 [id number] #### [facility] [address] [place] [address] Cholesterol in HDL [Mass/Vol] 51 mg/dL Invalid Interpretation Code [facility] Comment on above: Result Comment: '>= 60 LOW RISK' '<= 40 HIGH RISK' Performed By: #### 2 [id number] #### [facility] [address] [place] [address] Cholesterol in LDL [Mass/Vol] 138 mg/dL High <=129 [facility] Comment on above: Performed By: #### 2 [id number] #### [facility] [address] [place] [address] Cholesterol in VLDL [Mass/Vol] 22 mg/dL Normal 7-40 [facility] Comment on above: Performed By: #### 2 [id number] #### [facility] [address] [place] [address] Triglyceride [Mass/Vol] 109 mg/dL Normal <=149 [facility] Comment on above: Performed By: #### 2 [id number] #### [facility] [address] [place] [address] RAD - MISCon 09-28-2023 RAD - MISC [id number]#1.00TIFF [facility] RAD - Ultrasound Reporton RAD - Ultrasound Report [id number]#1.00TIFF [facility] Patient Educationon 09-27-19 Patient Education Obstetrics [...] are. Treatment may include: ? Using an gvgf-anb-pfcmqwa vaginal lubricant before sex. ? Using a [...] these instructions at home: Medicines ? Take sdeg-vok-coarrjy and prescription medicines only as told by your health care provider. ? Do not use herbal or alternative medicines unless your health care provider says that you can. ? Use aqic-yth-dqdrlyl creams, lubricants, or moisturizers for dryness only [...] provider. Document Revised: 10/16/2020 Document Reviewed: 10/16/2020 [employer] Patient Education ? 2022 [employer]. Orthopedics Flank Pain, Adult Flank pain is [...] kidney st (more content not included)... [facility] Urology Office/Clinic Noteon 09-27-2023 Urology Office/Clinic [...] with voice recognition artificial intelligence software, specifically [employer], [employer] and or [employer]. Substitutions may have occurred due to the [...] Flank Pain, Adult Atrophic Vaginitis Kidney Stones, Dijt-sy-Oteq Problem List/Past Medical History Ongoing Acid reflux Annual physical exam Anxiety Cervical dysplasia Chronic constipation Dyslipidemia Dysuria Flank pain Generalized anxiety disorder Hematuria Hip pain, robert (more content not included)... [facility] Comment on above: Result Comment: Elec tronically Signed By: NILES Erickson APRN, [place] X\.br\Date and Time Signed: 09/27/23 16:58 EDT [place] 09-21-2023 Screens [id number]#1.00TIFF [facility] Ambulatory Visit Summaryon 0 08-19-2023 Ambulatory Visit Summary 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1975 Visit Date:08/19/2023 Ambulatory Visit Instructions Your Diagnosis BMI 24.0-24.9, adult Non-smoker Your Care Team Attending Physician - Chantel Mendes Primary Care Physician - Zamzam CONCRETE BUCKET HOOKER, Chantel L This Is Your Medications List ascorbic acid [...] choosing us for your care. Sendy Pitts [facility] Family Medicine Office/Clini c Noteon 08-19-2023 [...] Refuses diphtheria/pertussis, acel/tetanus adult 02/17/2012 Recorded [facility] Comment on above: Result Comment: Elec tronically Signed By: Chantel Mendes\.josiah\Date and Time Signed: 08/19/23 11:27 EDT Physician Orderon 08-09-2023 Physician Order [id number]#1.00TIFF [facility] Ambulatory Visit Summaryon 0 07-29-2023 Ambulatory Visit [...] EDT With: Chantel Mendes Where: [facility] [place] [facility] Family Medicine Office/Clini c Noteon 07-29-2023 [...] Daily, # 30 tab(s), Refills(s) 0, Pharmacy: [facility]/pharmacy #[id number], 173, cm, 07/29/23 14:36:00 EDT, Height/Length Dosing, 72.5, kg, 07/29/23 14:36:00 EDT, Weight Dosing methylPREDNISolone, = 1 packet(s), Oral, As Directed, as directed on package labeling, X 6 day(s), # 21 tab(s), Refills(s) 0, Pharmacy: [facility]/pharmacy #[id number], 173, cm, 07/29/23 14:36:00 EDT, Height/Length Dosing, 72.5, kg, 07/29/23 14:36:00 EDT, Weight Dosing 2. Low back pain with right-sided sciatica (M54.41: Lumbago with sciatica, right side) see above Ordered: meloxicam, 15 mg = 1 tab(s), Oral, Daily, # 30 tab(s), Refills(s) 0, Pharmacy: [facility]/pharmacy #[id number], 173, cm, 07/29/23 14:36:00 EDT, Height/Length Dosing, 72.5, kg, 07/29/23 14:36:00 EDT, Weight Dosing methylPREDNISolone, = 1 packet(s), Oral, As Directed, as directed on package labeling, X 6 day(s), # 21 tab(s), Refills(s) 0, Pharmacy: [facility]/pharmacy #[id number], 173, cm, 07/29/23 14:36:00 EDT, Height/Length Dosing, 72.5, kg, 07/29/23 14:36:00 EDT, Weight Dosing 3. BMI 24.0-24.9, adult (Z68.24: Body mass index [BMI] 24.0-24.9, adult) BMI education complete Ordered: meloxicam, 15 mg = 1 tab(s), Oral, Daily, # 30 tab(s), Refills(s) 0, Pharmacy: [facility]/pharmacy #[id number], 173, cm, 07/29/23 14:36:00 EDT, Height/Length Dosing, 72.5, kg, 07/29/23 14:36:00 EDT, Weight Dosing methylPREDNISolone, = 1 packet(s), Oral, As Directed, as directed on package labeling, X 6 day(s), # 21 tab(s), Refills(s) 0, [id number], cm, 07/29/23 14:36:00 EDT, Height/Length Dosing, 72.5, kg, 07/29/23 14:36:00 EDT, Weight Dosing 4. Former smoker (Z87.891: Personal history of nicotine dependence) continue not smoking Ordered: meloxicam, 15 mg = 1 tab(s), Oral, Daily, # 30 tab(s), Refills(s) 0, [id number], cm, 07/29/23 14:36:00 EDT, Height/Length Dosing, 72.5, kg, 07/29/23 14:36:00 EDT, Weight Dosing methylPREDNISolone, = 1 packet(s), Oral, As Directed, as directed on package labeling, X 6 day(s), # 21 tab(s), Refills(s) 0, Pharmacy: [facility]/pharmacy #[id number], 173, cm, 07/29/23 14:36:00 EDT, Height/Length [...] meloxicam 15 (more content not included)... [facility] Comment on above: Result Comment: Elec tronically Signed By: Chantel Mendes\.br\Date and Time Signed: 07/29/23 14:52 EDT [place] 05-25-2023 Screens [id number]#[id number] [facility] Ambulatory Visit Summaryon 0 05-24-2023 Ambulatory Visit Summary ELMA BRUNERH Chandrakant :1975 Visit Date:05/24/2023 Ambulatory Visit Instructions Your [...] the Following Appointments Follow Up with Georgina BLACK, ROLAN-C, Winter X, FAM, URL When: In 3 months Where: Medications What How Much When Why Instructions New estradiol topical (Estrace 0.1 mg/ g Cream) See instructions Vaginal atrophy Refills: 5 apply pea sized amount on fingertip near urethral opening nightly x 3 weeks, then 3x/ week for maintanence Pickup at [facility]/pharmacy #[id number] Unchanged ascorbic acid (Vitamin C 500 [...] physician if questions or concerns Pharmacy Information [id number]: [address], [place] [phone] Allergies Contrast Dye (Unknown) chlorhexidine topical penicillins [...] these instructions at home: Medicines ? Take szex-guj-wchcuca and prescription medicines only as told by [...] often. Avoi (more content not included)... [facility] Patient Educationon 05-24-19 Patient Education Nephrology [...] ? 8 oz (237 mL) of milk, btzxljq-ysbifmzfmlat-dhhdo milk, and calcium-fortifiedfruit juice. Calcium-fortified means that [...] Spinach (cooked), rhubarb, beets, sweet potatoes, and Lithuanian chard. ? Peanuts. ? Potato chips, tongan fries, and baked potatoes with skin on. ? Nuts and nut products. ? Chocolate. ? If you regularly take a diuretic medicine, make sure to eat at least 1 or 2 servings of fruits or vegetables that are high in potassium each day. These include: ? Avocado. ? Banana. ? [place], prune, carrot, or tomato juice. ? Baked [...] fish oil, or vitamin B6. ? Take bojv-aqb-nyrfxte and prescription medicines only as told by your health care provider. These include supplements. What foods sh (more content not included)... [facility] Chlamydia/Gonococcus, NAAon 05-07-2023 C. trachomatis rRNA JUAN PABLO+probe Ql (Unsp spec) Negative Invalid Interpretation Code Negative [facility] Comment on above: Performed By: #### 1 [id number] #### [facility] [address] [place] [id number] N. gonorrhoeae rRNA JUAN PABLO+probe Ql (Unsp spec) Negative Invalid Interpretation Code [facility] Comment on above: Result Comment: Perf ormed at: =G [facility] [id number] MD Brandon Rivera Performed By: #### 1 [id number] #### [facility] [address] [place] [id number] C Urineon 05-06-2023 Bacteria identified Cx Nom (U) Microbiology PROCEDURE: Urine Culture [R1] SOURCE: U CleanCatch BODY SITE: COLLECTED DATE/TIME: 05/04/2023 11:10 EST RECEIVED DATE/TIME: 05/04/2023 22:10 EST START DATE/TIME: 05/04/2023 22:10 EST FREE TEXT SOURCE: Chantel Mendes Jodi L FINAL REPORTS Final Report [] Verified Date/Time: 05/06/2023 09:53 EST 6,000 cfu/ml Mixed skin contaminants Performing Locations R1: This test was performed at: [facility], [address] [place] [address], [id number]- , , [facility] Comment on above: Performed By: #### 1 [id number] #### [facility] [address] [place] [address] Family Medicine Office/Clini c Noteon 05-04-2023 Family [...] all questions answered. Ordered: Chlamydia/Gonococcus, JUAN PABLO [facility] Internal Ambulatory Referral Urine Culture Urine Culture Urnls Dip Stick Auto w/o Microscopy POC 03554 Urnls Dip Stick Auto w/o Microscopy POC 32455 2. Kidney stone on right side (N20.0: Calculus of kidney) reviewed KUB results. will refer to urology Ordered: [facility] Internal Ambulatory Referral 3. Hematuria (R31.9: Hematuria, unspecified) u/a + for blood Ordered: [facility] Internal Ambulatory Referral Orders: nitrofurantoin, 100 mg = 1 cap(s), Oral, BID, X 7 day(s), # 14 cap(s), Refills(s) 0, Pharmacy: [facility]/pharmacy #[id number], 174, cm, 05/04/23 10:55:00 EST, Height/Length [...] Protein Urine Dipstick: Negative (05/04/23 10:58:00) Specific [place] Urine Dipstick: 1.010 (05/04/23 10:58:00) Urine Appearance Urine Dipstick: Clear (05/04/23 10:58:00) Urine Color Urine Dipstick: Yellow (05/04/23 10 (more content not included)... [facility] Comment on above: Result Comment: Elec tronically Signed By: Chantel Mendes\.br\Date and Time Signed: 05/04/23 12:35 EST RAD - MISCon 05-04-2023 RAD - MISC [id number] [facility] C Urineon 04-17-2023 Bacteria identified Cx [...] Locations R1: This test was performed at: [facility], [address] [place] [address], [id number]- , [place], [facility] Comment on above: Performed By: #### 1 [id number] #### [facility] [address] [place] [address] Ambulatory Visit Summaryon 1 06-16-2022 Ambulatory Visit [...] choosing us for your care. [facility] Family Medicine Office/Clini c Noteon 04-15-2023 Family Medicine Office/Clinic Note HPI Staff Kimberly is a 47 year old female presenting to establish care Establish Care: History: Any previous diagnosis: Gerd, Anxiety, Migraines History of seeing any specialist: n/a When was your last doctors visit: Last provider: Dr Yanez Any recent labs: 10/15/22 Health Maintenance UTD: Colonoscopy: 2019 Dr mcmanus in [place], negative Mammogram: 10/2022 negative Pelvic/Pap: 10/2022 negative [...] right flank pain. just recently moved to [place] so would like to be established here [...] Urnls Dip Stick Auto w/o Microscopy POC 19229 2. Flank pain (R10.9: Unspecified abdominal pain) pt states she has been having this right sided flank pain for months. she has had x ray MRI, did PT and Pain management. she was told she had a kidney stone at one time, but isn't sure if she ever passed it. KUB ordered to be done at [facility]. No blood in u/a today. Ordered: Urine Culture 3. History of kidney stones (Z87.442: Personal history of urinary calculi) KUB and u/s with culture ordered 4. BMI 23.0-23.9, adult (Z68.23: Body mass index [BMI] 23.0-23.9, adult) BMI education complete Ordered: Urnls Dip Stick Auto w/o Microscopy POC 60529 5. Non-smoker (Z78.9: Other specified health status) continue not smoking Ordered: Urnls Dip Stick Auto w/o Microscopy POC 26681 Follow-up No qualifying data available Problem List/Past [...] vaccine, inactiv (more content not included)... [facility] Comment on above: Result Comment: Elec tronically Signed By: Chantel Mendes\.josiah\Date and Time Signed: 04/15/23 12:41 EST Physician Orderon 04-15-2023 Physician Order [id number] [facility] [place] Mamm Screen w/CAD if perf [...] VERY IMPORTANT TO YOUR HEALTH. THE CURRENT [employer]PREHENSIVE CANCER [...] Ambrosio Thakur MD Transcribed by: JEFFREY Technologist: [facility] Assessment: BI-RADS Category 2-Benign finding Recommendation: Normal interval follow-up [facility] Consent for Treatmenton 11-30 Consent for Treatment [id number]#[id number]:127 [facility] Family Medicine Office/Clini c Noteon 10-27-2022 Family Medicine Office/Clinic Note Chief Complaint Physical HPI Staff Pt is here to do physical and lab review Concerns:Cholestrol levels are elevated Refills:No PHQ9:10 MARYAM: 20 Health Maintenance: Colonoscopy: 2019- normal- [facility] Pap:2020 Last Labs:10/22/2022 History of Present Illness [...] sugars and thyroid were within normal range. GENERAL EDUCATION PROFESSOR recently did hormonal blood work and an ultrasound of her uterus, and she told her that she might be getting close to menopause. She has a follow up appointment with GENERAL EDUCATION PROFESSOR specialist on , 10/28/2022. She takes Metamucil [...] screening [place] [address] Page in [place]. Her results were normal. Review of Systems [...] for anxiety (more content not included)... [facility] Comment on above: Result Comment: Elec tronically Signed By: Yasmine Dukes CNP.br\Date and Time Signed: 10/27/22 17:43 EDT\.br\Electronically Co-Signed By: Chiquita Phipps\.br\Date and Time Co-Signed: 10/26/22 14:59 EDT [facility] 10-26-2022 Forms [id number]:127 [facility] US Pelvis Non-OB Completeon 10-26-2022 US [...] Transabdominal Ultrasound Performed Uterus Position Anteverted [facility] and [facility] 10-24-2022 Follitropin Qn 9.4 m[IU]/mL Invalid Interpretation Code [facility] Comment on above: Result Comment: Adul t Female: Follicular phase 3.5 - 12.5 Ovulation phase 4.7 - 21.5 Luteal phase 1.7 - 7.7 Postmenopausal 25.8 - 134.8 Performed at: [facility] [id number] PhD Pauline Minaya Performed By: #### 1 [id number] #### [facility] [address] [place] [address] Lutropin Qn 7.6 m[IU]/mL Invalid Interpretation Code [facility] Comment on above: Result Comment: Adul t Female: Follicular phase 2.4 - 12.6 Ovulation phase 14.0 - 95.6 Luteal phase 1.0 - 11.4 Postmenopausal 7.7 - 58.5 Performed By: #### 1 [id number] #### [facility] [address] [place] [address] Consent for Treatmenton 10-01 Consent for Treatment [id number]:127 [facility] Physician Orderon 10-22-2022 Physician Order [id number]#[id number]:127 [facility] CHEMISTRYOrdered By: Fang hendrix on 10-24-2021 Albumin [Mass/Vol] 4.2 g/dL Normal 3.3 - 5.0 gm/dL FT Remisol Albumin/Globulin [Mass ratio] 1.0 {ratio} Low [...] rate/Area] mL/min/1.73 m2 Normal >=59mL/min/ 1.73 m2 FT Chem S GFR/1.73 sq M.predicted among non-blacks MDRD (S/P/Bld) [Vol rate/Area] mL/min/1.73 m2 Normal >=59mL/min/ 1.73 m2 FT Chem S HEMATOLOGYOrdered By: SYSTEM SYSTEM on [...] 33.8 g/dL Normal 31.4 - 36.0 gm/dL [facility] HemeAutoSS MCV (RBC) [Entitic vol] 86.9 fL Normal 80.0 - 100.0 fL [facility] HemeAutoSS Platelet mean volume (Bld) [Entitic vol] 8.6 fL Normal 6.4 - 10.8 fL [facility] HemeAutoSS Platelets (Bld) [#/Vol] 255.0 E9/L Normal 150.0 - 500.0 E9/L [facility] HemeAutoSS RBC (Bld) [#/Vol] 4.7 E12/L Normal 4.3 - 5.9 E12/L [facility] HemeAutoSS WBC corrected for nucl RBC Auto (Bld) [#/Vol] 7.1 E9/L Normal 4.0 - 11.0 E9/L [facility] HemeAutoSS Vital Signs Date Time Vital Sign Value Performing Clinician Facility 09-20-2023 10:56-0400 Blood Pressure Location Winter Orzech [facility] 09-20-2023 10:56-0400 Body temperature 98.06 [degF] Winter Orzech [facility] 09-20-2023 10:56-0400 Diastolic blood pressure 72 mm[Hg] Winter Orzech [facility] 09-20-2023 10:56-0400 Heart rate 86 /min Winter Orzech [facility] 09-20-2023 10:56-0400 Respiratory rate 16 /min Winter Orzech [facility] 09-20-2023 10:56-0400 Systolic blood pressure 114 mm[Hg] Winter Orzech [facility] 05-24-2023 09:58-0500 Blood Pressure Location Winter Orzech [facility] 05-24-2023 09:58-0500 Diastolic blood pressure 73 mm[Hg] Winter Orzech [facility] 05-24-2023 09:58-0500 Heart rate 78 /min Winter Orzech [facility] 05-24-2023 09:58-0500 Respiratory rate 16 /min Winter Orzech [facility] 05-24-2023 09:58-0500 Systolic blood pressure 121 mm[Hg] Winter Orzech [facility] 10-25-2022 15:31-0400 Blood Pressure Location Yasmine Riedy [facility] 10-25-2022 15:31-0400 Diastolic blood pressure 76 mm[Hg] Yasmine Riedy [facility] 10-25-2022 15:31-0400 Heart rate 72 /min Yasmine Riedy [facility] 10-25-2022 15:31-0400 SaO2% (BldA) [Mass fraction] 100 % Yasmine Riedy [facility] 10-25-2022 15:31-0400 Systolic blood pressure 118 mm[Hg] Yasmine Riedy [facility] 08-09-2022 15:50-0400 Blood Pressure Location Yasmine Riedy [facility] 08-09-2022 15:50-0400 Diastolic blood pressure 72 mm[Hg] Yasmine Riedy [facility] 08-09-2022 15:50-0400 Heart rate 77 /min Aysmine Riedy [facility] 08-09-2022 15:50-0400 SaO2% (BldA) [Mass fraction] 99 % Yasmine Riedy [facility] 08-09-2022 15:50-0400 Systolic blood pressure 114 mm[Hg] Yasmine Riedy [facility] 04-21-2022 15:06-0500 Blood Pressure Location Dalton Gudimella [facility] 04-21-2022 15:06-0500 Body temperature 96.8 [degF] Dalton Gudimella [facility] 04-21-2022 15:06-0500 Diastolic blood pressure 74 mm[Hg] Dalton Gudimella [facility] 04-21-2022 15:06-0500 Heart rate 99 /min Dalton Gudimella [facility] 04-21-2022 15:06-0500 Respiratory rate 18 /min Dalton Gudimella [facility] 04-21-2022 15:06-0500 SaO2% (BldA) [Mass fraction] 100 % Dalton Gudimella [facility] 04-21-2022 15:06-0500 Systolic blood pressure 112 mm[Hg] Dalton Gudimella [facility] 10-23-2021 14:17-0400 Blood Pressure Location Jg Green [facility] 10-23-2021 14:17-0400 Diastolic blood pressure 62 mm[Hg] Jg Green [facility] 10-23-2021 14:17-0400 Heart rate 96 /min Jg Green [facility] 10-23-2021 14:17-0400 SaO2% (BldA) [Mass fraction] 98 % Jg Green [facility] 10-23-2021 14:17-0400 Systolic blood pressure 110 mm[Hg] Jg Green [facility] Encounters Encounter Date Encounter Type Care Provider Facility Start: 04-24-2024 ambulatory CONCRETE BUCKET HOOKER Chantel L Zamzam Facil ity:[facility] [place] Start: 03-01-2024 ambulatory CONCRETE BUCKET HOOKER Chantel L Zamzam Facil ity:[facility] [place] Start: 02-16-2024 End: 02-16-2024 ambulatory CONCRETE BUCKET HOOKER Chantel L Zamzam Facility:[facility] [place] Start: 12-24-2023 End: 12-24-2023 ambulatory Nadya J Jigna Facility:[facility] Start: 12-24-2023 End: 12-24-2023 Patient encounter procedure Nadya J Jigna [facility] Start: 10-21-2023 End: 10-21-2023 ambulatory Nadya J Jigna Facility:[facility] Start: 10-21-2023 End: 10-21-2023 Lab Drop off Nadya J Jigna [facility] Start: 09-29-2023 End: 09-29-2023 Lab Drop off Chantel L Zamzam [facility] Start: 09-29-2023 End: 09-29-2023 ambulatory Chantel L Zamzam Facility:[facility] Start: 09-20-2023 End: 09-20-2023 ambulatory Winter X Orzech Facility:[facility] [place] Start: 09-20-2023 End: 09-20-2023 Patient encounter procedure Winter X Orzech [facility] Start: 08-19-2023 End: 08-19-2023 ambulatory Chantel L Zamzam Facility:[facility] Start: 07-29-2023 End: 07-29-2023 ambulatory Chantel L Zamzam Facility:[facility] Start: 05-25-2023 ambulatory Chantel Zamzam Facility:[facility] [place] Start: 05-24-2023 End: 05-24-2023 ambulatory Chantel L Zamzam Facility:[facility] Start: 05-24-2023 End: 05-24-2023 Patient encounter procedure Winter X Orzech [facility] Start: 05-09-2023 ambulatory Chantel Zamzam Facility:[facility] [place] Start: 05-04-2023 End: 05-04-2023 Lab Drop off Chantel L Zamzam [facility] Start: 05-04-2023 End: 05-04-2023 ambulatory Chantel L Zamzam Facility:[facility] Start: 04-15-2023 End: 04-15-2023 Lab Drop off Chantel L Zamzam [facility] Start: 04-15-2023 End: 04-15-2023 ambulatory Chantel L Zamzam Facility:[facility] Start: 12-10-2022 End: 12-10-2022 ambulatory Nadya J Jigna Facility:[facility] Start: 12-10-2022 End: 12-10-2022 Patient encounter procedure Nadya J Jigna [facility] Start: 10-25-2022 End: 10-25-2022 ambulatory Yasmine D Riedy Facility:[facility] Start: 10-25-2022 End: 10-25-2022 Patient encounter procedure Yasmine D Riedy [facility] Start: 10-25-2022 End: 10-25-2022 Well adult monitoring check done Yasmine D Riedy [facility] Start: 10-22-2022 End: 10-22-2022 ambulatory Nadya J Jigna Facility:[facility] Start: 10-22-2022 End: 10-22-2022 Patient encounter procedure Nadya J Jigna [facility] Start: 10-18-2022 End: 10-18-2022 Lab Drop off Nadya J Jigna [facility] Start: 08-10-2022 End: 08-10-2022 Patient encounter procedure Yasmine D Riedy [facility] Start: 08-09-2022 End: 08-09-2022 Patient encounter procedure Yasmine D Riedy [facility] Start: 08-09-2022 End: 08-09-2022 Well adult monitoring check done Yasmine D Riedy [facility] Start: 04-21-2022 End: 04-21-2022 Patient encounter procedure Dalton Medel [facility] Start: 10-24-2021 End: 10-24-2021 Patient encounter procedure Jg Green [facility] Start: 10-23-2021 End: 10-23-2021 Patient encounter procedure Jg Green [facility] Start: 10-23-2021 End: 10-23-2021 Well adult monitoring check done Jg Green [facility] Start: 10-23-2021 End: 10-23-2021 Patient encounter procedure Nadya Benito [facility] Procedures Date Procedure Procedure Detail [...] and acellular pertussis vaccine, adsorbed Jg Green [facility] NEGATED: Highlighted row has not occurred!04-21-2022 influenza virus vaccine, unspecified formulation Dalton Gudimella [facility] NEGATED: Highlighted row has not occurred!04-05-2019 influenza virus vaccine, unspecified formulation Jg Green [facility] Payers Date Payer Category Payer Unknown [id number] 1975 Unknown [id number] 2.16.8 40.1.758928.3.579.2 1975 Unknown [id number] 2.16.8 40.1.570357.3.579.2 1977 Unknown [id number] 2.16.8 40.1.297232.3.579.2 1977 Unknown [id number] 2.16.8 40.1.809759.3.579.2 1977 Unknown [id number] 2.16.8 40.1.140807.3.579.2 1977 Unknown [id number] 2.16.8 40.1.610537.3.579.2 1977 Unknown [id number] 2.16.8 40.1.775200.3.579.2 1977 Unknown [id number] 2.16.8 40.1.065215.3.579.2.727 1977 Unknown [id number] 2.16.8 40.1.452804.3.579.2.7 1977 Unknown [id number] 2.16.8 40.1.904483.3.579.2.7 1977 Unknown [id number] 2.16.8 40.1.969228.3.579.2. 1977 Unknown [id number] 2.16.8 40.1.326158.3.579.2. 1977 Unknown [id number] 2.16.8 40.1.043046.3.579.2. 1977 Unknown [id number] 2.16.8 40.1.918425.3.579.2.7 1977 Unknown [id number] 2.16.8 40.1.746834.3.579.2. 1977 Unknown [id number] 2.16.8 40.1.301532.3.579.2.7 1977 Unknown [id number] 2.16.8 40.1.760090.3.579.2. 1977 Unknown [id number] 2.16.8 40.1.825379.3.579.2.7 1977 Unknown [id number] 2.16.8 40.1.409607.3.579.2.7 Social History Date Type Detail Facility Start: 06-22-2021 End: 09-29-2023 Tobacco smoking status Ex-smoker (finding) [facility] Tobacco smoking status Never [facility] Sex Assigned At Female [facility] Tobacco smoking status No Smokin g Status Entered [facility] Start: 10-25-2022 End: 04-15-2023 Tobacco smoking status Never smoked tobacco (finding) [facility] Functional Status Date Assessment Result Facility 09-20-2023 Functional Status N/A [facility] 05-24-2023 Functional Status N/A [facility] 10-25-2022 Functional Status N/A [facility] 08-09-2022 Functional Status N/A [facility] 04-21-2022 Functional Status N/A [facility] 10-23-2021 Functional Status N/A [facility] Clinical Notes 12-04-2020 to 10-21-2023 LaboratoryRadiologyRadiologyLaboratoryRadiologyLaboratoryRadiologyRadiologyRadio logy Note Date & Type Note Facility 10-21-2023 Evaluation + [id number]23 [facility] 05-24-2023 Hospital Discharg e instructions Patient [...] Follow these instructions at home: Medicines Take yyhb-nts-bpvrvzd and prescription medicines only as told by [...] provider. Document Revised: 11/28/2020 Document Reviewed: 11/28/2020 [employer] Patient Education 2022 [employer]. 05/24/2023 13:29:53 Dietary Guidelines to Help Prevent [...] include: ?8 oz (237 mL) of milk, oukirce-lzjblardqlcd-vzqyj milk, and calcium-fortifiedfruit juice. Calcium-fortified means that [...] ?Spinach (cooked), rhubarb, beets, sweet potatoes, and Lithuanian chard. ?Peanuts. ?Potato chips, tongan fries, and baked potatoes with skin on. ?Nuts and nut products. ?Chocolate. If you regularly take a diuretic medicine, make sure to eat at least 1 or 2 servings of fruits or vegetables that are high in potassium each day. These include: ?Avocado. ?Banana. ?[place], prune, carrot, or tomato juice. ?Baked potato. [...] magnesium, fish oil, or vitamin B6. Take wgdu-jep-xvkbsmn and prescription medicines only as told by [...] Casseroles. Pizza. Lasagna. Frozen meals. Potato chips. Nepali fries. The items listed above may not [...] provider. Document Revised: 07/29/2022 Document Reviewed: 07/29/2022 [employer] Patient Education 2022 [employer]. 05/24/2023 13:29:50 Kidney Stones, Qmbm-hb-Vlkv Kidney Stones Kidney stones are rock-like masses [...] Follow these instructions at home: Medicines Take fkgh-wlv-lnkvund and prescription medicines only as told by [...] provider. Document Revised: 12/21/2021 Document Reviewed: 12/21/2021 [employer] Patient Education 2022 [employer]. Follow Up Care 05/09/2023 09:53:22 With:NILES Erickson APRN, Winter Deshpande, YAYA, URL Address: When:Within 3 Month(s) [facility] 05-24-2023 Note Chief Complaint Referral *Kidney Stone [...] w/ use of estrace. Rx sent to [facility]. -Start estrace, pea sized amount applied area urethra nightly x 3 weeks, then 3x/week for maintenance -f/u 3 mos to reevaluated urinary/vaginal sxs. Ordered: estradiol topical, See Instructions, 42.5 gm, Refill(s) 5, apply pea sized amount on fingertip near urethral opening nightly x 3 weeks, then 3x/week for maintanence, [id number], 173, cm, 05/24/23 10:00:00 EST, Height/Length Dosing, [...] to Help Prevent Kidney Stones Kidney Stones, Idfv-rs-Ibrk Problem List/Past Medical History Ongoing Acid reflux [...] congestion Panic attacks (more content not included)... [facility] Comment on above: Result Comment: Elec tronically Signed By: NILES Erickson APRN, Winter Deshpande\.br\Date and Time Signed: 05/24/23 13:30 EST 05-04-2023 Evaluation + Plan note Diagnostic Tests PendingUrine Culture 05/04/23Chlamydia/Gonococcus, JUAN PABLO 05/04/23 [facility] 04-15-2023 Evaluation + Plan note Diagnostic Tests PendingUrine Culture 04/15/23 [facility] 07-21-2022 Hospital Discharg e instructions Follow Up Care 07/21/2022 16:08:05 With:Yasmine Dukes CNP Address: When:Within 3 Month(s) Comments:physical and review labs [facility]ent 10-23-2021 Evaluation + Plan note Future Scheduled TestsCBC w/ Auto Diff 10/23/21Comprehensive Metabolic Panel 10/23/21Lipid Panel 10/23/21CT Abdomen/Pelvis w/ Contrast 12/04/20US Aorta 12/04/20 [facility] 12-04-2020 Evaluation + Plan note Future Scheduled TestsCT Abdomen/Pelvis w/ Contrast 12/04/20US Aorta 12/04/20 [facility] Evaluation + Plan note Future Appointments Appointment Date:10/25/2022 03:40:00 PM Scheduled Provider:Yasmine Dukes CNP Location:[facility] Appointment Type: Open Future Scheduled [id number] 08/09/22CBC w/ Auto Diff 08/09/22Comprehensive Metabolic Panel 08/09/22Lipid Panel 08/09/22XR Hip 2-3 Views Right 08/09/22XR Sacrum and Coccyx Min 2 Views 08/09/22XR Spine Lumbosacral Minimum 4 Views 08/09/22 [facility] Evaluation + Plan note Future Appointments Appointment Date:10/25/2022 03:40:00 PM Scheduled Provider:Yasmine Dukes CNP Location:[facility] Appointment Type: Open Future Scheduled [id number] 08/09/22CBC w/ Auto Diff 08/09/22Comprehensive Metabolic Panel 08/09/22Lipid Panel 08/09/22 [facility] Evaluation + Plan note Future Appointments Appointment Date:10/22/2022 04:00:00 PM Scheduled Provider: Location:.[facility] Appointment Type:US Abdominal/Pelvis (FT) Appointment Date:10/25/2022 03:40:00 PM Scheduled Provider:Yasmine Dukes CNP Location:[facility] Appointment Type:FM Open Appointment Date:10/30/2022 10:30:00 AM Scheduled Provider: Location:.MAMMOGRAM Appointment Type:MA Screen (FT) Diagnostic Tests PendingPAP [id number]/18/22 Future Scheduled TestsUS Pelvis Non-OB Complete 10/22/22US Transvaginal Non-OB 10/22/22MA Mamm Screen w/CAD if perf and 3D Robert 10/30/22 [facility] Evaluation + Plan note Future Appointments Appointment Date:10/25/2022 03:40:00 PM Scheduled Provider:Yasmine Dukes CNP Location:[facility] Appointment Type:FM Open Appointment Date:10/30/2022 10:30:00 AM Scheduled Provider: Location:.MAMMOGRAM Appointment Type:MA Screen (FT) Diagnostic Tests PendingFSH and LH 10/22/22 Future Scheduled TestsMA Mamm Screen w/CAD if perf and 3D Robert 10/30/22 [facility] Evaluation + Plan note Future Appointments Appointment Date:10/30/2022 10:30:00 AM Scheduled Provider: Location:.MAMMOGRAM Appointment Type:MA Screen (FT) Future Scheduled TestsMA Mamm Screen w/CAD if perf and 3D Robert 10/30/22 [facility] Hospital course Narrative No data available for this section [facility] Hospital Discharge instructions No data available for this section [facility] Progress note No data available for this section [facility] Summary Purpose Family History No Family History Records Found Advance Directives No Advanced Directives Records FoundNo Advanced Directives Records FoundNo Advanced Directives Records FoundNo Advanced Directives Records Found Additional Source Comments Care Team (unrecognized sect ion and content) Personnel Name: Jg Green MD Address: [address] [place] [address] Personnel Name: Jg Green MD Address: [address] [place] [address] Personnel Name: Jg Green MD Address: [address] [place] [address] Personnel Name: Dalton Medel MD Address: Address: [address] [place] [address] Personnel Name: Dalton Medel MD Address: Address: [address] [place] [address] Personnel Name: Dalton Medel MD Address: Address: [address] [place] [address] Personnel Name: Renata Medel MD Address: Address: [address] [place] [address]- Personnel Name: Renata Medel MD Address: Address: [address] [place] [address]- Personnel Name: Renata Medel MD Address: Address: [address] [place] [address] Personnel Name: Renata Medel MD Address: Address: [address] [place] [address]- Personnel Name: hCantel Mendes L Address: Address: [address] [place] [id number]- Personnel Name: Zamzam GONGORA Chantel L Address: Address: [address] [place] [phone]- Personnel Name: Zamzam GONGORA Chantel L Address: Address: [address] [place] [address]- Personnel Name: Zamzam GONGORA Chantel L Address: Address: [address] [place] [address]- Personnel Name: Zamzam GONGORA Chantle L Address: Address: [address] [place] [id number]- Personnel Name: Zamzam GONGORA Chantel L Address: Address: [address] [place] [address]- Personnel Name: Zamzam GONGORA Chantel L Address: Address: [address] [place] [address]- Personnel Name: Renata Medel MD Address: Address: [address] [place] [address]- INFORMATION SOURCE (unrecogn ized section and content) DATE CREATED AUTHOR 09/30/2023 [facility] DATE CREATED AUTHOR AUTHOR'S ORGANIZ ATION 10/22/2023 [facility] DATE CREATED AUTHOR AUTHOR'S ORGANIZ ATION 10/23/2023 [facility] DATE CREATED AUTHOR AUTHOR'S ORGANIZ ATION 04/21/2024 [facility] FOR RECORDS PERTAINING TO PATIENTS WHO [...] BE BASED ON THE PRIMARY CLINICAL RECORDS. [facility] [employer] [facility] provides no warranty or guarantee of the accuracy or completeness of information in this document.
== END 2024-04-26 10:33 | disposition home or self-care (01) ==
LOC: RAD 10:33
PROVIDERS: PCP Nurse Practitioner; Visit Provider Nurse Practitioner
DX: R06.02 Shortness of breath (principal); R07.89 Other chest pain
CPT/HCPCS: 71046

== ENCOUNTER 2024-05-01 08:53 | Outpatient (OUT) | payer OTHER, SELFPAY ==
--- NOTE | 2024-05-01 | ECG_ITS ---
[facility] Test Date: 2024-05-01 Pat Name: KIMBERLY MOYA Department: Room: - Gender: Female Project Development Leader: : [id number] Requested By: GISEL BENITEZ Order Number: [id number] Reading MD: TONI LAN Measurements Intervals [place] Rate: 60 P: 65 MA: 155 QRS: 79 QRSD: 98 T: 50 QT: 392 QTc: 394 Interpretive Statements SINUS RHYTHM INCOMPLETE RIGHT BUNDLE BRANCH BLOCK [90+ ms QRS DURATION, TERMINAL R IN V1/V2, 40+ ms S IN I/aVL/V4/V5/V6] No previous ECG available for comparison Electronically Signed On 05-01-2024 14:56:27 EST by TONI LAN
--- OUTSIDE RECORDS SUMMARY | 2024-05-01 09:06 | XMS_ITS | CCD ---
Author Organization [facility] CliniSynh Care Team Providers Care Music Manager Name Role Phone Jg Green Primary Care Physician [phone] Dalton Medel Primary Care Physician [phone] Renata Medel Primary Care Physician Chantel Wyman Primary Care Physician [phone] Zamzam, Chantel Stallings Attending Unavailable Zamzam, Chantel Stallings Attending Unavailable RiedYasmine cortez Attending Unavailable Zamazm, Chantel Stallings Referring Unavailable Orzech, Winter Deshpande Attending Unavailable Orzech, Winter X Attending Unavailable JignaNadya Attending Unavailable JignaNadya Referring Unavailable JignaNadya Admitting Unavailable Zamzam, Chantel L Admitting Unavailable Zamzam, Chantel Stallings Attending Unavailable Zamzam, Chantel Stallings Attending Unavailable Zamzam, Chantel Stallings Admitting Unavailable Zamzam, Chantel Stallings Attending Unavailable Zamzam, Chantel Stallings Admitting Unavailable Zamzam, Chantel Stallings Attending Unavailable Zamzam, Chantel Stallings Admitting Unavailable Jigna, Nadya Chun Attending Unavailable JignaNadya Referring Unavailable Jigna, Nadya J Admitting Unavailable Zamzam, Chantel L Attending Unavailable Zamzam, Chantel Stallings Attending Unavailable Zamzam, Chantel L Attending Unavailable JignaNadya Admitting Unavailable Jigna, Nadya Chun Attending Unavailable Zamzam, DYNAMITE CARTRIDGE CRIMPER Chantel L Admitting Unavailable Zamzam, DYNAMITE CARTRIDGE CRIMPER Chantel Stallings Attending Unavailable Jigna, Nadya Chun Admitting Unavailable Jigna, Nadya Chun Attending Unavailable Jigna, Nadya J Referring Unavailable Zamzam, DYNAMITE CARTRIDGE CRIMPER Chantel L Attending Unavailable Zamzam, DYNAMITE CARTRIDGE CRIMPER Chantel L Attending Unavailable Zamzam, DYNAMITE CARTRIDGE CRIMPER Chantel L Attending Unavailable Allergies Allergy Classification Reported Allergen(s) Allergy Type Date of Onset Reaction(s) Facility (20 sources) Chlorhexidine; Translations: [chlorhexidine topical] Drug Allergy [facility] Work Phone: (20 sources) Contrast media; Translations: [Contrast Dye] Drug allergy Unknown (qualifier value) [facility] Work Phone: (20 sources) Penicillins; Translations: [penicillins] Drug allergy RASH [facility] Work Phone: Medications Current Medications Medication Drug Class(es) Dates Sig (Normalized) Sig (Original) estradiol 0.1 mg/ml vaginal cream (1 source) Estrogen Start: 05-24-2023 Estrace 0.1 mg/g Cream See Instructions, 42.5 gm, Refill(s) 5, apply pea sized amount on fingertip near urethral opening nightly x 3 weeks, then 3x/week for maintanence, [facility]/pharmacy #[id number], 173, cm, 05/24/23 10:00:00 EST, Height/Length Dosing, 72, kg, 05/24/23 10:00:00 EST, Weight Dosing Start Date: 05/24/23 Status: Ordered fluticasone propionate 0.05 mg/actuat metered dose nasal spray (1 source) Corticosteroid Start: 04-21-2022 take 1 spray(s) nasal route twice daily Flonase 0.05 mg/inh Garden 1 spray(s), Nasal, BID, 16 gram, Refill(s) 0, each nostril, [facility], 174, cm, 04/21/22 15:08:00 [...] anxiety, # 30 tab(s), Refills(s) 0, Pharmacy: [facility], 174, cm, 08/09/22 15:52:00 EDT, Height/Length Dosing, 71.4, kg, 08/09/22 15:52:00 EDT, Weight Dosing Start Date: 09/21/22 Status: Ordered Start: 09-15-2021 take 1 tablet by michael th three times daily as needed for anxiety hydrOXYzine hydrochloride 10 mg Tab 10 mg = 1 tab(s), Oral, TID, PRN for anxiety, # 30 tab(s), Refills(s) 0, Pharmacy: [facility], 174, cm, 06/22/21 17:30:00 EST, Height/Length Dosing, 65.5, kg, 06/22/21 17:30:00 EST, Weight Dosing Start Date: 09/15/21 Status: Ordered ibuprofen 800 mg oral tablet (14 sources) Nonsteroidal Anti-inflammatory Drug Start: 08-09-2022 take 1 tablet by mouth three times daily ibuprofen 800 mg Tab 800 mg = 1 tab(s), Oral, TID, # 90 tab(s), Refills(s) 0, Pharmacy: [facility], 174, cm, 08/09/22 15:52:00 EDT, Height/Length Dosing, 71.4, kg, 08/09/22 15:52:00 EDT, Weight Dosing Start Date: 08/09/22 Status: Ordered Mucinex DM 30 mg-600 mg Tab-ER (1 source) Start: 04-21-2022 End: 04-28-2022 take 1 tablet by mouth every twelve hours Mucinex DM 30 mg-600 mg Tab-ER 1 tab(s), Oral, q12hr Congestion for 7 day(s), 14 tab(s), Refill(s) 0, [facility], 174, cm, 04/21/22 15:08:00 [...] day(s), # 14 cap(s), Refills(s) 0, Pharmacy: [facility]/pharmacy #[id number], 174, cm, 05/04/23 10:55:00 EST, [...] Interpretation Reference Range Facility Ambulatory Visit Summaryon 1 06-25-2023 Ambulatory Visit Summary Ambulatory Visit Summary 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1975 Visit Date:04/24/2024 Ambulatory Visit Instructions Your Diagnosis BMI 23.0-23.9, adult Former smoker Your Care Team Attending [...] Tooth extraction, complete upper. Discharge Vitals Temperature (Oral) 36.8 ???C Heart Rate (Peripheral) 88 Respiratory Rate 18 Blood Pressure 112/68 Height 173.0 cm Height 68 in Weight 70.7 kg Weight 155.867 lb BMI 23.62 Medications What How Much When Why Instructions [...] choosing us for your care. Sendy [facility] Family Medicine Office/Clini c Noteon 04-24-2024 Family Medicine Office/Clinic Note Family Medicine Office/Clinic Note HPI Staff Kimberly is a 48 year old male presenting with wanting to get heart checked Chest pain is getting worse can last all day, she gets sharp pains in her chest 2x weekly this has been happening Family hx of heart issues History of Present Illness pt presents today for c/o SOB on exertion and chest pain Review of Systems PHQ Score Initial Depression Screen Score: 0 SCORE Physical Exam Vitals & Measurements T: 36.8 ???C(Oral) HR: 88(Peripheral) RR: 18 BP: 112/68 SpO2: 98% HT: 68 in HT: 173.0 cm WT: 70.7 kg WT: 155.867 lb BMI: 23.62 General: alert, no acute distress ENMT: oral mucosa moist, no pharyngeal erythema or exudate Cardiovascular: regular rate and rhythm, normal peripheral perfusion Respiratory: Lungs CTA, respirations non labored Extremities: no deformity, no trauma Neurological: oriented x 4, LOC appropriate for age, CN II-XII intact, motor strength equal & normal bilaterally, speech normal Assessment/Plan 1. SOB (shortness of breath) on exertion (R06.02: Shortness of breath) pt states she gets slightly short of breath on exertion. vitals and pulse ox are normal in office today. she is very concerned about her heart because her dad had heart issues in his 40's. will order chest xray and ekg for reassurance. pt states I really think its anxiety but I need to be sure. will call her with results. RTC as needed 2. Chest pain (R07.9: Chest pain, unspecified) chest x ray and ekg ordered. to be done at [facility] [place]. 3. BMI 23.0-23.9, adult (Z68.23: Body mass index [BMI] 23.0-23.9, adult) BMI educaiton 4. Former smoker (Z87.891: Personal history of nicotine dependence) continue not smoking Follow-up No qualifying data available Problem List/Past Medical History Ongoing Acid reflux Annual physical exam Anxiety Cervical dysplasia Chest pain Chronic constipation Dyslipidemia Dysuria Flank pain Generalized [...] Screening for diabetes mellitus Screening for hyperlipidemia SOB (shortness of breath) on exertion Vaginal atrophy Wellness examination Historical Acute URI [...] ago Tobacco Use:. Never Smokeless Tobacco Use:., 04/24/2024 Family History Afib: Father. Diabetes mellitus type 2: Mother. Hypertension: Father. Immunizations Vaccine Date Status Comments influenza virus vaccine, inactivated - Not Given Postpone due to refusal influenza virus vaccine, inactivated - Not Given Patient Refuses diphtheria/pertussis, acel/tetanus adult 02/17/2012 Recorded pt will start daily ASA 81mg [facility] Comment on above: Result Comment: Elec tronically Signed By: Zamzam DYNAMITE CARTRIDGE CRIMPER, Chantel L\.br\Date and Time Signed: 04/24/24 11:20 EST Family Medicine Office/Clini c Noteon 02-16-2024 Family Medicine Office/Clinic Note Family Medicine Office/Clinic Note Chief Complaint Pain HPI Staff Pt presents today due to Rt hip pain. -10/09 Has been taking Ibuprofen & some creams. Has been helping. Pain started 2 days ago. 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 States it has been ongoing, getting worse. Did have MRI @ [facility] several yrs ago. History of Present Illness [...] if no improvement will consider referral to [facility]. Ordered: methylPREDNISolone, = 1 packet(s), Oral, As Directed, as directed on package labeling, X 6 day(s), # 21 tab(s), Refills(s) 0, Pharmacy: [facility]/pharmacy #[id number], 173, cm, 02/16/24 10:28:00 EDT, Height/Length Dosing, 70.8, kg, 02/16/24 10:28:00 EDT, Weight Dosing 2. Lumbar back pain with radiculopathy affecting right lower extremity (M54.16: Radiculopathy, lumbar region) see above Ordered: methylPREDNISolone, = 1 packet(s), Oral, As Directed, as directed on package labeling, X 6 day(s), # 21 tab(s), Refills(s) 0, [id number], cm, 02/16/24 10:28:00 EDT, Height/Length Dosing, 70.8, kg, 02/16/24 10:28:00 EDT, Weight Dosing 3. BMI 23.0-23.9, adult (Z68.23: Body mass index [BMI] 23.0-23.9, adult) BMI education given Ordered: methylPREDNISolone, = 1 packet(s), Oral, As Directed, as directed on package labeling, X 6 day(s), # 21 tab(s), Refills(s) 0, [id number] 173, cm, 02/16/24 10:28:00 EDT, Height/Length Dosing, 70.8, kg, 02/16/24 10:28:00 EDT, Weight Dosing 4. Former smoker (Z87.891: Personal history of nicotine dependence) continue not smoking Ordered: methylPREDNISolone, = 1 packet(s), Oral, As Directed, as directed on package labeling, X 6 day(s), # 21 tab(s), Refills(s) 0, [id number] 173, cm, 02/16/24 10:28:00 EDT, Height/Length [...] Family Hi (more content not included)... [facility] Comment on above: Result Comment: Elec tronically Signed By: Chantel Mendes\.josiah\Date and Time Signed: 02/16/24 10:48 EDT MA [...] very important to your health. The current [employer] and [employer] [...] 2-Benign finding Recommendation: Normal interval follow-up [facility] PAP [id number] 10-26-2023 Cytology report Cyto stain Doc (Cvx/Vag) Note Invalid Interpretation Code [facility] Comment on above: Result Comment: TEST S RESULT FLAG UNITS REF RANGE LAB Clinician Provided Cytology Information Source.............Endocervix No. of containers..01 ThinPrep Vial DIAGNOSIS: 01 NEGATIVE FOR INTRAEPITHELIAL LESION OR MALIGNANCY. Specimen adequacy: 01 Satisfactory for evaluation. No endocervical component is identified. Performed by: Rach Pavon, Overedge Machine Operator ([facility]) . 01 Note: Note 01 The Pap [...] <-Panic Low,>-Panic High,A-Abnormal,AA-Critical Abnormal Performed at: [address] [address] Nicole Taylor MD, Performed By: #### 3 [id number] #### [facility] [address] [place] [address] HPV 16+18+31+33+35+39+4 5+51+52+56+58+59+66 +68 DNA Probe+sig amp Ql (Cvx) Negative Invalid Interpretation Code Negative [facility] Comment on above: Result Comment: This nucleic acid amplification test detects fourteen high-risk HPV types (16,18,31,33,35,39,45,51,52,56,58,59,66,68) without differentiation. Performed at: [facility] [address] [id number] MD Brandon Rivera Performed at: =G [facility] [id number] MD Brandon Rivera Performed By: #### 3 [id number] #### [facility] [address] [place] [address] PAP [id number] 10-21-2023 Collection Technique BRUSH-SPATULA [facility] Comment on above: Performed By: #### 3 [id number] #### [facility] [address] [place] [address] Gynecological Body Site ENDOCERVIX [facility] Comment on above: Performed By: #### 3 [id number] #### [facility] [address] [place] [address] Physician Orderon 10-21-2023 Physician Order [id number]#1.00TIFF [facility] RAD - CT Reporton 10-20-2023 RAD - CT Report [id number]#1.00TIFF [facility] Pre-Certification Formon Pre-Certification Form [id number]#1.00TIFF [facility] Ambulatory Visit Summaryon 0 09-29-2023 Ambulatory Visit Summary KIMBERLY BRUNER Chandrakant :1975 Visit Date:09/29/2023 Ambulatory Visit Instructions [...] for choosing us for your care. [facility] CHEMISTRYOrdered By: SYSTEM SYSTEM on 09-29-2023 [...] Refuses diphtheria/pertussis, acel/tetanus adult 02/17/2012 Recorded [facility] Comment on above: Result Comment: Elec tronically Signed By: Chantel Mendes\.br\Date and Time Signed: 09/29/23 08:48 EDT Glu Fastingon 09-29-2023 Glucose [Mass/Vol] 95 mg/dL Normal 55-99 [facility] Comment on above: Performed By: #### 2 [id number] #### [facility] [address] [place] [address] Lipid Panelon 09-29-2023 Cholesterol [Mass/Vol] 202 mg/dL High 120-200 [facility] Comment on above: Performed By: #### 2 [id number] #### [facility] [address] [place] [address] Cholesterol in HDL [Mass/Vol] 51 mg/dL Invalid Interpretation Code [facility] Comment on above: Result Comment: '>= 60 LOW RISK' '<= 40 HIGH RISK' Performed By: #### 2 [id number] #### [facility] [address] [place] [address] Cholesterol in LDL [Mass/Vol] 138 mg/dL High <=129 [facility] Comment on above: Performed By: #### 2 [id number] #### [facility] [address] [place] [address] Cholesterol in VLDL [Mass/Vol] 22 mg/dL Normal 7-40 [facility] Comment on above: Performed By: #### 2 [id number] #### [facility] [address] [place] [address] Triglyceride [Mass/Vol] 109 mg/dL Normal <=149 [facility] Comment on above: Performed By: #### 2 [id number] #### [facility] [address] [place] [address] RAD - MISCon 09-28-2023 RAD - MISC [id number]#1.00TIFF [facility] RAD - Ultrasound Reporton RAD - Ultrasound Report [id number]#1.00TIFF [facility] Patient Educationon 09-27-19 Patient Education Obstetrics [...] are. Treatment may include: ? Using an algn-uks-wxgqtad vaginal lubricant before sex. ? Using a [...] these instructions at home: Medicines ? Take leyl-ulz-zdweesd and prescription medicines only as told by your health care provider. ? Do not use herbal or alternative medicines unless your health care provider says that you can. ? Use nsep-hjm-utmhnqq creams, lubricants, or moisturizers for dryness only [...] provider. Document Revised: 10/16/2020 Document Reviewed: 10/16/2020 [employer] Patient Education ? 2022 [employer]. Orthopedics Flank Pain, Adult Flank pain is [...] kidney st (more content not included)... [facility] Urology Office/Clinic Noteon 09-27-2023 Urology Office/Clinic [...] with voice recognition artificial intelligence software, specifically [employer], [employer] and or [employer]. Substitutions may have occurred due to the [...] Flank Pain, Adult Atrophic Vaginitis Kidney Stones, Cumq-yd-Lezn Problem List/Past Medical History Ongoing Acid reflux Annual physical exam Anxiety Cervical dysplasia Chronic constipation Dyslipidemia Dysuria Flank pain Generalized anxiety disorder Hematuria Hip pain, robert (more content not included)... [facility] Comment on above: Result Comment: Elec tronically Signed By: NILES Erickson APRN, [place] X\.br\Date and Time Signed: 09/27/23 16:58 EDT [place] 09-21-2023 Screens [id number]#1.00TIFF [facility] Ambulatory Visit Summaryon 0 08-19-2023 Ambulatory [...] choosing us for your care. Normal [facility] Family Medicine Office/Clini c Noteon 08-19-2023 Family [...] Refuses diphtheria/pertussis, acel/tetanus adult 02/17/2012 Recorded [facility] Comment on above: Result Comment: Elec tronically Signed By: Chantel Mendes\.br\Date and Time Signed: 08/19/23 11:27 EDT Physician Orderon 08-09-2023 Physician Order [id number]#1.00TIFF [facility] Ambulatory Visit Summaryon 0 07-29-2023 Ambulatory [...] 11:20 AM EDT With: Chantel Mendes Where: [facility] [place] [facility] Family Medicine Office/Clini c Noteon [...] Daily, # 30 tab(s), Refills(s) 0, [id number], 173, cm, 07/29/23 14:36:00 EDT, Height/Length Dosing, 72.5, kg, 07/29/23 14:36:00 EDT, Weight Dosing methylPREDNISolone, = 1 packet(s), Oral, As Directed, as directed on package labeling, X 6 day(s), # 21 tab(s), Refills(s) 0, Pharmacy: [facility]/pharmacy #[id number], 173, cm, 07/29/23 14:36:00 EDT, Height/Length Dosing, 72.5, kg, 07/29/23 14:36:00 EDT, Weight Dosing 2. Low back pain with right-sided sciatica (M54.41: Lumbago with sciatica, right side) see above Ordered: meloxicam, 15 mg = 1 tab(s), Oral, Daily, # 30 tab(s), Refills(s) 0, [id number] 173, cm, 07/29/23 14:36:00 EDT, Height/Length Dosing, 72.5, kg, 07/29/23 14:36:00 EDT, Weight Dosing methylPREDNISolone, = 1 packet(s), Oral, As Directed, as directed on package labeling, X 6 day(s), # 21 tab(s), Refills(s) 0, [id number], 173, cm, 07/29/23 14:36:00 EDT, Height/Length Dosing, 72.5, kg, 07/29/23 14:36:00 EDT, Weight Dosing 3. BMI 24.0-24.9, adult (Z68.24: Body mass index [BMI] 24.0-24.9, adult) BMI education complete Ordered: meloxicam, 15 mg = 1 tab(s), Oral, Daily, # 30 tab(s), Refills(s) 0, [id number] 173, cm, 07/29/23 14:36:00 EDT, Height/Length Dosing, 72.5, kg, 07/29/23 14:36:00 EDT, Weight Dosing methylPREDNISolone, = 1 packet(s), Oral, As Directed, as directed on package labeling, X 6 day(s), # 21 tab(s), Refills(s) 0, [id number] 173, cm, 07/29/23 14:36:00 EDT, Height/Length Dosing, 72.5, kg, 07/29/23 14:36:00 EDT, Weight Dosing 4. Former smoker (Z87.891: Personal history of nicotine dependence) continue not smoking Ordered: meloxicam, 15 mg = 1 tab(s), Oral, Daily, # 30 tab(s), Refills(s) 0, [id number] 173, cm, 07/29/23 14:36:00 EDT, Height/Length Dosing, 72.5, kg, 07/29/23 14:36:00 EDT, Weight Dosing methylPREDNISolone, = 1 packet(s), Oral, As Directed, as directed on package labeling, X 6 day(s), # 21 tab(s), Refills(s) 0, Pharmacy: [id number], 173, cm, 07/29/23 14:36:00 EDT, Height/Length [...] meloxicam 15 (more content not included)... [facility] Comment on above: Result Comment: Elec tronically Signed By: Chantel Mendes\.josiah\Date and Time Signed: 07/29/23 14:52 EDT [place] 05-25-2023 Screens [id number]#1.00TIFF [facility] Ambulatory Visit Summaryon 0 05-24-2023 Ambulatory [...] then 3x/ week for maintanence Pickup at [facility] #[id number] Unchanged ascorbic acid (Vitamin C 500 [...] concerns Pharmacy Information [id number]: [address], [place] [id number] [phone] Allergies Contrast Dye (Unknown) chlorhexidine topical penicillins [...] these instructions at home: Medicines ? Take mbyn-dxh-swadxdq and prescription medicines only as told by [...] often. Avoi (more content not included)... [facility] Patient Educationon 01-23-20 24 Patient Education Nephrology Dietary Guidelines to Help [...] ? 8 oz (237 mL) of milk, qiczmvt-rnrcioczxzla-btjik milk, and calcium-fortifiedfruit juice. Calcium-fortified means that [...] rhubarb, beets, sweet potatoes, and [place] chard. ? Peanuts. ? Potato chips, spanish fries, and baked potatoes with skin on. ? Nuts and nut products. ? Chocolate. ? If you regularly take a diuretic medicine, make sure to eat at least 1 or 2 servings of fruits or vegetables that are high in potassium each day. These include: ? Avocado. ? Banana. ? [place], prune, carrot, or tomato juice. ? Baked [...] fish oil, or vitamin B6. ? Take tzfr-jyu-ouzjvsf and prescription medicines only as told by your health care provider. These include supplements. What foods sh (more content not included)... [facility] Chlamydia/Gonococcus, NAAon 05-07-2023 C. trachomatis rRNA JUAN PABLO+probe Ql (Unsp spec) Negative Invalid Interpretation Code Negative [facility] Comment on above: Performed By: #### 1 [id number] #### [facility] [address] [place] [address] N. gonorrhoeae rRNA JUAN PABLO+probe Ql (Unsp spec) Negative Invalid Interpretation Code Negative [facility] Comment on above: Result Comment: Perf ormed at: =G [facility] [address] [id number] MD Brandon Rivera Performed By: #### 1 [id number] #### [facility] [address] [place] [address] C Urineon 05-06-2023 Bacteria identified Cx Nom [...] This test was performed at: [facility], [address] [place] [address], [id number] , [place], Normal [facility] Comment on above: Performed By: #### 1 [id number] #### [facility] [address] [place] [id number] Family Medicine Office/Clini c Noteon 05-04-2023 Family [...] all questions answered. Ordered: Chlamydia/Gonococcus, JUAN PABLO [facility] [place] Ambulatory Referral Urine Culture Urine Culture Urnls Dip Stick Auto w/o Microscopy POC [id number] Urnls Dip Stick Auto w/o Microscopy POC 99555 2. Kidney stone on right side (N20.0: Calculus of kidney) reviewed KUB results. will refer to urology Ordered: [facility] [place] Ambulatory Referral 3. Hematuria (R31.9: Hematuria, unspecified) u/a + for blood Ordered: [facility] Internal Ambulatory Referral Orders: nitrofurantoin, 100 mg = 1 cap(s), Oral, BID, X 7 day(s), # 14 cap(s), Refills(s) 0, Pharmacy: [facility]acy #[id number], 174, cm, 05/04/23 10:55:00 EST, [...] Protein Urine Dipstick: Negative (05/04/23 10:58:00) Specific [place] Urine Dipstick: 1.010 (05/04/23 10:58:00) Urine Appearance Urine Dipstick: Clear (05/04/23 10:58:00) Urine Color Urine Dipstick: Yellow (05/04/23 10 (more content not included)... [facility] Comment on above: Result Comment: Elec tronically Signed By: Chantel Mendes\.josiah\Date and Time Signed: 05/04/23 12:35 EST RAD - MISCon 05-04-2023 RAD - MISC [id number]#1.00TIFF [facility] C Urineon 04-17-2023 Bacteria identified Cx [...] Locations R1: This test was performed at: [facility], [address] [place] [address], [id number] , , [facility] Comment on above: Performed By: #### 1 [id number] #### [facility] [address] [place] [address] Ambulatory Visit Summaryon 1 06-16-2022 Ambulatory Visit [...] for choosing us for your care. [facility] Family Medicine Office/Clini c Noteon 04-15-2023 Family Medicine Office/Clinic Note HPI Staff Kimberly is a 47 year old female presenting to establish care Establish Care: History: Any previous diagnosis: Gerd, Anxiety, Migraines History of seeing any specialist: n/a When was your last doctors visit: Last provider: Dr Yanez Any recent labs: 10/15/22 Health Maintenance UTD: Colonoscopy: 2019 Dr mcmanus in [place], negative Mammogram: 10/2022 negative Pelvic/Pap: 10/2022 negative [...] right flank pain. just recently moved to [place] so would like to be established here [...] Urnls Dip Stick Auto w/o Microscopy POC 55356 2. Flank pain (R10.9: Unspecified abdominal pain) pt states she has been having this right sided flank pain for months. she has had x ray MRI, did PT and Pain management. she was told she had a kidney stone at one time, but isn't sure if she ever passed it. KUB ordered to be done at [facility] [place]. No blood in u/a today. Ordered: Urine Culture 3. History of kidney stones (Z87.442: Personal history of urinary calculi) KUB and u/s with culture ordered 4. BMI 23.0-23.9, adult (Z68.23: Body mass index [BMI] 23.0-23.9, adult) BMI education complete Ordered: Urnls Dip Stick Auto w/o Microscopy POC 07978 5. Non-smoker (Z78.9: Other specified health status) continue not smoking Ordered: Urnls Dip Stick Auto w/o Microscopy POC 81030 Follow-up No qualifying data available Problem List/Past [...] vaccine, inactiv (more content not included)... Normal [facility] Comment on above: Result Comment: Elec tronically Signed By: Chantel Mendes\.josiah\Date and Time Signed: 04/15/23 12:41 EST Physician Orderon 04-15-2023 Physician Order [id number] Normal [facility] MA Mamm Screen w/CAD if perf ormed bilaton 08-16-2023 MA Mamm Screen w/CAD if performed bilat [...] VERY IMPORTANT TO YOUR HEALTH. THE CURRENT [employer]PREHENS[employer] CANCER [...] Ambrosio Thakur MD Transcribed by: JEFFREY Technologist: [facility] Assessment: BI-RADS Category 2-Benign finding Recommendation: Normal interval follow-up Normal [facility] Consent for Treatmenton 11-30 Consent for Treatment [id number]:127 Normal [facility] Family Medicine Office/Clini c Noteon 10-27-2022 Family Medicine Office/Clinic Note Chief Complaint Physical HPI Staff Pt is here to do physical and lab review Concerns:Cholestrol levels are elevated Refills:No PHQ9:10 MARYAM: 22 Health Maintenance: Colonoscopy: 2019- normal- [facility] Pap:2020 Last Labs:10/22/2022 History of Present Illness [...] sugars and thyroid were within normal range. [facility] recently did hormonal blood work and an ultrasound of her uterus, and she told her that she might be getting close to menopause. She has a follow up appointment with [facility] specialist on , 10/28/2022. She takes [...] screening in [address] Page in [place]. Her results were normal. Review of Systems [...] for anxiety (more content not included)... Normal [facility] Comment on above: Result Comment: Elec tronically Signed By: Yasmine Dukes CNP\.br\Date and Time Signed: 10/27/22 17:43 EDT\.br\Electronically Co-Signed By: Chiquita Phipps\.br\Date and Time Co-Signed: 10/26/22 14:59 EDT [facility] 10-26-2022 Forms [id number]:127 Normal [facility] US Pelvis Non-OB Completeon 10-26-2022 [...] Transabdominal Ultrasound Performed Uterus Position Anteverted Normal [facility]SH and LHon 10-24-2022 Follitropin Qn 9.4 m[IU]/mL Invalid Interpretation Code [facility] Comment on above: Result Comment: Adul t Female: Follicular phase 3.5 - 12.5 Ovulation phase 4.7 - 21.5 Luteal phase 1.7 - 7.7 Postmenopausal 25.8 - 134.8 Performed at: [address] [id number] PhD Pauline Minaya Performed By: #### 1 [id number] #### [facility] [address] [place] [address] Lutropin Qn 7.6 m[IU]/mL Invalid Interpretation Code [facility] Comment on above: Result Comment: Adul t Female: Follicular phase 2.4 - 12.6 Ovulation phase 14.0 - 95.6 Luteal phase 1.0 - 11.4 Postmenopausal 7.7 - 58.5 Performed By: #### 1 [id number] #### [facility] [address] [place] [address] Consent for Treatmenton 10-01 Consent for Treatment [id number]#[id number]:127 Normal [facility] Physician Orderon 10-22-2022 Physician Order [id number]#[id number]:127 Normal [facility] CHEMISTRYOrdered By: Fang hendrix on [...] Clinician Facility 09-20-2023 10:56-0400 Blood Pressure Location [facility] 09-20-2023 10:56-0400 Body temperature 98.06 [degF] [facility] 09-20-2023 10:56-0400 Diastolic blood pressure 72 mm[Hg] Winter [facility]zech [facility] 09-20-2023 10:56-0400 Heart rate 86 /min [facility] 09-20-2023 10:56-0400 Respiratory rate 16 /min [facility] 09-20-2023 10:56-0400 Systolic blood pressure 114 mm[Hg] Winter Orzech [facility] 05-24-2023 09:58-0500 Blood Pressure Location Winter Orzech [facility] 05-24-2023 09:58-0500 Diastolic blood pressure 73 mm[Hg] Winter Orzech [facility] 05-24-2023 09:58-0500 Heart rate 78 /min Winter Orzech [facility] 05-24-2023 09:58-0500 Respiratory rate 16 /min Winter Orzech [facility] 05-24-2023 09:58-0500 Systolic blood pressure 121 mm[Hg] Winter Orzech [facility] 10-25-2022 15:31-0400 Blood Pressure Location Yasmine Riedy [facility] 10-25-2022 15:31-0400 Diastolic blood pressure 76 mm[Hg] Yasmine Riedy [facility] 10-25-2022 15:31-0400 Heart rate 72 /min Yasmine Riedy [facility] 10-25-2022 15:31-0400 SaO2% (BldA) [Mass fraction] 100 % Yasmine Riedy [facility] 10-25-2022 15:31-0400 Systolic blood pressure 118 mm[Hg] Yasmine Riedy [facility] 08-09-2022 15:50-0400 Blood Pressure Location Yasmine Riedy [facility] 08-09-2022 15:50-0400 Diastolic blood pressure 72 mm[Hg] Yasmine Riedy [facility] 08-09-2022 15:50-0400 Heart rate 77 /min Yasmine Riedy [facility] 08-09-2022 15:50-0400 SaO2% (BldA) [Mass fraction] 99 % Yasmine Riedy [facility] 08-09-2022 15:50-0400 Systolic blood pressure 114 mm[Hg] Yasmine Riedy [facility] 04-21-2022 15:06-0500 Blood Pressure Location Dalton Gudimella [facility] 04-21-2022 15:06-0500 Body temperature 96.8 [degF] Dalton Gudimella [facility] 04-21-2022 15:06-0500 Diastolic blood pressure 74 mm[Hg] Dalton Gudimella [facility] 04-21-2022 15:06-0500 Heart rate 99 /min Dalton Gudimella [facility] 04-21-2022 15:06-0500 Respiratory rate 18 /min Dalton Gudimella [facility] 04-21-2022 15:06-0500 SaO2% (BldA) [Mass fraction] 100 % Dalton Gudimella [facility] 04-21-2022 15:06-0500 Systolic blood pressure 112 mm[Hg] Dalton Medel [facility] 10-23-2021 14:17-0400 Blood Pressure Location Jg Green [facility] 10-23-2021 14:17-0400 Diastolic blood pressure 62 mm[Hg] Jg Green [facility] 10-23-2021 14:17-0400 Heart rate 96 /min Jg Green [facility] 10-23-2021 14:17-0400 SaO2% (BldA) [Mass fraction] 98 % Jg Green [facility] 10-23-2021 14:17-0400 Systolic blood pressure 110 mm[Hg] Jg Green [facility] Encounters Encounter Date Encounter Type Care Provider Facility Start: 04-24-2024 End: 04-24-2024 ambulatory DYNAMITE CARTRIDGE CRIMPER [facility]el L Zamz[facility] Start: 03-01-2024 ambulatory DYNAMITE CARTRIDGE CRIMPER Chantel L Zamzam Facil ity:[facility] Start: 02-16-2024 End: 02-16-2024 ambulatory DYNAMITE CARTRIDGE CRIMPER [facility] Start: 12-24-2023 End: 12-24-2023 ambulatory Nadya J Jigna Facility:[facility] Start: 12-24-2023 End: 12-24-2023 Patient encounter procedure Nadya Benito [facility] Start: 10-21-2023 End: 10-21-2023 ambulatory Nadya J Jigna Facility:[facility] Start: 10-21-2023 End: 10-21-2023 Lab Drop off Nadya J Jigna [facility] Start: 09-29-2023 End: 09-29-2023 Lab Drop off Chantel L Zamzam [facility] Start: 09-29-2023 End: 09-29-2023 ambulatory Chantel L Zamzam Facility:[facility] Start: 09-20-2023 End: 09-20-2023 ambulatory Winter X Orzech Facility:[facility] Start: 09-20-2023 End: 09-20-2023 Patient encounter procedure Winter [facility] Start: 08-19-2023 End: 08-19-2023 ambulatory Chantel L Zamzam Facility:[facility] Start: 07-29-2023 End: 07-29-2023 ambulatory Chantel L Zamzam Facility:[facility] Start: 05-25-2023 ambulatory Chantel Zamzam Facility:[facility] Start: 05-24-2023 End: 05-24-2023 ambulatory Chantel L Zamzam Facility:[facility] Start: 05-24-2023 End: 05-24-2023 Patient encounter procedure Winter X Orzech [facility] Start: 05-09-2023 ambulatory Chantel Zamzam Facility:[facility] Start: 05-04-2023 End: 05-04-2023 Lab Drop off Chantel L Zamzam [facility] Start: 05-04-2023 End: 05-04-2023 ambulatory Chantel L Zamzam Facility:[facility] Start: 04-15-2023 End: 04-15-2023 Lab Drop off Chantel L Zamzam [facility] Start: 04-15-2023 End: 04-15-2023 ambulatory Chantel L Zamzam Facility:[facility] Start: 12-10-2022 End: 12-10-2022 ambulatory Nadya J Jigna Facility:[facility] Start: 12-10-2022 End: 12-10-2022 Patient encounter procedure Nadya J Jigna [facility] Start: 10-25-2022 End: 10-25-2022 ambulatory Yasmine D Riedy Facility:[facility] Start: 10-25-2022 End: 10-25-2022 Patient encounter procedure Yasmine D Riedy [facility] Start: 10-25-2022 End: 10-25-2022 Well adult monitoring check done Yasmine D Riedy [facility] Start: 10-22-2022 End: 10-22-2022 ambulatory Nadya J Jigna Facility:[facility] Start: 10-22-2022 End: 10-22-2022 Patient encounter procedure Nadya J Jigna [facility] Start: 10-18-2022 End: 10-18-2022 Lab Drop off Nadya J Jigna [facility] Start: 08-10-2022 End: 08-10-2022 Patient encounter procedure Yasmine D Riedy [facility] Start: 08-09-2022 End: 08-09-2022 Patient encounter procedure Yasmine Dukes [facility] Start: 08-09-2022 End: 08-09-2022 Well adult monitoring check done Yasmine Dukes [facility] Start: 04-21-2022 End: 04-21-2022 Patient encounter procedure Dalton Medel [facility] Start: 10-24-2021 End: 10-24-2021 Patient encounter procedure Jg Green [facility] Start: 10-23-2021 End: 10-23-2021 Patient encounter procedure Jg Green [facility] Start: 10-23-2021 End: 10-23-2021 Well adult monitoring check done Jg Green [facility] Start: 10-23-2021 End: 10-23-2021 Patient encounter procedure Nadya Benito [facility] Procedures Date Procedure Procedure Detail Performing [...] and acellular pertussis vaccine, adsorbed Jg Green [facility] NEGATED: Highlighted row has not occurred!04-21-2022 influenza virus vaccine, unspecified formulation Dalton Medel [facility] NEGATED: Highlighted row has not occurred!04-05-2019 influenza virus vaccine, unspecified formulation Jg Green [facility] Payers Date Payer Category Payer Unknown [id number] 1975 Unknown [id number] 2.16.8 40.1.431489.3.579.2 1977 Unknown [id number] 2.16.8 40.1.137522.3.579.2 1977 Unknown [id number] 2.16.8 40.1.364819.3.579.2 1977 Unknown [id number] 2.16.8 40.1.287561.3.579.2 1977 Unknown [id number] 2.16.8 40.1.460587.3.579.2 1977 Unknown [id number] 2.16.8 40.1.477981.3.579.2.727 1977 Unknown [id number] 2.16.8 40.1.861121.3.579.2. 1977 Unknown [id number] 2.16.8 40.1.100232.3.579.2. 1977 Unknown [id number] 2.16.8 40.1.257698.3.579.2. 1977 Unknown [id number] 2.16.8 40.1.092567.3.579.2. 1977 Unknown [id number] 2.16.8 40.1.007738.3.579.2. 1977 Unknown [id number] 2.16.8 40.1.646247.3.579.2. 1977 Unknown [id number] 2.16.8 40.1.544716.3.579.2. 1977 Unknown [id number] 2.16.8 40.1.047080.3.579.2. 1977 Unknown [id number] 2.16.8 40.1.982735.3.579.2. 1977 Unknown [id number] 2.16.8 40.1.924589.3.579.2. 1977 Unknown [id number] 2.16.8 40.1.862714.3.579.2. 1977 Unknown [id number] 2.16.8 40.1.651028.3.579.2. 1977 Unknown [id number] 2.16.8 40.1.498798.3.579.2.7 Social History Date Type Detail Facility Start: 06-22-2021 End: 09-29-2023 Tobacco [facility] Tobacco smoking status No Smokin g Status Entered [facility] Start: 10-25-2022 End: 04-15-2023 Tobacco smoking status Never smoked tobacco (finding) [facility] Functional Status Date Assessment Result Facility 09-20-2023 Functional Status N/A [facility] 05-24-2023 Functional Status N/A [facility] 10-25-2022 Functional Status N/A [facility] 08-09-2022 Functional Status N/A [facility] 04-21-2022 Functional Status N/A [facility] 10-23-2021 Functional Status N/A [facility] Clinical Notes 12-04-2020 to 10-21-2023 LaboratoryRadiologyRadiologyLaboratoryRadiologyLaboratoryRadiologyRadiologyRadio logy Note Date & Type Note Facility 10-21-2023 Evaluation + Plan note Diagnostic Tests PendingKYP [id number] 10/21/23 [facility] 05-24-2023 Hospital Discharg e instructions Patient Education [...] Follow these instructions at home: Medicines Take kfjc-ofn-zvobaxz and prescription medicines only as told by [...] provider. Document Revised: 11/28/2020 Document Reviewed: 11/28/2020 [employer] Patient Education 2022 [employer]. 05/24/2023 13:29:53 Dietary Guidelines to Help Prevent [...] include: ?8 oz (237 mL) of milk, swpjlak-anoxrkhzjtzm-rfzoo milk, and calcium-fortifiedfruit juice. Calcium-fortified means that [...] rhubarb, beets, sweet potatoes, and [place] chard. ?Peanuts. ?Potato chips, spanish fries, and baked potatoes with skin on. ?Nuts and nut products. ?Chocolate. If you regularly take a diuretic medicine, make sure to eat at least 1 or 2 servings of fruits or vegetables that are high in potassium each day. These include: ?Avocado. ?Banana. ?Tim[place]lake, prune, carrot, or tomato juice. ?Baked potato. [...] magnesium, fish oil, or vitamin B6. Take hngh-obo-nzdowcv and prescription medicines only as told by [...] Casseroles. Pizza. Lasagna. Frozen meals. Potato chips. Macedonian fries. The items listed above may not [...] provider. Document Revised: 07/29/2022 Document Reviewed: 07/29/2022 INRFOOD Patient Education 2022 [employer]. 05/24/2023 13:29:50 Kidney Stones, Pevw-xh-Tvos Kidney Stones Kidney stones are rock-like masses [...] Follow these instructions at home: Medicines Take orwj-rck-goctfln and prescription medicines only as told by [...] provider. Document Revised: 12/21/2021 Document Reviewed: 12/21/2021 [employer] Patient Education 2022 [employer]. Follow Up Care 05/09/2023 09:53:22 With:Georgina BLACK, NILES, Winter X, FAM, URL Address: When:Within 3 Month(s) [facility] 05-24-2023 Note Chief Complaint Referral *Kidney [...] w/ use of estrace. Rx sent to [facility]. -Start estrace, pea sized amount applied area urethra nightly x 3 weeks, then 3x/week for maintenance -f/u 3 mos to reevaluated urinary/vaginal sxs. Ordered: estradiol topical, See Instructions, 42.5 gm, Refill(s) 5, apply pea sized amount on fingertip near urethral opening nightly x 3 weeks, then 3x/week for maintanence, [id number], 173, cm, 05/24/23 10:00:00 EST, Height/Length Dosing, [...] to Help Prevent Kidney Stones Kidney Stones, Ccsf-nz-Sosu Problem List/Past Medical History Ongoing Acid reflux [...] congestion Panic attacks (more content not included)... [facility] Comment on above: Result Comment: Elec tronically Signed By: NILES Erickson APRN, [place] X\.br\Date and Time Signed: 05/24/23 13:30 EST 05-04-2023 Evaluation + Plan note Diagnostic Tests PendingUrine Culture 05/04/23Chlamydia/Gonococcus, JUAN PABLO 05/04/23 [facility] 04-15-2023 Evaluation + Plan note Diagnostic Tests PendingUrine Culture 04/15/23 [facility] 07-21-2022 Hospital Discharg e instructions Follow Up Care 07/21/2022 16:08:05 With:Yasmine Dukes CNP Address: When:Within 3 Month(s) Comments:physical and review labs [facility] 10-23-2021 Evaluation + Plan note Future Scheduled TestsCBC w/ Auto Diff 10/23/21Comprehensive Metabolic Panel 10/23/21Lipid Panel 10/23/21CT Abdomen/Pelvis w/ Contrast 12/04/20US Aorta 12/04/20 [facility] 12-04-2020 Evaluation + Plan note Future Scheduled TestsCT Abdomen/Pelvis w/ Contrast 12/04/20US Aorta 12/04/20 [facility] Evaluation + Plan note Future Appointments Appointment Date:10/25/2022 03:40:00 PM Scheduled Provider:Yasmine Dukes CNP Location:[facility] Appointment Type: Open Future Scheduled [id number] 08/09/22CBC w/ Auto Diff 08/09/22Comprehensive Metabolic Panel 08/09/22Lipid Panel 08/09/22XR Hip 2-3 Views Right 08/09/22XR Sacrum and Coccyx Min 2 Views 08/09/22XR Spine Lumbosacral Minimum 4 Views 08/09/22 [facility] Evaluation + Plan note Future Appointments Appointment Date:10/25/2022 03:40:00 PM Scheduled Provider:Yasmine Dukes CNP Location:[facility] Appointment Type: Open Future Scheduled [id number] 08/09/22CBC w/ Auto Diff 08/09/22Comprehensive Metabolic Panel 08/09/22Lipid Panel 08/09/22 [facility] Evaluation + Plan note Future Appointments Appointment Date:10/22/2022 04:00:00 PM Scheduled Provider: [facility] Appoint[facility] Type:US Abdominal/Pelvis () Appointment Date:10/25/2022 03:40:00 PM Scheduled Provider:Yasmine Dukes CNP Location:[facility] Appointment Type:FM Open Appointment Date:10/30/2022 10:30:00 AM Scheduled Provider: Location:[facility] Appointment Type:MA Screen ([facility]) Diagnostic Tests PendingPAP [id number] 10/18/22 Future Scheduled TestsUS Pelvis Non-OB Complete 10/22/22US Transvaginal Non-OB 10/22/22MA Mamm Screen w/CAD if perf and 3D Robert 10/30/22 [facility] Evaluation + Plan note Future Appointments Appointment Date:10/25/2022 03:40:00 PM Scheduled Provider:Yasmine Dukes CNP Location:[facility] Appointment Type:FM Open Appointment Date:10/30/2022 10:30:00 AM Scheduled Provider: [facility] App[facility] Type:MA Screen (FT) Diagnostic Tests PendingFSH and LH 10/22/22 Future Scheduled TestsMA Mamm Screen w/CAD if perf and 3D Robert 10/30/22 [facility] Evaluation + Plan note Future Appointments Appointment Date:10/30/2022 10:30:00 AM Scheduled Provider: Location:.[facility] Appointment Type:MA Screen (FT) Future Scheduled TestsMA Mamm Screen w/CAD if perf and 3D Robert 10/30/22 [facility] Hospital course Narrative No data available for this section [facility] Hospital Discharge instructions No data available for this section [facility] Progress note No data available for this section [facility] Summary Purpose Family History No Family History Records Found Advance Directives No Advanced Directives Records FoundNo Advanced Directives Records FoundNo Advanced Directives Records FoundNo Advanced Directives Records Found Additional Source Comments Care Team (unrecognized sect ion and content) Personnel Name: Jg Green MD Address: [address] [place] [address] Personnel Name: Jg Green MD Address: [address] [place] [address] Personnel Name: Jg Green MD Address: [address] [place] [address] Personnel Name: Dalton Medel MD Address: Address: [address] [place] [address] Personnel Name: Dalton Medel MD Address: Address: [address] [place] [address]- Personnel Name: Dalton Medel MD Address: Address: [address] [place] [address] Personnel Name: Renata Medel MD Address: Address: [address] [place] [address]- Personnel Name: Renata Medel MD Address: Address: [address] [place] [address]- Personnel Name: Renata Medel MD Address: Address: [address] [place] [address]- Personnel Name: Renata Medel MD Address: Address: [address] [place] [address]- Personnel Name: Chantel Mendes Address: Address: [address] [place] [address]- Personnel Name: Chantel Mendes L Address: Address: [address] [place] [address]- Personnel Name: Michelle Mendesdi L Address: Address: [address] [place] [address]- Personnel Name: Michelle Mendesdi L Address: Address: [address] [place] [address]- Personnel Name: Michelle Mendesdi L Address: Address: [address] [place] [address]- Personnel Name: Michelle Mendesdi L Address: Address: [address] [place] [address]- Personnel Name: Michelle Mendesdi L Address: Address: [address] [place] [address]- Personnel Name: Renata Medel MD Address: Address: [address] [place] [address]- INFORMATION SOURCE (unrecogn ized section and content) DATE CREATED AUTHOR 09/30/2023 [facility] DATE CREATED AUTHOR AUTHOR'S ORGANIZ ATION 10/22/2023 [facility] DATE CREATED AUTHOR AUTHOR'S ORGANIZ ATION 10/23/2023 [facility] DATE CREATED AUTHOR AUTHOR'S AMINATA ATROBER 04/26/2024 [facility] FOR RECORDS PERTAINING TO PATIENTS WHO [...] BE BASED ON THE PRIMARY CLINICAL RECORDS. [facility]. provides no warranty or guarantee of the accuracy or completeness of information in this document.
== END 2024-05-01 08:54 | disposition home or self-care (01) ==
LOC: CARD 08:54
PROVIDERS: PCP Nurse Practitioner; Visit Provider Nurse Practitioner
DX: R06.02 Shortness of breath (principal); R07.89 Other chest pain
CPT/HCPCS: 93005

== ENCOUNTER 2024-11-10 12:55 | Outpatient (OUT) | payer OTHER, SELFPAY ==
--- OUTSIDE RECORDS SUMMARY | 2024-11-10 12:59 | XMS_ITS | CCD ---
Author Organization [facility] Care Team Providers Care Accounts Payable Supervisor Name Role Phone Jg Green Primary Care Physician Dalton Medel Primary Care Physician Renata Medel Primary Care Physician Chantel Wyman Primary Care Physician Zamzam, Chantel Stallings Attending Unavailable Zamzam, Chantel Stallings Attending Unavailable Yasmine Dukes Attending Unavailable Zamzam, Chantel Stallings Referring Unavailable OrzechWinter Attending Unavailable OrzechWinter Attending Unavailable JignaNadya Attending Unavailable JignaNadya Referring Unavailable JignaNadya Admitting Unavailable Zamzam, Chantel Stallings Admitting Unavailable Zamzam, Chantel Stallings Attending Unavailable Zamzam, Chantel Stallings Attending Unavailable Zamzam, Chantel Stallings Admitting Unavailable Zamzam, Chantel Stallings Attending Unavailable Zamzam, Chantel Stallings Admitting Unavailable Zamzam, Chantel Stallings Attending Unavailable Zamzam, Chantel Stallings Admitting Unavailable JignaNadya Attending Unavailable JignaNadya Referring Unavailable JignaNadya Admitting Unavailable Zamzam, Chantel Stallings Attending Unavailable Zamzam, Chantel Stallings Attending Unavailable Zamzam, Chantel Stallings Attending Unavailable JignaNadya Admitting Unavailable JignaNadya Attending Unavailable Zamzam, ATHLETIC GEAR CUSTODIAN Chantel Stallings Admitting Unavailable Zamzam, ATHLETIC GEAR CUSTODIAN Chantel Stallings Attending Unavailable [place], [facility] Attending Unavailable Zamzam, Chantel Stallings Attending Unavailable JignaNadya Admitting Unavailable JignaNadya Attending Unavailable JignaNadya Referring Unavailable Zamzam, Chantel Stallings Attending Unavailable Zamzam, Chantel Stallings Admitting Unavailable Zamzam, Chantel Stallings Attending Unavailable Zamzam, Chantel Stallings Attending Unavailable Zamzam, Chantel Stallings Attending Unavailable Allergies Allergy Classification Reported Allergen(s) Allergy Type Date of Onset Reaction(s) Facility (20 sources) Chlorhexidine; Translations: [chlorhexidine topical] Drug Allergy [facility] (20 sources) Contrast media; Translations: [Contrast Dye] Drug allergy Unknown (qualifier value) [facility] (20 sources) Penicillins; Translations: [penicillins] Drug allergy RASH [facility] (1 source) ALLERGIES NOT ON FILE; Translations: [ALLERGIES NOT ON FILE] Propensity to adverse reactions (disorder) [facility] Repository Medications Current Medications Medication Drug Class(es) Dates Sig (Normalized) Sig (Original) estradiol 0.1 mg/ml vaginal cream (1 source) Estrogen Start: 05-24-2023 Estrace 0.1 mg/g Cream See Instructions, 42.5 gm, Refill(s) 5, apply pea sized amount on fingertip near urethral opening nightly x 3 weeks, then 3x/week for maintanence, [facility]/pharmacy #[id number], 173, cm, 05/24/23 10:00:00 EST, Height/Length Dosing, 72, kg, 05/24/23 10:00:00 EST, Weight Dosing Start Date: 05/24/23 Status: Ordered fluticasone propionate 0.05 mg/actuat metered dose nasal spray (1 source) Corticosteroid Start: 04-21-2022 take 1 spray(s) nasal route twice daily Flonase 0.05 mg/inh [place] 1 spray(s), Nasal, BID, 16 gram, Refill(s) 0, each nostril, [facility], 174, cm, 04/21/22 15:08:00 EST, Height/Length Dosing, 67.9, kg, 04/21/22 15:08:00 EST, Weight Dosing Start Date: 04/21/22 Status: Ordered Folic Acid (8 sources) Start: 10-23-2021 folic acid Daily, Refills(s) 0 Start Date: 10/23/21 Status: Ordered hydrOXYzine hydrochloride 10 mg oral tablet (19 sources) Antihistamine Start: 09-21-2022 take 1 tablet by mouth three times daily as needed for anxiety hydrOXYzine hydrochloride 10 mg Tab 10 mg = 1 tab(s), Oral, TID, PRN for anxiety, # 30 tab(s), Refills(s) 0, Pharmacy: [facility], 174, cm, 08/09/22 15:52:00 EDT, Height/Length Dosing, 71.4, kg, 08/09/22 15:52:00 EDT, Weight Dosing Start Date: 09/21/22 Status: Ordered Quantity: 30.0 Unit: tab(s) Repeat number: 1 Indications: Generalized anxiety disorder; Start: 09-15-2021 take 1 tablet by michael th three times daily as needed for anxiety hydrOXYzine hydrochloride 10 mg Tab 10 mg = 1 tab(s), Oral, TID, PRN for anxiety, # 30 tab(s), Refills(s) 0, Pharmacy: [facility], 174, cm, 06/22/21 17:30:00 EST, Height/Length Dosing, 65.5, kg, 06/22/21 17:30:00 EST, Weight Dosing Start Date: 09/15/21 Status: Ordered ibuprofen 800 mg oral tablet (15 sources) Nonsteroidal Anti-inflammatory Drug Start: 08-09-2022 take 1 tablet by mouth three times daily ibuprofen 800 mg Tab 800 mg = 1 tab(s), Oral, TID, # 90 tab(s), Refills(s) 0, Pharmacy: [facility], 174, cm, 08/09/22 15:52:00 EDT, Height/Length Dosing, 71.4, kg, 08/09/22 15:52:00 EDT, Weight Dosing Start Date: 08/09/22 Status: Ordered Quantity: 90.0 Unit: tab(s) Repeat number: 1 Indications: Radiculopathy, lumbar region; Pain in right hip; Mucinex DM 30 mg-600 mg Tab-ER (1 source) Start: 04-21-2022 End: 04-28-2022 take 1 tablet by mouth every twelve hours Mucinex DM 30 mg-600 mg Tab-ER 1 tab(s), Oral, q12hr Congestion for 7 day(s), 14 tab(s), Refill(s) 0, [facility], 174, cm, 04/21/22 15:08:00 EST, Height/Length Dosing, [...] day(s), # 14 cap(s), Refills(s) 0, [id number] 174, cm, 05/04/23 10:55:00 EST, Height/Length Dosing, 71.8, kg, 05/04/23 10:55:00 EST, Weight Dosing Start Date: 05/04/23 Stop Date: 05/11/23 Status: Ordered Vitamin C 500 mg Tab (19 sources) Start: 04-21-2020 take 1 tablet by mouth once daily Vitamin C 500 mg Tab 500 mg = 1 tab(s), Oral, Daily, Refills(s) 0 Start Date: 04/21/20 Status: Ordered Repeat number: 1 Start: 04-21-2020 take 1 tablet by michael once daily Vitamin C 500 mg Tab 500 mg = 1 tab(s), Oral, Daily, Refills(s) 0 Start Date: 04/21/20 Status: Ordered Vitamin D (19 sources) Start: 06-09-2015 take 5000 [IU] by mouth once daily Vitamin D See Instructions, 5000 units po daily, Refills(s) 0, Prophylaxis Start Date: 06/09/15 Status: Ordered Repeat number: 1 Start: 06-09-2015 take 5000 [IU] by mo [facility] once daily Vitamin D See Instructions, 5000 [...] Translations: [Kidney stone] Onset: 4 04-15-2023 Episodic Cardiac dysrhythmias (2 sources) Palpitations; Translations: [Palpitations] Onset: 5 Episodic Conduction disorders (1 source) Right bundle branch block 05-03-2024 Chronic Disorders of lipid metabolism (12 sources) Hyperlipidemia; Translations: [Hyperlipidemia, unspecified] Onset: 3 Chronic Esophageal disorders (20 sources) Gastroesophageal reflux disease; Translations: [Gastroesophageal reflux disease without esophagitis] Onset: 2 04-24-2019 Chronic Genitourinary symptoms and ill-defined conditions (15 sources) Blood in urine; Translations: [Dysuria] Onset: 4 05-04-2023 Episodic Headache; including migraine (19 sources) Migraine 06-07-2014 Chronic Comment on above: WITH MENSES Menopausal disorders (7 sources) Atrophic vaginitis; Translations: [Postmenopausal atrophic vaginitis] Onset: 4 Chronic Nonspecific chest pain (3 sources) Precordial pain; Translations: [Chest pain] Onset: 5 Episodic Other ear and sense organ disorders (19 sources) Otalgia 11-06-2020 Episodic Other female genital disorders (19 sources) Dysplasia of cervix 05-28-2014 Episodic Other gastrointestinal disorders (1 source) Other constipation; Translations: [Other constipation] Onset: 3 Episodic Other gastrointestinal disorders (15 sources) Chronic constipation 08-09-2022 Episodic Other lower respiratory disease (2 sources) Shortness of breath; Translations: [Shortness of breath] Onset: 5 Episodic Other lower respiratory disease (1 source) Dyspnea on exertion 04-24-2024 Episodic Other non-traumatic joint disorders (2 sources) Pain of left hip joint; Translations: [Pain in left hip] Onset: 3 Episodic Other non-traumatic joint disorders (3 sources) Pain in right hip joint; Translations: [Pain in right hip] Onset: 3 Episodic Other non-traumatic joint disorders (20 sources) Hip pain 08-09-2022 Episodic Other upper respiratory disease (17 sources) Nasal congestion; Translations: [Nasal congestion] Onset: 2 Episodic Other upper respiratory infections (19 sources) Acute upper respiratory infection 11-06-2020 Episodic [...] [Lumbar radiculopathy] Onset: 3 04-21-2020 Episodic Unclassified (20 sources) Body mass index 20-24 - normal 11-06-2020 Unclassified (19 sources) History of SARS-CoV-2 05-27-2021 Unclassified (20 sources) Patient encounter status 10-23-2021 Past or Other Problems Problem Classification Problem Date Documented Da te Episodic/Chronic Other inflammatory condition of skin (19 sources) Itching of eye Resolved: 01-25-2019 04-05-2019 Episodic Results Test Name Value Interpretation Reference Range Facility Glu Fastingon 10-19-2024 Glucose [Mass/Vol] 82 mg/dL Normal 55-99 [facility] Comment on above: Performed By: #### 2 [id number] #### [facility] [address] [place] [address] Lipid Panelon 10-19-2024 Cholesterol [Mass/Vol] 219 mg/dL High 120-200 [facility] Comment on above: Performed By: #### 2 [id number] #### [facility] [address] [place] [address] Cholesterol in HDL [Mass/Vol] 55 mg/dL Invalid Interpretation Code [facility] Comment on above: Result Comment: '>= 60 LOW RISK' '<= 40 HIGH RISK' Performed By: #### 2 [id number] #### [facility] [address] [place] [address] Cholesterol in LDL [Mass/Vol] 166 mg/dL High <=129 [facility] Comment on above: Performed By: #### 2 [id number] #### [facility] [address] [place] [address] Cholesterol in VLDL [Mass/Vol] 20 mg/dL Normal 7-40 [facility] Comment on above: Performed By: #### 2 [id number] #### [facility] [address] [place] [address] Triglyceride [Mass/Vol] 101 mg/dL Normal <=149 [facility] Comment on above: Performed By: #### 2 [id number] #### [facility] [address] [place] [address] Ambulatory Visit Summaryon 0 10-18-2024 Ambulatory Visit Summary Ambulatory Visit Summary NITA KIMBERLY Stallings :1975 Visit Date:10/18/2024 Ambulatory Visit Instructions Your Diagnosis Wellness examination Your Care Team Attending Physician - Chantel [...] complete upper. Discharge Vitals Heart Rate (Peripheral) 84 Blood Pressure 114/72 Height 173.0 cm Height 68 in Medications What How Much When Why Instructions [...] Panic attacks Physical exam Pre-employment examination Right bundle branch block Right flank pain Right hip pain Screening for diabetes mellitus Screening for hyperlipidemia SOB (shortness of breath) on exertion Vaginal atrophy Wellness examination Historical - Any [...] for choosing us for your care. Normal [facility] Family Medicine Office/Clini c Noteon 10-18-2024 Family Medicine Office/Clinic Note Family Medicine Office/Clinic Note Chief Complaint yearly wellness/ physical HPI Staff Patient is a 49 year old woman presenting for a yearly wellness/physical for work MARYAM - 17 Concerns: wants labs done Refills: no History of Present Illness pt presents today for wellness visit Review of Systems PHQ Score Initial Depression Screen Score: 0 SCORE Physical Exam Vitals & Measurements HR: 84(Peripheral) BP: 114/72 SpO2: 97% HT: 173.0 cm HT: 68 in General: alert, no acute distress ENMT: oral [...] findings) pt presents today for wellness visit. pt is due for labs. denies needing refills. RTC 1 year. will complete form and call her when it is complete with lab results. form in Courtney's folder Ordered: Est Preventative 40 to 64 years [address] Glucose Fasting Lipid Panel 2. BMI 23.0-23.9, adult (Z68.23: Body mass index [BMI] 23.0-23.9, adult) BMI education Ordered: Est Preventative 40 to 64 years [address] Follow-up No qualifying data available Problem List/Past Medical History Ongoing Acid reflux Annual physical exam Anxiety BMI 23.0-23.9, adult Cervical dysplasia Chest pain Chronic constipation Dyslipidemia [...] Panic attacks Physical exam Pre-employment examination Right bundle branch block Right flank pain Right hip pain Screening [...] Smokeless Tobacco Use:. Household tobacco concerns: No., 10/18/2024 Family History Afib: Father. Diabetes mellitus type 2: Mother. Hypertension: Father. Immunizations Vaccine Date Status Comments influenza virus vaccine, inactivated - Not Given Postpone due to refusal influenza virus vaccine, inactivated - Not Given Patient Refuses diphtheria/pertussis, acel/tetanus adult 02/17/2012 Recorded Normal [facility] Comment on above: Result Comment: Elec tronically Signed By: Chantel Mendes\.br\Date and Time Signed: 10/18/24 11:04 EDT Office Visiton 05-24-2024 Follow-up visit [id number] Hema Bruner 1975 F Date Provider Department Center 05/24/2024 [address] ENRIQUE NGUYEN CARD [facility] No family history on file Level of Service:[address] [place] OFFICE/OUTPATIENT NEW MODERATE MDM 45 MINUTES Normal [facility] Ambulatory Visit Summaryon 1 06-25-2023 Ambulatory Visit [...] for choosing us for your care. [facility] Family Medicine Office/Clini c Noteon 04-24-2024 Family [...] and ekg ordered. to be done at [facility]. 3. BMI 23.0-23.9, adult (Z68.23: Body mass [...] pt will start daily ASA 81mg Normal [facility] Comment on above: Result Comment: Elec tronically Signed By: Chantel Mendes\.br\Date and Time Signed: 04/24/24 11:20 EST Family Medicine Office/Clini c Noteon 02-16-2024 Family Medicine Office/Clinic Note Family Medicine Office/Clinic Note Chief Complaint Pain HPI Staff Pt presents today due to Rt hip pain. -10/09 Has been taking Ibuprofen & some creams. Has been helping. Pain started 2 days ago. 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 States it has been ongoing, getting worse. Did have MRI @ [facility] several yrs ago. History of Present Illness [...] if no improvement will consider referral to Count includes the [facility] spine center. Ordered: methylPREDNISolone, = 1 packet(s), Oral, As Directed, as directed on package labeling, X 6 day(s), # 21 tab(s), Refills(s) 0, Pharmacy: [facility]/pharmacy #[id number], 173, cm, 02/16/24 10:28:00 EDT, Height/Length Dosing, 70.8, kg, 02/16/24 10:28:00 EDT, Weight Dosing 2. Lumbar back pain with radiculopathy affecting right lower extremity (M54.16: Radiculopathy, lumbar region) see above Ordered: methylPREDNISolone, = 1 packet(s), Oral, As Directed, as directed on package labeling, X 6 day(s), # 21 tab(s), Refills(s) 0, Pharmacy: [facility]/pharmacy #[id number], 173, cm, 02/16/24 10:28:00 EDT, Height/Length Dosing, 70.8, kg, 02/16/24 10:28:00 EDT, Weight Dosing 3. BMI 23.0-23.9, adult (Z68.23: Body mass index [BMI] 23.0-23.9, adult) BMI education given Ordered: methylPREDNISolone, = 1 packet(s), Oral, As Directed, as directed on package labeling, X 6 day(s), # 21 tab(s), Refills(s) 0, Pharmacy: [facility]/pharmacy #[id number], 173, cm, 02/16/24 10:28:00 EDT, Height/Length Dosing, 70.8, kg, 02/16/24 10:28:00 EDT, Weight Dosing 4. Former smoker (Z87.891: Personal history of nicotine dependence) continue not smoking Ordered: methylPREDNISolone, = 1 packet(s), Oral, As Directed, as directed on package labeling, X 6 day(s), # 21 tab(s), Refills(s) 0, Pharmacy: [facility]/pharmacy #[id number], 173, cm, 02/16/24 10:28:00 EDT, Height/Length [...] Family Hi (more content not included)... Normal [facility] Comment on above: Result Comment: Elec [...] very important to your health. The current [employer] and National [employer] Cancer [...] 2-Benign finding Recommendation: Normal interval follow-up Normal [facility] Physician Orderon 10-21-2023 Physician Order [id number]#1.00TIFF Normal [facility] RAD - CT Reporton 10-20-2023 RAD - CT Report [id number]#1.00TIFF [facility] Pre-Certification Formon Pre-Certification Form [id number]#1.00TIFF [facility] Ambulatory Visit Summaryon 0 09-29-2023 Ambulatory Visit [...] for choosing us for your care. Normal [facility] CHEMISTRYOrdered By: SYSTEM SYSTEM on 09-29-2023 Cholesterol [...] Refuses diphtheria/pertussis, acel/tetanus adult 02/17/2012 Recorded Normal [facility] Comment on above: Result Comment: Elec tronically Signed By: Chantel Mendes\.br\Date and Time Signed: 09/29/23 08:48 EDT Glu Fastingon 09-29-2023 Glucose [Mass/Vol] 95 mg/dL Normal 55-99 [facility] Comment on above: Performed By: #### 2 [id number] #### [facility] [address] [place] [address] Lipid Panelon 09-29-2023 Cholesterol [Mass/Vol] 202 mg/dL High 120-200 [facility] Comment on above: Performed By: #### 2 [id number] #### [facility] [address] [place] [address] Cholesterol in HDL [Mass/Vol] 51 mg/dL Invalid Interpretation Code [facility] Comment on above: Result Comment: '>= 60 LOW RISK' '<= 40 HIGH RISK' Performed By: #### 2 [id number] #### [facility] [address] [place] [address] Cholesterol in LDL [Mass/Vol] 138 mg/dL High <=129 [facility] Comment on above: Performed By: #### 2 [id number] #### [facility] [address] [place] [address] Cholesterol in VLDL [Mass/Vol] 22 mg/dL Normal 7-40 [facility] Comment on above: Performed By: #### 2 [id number] #### [facility] [address] [place] [address] Triglyceride [Mass/Vol] 109 mg/dL Normal <=149 [facility] Comment on above: Performed By: #### 2 [id number] #### [facility] [address] [place] [address] RAD - MISCon 09-28-2023 RAD - MISC [id number]#1.00TIFF Normal [facility] RAD - Ultrasound Reporton RAD - Ultrasound Report [id number]#1.00TIFF Normal [facility] Patient Educationon 09-27-19 Patient Education Obstetrics and [...] are. Treatment may include: ? Using an qdsm-yyd-zgiyadw vaginal lubricant before sex. ? Using a [...] these instructions at home: Medicines ? Take zwtm-gko-lmxprqn and prescription medicines only as told by your health care provider. ? Do not use herbal or alternative medicines unless your health care provider says that you can. ? Use ykze-ibc-vpsryjb creams, lubricants, or moisturizers for dryness only [...] provider. Document Revised: 10/16/2020 Document Reviewed: 10/16/2020 [employer] Patient Education ? 2022 [employer]. Orthopedics Flank Pain, Adult Flank pain is [...] kidney st (more content not included)... Normal [facility] Urology Office/Clinic Noteon 09-27-2023 Urology Office/Clinic Note [...] with voice recognition artificial intelligence software, specifically [employer], [employer], [employer] and or Dragon Ambient Experience. Substitutions may have occurred due to the [...] Flank Pain, Adult Atrophic Vaginitis Kidney Stones, Jfhl-rg-Bvnz Problem List/Past Medical History Ongoing Acid reflux Annual physical exam Anxiety Cervical dysplasia Chronic constipation Dyslipidemia Dysuria Flank pain Generalized anxiety disorder Hematuria Hip pain, robert (more content not included)... Normal [facility] Comment on above: Result Comment: Elec tronically Signed By: NILES Erickson APRN, Winter Deshpande\.br\Date and Time Signed: 09/27/23 16:58 EDT [facility] 09-21-2023 Screens [id number]#[id number] Normal [facility] Ambulatory Visit Summaryon 0 08-19-2023 Ambulatory Visit [...] choosing us for your care. [facility]y [facility] Family Medicine Office/Clini c Noteon 08-19-2023 [...] Refuses diphtheria/pertussis, acel/tetanus adult 02/17/2012 Recorded Normal [facility] Comment on above: Result Comment: Elec tronically Signed By: Chantel Mnedes.josiah\Date and Time Signed: 08/19/23 11:27 EDT Physician Orderon 08-09-2023 Physician Order [id number]#1.00TIFF Normal [facility] Ambulatory Visit Summaryon 0 07-29-2023 Ambulatory Visit [...] EDT With: Chantel Mendes Where: [facility] [place] Normal [facility] Family Medicine Office/Clini c Noteon 07-29-2023 Family [...] Daily, # 30 tab(s), Refills(s) 0, Pharmacy: [facility]/pharmacy #[id number], 173, cm, 07/29/23 14:36:00 EDT, Height/Length Dosing, 72.5, kg, 07/29/23 14:36:00 EDT, Weight Dosing methylPREDNISolone, = 1 packet(s), Oral, As Directed, as directed on package labeling, X 6 day(s), # 21 tab(s), Refills(s) 0, Pharmacy: [facility]/pharmacy #[id number], 173, cm, 07/29/23 14:36:00 EDT, Height/Length Dosing, 72.5, kg, 07/29/23 14:36:00 EDT, Weight Dosing 2. Low back pain with right-sided sciatica (M54.41: Lumbago with sciatica, right side) see above Ordered: meloxicam, 15 mg = 1 tab(s), Oral, Daily, # 30 tab(s), Refills(s) 0, Pharmacy: [facility]/pharmacy #[id number], 173, cm, 07/29/23 14:36:00 EDT, Height/Length Dosing, 72.5, kg, 07/29/23 14:36:00 EDT, Weight Dosing methylPREDNISolone, = 1 packet(s), Oral, As Directed, as directed on package labeling, X 6 day(s), # 21 tab(s), Refills(s) 0, Pharmacy: [facility]/pharmacy #[id number], 173, cm, 07/29/23 14:36:00 EDT, Height/Length Dosing, 72.5, kg, 07/29/23 14:36:00 EDT, Weight Dosing 3. BMI 24.0-24.9, adult (Z68.24: Body mass index [BMI] 24.0-24.9, adult) BMI education complete Ordered: meloxicam, 15 mg = 1 tab(s), Oral, Daily, # 30 tab(s), Refills(s) 0, Pharmacy: [facility]/pharmacy #[id number], 173, cm, 07/29/23 14:36:00 EDT, Height/Length Dosing, 72.5, kg, 07/29/23 14:36:00 EDT, Weight Dosing methylPREDNISolone, = 1 packet(s), Oral, As Directed, as directed on package labeling, X 6 day(s), # 21 tab(s), Refills(s) 0, [id number] 173, cm, 07/29/23 14:36:00 EDT, Height/Length Dosing, 72.5, kg, 07/29/23 14:36:00 EDT, Weight Dosing 4. Former smoker (Z87.891: Personal history of nicotine dependence) continue not smoking Ordered: meloxicam, 15 mg = 1 tab(s), Oral, Daily, # 30 tab(s), Refills(s) 0, [id number] 173, cm, 07/29/23 14:36:00 EDT, Height/Length Dosing, 72.5, kg, 07/29/23 14:36:00 EDT, Weight Dosing methylPREDNISolone, = 1 packet(s), Oral, As Directed, as directed on package labeling, X 6 day(s), # 21 tab(s), Refills(s) 0, Pharmacy: [facility]/pharmacy #[id number], 173, cm, 07/29/23 14:36:00 EDT, Height/Length [...] meloxicam 15 (more content not included)... Normal [facility] Comment on above: Result Comment: Elec tronically Signed By: Chantel Mendes\.br\Date and Time Signed: 07/29/23 14:52 EDT [facility] 05-25-2023 Screens [id number]#[id number] Normal [facility] Ambulatory Visit Summaryon 0 05-24-2023 Ambulatory Visit Summary KIMBERLY BRUNER Chandrakant :1975 Visit Date:05/24/2023 Ambulatory Visit Instructions [...] Following Appointments Follow Up with Georgina BLACK, ATHLETIC GEAR CUSTODIAN-C, Winter X, FAM, URL When: In 3 months Where: Medications What How Much When Why Instructions New estradiol topical (Estrace 0.1 mg/ g Cream) See instructions Vaginal atrophy Refills: 5 apply pea sized amount on fingertip near urethral opening nightly x 3 weeks, then 3x/ week for maintanence Pickup at [facility]pharmacy #[id number] Unchanged ascorbic acid (Vitamin C 500 [...] concerns Pharmacy Information [id number]: [address], [place] [id number] [phone] Allergies Contrast Dye (Unknown) chlorhexidine topical penicillins [...] these instructions at home: Medicines ? Take eurn-hen-rvxyvrs and prescription medicines only as told by [...] often. Avoi (more content not included)... Normal [facility] Patient Educationon 05-24-19 Patient Education Nephrology Dietary [...] ? 8 oz (237 mL) of milk, hppjomx-wrallazvyrav-yolex milk, and calcium-fortifiedfruit juice. Calcium-fortified means that [...] Spinach (cooked), rhubarb, beets, sweet potatoes, and Cymro chard. ? Peanuts. ? Potato chips, montenegrin fries, and baked potatoes with skin on. ? Nuts and nut products. ? Chocolate. ? If you regularly take a diuretic medicine, make sure to eat at least 1 or 2 servings of fruits or vegetables that are high in potassium each day. These include: ? Avocado. ? Banana. ? Redwood, prune, carrot, or tomato juice. ? Baked [...] fish oil, or vitamin B6. ? Take vtso-cbp-relhskr and prescription medicines only as told by your health care provider. These include supplements. What foods sh (more content not included)... Normal [facility] Chlamydia/Gonococcus, NAAon 05-07-2023 C. trachomatis rRNA JUAN PABLO+probe Ql (Unsp spec) Negative Invalid Interpretation Code Negative [facility] Comment on above: Performed By: #### 1 [id number] #### [facility] [address] [place] [address] N. gonorrhoeae rRNA JUAN PABLO+probe Ql (Unsp spec) Negative Invalid Interpretation Code Negative [facility] Comment on above: Result Comment: Perf ormed at: =G [facility] [address] [id number] MD Brandon Rivera Performed By: #### 1 [id number] #### [facility] [address] [place] [address] C Urineon 05-06-2023 Bacteria identified Cx Nom (U) Microbiology PROCEDURE: Urine Culture [R1] SOURCE: U CleanCatch BODY SITE: COLLECTED DATE/TIME: 05/04/2023 11:10 EST RECEIVED DATE/TIME: 05/04/2023 22:10 EST START DATE/TIME: 05/04/2023 22:10 EST FREE TEXT SOURCE: Chantel Mendes Jodi L FINAL REPORTS Final Report [] Verified Date/Time: 05/06/2023 09:53 EST 6,000 cfu/ml Mixed skin contaminants Performing Locations R1: This test was performed at: [facility], [address] [place] [address], [phone] , , [facility] Comment on above: Performed By: #### 1 [id number] #### [facility] [address] [place] [address] Family Medicine Office/Clini c Noteon 05-04-2023 Family [...] all questions answered. Ordered: Chlamydia/Gonococcus, JUAN PABLO [facility] Internal Ambulatory Referral Urine Culture Urine Culture Urnls Dip Stick Auto w/o Microscopy POC 95109 Urnls Dip Stick Auto w/o Microscopy POC 07459 2. Kidney stone on right side (N20.0: Calculus of kidney) reviewed KUB results. will refer to urology Ordered: [facility] Internal Ambulatory Referral 3. Hematuria (R31.9: Hematuria, unspecified) u/a + for blood Ordered: [facility] Internal Ambulatory Referral Orders: nitrofurantoin, 100 mg = 1 cap(s), Oral, BID, X 7 day(s), # 14 cap(s), Refills(s) 0, Pharmacy: [id number], 174, cm, 05/04/23 10:55:00 EST, Height/Length [...] Protein Urine Dipstick: Negative (05/04/23 10:58:00) Specific [place] Urine Dipstick: 1.010 (05/04/23 10:58:00) Urine Appearance Urine Dipstick: Clear (05/04/23 10:58:00) Urine Color Urine Dipstick: Yellow (05/04/23 10 (more content not included)... Normal [facility] Comment on above: Result Comment: Elec tronically Signed By: Chantel Mendes\.br\Date and Time Signed: 05/04/23 12:35 EST RAD - MISCon 05-04-2023 RAD - MISC [id number]#[id number] [facility] C Urineon 04-17-2023 Bacteria identified Cx Nom (U) Microbiology PROCEDURE: Urine Culture [R1] SOURCE: U CleanCatch BODY SITE: COLLECTED DATE/TIME: 04/15/2023 11:56 EST RECEIVED DATE/TIME: 04/15/2023 18:35 EST START DATE/TIME: 04/15/2023 18:35 EST FREE TEXT SOURCE: Chantel Mendes Jodi L FINAL REPORTS Final Report [] Verified Date/Time: 04/17/2023 07:30 EST 1,000 cfu/ml Mixed skin contaminants Performing Locations R1: This test was performed at: [facility], [address] [place] [address], [id number]- , [place], Normal [facility] Comment on above: Performed By: #### 1 [id number] #### [facility] [address] [place] [address] Ambulatory Visit Summaryon 1 06-16-2022 Ambulatory Visit [...] for choosing us for your care. Normal [facility] Family Medicine Office/Clini c Noteon 04-15-2023 Family Medicine Office/Clinic Note HPI Staff Kimberly is a 47 year old female presenting to establish care Establish Care: History: Any previous diagnosis: Gerd, Anxiety, Migraines History of seeing any specialist: n/a When was your last doctors visit: Last provider: Dr Yanez Any recent labs: 10/15/22 Health Maintenance UTD: Colonoscopy: 2019 Dr mcmanus in [place], negative Mammogram: 10/2022 negative Pelvic/Pap: 10/2022 negative [...] right flank pain. just recently moved to [place] so would like to be established here [...] Urnls Dip Stick Auto w/o Microscopy POC 42213 2. Flank pain (R10.9: Unspecified abdominal pain) pt states she has been having this right sided flank pain for months. she has had x ray MRI, did PT and Pain management. she was told she had a kidney stone at one time, but isn't sure if she ever passed it. KUB ordered to be done at [facility]. No blood in u/a today. Ordered: Urine Culture 3. History of kidney stones (Z87.442: Personal history of urinary calculi) KUB and u/s with culture ordered 4. BMI 23.0-23.9, adult (Z68.23: Body mass index [BMI] 23.0-23.9, adult) BMI education complete Ordered: Urnls Dip Stick Auto w/o Microscopy POC 02020 5. Non-smoker (Z78.9: Other specified health status) continue not smoking Ordered: Urnls Dip Stick Auto w/o Microscopy POC 08017 Follow-up No qualifying data available Problem List/Past [...] vaccine, inactiv (more content not included)... Normal [facility] Comment on above: Result Comment: Elec tronically Signed By: Chantel Mendes\.josiah\Date and Time Signed: 04/15/23 12:41 EST Physician Orderon 04-15-2023 Physician Order [id number] Normal [facility] MA Mamm Screen w/CAD if perf ormed [...] VERY IMPORTANT TO YOUR HEALTH. THE CURRENT [employer] N[employer] COMPREHENSIVE CANCER [...] Ambrosio Thakur MD Transcribed by: JEFFREY Technologist: [facility] Assessment: BI-RADS Category 2-Benign finding Recommendation: Normal interval follow-up Normal [facility] Consent for Treatmenton 11-30 Consent for Treatment [id number]:127 Normal [facility] Family Medicine Office/Clini c Noteon 10-27-2022 Family Medicine Office/Clinic Note Chief Complaint Physical HPI Staff Pt is here to do physical and lab review Concerns:Cholestrol levels are elevated Refills:No PHQ9:10 MARYAM: 20 Health Maintenance: Colonoscopy: 2019- normal- [facility] Pap:2020 Last Labs:10/22/2022 History of Present Illness [...] sugars and thyroid were within normal range. [facility] recently did hormonal blood work and an ultrasound of her uterus, and she told her that she might be getting close to menopause. She has a follow up appointment with [facility] specialist on , 10/28/2022. She takes Metamucil [...] screening in [address] Page in [place]. Her results were normal. Review of Systems [...] for anxiety (more content not included)... Normal [facility] Comment on above: Result Comment: Elec tronically Signed By: Yasmine Dukes CNP.br\Date and Time Signed: 10/27/22 17:43 EDT\.br\Electronically Co-Signed By: Chiquita Phipps\.br\Date and Time Co-Signed: 10/26/22 14:59 EDT [facility] 10-26-2022 Forms [id number]:127 Normal [facility] US Pelvis Non-OB Completeon 10-26-2022 US Pelvis [...] Transabdominal Ultrasound Performed Uterus Position Anteverted Normal [facility] FSH and LHon 10-24-2022 Follitropin Qn 9.4 m[IU]/mL Invalid Interpretation Code [facility] Comment on above: Result Comment: Adul t Female: Follicular phase 3.5 - 12.5 Ovulation phase 4.7 - 21.5 Luteal phase 1.7 - 7.7 Postmenopausal 25.8 - 134.8 Performed at: [facility] [id number] PhD Pauline Minaya Performed By: #### 1 [id number] #### [facility] [address] [place] [address] Lutropin Qn 7.6 m[IU]/mL Invalid Interpretation Code [facility] Comment on above: Result Comment: Adul t Female: Follicular phase 2.4 - 12.6 Ovulation phase 14.0 - 95.6 Luteal phase 1.0 - 11.4 Postmenopausal 7.7 - 58.5 Performed By: #### 1 [id number] #### [facility] [address] [place] [address] Consent for Treatmenton 10-01 Consent for Treatment [id number]:127 Normal [facility] Physician Orderon 10-22-2022 Physician Order [id number]:127 Normal [facility] CHEMISTRYOrdered By: Fang hendrix on 10-24-2021 Albumin [Mass/Vol] 4.2 g/dL Normal 3.3 - 5.0 gm/dL [facility] Remisol Albumin/Globulin [Mass ratio] 1.0 {ratio} Low [...] rate/Area] mL/min/1.73 m2 Normal >=59mL/min/ 1.73 m2 [facility] Chem S GFR/1.73 sq M.predicted among non-blacks [...] Pressure Location Winter Orzech [facility] 09-20-2023 10:56-0400 Body temperature 98.06 [degF] [facility] 09-20-2023 10:56-0400 Diastolic blood pressure 72 mm[Hg] Winter [facility] 09-20-2023 10:56-0400 Heart rate 86 /min Winter Orzech [facility] 09-20-2023 10:56-0400 Respiratory rate 16 /min Winter [facility] 09-20-2023 10:56-0400 Systolic blood pressure 114 mm[Hg] Winter [facility] 05-24-2023 09:58-0500 Blood Pressure Location Winter Orzech [facility] 05-24-2023 09:58-0500 Diastolic blood pressure 73 mm[Hg] Winter Orzech [facility] 05-24-2023 09:58-0500 Heart rate 78 /min Winter Orzech [facility] 05-24-2023 09:58-0500 Respiratory rate 16 /min Winter Orzech [facility] 05-24-2023 09:58-0500 Systolic blood pressure 121 mm[Hg] Winter Orzech [facility] 10-25-2022 15:31-0400 Blood Pressure Location Yasmine Riedy [facility] 10-25-2022 15:31-0400 Diastolic blood pressure 76 mm[Hg] Yasmine Riedy [facility] 10-25-2022 15:31-0400 Heart rate 72 /min Yasmine Riedy [facility] 10-25-2022 15:31-0400 SaO2% (BldA) [Mass fraction] 100 % Yasmine Riedy [facility] 10-25-2022 15:31-0400 Systolic blood pressure 118 mm[Hg] Yasmine Riedy [facility] 08-09-2022 15:50-0400 Blood Pressure Location Yasmine Riedy [facility] 08-09-2022 15:50-0400 Diastolic blood pressure 72 mm[Hg] Yasmine Riedy [facility] 08-09-2022 15:50-0400 Heart rate 77 /min Yasmine Riedy [facility] 08-09-2022 15:50-0400 SaO2% (BldA) [Mass fraction] 99 % Yasmine Riedy [facility] 08-09-2022 15:50-0400 Systolic blood pressure 114 mm[Hg] Yasmine Riedy [facility] 04-21-2022 15:06-0500 Blood Pressure Location Dalton Gudimella [facility] 04-21-2022 15:06-0500 Body temperature 96.8 [degF] Dalton Gudimella [facility] 04-21-2022 15:06-0500 Diastolic blood pressure 74 mm[Hg] Dalton Gudimella [facility] 04-21-2022 15:06-0500 Heart rate 99 /min Dalton Gudimella [facility] 04-21-2022 15:06-0500 Respiratory rate 18 /min Dalton Gudimella [facility] 04-21-2022 15:06-0500 SaO2% (BldA) [Mass fraction] 100 % Dalton Gudimella [facility] 04-21-2022 15:06-0500 Systolic blood pressure 112 mm[Hg] Dalton Gudimella [facility] 10-23-2021 14:17-0400 Blood Pressure Location Jg Green [facility] 10-23-2021 14:17-0400 Diastolic blood pressure 62 mm[Hg] Jg Green [facility] 10-23-2021 14:17-0400 Heart rate 96 /min Jg Green [facility] 10-23-2021 14:17-0400 SaO2% (BldA) [Mass fraction] 98 % Jg Green [facility] 10-23-2021 14:17-0400 Systolic blood pressure 110 mm[Hg] Jg Green [facility] Encounters Encounter Date Encounter Type Care Provider Facility Start: 10-18-2024 End: 10-18-2024 Lab Drop off Chantel L Zamzam [facility] Start: 10-18-2024 End: 10-18-2024 ambulatory Chantel L Zamzam Facility:[facility] Start: 05-24-2024 End: 05-24-2024 ambulatory EHAB [facility] Start: 04-24-2024 End: 04-24-2024 ambulatory Chantel L Zamzam [facility] Start: 03-01-2024 ambulatory Chantel L Zamzam [facility] Start: 02-16-2024 End: 02-16-2024 ambulatory Chantel L Zamzam Facility:[facility] Start: 12-24-2023 End: 12-24-2023 ambulatory Nadya J Jigna Facility:[facility] Start: 12-24-2023 End: 12-24-2023 Patient encounter procedure Nadya J Jigna [facility] Start: 10-21-2023 End: 10-21-2023 ambulatory Nadya J Jigna Facility:[facility] Start: 10-21-2023 End: 10-21-2023 Lab Drop off Nadya J Jigna [facility] Start: 09-29-2023 End: 09-29-2023 Lab Drop off Chantel L Zamzam [facility] Start: 09-29-2023 End: 09-29-2023 ambulatory Chantel L Zamzam Facility:[facility] Start: 09-20-2023 End: 09-20-2023 ambulatory Winter X Orzech Facility:[facility] [place] Start: 09-20-2023 End: 09-20-2023 Patient encounter procedure Winter X Orzech [facility] Start: 08-19-2023 End: 08-19-2023 ambulatory Chantel L Zamzam Facility:[facility] Start: 07-29-2023 End: 07-29-2023 ambulatory Chantel L Zamzam Facility:[facility] [place] Start: 05-25-2023 ambulatory Chantel Zamzam Facility:[facility] Start: 05-24-2023 End: 05-24-2023 ambulatory Chantel L Zamzam Facility:[facility] Start: 05-24-2023 End: 05-24-2023 Patient encounter procedure Winter X Orzech [facility] [place] Start: 05-09-2023 ambulatory Chantel Zamzam Facility:[facility] [place] Start: 05-04-2023 End: 05-04-2023 Lab Drop off Chantel L Zamzam [facility] Start: 05-04-2023 End: 05-04-2023 ambulatory Chantel L Zamzam Facility:[facility] Start: 04-15-2023 End: 04-15-2023 Lab Drop off Chantel L Zamzam [facility] Start: 04-15-2023 End: 04-15-2023 ambulatory Chantel L Zamzam Facility:[facility] Start: 12-10-2022 End: 12-10-2022 ambulatory Nadya J Jigna Facility:[facility] Start: 12-10-2022 End: 12-10-2022 Patient encounter procedure Nadya J Jigna [facility] Start: 10-25-2022 End: 10-25-2022 ambulatory Yasmine D Elmeredy Facility:[facility] Start: 10-25-2022 End: 10-25-2022 Patient encounter procedure Yasmine D Riedy [facility] Start: 10-25-2022 End: 10-25-2022 Well adult monitoring check done Yasmine D Riedy [facility] Start: 10-22-2022 End: 10-22-2022 ambulatory Nadya J Jigna Facility:[facility] Start: 10-22-2022 End: 10-22-2022 Patient encounter procedure Nadya J Jigna [facility] Start: 10-18-2022 End: 10-18-2022 Lab Drop off Nadya J Jigna [facility] Start: 08-10-2022 End: 08-10-2022 Patient encounter procedure Yasmine D Riedy [facility] Start: 08-09-2022 End: 08-09-2022 Patient encounter procedure Yasmine Dukes [facility] Start: 08-09-2022 End: 08-09-2022 Well adult monitoring check done Yasmine Dukes [facility] Start: 04-21-2022 End: 04-21-2022 Patient encounter procedure Dalton Medel [facility] Start: 10-24-2021 End: 10-24-2021 Patient encounter procedure Jg Green [facility] Start: 10-23-2021 End: 10-23-2021 Patient encounter procedure Jg Green [facility] Start: 10-23-2021 End: 10-23-2021 Well adult monitoring check done Jg Green [facility] Start: 10-23-2021 End: 10-23-2021 Patient encounter procedure Nadya Benito [facility] Procedures Date Procedure Procedure Detail Performing Clinician [...] and acellular pertussis vaccine, adsorbed Jg Green [facility] NEGATED: Highlighted row has not occurred!04-21-2022 influenza virus vaccine, unspecified formulation Dalton Gudimella [facility] NEGATED: Highlighted row has not occurred!04-05-2019 influenza virus vaccine, unspecified formulation Jg Green [facility] Payers Date Payer Category Payer Private Health Insurance [facility] [id number] 2022 Unknown [id number] 1975 Unknown [id number] 2.16.8 40.1.019916.3.579.2 1977 Unknown [id number] 2.16.8 40.1.693609.3.579.2. 1977 Unknown [id number] 2.16.8 40.1.090273.3.579.2. 1977 Unknown [id number] 2.16.8 40.1.800906.3.579.2. 1977 Unknown [id number] 2.16.8 40.1.422467.3.579.2. 1977 Unknown [id number] 2.16.8 40.1.789006.3.579.2. 1977 Unknown [id number] 2.16.8 40.1.127958.3.579.2 1977 Unknown [id number] 2.16.8 40.1.204997.3.579.2 1977 Unknown [id number] 2.16.8 40.1.077215.3.579.2 1977 Unknown [id number] 2.16.8 40.1.428500.3.579.2 1977 Unknown [id number] 2.16.8 40.1.200506.3.579.2 1977 Unknown [id number] 2.16.8 40.1.150798.3.579.2 1977 Unknown [id number] 2.16.8 40.1.102002.3.579.2 1977 Unknown [id number] 2.16.8 40.1.768292.3.579.2 1977 Unknown [id number] 2.16.8 40.1.760645.3.579.2 1977 Unknown [id number] 2.16.8 40.1.924339.3.579.2 1977 Unknown [id number] 2.16.8 40.1.382999.3.579.2 1977 Unknown [id number] 2.16.8 40.1.558517.3.579.2 1977 Unknown [id number] 2.16.8 40.1.306197.3.579.2 1977 Unknown [id number] 2.16.8 40.1.893838.3.579.2.727 1977 Unknown [id number] 2.16.8 40.1.845738.3.579.2.727 Social History Date Type Detail Facility Start: 06-22-2021 End: 10-18-2024 Tobacco smoking status Ex-smoker (finding) [facility] Tobacco smoking status Never [facility] Sex Assigned At Female [facility] Tobacco smoking status [facility] Start: 10-25-2022 End: 04-15-2023 Tobacco smoking status Never smoked tobacco (finding) [facility] Start: 08-13-2009 Sex Female (finding) [facility] Functional Status Date Assessment Result Facility 09-20-2023 Functional Status N/A [facility] 05-24-2023 Functional Status N/A [facility] 10-25-2022 Functional Status N/A [facility] 08-09-2022 Functional Status N/A [facility] 04-21-2022 Functional Status N/A [facility] 10-23-2021 Functional Status N/A [facility] Clinical Notes 12-04-2020 to 10-18-2024 LaboratoryRadiologyRadiologyLaboratoryRadiologyLaboratoryRadiologyRadiologyRadio logy Note Date & Type Note Facility 10-18-2024 Evaluation + Plan note Diagnostic Tests PendingLipid Panel 10/18/24Glucose Fasting 10/18/24 [facility] 05-24-2024 Note [facility] Note Chief Complaint: Establish care HPI: Kimberly Bruner is a 48 y.o. female Who had a recent EKG that was slightly abnormal She has been experiencing pressure-like sensation over the central chest area that occurs randomly. It is not specifically related to exertion. When it occurs, she states that she takes deep breaths and this helps. She denies associated shortness of breath, she has no significant lightheadedness, dizziness or syncope. She does have intermittent palpitations. Again, these close no associated symptoms. She is aware that she has anxiety and feels that these may be panic attacks. No prior history of cardiac disease. No vascular problems. No prior echocardiograms or stress test. Past medical history: Anxiety disorder, slightly elevated cholesterol. Specifically, she has no diabetes, hypertension. Social history: She used to smoke but quit many years ago. She denies significant alcohol use. She drinks 2 cups of coffee a day. 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 Family history: Her father has atrial fibrillation and as well as sick sinus syndrome Allergies: Penicillin, contrast dye Cardiology ROS: GENERAL: Denies fever, chills, night sweats, weight loss. HEENT: Denies changes in vision, photophobia, changes in hearing, epistaxis, oral bleeding. CARDIOVASCULAR: Chest tightness,Palpitations RESPIRATORY: Shortness of breath at times, coughing, wheezing GI: Denies abdominal pain, nausea/vomiting, heartburn, melena/hematochezia. RENAL: Denies dysuria, hematuria, flank pain. MSK: Denies muscle weakness/pain, arthralgias/joint pain. NEUROLOGIC: Denies LOC, weakness, numbness, headaches. SKIN: Denies abnormal rashes or bleeding. PSYCH: Anxiety disorder, depression, sleep disturbances. Past Medical History She has no past medical history on file. Surgical History She has no past surgical history on file. Social History She has no history on file for tobacco use, alcohol use, and drug use. Family History No family history on file. Allergies Patient has no allergy information on record. Medications (Not in a hospital admission) Last Recorded Vitals BP 109/74 HR 88 O2 99% Wt 155.2 RR 16 Physical Examination: GENERAL: alert and oriented x3, well developed, in no acute distress. HEAD: atraumatic, normocephalic. EYES: ELOISA, EOMI. NECK: trachea midline, no JVD present, no carotid bruits present. CARDIAC: S1, S2 present. RRR. No murmur, rubs, or gallops. RESPIRATORY: CTAB, no increased effort of breathing, no rales, rhonchi, or wheezing. ABDOMEN: soft, nontender, nondistended. EXTREMITIES: no lower extremity edema, peripheral pulses are 2+ bilaterally. No rash/skin discoloration present. NEURO: strength/sensation equal and symmetric in bilateral upper and lower extremities. PSYCH: appropriate mood, affect, and judgement. 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 Her symptoms sound predominantly anxiety related; however, given the EKG, her shortness of breath, and her concerns, we will order an echocardiogram As long as this shows no structural abnormalities and has a preserved ejection fraction with no wall motion abnormalities, I do not believe she needs an ischemic workup I explained my understanding of hydroxyzine being an antihistaminic that can occasionally be used in anxiety in elderly patients; in a 48-year-old woman, I suggested she speak to her primary care provider regarding new or anxiolytics or referral to a psychiatrist I will be happy to see her on an as-needed basis Luis Enrique Nguyen MD, MPH, [facility], [facility], [facility] Interventional Cardiology Pager Email: [email or web address] 10-21-2023 Evaluation + Plan note Diagnostic Tests PendingPAP [id number] 10/21/23 [facility] 05-24-2023 Hospital Discharg e instructions Patient Education [...] Follow these instructions at home: Medicines Take uhim-pcb-houerha and prescription medicines only as told by [...] provider. Document Revised: 11/28/2020 Document Reviewed: 11/28/2020 [employer] Patient Education 2022 [employer]. 05/24/2023 13:29:53 Dietary Guidelines to Help Prevent [...] include: ?8 oz (237 mL) of milk, zktngcf-xlzslfbtvbsc-ifkbk milk, and calcium-fortifiedfruit juice. Calcium-fortified means that [...] ?Spinach (cooked), rhubarb, beets, sweet potatoes, and Cymro chard. ?Peanuts. ?Potato chips, montenegrin fries, and baked potatoes with skin on. ?Nuts and nut products. ?Chocolate. If you regularly take a diuretic medicine, make sure to eat at least 1 or 2 servings of fruits or vegetables that are high in potassium each day. These include: ?Avocado. ?Banana. ?Redwood, prune, carrot, or tomato juice. ?Baked potato. [...] magnesium, fish oil, or vitamin B6. Take kzaj-iaf-cugfygc and prescription medicines only as told by [...] Casseroles. Pizza. Lasagna. Frozen meals. Potato chips. Kyrgyz fries. The items listed above may not [...] provider. Document Revised: 07/29/2022 Document Reviewed: 07/29/2022 [employer] Patient Education 2022 [employer]. 05/24/2023 13:29:50 Kidney Stones, Udty-bs-Auae Kidney Stones Kidney stones are rock-like masses [...] Follow these instructions at home: Medicines Take tnhj-xeg-bnewibe and prescription medicines only as told by [...] provider. Document Revised: 12/21/2021 Document Reviewed: 12/21/2021 [employer] Patient Education 2022 [employer]. Follow Up Care 05/09/2023 09:53:22 With:NILES Erickson APRN, Winter Deshpande, YAYA, URL Address: When:Within 3 Month(s) [facility] 05-24-2023 Note Chief Complaint Referral *Kidney [...] w/ use of estrace. Rx sent to [facility]. -Start estrace, pea sized amount applied area [...] to Help Prevent Kidney Stones Kidney Stones, Povn-ue-Kbwy Problem List/Past Medical History Ongoing Acid reflux [...] congestion Panic attacks (more content not included)... [facility] Comment on above: Result Comment: Elec tronically Signed By: NILES Erickson APRN, [place] X\.br\Date and Time Signed: 05/24/23 13:30 EST 05-04-2023 Evaluation + Plan note Diagnostic Tests PendingUrine Culture 05/04/23Chlamydia/Gonococcus, JUAN PABLO 05/04/23 [facility] 04-15-2023 Evaluation + Plan note Diagnostic Tests PendingUrine Culture 04/15/23 [facility] 07-21-2022 Hospital Discharg e instructions Follow Up Care 07/21/2022 16:08:05 With:Yasmine Dukes CNP Address: When:Within 3 Month(s) Comments:physical and review labs [facility] 10-23-2021 Evaluation + Plan note Future Scheduled TestsCBC w/ Auto Diff 10/23/21Comprehensive Metabolic Panel 10/23/21Lipid Panel 10/23/21CT Abdomen/Pelvis w/ Contrast 12/04/20US Aorta 12/04/20 [facility] 12-04-2020 Evaluation + Plan note Future Scheduled TestsCT Abdomen/Pelvis w/ Contrast 12/04/20US Aorta 12/04/20 [facility] Evaluation + Plan note Future Appointments Appointment Date:10/25/2022 03:40:00 PM Scheduled Provider:Yasmine Dukes CNP Location:[facility] Appointment Type: Open Future Scheduled [id number] 08/09/22CBC w/ Auto Diff 08/09/22Comprehensive Metabolic Panel 08/09/22Lipid Panel 08/09/22XR Hip 2-3 Views Right 08/09/22XR Sacrum and Coccyx Min 2 Views 08/09/22XR Spine Lumbosacral Minimum 4 Views 08/09/22 [facility] Evaluation + Plan note Future Appointments Appointment Date:10/25/2022 03:40:00 PM Scheduled Provider:Yasmine Dukes CNP Location:[facility] Appointment Type: Open Future Scheduled [id number] 08/09/22CBC w/ Auto Diff 08/09/22Comprehensive Metabolic Panel 08/09/22Lipid Panel 08/09/22 [facility] Evaluation + Plan note Future Appointments Appointment Date:10/22/2022 04:00:00 PM Scheduled Provider: Location:.[facility]TRASOUND Appointment Type:US Abdominal/Pelvis (FT) Appointment Date:10/25/2022 03:40:00 PM Scheduled Provider:Yasmine Dukes CNP Location:[facility] Appointment Type:FM Open Appointment Date:10/30/2022 10:30:00 AM Scheduled Provider: Location:.MAMMOGRAM Appointment Type:MA Screen (FT) Diagnostic Tests PendingPAP [id number] 10/18/22 Future Scheduled TestsUS Pelvis Non-OB Complete 10/22/22US Transvaginal Non-OB 10/22/22MA Mamm Screen w/CAD if perf and 3D Robert 10/30/22 [facility] Evaluation + Plan note Future Appointments Appointment Date:10/25/2022 03:40:00 PM Scheduled Provider:Yasmine Dukes CNP Location:[facility] Appointment Type:FM Open Appointment Date:10/30/2022 10:30:00 AM Scheduled Provider: Location:.MAMMOGRAM Appointment Type:MA Screen (FT) Diagnostic Tests PendingFSH and LH 10/22/22 Future Scheduled TestsMA Mamm Screen w/CAD if perf and 3D Robert 10/30/22 [facility] Evaluation + Plan note Future Appointments Appointment Date:10/30/2022 10:30:00 AM Scheduled Provider: Location:.MAMMOGRAM Appointment Type:MA Screen (FT) Future Scheduled TestsMA Mamm Screen w/CAD if perf and 3D Robert 10/30/22 [facility] Hospital course Narrative No data available for this section [facility] Hospital Discharge instructions No data available for this section [facility] Progress note No data available for this section [facility] Summary Purpose Family History No Family History Records Found Advance Directives No Advanced Directives Records FoundNo Advanced Directives Records FoundNo Advanced Directives Records FoundNo Advanced Directives Records FoundNo Advanced Directives Records FoundNo Advanced Directives Records FoundNo Advanced Directives Records Found Additional Source Comments Care Team (unrecognized sect ion and content) Personnel Name: Jg Green MD Address: [address] [place] [address] Personnel Name: Jg Green MD Address: [address] [place] [address] Personnel Name: Jg Green MD Address: [address] [place] [address] Personnel Name: Dalton Medel MD Address: Address: [address] [place] [address] Personnel Name: Dalton Medel MD Address: Address: [address] [place] [address] Personnel Name: Dalton Medel MD Address: Address: [address] [place] [address] Personnel Name: Renata Medel MD Address: Address: [address] [place] [address] Personnel Name: Renata Medel MD Address: Address: [address] [place] [address] Personnel Name: Renata Medel MD Address: Address: [address] [place] [address] Personnel Name: Renata Medel MD Address: Address: [address] [place] [address] Personnel Name: Chantel Mendes Address: Address: [address] [place] [address]- Personnel Name: Chantel Mendes Address: Address: [address] [place] [address]- Personnel Name: Chantel Mendes Address: Address: [address] [place] [address]- Personnel Name: Chantel Mendes Address: Address: [address] [place] [address]- Personnel Name: Chantel Mendes Address: Address: [address] [place] [address]- Personnel Name: Chantel Mendes Address: Address: [address] [place] [address]- Personnel Name: Chantel Mendes Address: Address: [address] [place] [address]- Personnel Name: Renata Medel MD Address: Address: [address] [place] [address]- Personnel Name: Zamzam ROLANChantel Address: [address] [place] [address]- [employer]: INFORMATION SOURCE (unrecogn ized section and content) DATE CREATED AUTHOR 09/30/2023 [place] [facility] DATE CREATED AUTHOR AUTHOR'S ORGANIZ ATION 10/22/2023 [place] [facility] DATE CREATED AUTHOR AUTHOR'S ORGANIZ ATION 10/23/2023 [place] [facility] DATE CREATED AUTHOR AUTHOR'S ORGANIZ ATION 05/26/[address] [facility] DATE CREATED AUTHOR AUTHOR'S ORGANIZ ATION 10/20/2024 [place] [facility] DATE CREATED AUTHOR AUTHOR'S ORGANIZ ATION 10/22/2024 [place] [facility] DATE CREATED AUTHOR AUTHOR'S ORGANIZ ATION 10/27/2024 [facility] FOR RECORDS PERTAINING TO PATIENTS WHO [...] BE BASED ON THE PRIMARY CLINICAL RECORDS. [employer] provides no warranty or guarantee of the accuracy or completeness of information in this document.
--- NOTE | 2024-11-10 13:03 | US_ITS ---
The [address] [address] Patient Name: KIMBERLY MOYA MRN: [id number] date: 1975 Sex: F Assigned Patient Location: Current Patient Location: [facility] Accession/Order Number: [id number] Exam Date: 11/10/2024 18:53 Report Date: 11/10/2024 18:54 At the request of: CHRIS VIGIL NP Procedure: US pelvis w/ transvaginal EXAMINATION TYPE: US pelvis w/ transvaginal Grayscale, color scale Doppler, vascular duplex analysis of the bilateral ovaries DATE OF EXAM ORDERED: 11/10/2024 1:51 PM HISTORY: DYSFUNCTIONAL UTERINE BLEEDING N93.8, COMPARISON: NONE TECHNIQUE: Realtime Transvaginal and Transabdominal imaging was performed. Transvaginal imaging was utilized to better evaluate the ovaries and the endometrial stripe. Grayscale, color scale Doppler, vascular duplex analysis of the bilateral ovaries was performed to assess blood flow. FINDINGS: The uterus measures 7.8 x 3.8 x 4.8 cm. The uterus is normal in echogenicity. Endometrium: Normal thickness and appearance. The endometrium measures 8 mm in thickness Ovaries: The visualized ovaries are within normal limits for songraphic evaluation. There is a dominant follicle in the left adnexa measuring 1.3 cm in greatest dimension. Right Ovary measurements: 1.6 x 2.1 x 1.8 cm Left Ovary measurements: 2.6 x 2.3 x 2.4 cm No abnormal adnexal mass is seen. No free fluid in the pelvic cul-de-sac. Vascular duplex analysis of the bilateral ovaries demonstrates normal blood flow without evidence of ovarian ischemia. US/US pelvis w/ transvaginal IMPRESSION: Normal pelvic ultrasound. No evidence of ovarian ischemia. Impression dictated by: Jamie Alexandra M.D. 11/10/2024 6:54 PM Dictation Location: [place] [address] Electronically authenticated by: [id number] Y Date: 11/10/2024 18:54
== END 2024-11-10 12:56 | disposition home or self-care (01) ==
PROVIDERS: PCP Nurse Practitioner; Visit Provider Nurse Practitioner Adult Health
DX: N93.8 Other specified abnormal uterine and vaginal bleeding (principal)
CPT/HCPCS: 76830; 76856

== ENCOUNTER 2024-11-19 10:14 | Outpatient (OUT) | payer OTHER, SELFPAY ==
--- OUTSIDE RECORDS SUMMARY | 2024-11-19 10:15 | XMS_ITS | Clinical Summary ---
Author Organization [facility] Address [address] [place] [address] Care Team Providers Care Air Hammer Operator Name Role Phone Chantel Wyman DEPILATORY PAINTER-C Primary Care Provider [phone] Medications aspirin 81 mg EC tablet Take 81 mg by mouth in the morning. Active hydrOXYzine HCL (Atarax) 10 mg tablet Take 10 mg by mouth 1 (one) time. Active ibuprofen 800 mg tablet Take 800 mg by mouth every 6 (six) hours if needed for mild pain (1-3 pain score). Active Social History Tobacco Use Types Packs/Day Years Used Date Smoking Tobacco: Never Assessed Comments Unknown Sex and Gender Information Value Date Recorded Sex Assigned at Not on file Legal Sex Female 8:54 AM EST Gender Identity Not on file Sexual Orientation Not on file Plan of Treatment Health Maintenance Due Date Last Done Comments CT Colonography 1977 FIT-DNA 1977 FIT 1975 FOBT 1975 Sigmoidoscopy 1977 Depression Screening 1989 Hepatitis B Vaccines (1 of 3 - 19+ 3-dose series) 1996 Pap Smear 1998 Cervical Cancer Screening 10/09/2007 HPV/Cotest 10/09/2007 Mammogram 2017 Adult Tetanus 02/16/2022 02/17/2012 Influenza Vaccine (#1) 2024 Zoster Vaccines (1 of 2) 10/09/2027 Colonoscopy 06/30/2028 06/30/2018 Colorectal Cancer Screening 06/30/2028 HIB Vaccines Aged Out No longer eligi ble based on patient's age to complete this topic HPV Vaccines Aged Out No longer eligi ble based on patient's age to complete this topic IPV Vaccines Aged Out No longer eligi ble based on patient's age to complete this topic Meningococcal B Vaccine Aged Out No l onger eligible based on patient's age to complete this topic Meningococcal Vaccine Aged Out No seun kirk eligible based on patient's age to complete this topic Pneumococcal Vaccine: Pediat rics (0 to 5 Years) and At-Risk Patients (6 to 64 Years) Aged Out No longer eligi ble based on patient's age to complete this topic Rotavirus Vaccines Aged Out No longer eligible based on patient's age to complete this topic Insurance [employer] Care Teams Air Hammer Operator Relationship Specialty Start Date End Date Chantel Wyman FNP-C [address] [place] [address] PCP - General Nurse Practitioner 05/09/24
--- NOTE | 2024-11-19 10:17 | MM_ITS ---
Patient Name: KIMBERLY MOYA MR#: [id number] : 1975 Exam Date: 11/19/2024 Ordering Doctor: CHRIS VIGIL RADIOLOGY REPORT PROCEDURE: MM TOMOSYNTHESIS SCREENING BI COMPARISON: MG MAMM SCREEN 3D ALEJA CAD, 12/24/2023. MG MAMM SCREEN 3D ALEJA CAD, 12/10/2022. MG MAMM SCREEN 3D ALEJA CAD, 10/23/2021. INDICATIONS: Screening Calculator Name NCI Breast Cancer Risk Assessment Tool 5 Year Breast Cancer Risk 0.60% Lifetime Breast Cancer Risk 6.80% Personal Breast Cancer No Personal Ovarian Cancer No Treatments None Family Cancers Aunt-maternal with breast cancer at age 60. LOCATION: [facility] BREAST COMPOSITION: The breasts are heterogeneously dense, which may obscure small masses. FINDINGS: DIAGNOSTIC CATEGORY 1--NEGATIVE. RIGHT BREAST: No significant suspicious finding. LEFT BREAST: No significant suspicious finding. RECOMMENDATIONS: ROUTINE MAMMOGRAM AND CLINICAL EVALUATION IN 12 MONTHS. PLEASE NOTE: A NORMAL MAMMOGRAM DOES NOT EXCLUDE THE POSSIBILITY OF BREAST CANCER. A CLINICALLY SUSPICIOUS PALPABLE LUMP SHOULD BE BIOPSIED. Dictated by: Vance Brown DO on 11/20/2024 at 15:49 Approved by: Vance Brown DO on 11/20/2024 at 15:50
--- OUTSIDE RECORDS SUMMARY | 2024-11-19 10:36 | XMS_ITS | CCD ---
Author Organization [facility] Care Team Providers Care Manager Psychiatry Name Role Phone Jg Green Primary Care Physician Dalton Medel Primary Care Physician Renata Medel Primary Care Physician Chantel Wyman Primary Care Physician [phone] Zamzam, Chantel Stallings Attending Unavailable Zamzam, Chantel Stallings Attending Unavailable Yasmine Dukes Attending Unavailable Zamzam, Chantel Stallings Referring Unavailable OrzechWinter Attending Unavailable OrzechWinter X Attending Unavailable JignaNadya Attending Unavailable JignaNadya [...] JignaNadya Admitting Unavailable JignaNadya Attending Unavailable Zamzam, HAND FORMER Chantel Stallings Admitting Unavailable Zamzam, HAND FORMER Chantel Stallings Attending Unavailable [place], EHAB Attending Unavailable Zamzam, Chantel Stallings Attending Unavailable JignaNadya Admitting Unavailable Jigna, Nadya Chun Attending Unavailable JignaNadya nunez Referring Unavailable Zamzam, Chantel Stallings Attending Unavailable Zamzam, Chantel Stallings Admitting Unavailable Zamzam, Chantel Stallings Attending Unavailable Zamzam, Chantel Stallings Attending Unavailable Zamzam, Chantel Stallings Attending Unavailable JignaDeniseNadya J Attending Unavailable Nadya Benito Admitting Unavailable Nadya Benito Attending Unavailable Nadya Benito Admitting Unavailable Nadya Benito Attending Unavailable Nadya Benito Admitting Unavailable Allergies Allergy Classification Reported Allergen(s) Allergy Type Date of Onset Reaction(s) Facility (20 sources) Chlorhexidine; Translations: [chlorhexidine topical] Drug Allergy [facility] (20 sources) Contrast media; Translations: [Contrast Dye] Drug allergy Unknown (qualifier value) [facility] (20 sources) Penicillins; Translations: [penicillins] Drug allergy RASH [facility] (1 source) ALLERGIES NOT ON FILE; Translations: [ALLERGIES NOT ON FILE] Propensity to adverse reactions (disorder) [facility] Repository Medications Current Medications Medication Drug Class(es) Dates Sig (Normalized) Sig (Original) estradiol 0.1 mg/ml vaginal cream (1 source) Estrogen Start: 05-24-2023 Estrace 0.1 mg/g Cream See Instructions, 42.5 gm, Refill(s) 5, apply pea sized amount on fingertip near urethral opening nightly x 3 weeks, then 3x/week for maintanence, [facility]/pharmacy #[id number], 173, cm, 05/24/23 10:00:00 EST, Height/Length Dosing, 72, kg, 05/24/23 10:00:00 EST, Weight Dosing Start Date: 05/24/23 Status: Ordered fluticasone propionate 0.05 mg/actuat metered dose nasal spray (1 source) Corticosteroid Start: 04-21-2022 take 1 spray(s) nasal route twice daily Flonase 0.05 mg/inh [place] 1 spray(s), Nasal, BID, 16 gram, Refill(s) 0, each nostril, [facility], 174, cm, 04/21/22 [...] anxiety, # 30 tab(s), Refills(s) 0, Pharmacy: [facility], 174, cm, 08/09/22 15:52:00 EDT, Height/Length Dosing, 71.4, kg, 08/09/22 15:52:00 EDT, Weight Dosing Start Date: 09/21/22 Status: Ordered Quantity: 30.0 Unit: tab(s) Repeat number: 1 Indications: Generalized anxiety disorder; Start: 09-15-2021 take 1 tablet by mcihael th three times daily as needed for anxiety hydrOXYzine hydrochloride 10 mg Tab 10 mg = 1 tab(s), Oral, TID, PRN for anxiety, # 30 tab(s), Refills(s) 0, Pharmacy: [facility], 174, cm, 06/22/21 17:30:00 EST, Height/Length Dosing, 65.5, kg, 06/22/21 17:30:00 EST, Weight Dosing Start Date: 09/15/21 Status: Ordered ibuprofen 800 mg oral tablet (15 sources) Nonsteroidal Anti-inflammatory Drug Start: 08-09-2022 take 1 tablet by mouth three times daily ibuprofen 800 mg Tab 800 mg = 1 tab(s), Oral, TID, # 90 tab(s), Refills(s) 0, Pharmacy: [facility], 174, cm, 08/09/22 [...] for 7 day(s), 14 tab(s), Refill(s) 0, [facility], 174, cm, 04/21/22 [...] day(s), # 14 cap(s), Refills(s) 0, Pharmacy: [facility]/pharmacy #[id number], 174, cm, 05/04/23 10:55:00 [...] Start: 06-09-2015 take 5000 [IU] by [facility] once daily Vitamin D See Instructions, 5000 [...] Test Name Value Interpretation Reference Range Facility PAP [id number] 11-13-2024 HPV Aptima Negative Invalid Interpretation Code Negative [facility] Comment on above: Result Comment: This nucleic acid amplification test detects fourteen high-risk HPV types (16,18,31,33,35,39,45,51,52,56,58,59,66,68) without differentiation. Performed at: [address] [id number] MD Brandon Rivera Performed at: = [address] [id number] MD Brandon Rivera Performed By: #### 3 [id number] #### [facility] [address] [place] [address] PAP [id number] Note Invalid Interpretation Code [facility] Comment on above: Result Comment: TEST S RESULT FLAG UNITS REF RANGE LAB Clinician Provided Cytology Information Source.............Cervix No. of containers..01 ThinPrep Vial DIAGNOSIS: 01 NEGATIVE FOR INTRAEPITHELIAL LESION OR MALIGNANCY. Specimen adequacy: 01 Satisfactory for evaluation. Endocervical and/or squamous metaplastic cells (endocervical component) are present. Performed by: 01 Angie Davis, Allopathic Doctor ([facility]) . 01 Note: Note 01 The [...] <-Panic Low,>-Panic High,A-Abnormal,AA-Critical Abnormal Performed at: [address] [phone] Nicole Taylor MD, Performed By: #### 3 [id number] #### [facility] [address] [place] [address] FSH and LHon 11-10-2024 FSH 2.9 mIU/mL Invalid Interpretation Code [facility] Comment on above: Result Comment: Adul t Female Range Follicular phase 3.5 - 12.5 Ovulation phase 4.7 - 21.5 Luteal phase 1.7 - 7.7 Postmenopausal 25.8 - 134.8 Performed at: [address] [id number] PhD Pauline Minaya Performed By: #### 1 [id number] #### [facility] [address] [place] [address] LH 6.4 mIU/mL Invalid Interpretation Code [facility] Comment on above: Result Comment: Adul t Female Range Follicular phase 2.4 - 12.6 Ovulation phase 14.0 - 95.6 Luteal phase 1.0 - 11.4 Postmenopausal 7.7 - 58.5 Performed By: #### 1 [id number] #### [facility] [address] [place] [address] PAP [id number] 11-09-2024 Gynecological Body Site CERVIX Normal [facility] Comment on above: Performed By: #### 3 [id number] #### [facility] [address] [place] [address] Glu Fastingon 10-19-2024 Glucose [Mass/Vol] 82 mg/dL Normal 55-99 [facility] Comment on above: Performed By: #### 2 [id number] #### [facility] [address] [place] [address] Lipid Panelon 10-19-2024 Cholesterol [Mass/Vol] 219 mg/dL High 120-200 [facility] Comment on above: Performed By: #### 2 [id number] #### [facility] [address] [place] [address] Cholesterol in HDL [Mass/Vol] 55 mg/dL Invalid Interpretation Code [facility] Comment on above: Result Comment: '>= 60 LOW RISK' '<= 40 HIGH RISK' Performed By: #### 2 [id number] #### [facility] [address] [facility] [place] [address] Cholesterol in LDL [Mass/Vol] 166 mg/dL High <=129 [facility] Comment on above: Performed By: #### 2 [id number] #### [facility] [address] [place] [address] Cholesterol in VLDL [Mass/Vol] 20 mg/dL Normal 7-40 [facility] Comment on above: Performed By: #### 2 [id number] #### [facility] [address] [place] [address] Triglyceride [Mass/Vol] 101 mg/dL Normal <=149 [facility] Comment on above: Performed By: #### 2 [id number] #### [facility] [address] [place] [address] Ambulatory Visit Summaryon 0 10-18-2024 Ambulatory Visit Summary Ambulatory Visit Summary KIMBERLY BRUNER Chandrakant :1975 Visit Date:10/18/2024 Ambulatory Visit Instructions Your Diagnosis Wellness examination Your Care Team Attending Physician - Chantel Mnedes Primary Care Physician - Chantel Mendes This [...] for choosing us for your care. Normal [facility] Family Medicine Office/Clini c Noteon 10-18-2024 Family [...] Ordered: Est Preventative 40 to 64 years [address] Glucose Fasting Lipid Panel 2. BMI 23.0-23.9, adult (Z68.23: Body mass index [BMI] 23.0-23.9, adult) BMI education Ordered: Est Preventative 40 to 64 years [address] Follow-up No qualifying data available Problem List/Past [...] Refuses diphtheria/pertussis, acel/tetanus adult 02/17/2012 Recorded Normal [facility] Comment on above: Result Comment: Elec tronically Signed By: Chantel Mendes\.br\Date and Time Signed: 10/18/24 11:04 EDT Office Visiton 05-24-2024 Follow-up visit [id number] Hema Bruner 1975 F Date Provider Department Center 05/24/2024 [address] [facility] No family history on file Level of Service:[address] [place] OFFICE/OUTPATIENT NEW MODERATE MDM 45 MINUTES Normal [facility] Ambulatory Visit Summaryon 1 06-25-2023 Ambulatory Visit [...] for choosing us for your care. Normal [facility] Family Medicine Office/Clini c Noteon 04-24-2024 Family [...] and ekg ordered. to be done at [facility]. 3. BMI 23.0-23.9, adult (Z68.23: Body [...] pt will start daily ASA 81mg Normal [facility] Comment on above: Result Comment: Elec tronically Signed By: Chantel Mendes\.br\Date and Time Signed: 04/24/24 11:20 EST Family Medicine Office/Clini c Noteon 02-16-2024 Family Medicine Office/Clinic Note Family Medicine Office/Clinic Note Chief Complaint Pain HPI Staff Pt presents today due to Rt hip pain. 4-10/09 Has been taking Ibuprofen & some creams. Has been helping. Pain started 2 days ago. 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 States it has been ongoing, getting worse. Did have MRI @ [facility] several yrs ago. History of Present Illness [...] if no improvement will consider [facility] Ordered: methylPREDNISolone, = 1 packet(s), Oral, As Directed, as directed on package labeling, X 6 day(s), # 21 tab(s), Refills(s) 0, Pharmacy: [facility]/pharmacy #[id number], 173, cm, 02/16/24 10:28:00 EDT, Height/Length Dosing, 70.8, kg, 02/16/24 10:28:00 EDT, Weight Dosing 2. Lumbar back pain with radiculopathy affecting right lower extremity (M54.16: Radiculopathy, lumbar region) see above Ordered: methylPREDNISolone, = 1 packet(s), Oral, As Directed, as directed on package labeling, X 6 day(s), # 21 tab(s), Refills(s) 0, Pharmacy: [facility]/pharmacy #[id number], 173, cm, 02/16/24 10:28:00 EDT, Height/Length Dosing, 70.8, kg, 02/16/24 10:28:00 EDT, Weight Dosing 3. BMI 23.0-23.9, adult (Z68.23: Body mass index [BMI] 23.0-23.9, adult) BMI education given Ordered: methylPREDNISolone, = 1 packet(s), Oral, As Directed, as directed on package labeling, X 6 day(s), # 21 tab(s), Refills(s) 0, Pharmacy: [facility]/pharmacy #[id number], 173, cm, 02/16/24 10:28:00 EDT, Height/Length Dosing, 70.8, kg, 02/16/24 10:28:00 EDT, Weight Dosing 4. Former smoker (Z87.891: Personal history of nicotine dependence) continue not smoking Ordered: methylPREDNISolone, = 1 packet(s), Oral, As Directed, as directed on package labeling, X 6 day(s), # 21 tab(s), Refills(s) 0, Pharmacy: [facility]/pharmacy #[id number], 173, cm, 02/16/24 10:28:00 EDT, Height/Length [...] Family Hi (more content not included)... Normal [facility] Comment on above: Result Comment: Elec [...] very important to your health. The current [employer] and National Comprehensive Cancer [...] 2-Benign finding Recommendation: Normal interval follow-up Normal [facility] Physician Orderon 10-21-2023 Physician Order [id number]#1.00TIFF [facility] RAD - CT Reporton 10-20-[address] RAD - CT Report [id number]#1.00TIFF [facility] Pre-Certification Formon Pre-Certification Form [id number]#1.00TIFF [facility] Ambulatory Visit Summaryon 0 09-29-2023 Ambulatory Visit [...] for choosing us for your care. Normal [facility] CHEMISTRYOrdered By: SYSTEM SYSTEM on 09-29-2023 [...] Refuses diphtheria/pertussis, acel/tetanus adult 02/17/2012 Recorded Normal [facility] Comment on above: Result Comment: Elec tronically Signed By: Chantel Mendes.br\Date and Time Signed: 09/29/23 08:48 EDT Glu Fastingon 09-29-2023 Glucose [Mass/Vol] 95 mg/dL Normal 55-99 [facility] Comment on above: Performed By: #### 2 [id number] #### [facility] [address] [place] [address] Lipid Panelon 09-29-2023 Cholesterol [Mass/Vol] 202 mg/dL High 120-200 [facility] Comment on above: Performed By: #### 2 [id number] #### [facility] [address] [place] [address] Cholesterol in HDL [Mass/Vol] 51 mg/dL Invalid Interpretation Code [facility] Comment on above: Result Comment: '>= 60 LOW RISK' '<= 40 HIGH RISK' Performed By: #### 2 [id number] #### [facility] [address] [place] [address] Cholesterol in LDL [Mass/Vol] 138 mg/dL High <=129 [facility] Comment on above: Performed By: #### 2 [id number] #### [facility] [address] [place] [address] Cholesterol in VLDL [Mass/Vol] 22 mg/dL Normal 7-40 [facility] Comment on above: Performed By: #### 2 [id number] #### [facility] [address] [place] [address] Triglyceride [Mass/Vol] 109 mg/dL Normal <=149 [facility] Comment on above: Performed By: #### 2 [id number] #### [facility] [address] [place] [address] RAD - MISCon 09-28-2023 RAD - MISC [id number]#1.00TIFF Normal [facility] RAD - Ultrasound Reporton RAD - Ultrasound Report [id number]#1.00TIFF Normal [facility] Patient Educationon 09-27-19 Patient Education Obstetrics [...] are. Treatment may include: ? Using an cimw-doj-grovyru vaginal lubricant before sex. ? Using a [...] these instructions at home: Medicines ? Take wrog-iqb-mvszsfy and prescription medicines only as told by your health care provider. ? Do not use herbal or alternative medicines unless your health care provider says that you can. ? Use ibsb-ytv-zklamqn creams, lubricants, or moisturizers for dryness only [...] provider. Document Revised: 10/16/2020 Document Reviewed: 10/16/2020 [employer] Patient Education ? 2022 [employer]. Orthopedics Flank Pain, Adult Flank pain is [...] kidney st (more content not included)... Normal [facility] Urology Office/Clinic Noteon 09-27-2023 Urology Office/Clinic [...] with voice recognition artificial intelligence software, specifically [employer], [employer] and or [employer]. Substitutions may have occurred due to the [...] Flank Pain, Adult Atrophic Vaginitis Kidney Stones, Fdek-of-Hjsv Problem List/Past Medical History Ongoing Acid reflux Annual physical exam Anxiety Cervical dysplasia Chronic constipation Dyslipidemia Dysuria Flank pain Generalized anxiety disorder Hematuria Hip pain, robert (more content not included)... Normal [facility] Comment on above: Result Comment: Elec tronically Signed By: NILES Erickson APRN, Winter Deshpande\.br\Date and Time Signed: 09/27/23 16:58 EDT [place] 09-21-2023 Screens [id number]#1.00TIFF Normal [facility] Ambulatory Visit Summaryon 0 08-19-2023 Ambulatory [...] choosing us for your care. [facility] Medicine Office/Clini c Noteon 08-19-2023 Family Medicine [...] Refuses diphtheria/pertussis, acel/tetanus adult 02/17/2012 Recorded Normal [facility] Comment on above: Result Comment: Elec tronically Signed By: Chantel Mendes\.josiah\Date and Time Signed: 08/19/23 11:27 EDT Physician Orderon 08-09-2023 Physician Order [id number]#1.00TIFF Normal [facility] Ambulatory Visit Summaryon 0 07-29-2023 Ambulatory [...] 11:20 AM EDT With: Chantel Mendes Where: [facility] [place] Normal [facility] Family Medicine Office/Clini c Noteon 07-29-2023 [...] Daily, # 30 tab(s), Refills(s) 0, Pharmacy: [facility]/pharmacy #[id number], 173, cm, 07/29/23 14:36:00 EDT, Height/Length Dosing, 72.5, kg, 07/29/23 14:36:00 EDT, Weight Dosing methylPREDNISolone, = 1 packet(s), Oral, As Directed, as directed on package labeling, X 6 day(s), # 21 tab(s), Refills(s) 0, Pharmacy: [facility]/pharmacy #[id number], 173, cm, 07/29/23 14:36:00 EDT, Height/Length Dosing, 72.5, kg, 07/29/23 14:36:00 EDT, Weight Dosing 2. Low back pain with right-sided sciatica (M54.41: Lumbago with sciatica, right side) see above Ordered: meloxicam, 15 mg = 1 tab(s), Oral, Daily, # 30 tab(s), Refills(s) 0, Pharmacy: [facility]/pharmacy #[id number], 173, cm, 07/29/23 14:36:00 EDT, Height/Length Dosing, 72.5, kg, 07/29/23 14:36:00 EDT, Weight Dosing methylPREDNISolone, = 1 packet(s), Oral, As Directed, as directed on package labeling, X 6 day(s), # 21 tab(s), Refills(s) 0, Pharmacy: [facility]/pharmacy #[id number], 173, cm, 07/29/23 14:36:00 EDT, Height/Length Dosing, 72.5, kg, 07/29/23 14:36:00 EDT, Weight Dosing 3. BMI 24.0-24.9, adult (Z68.24: Body mass index [BMI] 24.0-24.9, adult) BMI education complete Ordered: meloxicam, 15 mg = 1 tab(s), Oral, Daily, # 30 tab(s), Refills(s) 0, Pharmacy: [facility]/pharmacy #[id number], 173, cm, 07/29/23 14:36:00 EDT, Height/Length Dosing, 72.5, kg, 07/29/23 14:36:00 EDT, Weight Dosing methylPREDNISolone, = 1 packet(s), Oral, As Directed, as directed on package labeling, X 6 day(s), # 21 tab(s), Refills(s) 0, Pharmacy: [facility]/pharmacy #[id number], 173, cm, 07/29/23 14:36:00 EDT, Height/Length Dosing, 72.5, kg, 07/29/23 14:36:00 EDT, Weight Dosing 4. Former smoker (Z87.891: Personal history of nicotine dependence) continue not smoking Ordered: meloxicam, 15 mg = 1 tab(s), Oral, Daily, # 30 tab(s), Refills(s) 0, Pharmacy: [facility]/pharmacy #[id number], 173, cm, 07/29/23 14:36:00 EDT, Height/Length Dosing, 72.5, kg, 07/29/23 14:36:00 EDT, Weight Dosing methylPREDNISolone, = 1 packet(s), Oral, As Directed, as directed on package labeling, X 6 day(s), # 21 tab(s), Refills(s) 0, Pharmacy: [facility]/pharmacy #[id number], 173, cm, 07/29/23 14:36:00 [...] meloxicam 15 (more content not included)... Normal [facility] Comment on above: Result Comment: Elec tronically Signed By: Chantel Mendes\.br\Date and Time Signed: 07/29/23 14:52 EDT [place] 05-25-2023 Screens [id number]#[id number] Normal [facility] Ambulatory Visit Summaryon 0 05-24-2023 Ambulatory [...] Following Appointments Follow Up with Georgina SILVAN, HAND FORMER-C, Winter X, FAM, URL When: In 3 months Where: Medications What How Much When Why Instructions New estradiol topical (Estrace 0.1 mg/ g Cream) See instructions Vaginal atrophy Refills: 5 apply pea sized amount on fingertip near urethral opening nightly x 3 weeks, then 3x/ week for maintanence Pickup at [facility]/pharmacy #[id number] Unchanged ascorbic acid (Vitamin C 500 [...] concerns Pharmacy Information [facility][id number]: [address] [place], [place] [phone] Allergies Contrast Dye (Unknown) chlorhexidine topical penicillins [...] these instructions at home: Medicines ? Take rdoq-dbr-soibvkl and prescription medicines only as told by [...] often. Avoi (more content not included)... Normal [facility] Patient Educationon 05-24-19 Patient Education [...] ? 8 oz (237 mL) of milk, xtckbck-xqpgjikhkmua-jovkf milk, and calcium-fortifiedfruit juice. Calcium-fortified means that [...] Spinach (cooked), rhubarb, beets, sweet potatoes, and [place]isian chard. ? Peanuts. ? Potato chips, palauan fries, and baked potatoes with skin on. ? Nuts and nut products. ? Chocolate. ? If you regularly take a diuretic medicine, make sure to eat at least 1 or 2 servings of fruits or vegetables that are high in potassium each day. These include: ? Avocado. ? Banana. ? [place], prune, carrot, or tomato juice. ? Baked [...] fish oil, or vitamin B6. ? Take mmxs-rfc-lheiijb and prescription medicines only as told by your health care provider. These include supplements. What foods sh (more content not included)... Normal [facility] Chlamydia/Gonococcus, NAAon 05-07-2023 C. trachomatis rRNA JUAN PABLO+probe Ql (Unsp spec) Negative Invalid Interpretation Code Negative [facility] Comment on above: Performed By: #### 1 [id number] #### [facility] [address] [place] [id number] N. gonorrhoeae rRNA JUAN PABLO+probe Ql (Unsp spec) Negative Invalid Interpretation Code Negative [facility] Comment on above: Result Comment: Perf ormed at: =[facility] [id number] MD Brandon Rivera Performed By: #### 1 [id number] #### [facility] [address] [place] [id number] C Urineon 05-06-2023 Bacteria identified Cx Nom (U) Microbiology PROCEDURE: Urine Culture [R1] SOURCE: U CleanCatch BODY SITE: COLLECTED DATE/TIME: 05/04/2023 11:10 EST RECEIVED DATE/TIME: 05/04/2023 22:10 EST START DATE/TIME: 05/04/2023 22:10 EST FREE TEXT SOURCE: Chantel Mendes Jodi L FINAL REPORTS Final Report [] Verified Date/Time: 05/06/2023 09:53 EST 6,000 cfu/ml Mixed skin contaminants Performing Locations R1: This test was performed at: [facility], [address] [place] [address], [id number] , [place], Normal [facility] Comment on above: Performed By: #### 1 [id number] #### [facility] [address] [place] [address] Family Medicine Office/Clini c Noteon 05-04-2023 Family [...] all questions answered. Ordered: Chlamydia/Gonococcus, JUAN PABLO [facility] Internal Ambulatory Referral Urine Culture Urine Culture Urnls Dip Stick Auto w/o Microscopy POC 84642 Urnls Dip Stick Auto w/o Microscopy POC 45515 2. Kidney stone on right side (N20.0: Calculus of kidney) reviewed KUB results. will refer to urology Ordered: [facility] Internal Ambulatory Referral 3. Hematuria (R31.9: Hematuria, unspecified) u/a + for blood Ordered: [facility] Internal Ambulatory Referral Orders: nitrofurantoin, 100 mg = 1 cap(s), Oral, BID, X 7 day(s), # 14 cap(s), Refills(s) 0, Pharmacy: [facility]/pharmacy #[id number], 174, cm, 05/04/23 10:55:00 [...] Protein Urine Dipstick: Negative (05/04/23 10:58:00) Specific [place] Urine Dipstick: 1.010 (05/04/23 10:58:00) Urine Appearance Urine Dipstick: Clear (05/04/23 10:58:00) Urine Color Urine Dipstick: Yellow (05/04/23 10 (more content not included)... Normal [facility] Comment on above: Result Comment: Elec tronically Signed By: Chantel Mendes\.br\Date and Time Signed: 05/04/23 12:35 EST RAD - MISCon 05-04-2023 RAD - MISC [id number]#[id number] [facility] C Urineon 04-17-2023 Bacteria identified Cx Nom (U) Microbiology PROCEDURE: Urine Culture [R1] SOURCE: U CleanCatch BODY SITE: COLLECTED DATE/TIME: 04/15/2023 11:56 EST RECEIVED DATE/TIME: 04/15/2023 18:35 EST START DATE/TIME: 04/15/2023 18:35 EST FREE TEXT SOURCE: Chantel Mendes Jodi L FINAL REPORTS Final Report [] Verified Date/Time: 04/17/2023 07:30 EST 1,000 cfu/ml Mixed skin contaminants Performing Locations R1: This test was performed at: [facility], [address] [place] [address], [id number]- , [place], Normal [facility] Comment on above: Performed By: #### 1 [id number] #### [facility] [address] [place] [id number] Ambulatory Visit Summaryon 1 06-16-2022 Ambulatory Visit [...] for choosing us for your care. Sendy [facility] Family Medicine Office/Clini c Noteon 04-15-2023 Family Medicine Office/Clinic Note HPI Staff Kimberly is a 47 year old female presenting to establish care Establish Care: History: Any previous diagnosis: Gerd, Anxiety, Migraines History of seeing any specialist: n/a When was your last doctors visit: Last provider: Dr Yanez Any recent labs: 10/15/22 Health Maintenance UTD: Colonoscopy: 2019 Dr mcmanus in [place], negative Mammogram: 10/2022 negative Pelvic/Pap: 10/2022 negative [...] right flank pain. just recently moved to [place] so would like to be established here [...] Urnls Dip Stick Auto w/o Microscopy POC 96038 2. Flank pain (R10.9: Unspecified abdominal pain) pt states she has been having this right sided flank pain for months. she has had x ray MRI, did PT and Pain management. she was told she had a kidney stone at one time, but isn't sure if she ever passed it. KUB ordered to be done at [facility]. No blood in u/a today. Ordered: Urine Culture 3. History of kidney stones (Z87.442: Personal history of urinary calculi) KUB and u/s with culture ordered 4. BMI 23.0-23.9, adult (Z68.23: Body mass index [BMI] 23.0-23.9, adult) BMI education complete Ordered: Urnls Dip Stick Auto w/o Microscopy POC 10106 5. Non-smoker (Z78.9: Other specified health status) continue not smoking Ordered: Urnls Dip Stick Auto w/o Microscopy POC 33203 Follow-up No qualifying data available Problem List/Past [...] vaccine, inactiv (more content not included)... Normal [facility] Comment on above: Result Comment: Elec tronically Signed By: Chantel Mendes\.br\Date and Time Signed: 04/15/23 12:41 EST Physician Orderon 04-15-2023 Physician Order [id number] Normal [facility] MA Mamm Screen w/CAD if perf [...] VERY IMPORTANT TO YOUR HEALTH. THE CURRENT [employer] [...] Ambrosio Thakur MD Transcribed by: JEFFREY Technologist: [facility] Assessment: BI-RADS Category 2-Benign finding Recommendation: Normal interval follow-up Normal [facility] Consent for Treatmenton 11-30 Consent for Treatment [id number]:127 Normal [facility] Family Medicine Office/Clini c Noteon 10-27-2022 Family Medicine Office/Clinic Note Chief Complaint Physical HPI Staff Pt is here to do physical and lab review Concerns:Cholestrol levels are elevated Refills:No PHQ9:10 MARYAM: 20 Health Maintenance: Colonoscopy: 2019- normal- [facility] Pap:2020 Last Labs:10/22/2022 History of Present Illness [...] sugars and thyroid were within normal range. OBSTETRICS SCRUB NURSE recently did hormonal blood work and an ultrasound of her uterus, and she told her that she might be getting close to menopause. She has a follow up appointment with OBSTETRICS SCRUB NURSE specialist on , 10/28/2022. She takes Metamucil [...] screening in [address] Page in [place]. Her results were normal. Review of Systems [...] for anxiety (more content not included)... Normal [facility] Comment on above: Result Comment: Elec tronically Signed By: Yasmine Dukes CNP\.josiah\Date and Time Signed: 10/27/22 17:43 EDT\.br\Electronically Co-Signed By: Chiquita Phipsp\.br\Date and Time Co-Signed: 10/26/22 14:59 EDT [facility] 10-26-2022 Forms [id number]#[id number]:127 Normal [facility] US Pelvis Non-OB Completeon 10-26-2022 US [...] Ambrosio Thakur MD Transcribed by: JEFFREY Technologist: AD Technical Comments Transabdominal Ultrasound Performed Uterus Position Anteverted Normal [facility] FSH and LHon 10-24-2022 Follitropin Qn 9.4 m[IU]/mL Invalid Interpretation Code [facility] Comment on above: Result Comment: Adul t Female: Follicular phase 3.5 - 12.5 Ovulation phase 4.7 - 21.5 Luteal phase 1.7 - 7.7 Postmenopausal 25.8 - 134.8 Performed at: [facility] [id number] PhD Pauline Minaya Performed By: #### 1 [id number] #### [facility] [address] [place] [address] Lutropin Qn 7.6 m[IU]/mL Invalid Interpretation Code [facility] Comment on above: Result Comment: Adul t Female: Follicular phase 2.4 - 12.6 Ovulation phase 14.0 - 95.6 Luteal phase 1.0 - 11.4 Postmenopausal 7.7 - 58.5 Performed By: #### 1 [id number] #### [facility] [address] [place] [address] Consent for Treatmenton 10-01 Consent for Treatment [id number]:127 Normal [facility] Physician Orderon 10-22-2022 Physician Order [id number]#[id number]:127 Normal [facility] CHEMISTRYOrdered By: Fang hendrix on 10-24-2021 [...] rate/Area] mL/min/1.73 m2 Normal >=59mL/min/ 1.73 m2 [facility] Chem S GFR/1.73 sq M.predicted among non-blacks MDRD (S/P/Bld) [Vol rate/Area] mL/min/1.73 m2 Normal >=59mL/min/ 1.73 m2 [facility] Chem S HEMATOLOGYOrdered By: SYSTEM SYSTEM on [...] 40.7 % Normal 34.0 - 46.0 % FT HemeAutoSS Hemoglobin (Bld) [Mass/Vol] 13.8 g/dL Normal [...] 7.1 E9/L Normal 4.0 - 11.0 E9/L [facility] HemeAutoSS Vital Signs Date Time Vital Sign Value Performing Clinician Facility 09-20-2023 10:56-0400 Blood Pressure Location Winter Orzech [facility] 09-20-2023 10:56-0400 Body temperature 98.06 [degF] [facility] 09-20-2023 10:56-0400 Diastolic blood pressure 72 mm[Hg] Winter Orzech [facility] 09-20-2023 10:56-0400 Heart rate 86 /min Winter Orzech [facility] 09-20-2023 10:56-0400 Respiratory rate 16 /min Winter Orzech [facility] 09-20-2023 10:56-0400 Systolic blood pressure 114 mm[Hg] Winter Orzech [facility] 05-24-2023 09:58-0500 Blood Pressure Location Winter Orzech [facility] 05-24-2023 09:58-0500 Diastolic blood pressure 73 mm[Hg] Winter Orzech [facility] 05-24-2023 09:58-0500 Heart rate 78 /min Winter Orzech [facility] 05-24-2023 09:58-0500 Respiratory rate 16 /min Winter Orzech [facility] 05-24-2023 09:58-0500 Systolic blood pressure 121 mm[Hg] Winter Orzech [facility] 10-25-2022 15:31-0400 Blood Pressure Location Yasmine Riedy [facility] 10-25-2022 15:31-0400 Diastolic blood pressure 76 mm[Hg] Yasmine Riedy [facility] 10-25-2022 15:31-0400 Heart rate 72 /min Yasmine Riedy [facility] 10-25-2022 15:31-0400 SaO2% (BldA) [Mass fraction] 100 % Yasmine Riedy [facility] 10-25-2022 15:31-0400 Systolic blood pressure 118 mm[Hg] Yasmine Riedy [facility] 08-09-2022 15:50-0400 Blood Pressure Location Yasmine Riedy [facility] 04-10-2023 15:50-0400 Diastolic blood pressure 72 mm[Hg] Yasmine Riedy [facility] 08-09-2022 15:50-0400 Heart rate 77 /min Yasmine Riedy [facility] 08-09-2022 15:50-0400 SaO2% (BldA) [Mass fraction] 99 % Yasmine Riedy [facility] 08-09-2022 15:50-0400 Systolic blood pressure 114 mm[Hg] Yasmine Riedy [facility] 04-21-2022 15:06-0500 Blood Pressure Location Dalton Gudimella [facility] 04-21-2022 15:06-0500 Body temperature 96.8 [degF] Dalton Gudimella [facility] 04-21-2022 15:06-0500 Diastolic blood pressure 74 mm[Hg] Dalton Gudimella [facility] 04-21-2022 15:06-0500 Heart rate 99 /min Dalton Gudimella [facility] 04-21-2022 15:06-0500 Respiratory rate 18 /min Dalton Gudimella [facility] 04-21-2022 15:06-0500 SaO2% (BldA) [Mass fraction] 100 % Dalton Gudimella [facility] 04-21-2022 15:06-0500 Systolic blood pressure 112 mm[Hg] Dalton Gudimella [facility] 10-23-2021 14:17-0400 Blood Pressure Location Jg Green [facility] 10-23-2021 14:17-0400 Diastolic blood pressure 62 mm[Hg] Jg Green [facility] 10-23-2021 14:17-0400 Heart rate 96 /min Jg Green [facility] 10-23-2021 14:17-0400 SaO2% (BldA) [Mass fraction] 98 % Jg Green [facility] 10-23-2021 14:17-0400 Systolic blood pressure 110 mm[Hg] gJ Green [facility] Encounters Encounter Date Encounter Type Care Provider Facility Start: 11-08-2024 End: 11-08-2024 ambulatory Nadya J Jigna Facility:[facility] Start: 11-08-2024 End: 11-08-2024 ambulatory Nadya J Jigna Facility:[facility] Start: 11-08-2024 End: 11-08-2024 ambulatory Nadya J Jigna Facility:[facility] Start: 10-18-2024 End: 10-18-2024 Lab Drop off Chantel L Zamzam [facility] Start: 10-18-2024 End: 10-18-2024 ambulatory Chantel L Zamzam Facility:[facility] Start: 05-24-2024 End: 05-24-2024 ambulatory EHAB [facility] Start: 04-24-2024 End: 04-24-2024 ambulatory Chantel L Zamzam Facility:[facility] [place] Start: 03-01-2024 ambulatory Chantel L Zamzam Facility: [facility] [place] Start: 02-16-2024 End: 02-16-2024 ambulatory [facility] L [facility] Start: 12-24-2023 End: 12-24-2023 ambulatory Nadya J Jigna Facility:[facility] Start: 12-24-2023 End: 12-24-2023 Patient encounter procedure Nadya J Jigna [facility] Start: 10-21-2023 End: 10-21-2023 ambulatory Nadya J Jigna Facility:[facility] Start: 10-21-2023 End: 10-21-2023 Lab Drop off Nadya J Jigna [facility] Start: 09-29-2023 End: 09-29-2023 Lab Drop off Chantel L Zamzam [facility] Start: 09-29-2023 End: 09-29-2023 ambulatory Chantel L Zamzam Facility:[facility] Start: 09-20-2023 End: 09-20-2023 ambulatory Winter X Orzech Facility: [place] Start: 09-20-2023 End: 09-20-2023 Patient encounter procedure [facility] Start: 08-19-2023 End: 08-19-2023 ambulatory Chantel L Zamzam Facility:[facility] Start: 07-29-2023 End: 07-29-2023 ambulatory Chantel L Zamzam Facility:[facility] [place] Start: 05-25-2023 ambulatory Chantel Zamzam Facility: [facility] [place] Start: 05-24-2023 End: 05-24-2023 ambulatory Chantel L Zamzam Facility:[facility] [place] Start: 05-24-2023 End: 05-24-2023 Patient encounter procedure Winter X Georgina [facility] Start: 05-09-2023 ambulatory Chantel Zamzam Facility:[facility] Start: 05-04-2023 End: 05-04-2023 Lab Drop off Chantel L Zamzam [facility] Start: 05-04-2023 End: 05-04-2023 ambulatory Chantel L Zamzam Facility:[facility] Start: 04-15-2023 End: 04-15-2023 Lab Drop off Chantel L Zamzam [facility] Start: 04-15-2023 End: 04-15-2023 ambulatory Chantel L Zamzam Facility:[facility] Start: 12-10-2022 End: 12-10-2022 ambulatory Nadya J Jigna Facility:[facility] Start: 12-10-2022 End: 12-10-2022 Patient encounter procedure Nadya J Jigna [facility] Start: 10-25-2022 End: 10-25-2022 ambulatory Yasmine D Riedy Facility:[facility] Start: 10-25-2022 End: 10-25-2022 Patient encounter procedure Yasmine D Elmeredy [facility] Start: 10-25-2022 End: 10-25-2022 Well adult monitoring check done Yasmine D Whitneyy [facility] Start: 10-22-2022 End: 10-22-2022 ambulatory Nadya J Jigna Facility:[facility] Start: 10-22-2022 End: 10-22-2022 Patient encounter procedure Nadya J Jigna [facility] Start: 10-18-2022 End: 10-18-2022 Lab Drop off Nadya Benito [facility] Start: 08-10-2022 End: 08-10-2022 Patient encounter procedure Yasmine Dukes [facility] Start: 08-09-2022 End: 08-09-2022 Patient encounter procedure Yasmine Olsony [facility] Start: 08-09-2022 End: 08-09-2022 Well adult monitoring check done Yasmine Dukes [facility] Start: 04-21-2022 End: 04-21-2022 Patient encounter procedure Dalton Lizy [facility] Start: 10-24-2021 End: 10-24-2021 Patient encounter procedure Jg Green [facility] Start: 10-23-2021 End: 10-23-2021 Patient encounter procedure Jg Green [facility] Start: 10-23-2021 End: 10-23-2021 Well adult monitoring check done Jg Green [facility] Start: 10-23-2021 End: 10-23-2021 Patient encounter procedure Nadyatab Benito [facility] Procedures Date Procedure Procedure Detail Performing Clinician [...] and acellular pertussis vaccine, adsorbed Jg Green [facility] NEGATED: Highlighted row has not occurred!04-21-2022 influenza virus vaccine, unspecified formulation Dalton Gudimella [facility] NEGATED: Highlighted row has not occurred!04-05-2019 influenza virus vaccine, unspecified formulation Jg Green [facility] Payers Date Payer Category Payer Private Health Insurance [facility] [id number] 2022 Unknown [id number] 1975 Unknown [id number] 2.16.8 40.1.120367.3.579.2. 1977 Unknown [id number] 2.16.8 40.1.532621.3.579.2. 1977 Unknown [id number] 2.16.8 40.1.041154.3.579.2. 1977 Unknown [id number] 2.16.8 40.1.044905.3.579.2. 1977 Unknown [id number] 2.16.8 40.1.787749.3.579.2 1977 Unknown [id number] 2.16.8 40.1.880889.3.579.2 1977 Unknown [id number] 2.16.8 40.1.527978.3.579.2 1977 Unknown [id number] 2.16.8 40.1.519450.3.579.2 1977 Unknown [id number] 2.16.8 40.1.569602.3.579.2 1977 Unknown [id number] 2.16.8 40.1.620522.3.579.2 1977 Unknown [id number] 2.16.8 40.1.427740.3.579.2 1977 Unknown [id number] 2.16.8 40.1.938148.3.579.2 1977 Unknown [id number] 2.16.8 40.1.710016.3.579.2 1977 Unknown [id number] 2.16.8 40.1.272622.3.579.2 1977 Unknown [id number] 2.16.8 40.1.720302.3.579.2 1977 Unknown [id number] 2.16.8 40.1.155158.3.579.2.727 1977 Unknown [id number] 2.16.8 40.1.260180.3.579.2.727 1977 Unknown [id number] 2.16.8 40.1.845369.3.579.2.727 1977 Unknown [id number] 2.16.8 40.1.064426.3.579.2.727 1977 Unknown [id number] 2.16.8 40.1.059985.3.579.2.727 1977 Unknown [id number] 2.16.8 40.1.282172.3.579.2.727 1977 Unknown [id number] 2.16.8 40.1.038526.3.579.2.727 1977 Unknown [id number] 2.16.8 40.1.751055.3.579.2.727 1977 Unknown [id number] 2.16.8 40.1.896020.3.579.2.727 Social History Date Type Detail Facility Start: 06-22-2021 End: 10-18-2024 Tobacco smoking status Ex-smoker (finding) [facility] Tobacco smoking status Never [facility] Sex Assigned At Female [facility] Tobacco smoking status [facility] Start: 10-25-2022 End: 04-15-2023 Tobacco smoking status Never smoked tobacco (finding) [facility] Start: 08-13-2009 Sex Female (finding) [facility] Functional Status Date Assessment Result Facility 09-20-2023 Functional Status N/A [facility] 05-24-2023 Functional Status N/A [facility] 10-25-2022 Functional Status N/A [facility] 08-09-2022 Functional Status N/A [facility] 04-21-2022 Functional Status N/A [facility] 10-23-2021 Functional Status N/A [facility] Clinical Notes 12-04-2020 to 10-18-2024 LaboratoryRadiologyRadiologyLaboratoryRadiologyLaboratoryRadiologyRadiologyRadio logy Note Date & Type Note Facility 10-18-2024 Evaluation + Plan note Diagnostic Tests PendingLipid Panel 10/18/24Glucose Fasting 10/18/24 [facility] 05-24-2024 Note [facility] Cardiology Clinic Note Chief Complaint: Establish care [...] coffee a day. 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 Family history: Her father has atrial fibrillation [...] as-needed basis Luis Enrique Nguyen MD, MPH, [facility], [facility], [facility] Interventional Cardiology Pager Email: [email or web address] 10-21-2023 Evaluation + Plan note Diagnostic Tests PendingPAP [id number] 10/21/23 [facility] 05-24-2023 Hospital Discharg e instructions Patient Education [...] Follow these instructions at home: Medicines Take pgbw-yey-pukwkon and prescription medicines only as told by [...] provider. Document Revised: 11/28/2020 Document Reviewed: 11/28/2020 Business Combined Patient Education 2022 [employer]. 05/24/2023 13:29:53 Dietary Guidelines to Help Prevent [...] include: ?8 oz (237 mL) of milk, lchygqj-heyzqidpgkjn-kwzny milk, and calcium-fortifiedfruit juice. Calcium-fortified means that [...] ?Spinach (cooked), rhubarb, beets, sweet potatoes, and [place]ian chard. ?Peanuts. ?Potato chips, palauan fries, and baked potatoes with skin on. ?Nuts and nut products. ?Chocolate. If you regularly take a diuretic medicine, make sure to eat at least 1 or 2 servings of fruits or vegetables that are high in potassium each day. These include: ?Avocado. ?Banana. ?[place], prune, carrot, or tomato juice. ?Baked potato. [...] magnesium, fish oil, or vitamin B6. Take lfab-vqc-tgqukas and prescription medicines only as told by [...] Casseroles. Pizza. Lasagna. Frozen meals. Potato chips. Greenlandic fries. The items listed above may not [...] provider. Document Revised: 07/29/2022 Document Reviewed: 07/29/2022 Business Combined Patient Education 2022 [employer]. 05/24/2023 13:29:50 Kidney Stones, Wxdk-qx-Zxil Kidney Stones Kidney stones are rock-like masses [...] Follow these instructions at home: Medicines Take ophv-akh-inmdyfq and prescription medicines only as told by [...] provider. Document Revised: 12/21/2021 Document Reviewed: 12/21/2021 Business Combined Patient Education 2022 [employer]. Follow Up Care 05/09/2023 09:53:22 With:NILES Erickson APRN, YAYA Baca, URL Address: When:Within 3 Month(s) [facility] 05-24-2023 Note Chief Complaint Referral *Kidney [...] w/ use of estrace. Rx sent to [facility] [place]. -Start estrace, pea sized amount applied area urethra nightly x 3 weeks, then 3x/week for maintenance -f/u 3 mos to reevaluated urinary/vaginal sxs. Ordered: estradiol topical, See Instructions, 42.5 gm, Refill(s) 5, apply pea sized amount on fingertip near urethral opening nightly x 3 weeks, then 3x/week for maintanence, [facility]/pharmacy #[id number], 173, cm, 05/24/23 10:00:00 EST, Height/Length Dosing, [...] to Help Prevent Kidney Stones Kidney Stones, Pazw-ck-Zmhn Problem List/Past Medical History Ongoing Acid reflux [...] congestion Panic attacks (more content not included)... [facility] Comment on above: Result Comment: Elec tronically Signed By: NILES Erickson APRN, [place] X\.br\Date and Time Signed: 05/24/23 13:30 EST 05-04-2023 Evaluation + Plan note Diagnostic Tests PendingUrine Culture 05/04/23Chlamydia/Gonococcus, JUAN PABLO 05/04/23 [facility] 04-15-2023 Evaluation + Plan note Diagnostic Tests PendingUrine Culture 04/15/23 [facility] 07-21-2022 Hospital Discharg e instructions Follow Up Care 07/21/2022 16:08:05 With:Yasmine Dukes CNP Address: When:Within 3 Month(s) Comments:physical and review labs [facility] 10-23-2021 Evaluation + Plan note Future Scheduled TestsCBC w/ Auto Diff 10/23/21Comprehensive Metabolic Panel 10/23/21Lipid Panel 10/23/21CT Abdomen/Pelvis w/ Contrast 12/04/20US Aorta 12/04/20 [facility] 12-04-2020 Evaluation + Plan note Future Scheduled TestsCT Abdomen/Pelvis w/ Contrast 12/04/20US Aorta 12/04/20 [facility] Evaluation + Plan note Future Appointments Appointment Date:10/25/2022 03:40:00 PM Scheduled Provider:Yasmine Dukes CNP Location:[facility] Appointment Type: Open Future Scheduled [id number] 08/09/22CBC w/ Auto Diff 08/09/22Comprehensive Metabolic Panel 08/09/22Lipid Panel 08/09/22XR Hip 2-3 Views Right 08/09/22XR Sacrum and Coccyx Min 2 Views 08/09/22XR Spine Lumbosacral Minimum 4 Views 08/09/22 [facility] [place] Evaluation + Plan note Future Appointments Appointment Date:10/25/2022 03:40:00 PM Scheduled Provider:Yasmine Dukes CNP Location:[facility] Appointment Type: Open Future Scheduled [id number] 08/09/22CBC w/ Auto Diff 08/09/22Comprehensive Metabolic Panel 08/09/22Lipid Panel 08/09/22 [facility] Evaluation + Plan note Future Appointments Appointment Date:10/22/2022 04:00:00 PM Scheduled Provider: [facility] Appoint[facility] Type:US Abdominal/Pelvis (FT) Appointment Date:10/25/2022 03:40:00 PM Scheduled Provider:Yasmine Dukes CNP Location:[facility] Appointment Type: Open Appointment Date:10/30/2022 10:30:00 AM Scheduled Provider: [facility] Appoint[facility] Type:MA Screen (FT) Diagnostic Tests PendingPAP [id number] 10/18/22 Future Scheduled TestsUS Pelvis Non-OB Complete 10/22/22US Transvaginal Non-OB 10/22/22MA Mamm Screen w/CAD if perf and 3D Robert 10/30/22 [facility] Evaluation + Plan note Future Appointments Appointment Date:10/25/2022 03:40:00 PM Scheduled Provider:Yasmine Dukes CNP Location:[facility] Appointment Type: Open Appointment Date:10/30/2022 10:30:00 AM Scheduled Provider: Location:.MAMMOGRAM Appointment Type:MA Screen (FT) Diagnostic Tests PendingFSH and LH 10/22/22 Future Scheduled TestsMA Mamm Screen w/CAD if perf and 3D Robert 10/30/22 [facility] Evaluation + Plan note Future Appointments Appointment Date:10/30/2022 10:30:00 AM Scheduled Provider: Location:.[facility]MO[facility] Appointment Type:MA Screen (FT) Future Scheduled TestsMA Mamm Screen w/CAD if perf and 3D Robert 10/30/22 [facility] Hospital course Narrative No data available for this section [facility] Hospital Discharge instructions No data available for this section [facility] Progress note No data available for this section [facility] Summary Purpose Family History No Family History [...] content) Personnel Name: Jg Green MD Address: [address] [place] [address] Personnel Name: Jg Green MD Address: [address] [place] [address] Personnel Name: Jg Green MD Address: [address] [place] [address] Personnel Name: Dalton Medel MD Address: Address: [address] [place] [address] Personnel Name: Dalton Medel MD Address: Address: [address] [place] [address] Personnel Name: Dalton Medel MD Address: Address: [address] [place] [address] Personnel Name: Renata Medel MD Address: Address: [address] [place] [address] Personnel Name: Renata Medel MD Address: Address: [address] [place] [address] Personnel Name: Renata Medel MD Address: Address: [address] [place] [address] Personnel Name: Renata Medel MD Address: Address: [address] [place] [address] Personnel Name: Chantel Mendes L Address: Address: [address] [place], [place] [id number]- Personnel Name: Chantel Mendes L Address: Address: [address] [place] [id number]- Personnel Name: Chantel Mendes L Address: Address: [address] [place] [address]- Personnel Name: Zamzam SOLOMONPMichelledi L Address: Address: [address] [place] [address]- Personnel Name: Zamzam SOLOMONPMichelledi L Address: Address: [address] [place] [address]- Personnel Name: Zamzam SOLOMONPChantel L Address: Address: [address] [place], [place] [id number]- Personnel Name: Zamzam SOLOMONPChantel L Address: Address: [address] [place] [address]- Personnel Name: Renata Medel MD Address: Address: [address] [place] [address] Personnel Name: Chantel Mendes Address: [address] [place] [address]- [employer]: INFORMATION SOURCE (unrecogn ized section and content) DATE CREATED AUTHOR 09/30/2023 [facility] DATE CREATED AUTHOR AUTHOR'S ORGANIZ ATION 10/22/2023 [facility] DATE CREATED AUTHOR AUTHOR'S ORGANIZ ATION 10/23/2023 [facility] DATE CREATED AUTHOR AUTHOR'S ORGANIZ ATION 05/26/2024 [facility] DATE CREATED AUTHOR AUTHOR'S ORGANIZ ATION 10/20/2024 [facility] DATE CREATED AUTHOR AUTHOR'S ORGANIZ ATION 10/22/2024 [facility] DATE CREATED AUTHOR AUTHOR'S ORGANIZ ATION 11/17/2024 [facility] DATE CREATED AUTHOR AUTHOR'S ORGANIZ ATION 11/19/2024 [facility] FOR RECORDS PERTAINING TO PATIENTS WHO [...] BE BASED ON THE PRIMARY CLINICAL RECORDS. [facility] provides no warranty or guarantee of the accuracy or completeness of information in this document.
== END 2024-11-19 10:15 | disposition home or self-care (01) ==
LOC: MAMMO 10:14
PROVIDERS: PCP Nurse Practitioner; Visit Provider Nurse Practitioner Adult Health
DX: Z12.31 Encounter for screening mammogram for malignant neoplasm of breast (principal); Z80.3 Family history of malignant neoplasm of breast
CPT/HCPCS: 77063; 77067